=== PATIENT | female | born 1975 | race Caucasian/White ===

== ENCOUNTER 2017-11-02 09:16 | Day surgery (SDC) | payer SELFPAY ==
[2017-11-02] MEDS ORDERED: KETOROLAC 30 MG/ML INJ ONE (10:02)
[2017-11-02] MEDS ORDERED: NA CHLORIDE 0.9% 1,000 ML ONE ×3 (10:02→17:19)
[2017-11-02] MEDS ORDERED: ONDANSETRON 4 MG/2 ML VIAL ONE ×3 (10:02→17:11)
[2017-11-02 10:16] LABS: Absolute Lymphocytes (CBC) 1.5 K/uL (0.7-4.9); Absolute Monocytes 0.7 K/uL (0.1-1.3); Absolute Neutrophil 13.2 K/uL (1.8-8.0); Basophils % 0.7 % (0-1.3); Eosinophils % 0.6 % (0-4.4); Hematocrit 42.1 % (36.0-45.0); Lymphocytes % 9.5 % (15.3-44.8); MCH 29.7 pg (27.0-35.0); MCV 89.8 fL (80-100); MPV 8.4 fL (7.6-11.3); Monocytes % 4.5 % (3.3-12.3); RBC Red Blood Cell Count 4.69 M/uL (3.86-4.86)
[2017-11-02 10:39] LABS: Albumin 3.9 g/dL (3.2-5.5); Bilirubin Direct 0.1 mg/dL (0-0.2); Bilirubin Total 0.6 mg/dL (0.3-1.2); Protein, Total 6.8 g/dL (6.0-8.3)
[2017-11-02 10:50] LABS: Urine Blood NEGATIVE (NEG); Urine Glucose NEGATIVE (NEG); Urine Protein NEGATIVE (NEG)
--- NOTE | 2017-11-02 10:50 | RAD REPORT ---
EXAM DESCRIPTION: Denisse Single View11/02/2017 10:20 am CLINICAL HISTORY: cough COMPARISON: none FINDINGS: The lungs appear clear of acute infiltrate. The heart is normal size IMPRESSION: No acute abnormalities displayed
[2017-11-02 11:08] LABS: Urine Bacteria <20 /HPF (<20); Urine Culture Reflex Order NOT NEEDED; Urine Mucus 2+ /HPF (NONE SEEN); Urine RBC <5 /HPF (NONE SEEN)
[2017-11-02] MEDS ORDERED: LEVALBUTEROL 1.25 MG/3 ML NEB ONE (11:20)
--- NOTE | 2017-11-02 11:53 | RAD REPORT ---
EXAM DESCRIPTION: CT - Abdomen Pelvis W Contrast - 11/02/2017 11:00 am CLINICAL HISTORY: Abdominal pain, epigastric pain, diarrhea, pain and pressure with urination COMPARISON: CT study September 2015 TECHNIQUE: Biphasic, helical CT imaging of the abdomen and pelvis was performed following 100 ml non -ionic IV contrast. Oral contrast was given. All CT scans are performed using dose optimization technique as appropriate and may include automated exposure control or mA/KV adjustment according to patient size. FINDINGS: No suspicious findings in the lung bases. No pericardial thickening or effusion. The liver, spleen, and pancreas show no suspicious findings. Gallbladder and biliary tree are also wi thout suspicious finding. Gallstones can be occult on CT imaging. No CT findings for acute gallbladde r disease. Symmetric renal function is seen with no hydronephrosis or suspicious renal mass. No pyelonephritis o r acute renal parenchymal process. Urinary bladder is contracted limiting assessment. No bladder wall thickening or enhancement. Uterus and ovaries show no suspicious findings. The tip of the appendix is dilated to 12 mm. There is a trace amount of stranding in the adjacent fat along with a punctate 2 mm appendicolith. Near the base the appendix is normal in diameter. The tip of the appendix is positioned in the midline pelvis this appearance is a change from the 2016 study. Early appendicitis is suspected. No gastric dilatation or gastric wall thickening. Large and small bowel are otherwise unremarkable. N o free air, free fluid or pneumatosis. No other area of inflammatory stranding. No hernia, mass or b ulky lymphadenopathy. No adrenal abnormality. No suspicious bony findings. Findings discussed with the referring physician 11:48 a.m. IMPRESSION: Suspected early acute appendicitis at the tip of the appendix. The tip of the appendix is positioned in the midline of the pelvis 2 cm superior to the uterus. No ab scess, free air or complicating factor. No other acute finding. No acute process identified. Gallbladder is unremarkable.
[2017-11-02] MEDS ORDERED: METRONIDAZOLE 500mg IVPB 500 MG/100 ML BAG IV ONE (12:01)
[2017-11-02] MEDS ORDERED: PIPER/TAZO/NS 3.375gm 3.375 GM/100 ML BAG ONE (12:01)
[2017-11-02] MEDS ORDERED: MORPHINE 4 MG/ML SYR ONE (12:21)
--- NOTE | 2017-11-02 13:02 | ER ---
Nurse's Notes [facility] Name: Bette Rosas Age: 42 yrs Sex: Female : 1975 Arrival Date: 11/02/2017 Time: 09:18 Bed 5 Private MD: None, None Diagnosis: Acute appendicitis;Abdominal and pelvic pain Presentation: 11/02 09:29 Presenting complaint: Patient states: was being treated for possible pneumonia by [facility], has had cough, diarrhea, nausea. Was prescribed breathing tx, abx, nausea medicine, completed medications, last night started having epigastric pain radiating to lower abd, also is having left mid back pain and pressure when she urinates, also has been vomiting this morning. Transition of care: patient was not received from another setting of care. Onset of symptoms was November 01, 2017. Risk Assessment: Do you want to hurt yourself or someone else? Patient reports no desire to harm self or others. Initial Sepsis Screen: Does the patient meet any 2 criteria? No. Patient's initial sepsis screen is negative. Does the patient have a suspected source of infection? No. Patient's initial sepsis screen is negative. Care prior to arrival: None. 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 - Social history:: Smoking status: Patient uses tobacco products, smokes one pack cigarettes per day. - Ebola Screening: : Patient negative for fever greater than or equal to 101.5 degrees Fahrenheit, and additional compatible Ebola Virus Disease symptoms Patient denies exposure to infectious person Patient denies travel to an Ebola-affected area in the 21 days before illness onset No symptoms or risks identified at this time. Screenin:07 Abuse screen: Denies threats or abuse. Denies injuries from another. Nutritional iw screening: No deficits noted. Tuberculosis screening: No symptoms or risk factors identified. Fall Risk IV access (20 points). Assessment: 09:38 General: Appears uncomfortable, Behavior is calm, cooperative. Pain: Complains of pain iw in epigastric area Pain radiates to right lower quadrant and left lower quadrant Pain currently is 8 out of 10 on a pain scale. Neuro: Level of Consciousness is awake, alert, obeys commands, Oriented to person, place, time, situation, Moves all extremities. Full function. Cardiovascular: Patient's skin is warm and dry. Respiratory: Respiratory effort is even, unlabored, Respiratory pattern is regular, symmetrical. Respiratory: Reports cough that is productive. GI: Abdomen is non-distended, obese, Bowel sounds present X 4 quads. Parent/caregiver reports the patient having diarrhea, epigastric pain, vomiting. Derm: Skin is pink, warm \T\ dry. normal. Musculoskeletal: Range of motion: intact in all extremities. 11:04 Reassessment: Patient appears in no apparent distress at this time. Patient and/or iw family updated on plan of care and expected duration. Pain level reassessed. Patient is alert, oriented x 3, equal unlabored respirations, skin warm/dry/pink. pt transported back to bed [address], via wheelchair. 13:01 Reassessment: Patient appears in no apparent distress at this time. Patient and/or iw family updated on plan of care and expected duration. Pain level reassessed. Patient is alert, oriented x 3, equal unlabored respirations, skin warm/dry/pink. pt has been consented for surgery by Dr. Jennings, Zosyn infusion flowing freely yo LAC, family at bedside Patient states feeling better. Patient states symptoms have improved. 14:15 Reassessment: Patient appears in no apparent distress at this time. Patient and/or iw family updated on plan of care and expected duration. Pain level reassessed. Patient is alert, oriented x 3, equal unlabored respirations, skin warm/dry/pink. waiting for pt to be sent to OR Patient states feeling better. Patient states symptoms have improved. 14:46 Reassessment: Patient appears in no apparent distress at this time. Patient and/or iw family updated on plan of care and expected duration. Pain level reassessed. Patient is alert, oriented x 3, equal unlabored respirations, skin warm/dry/pink. pt c/o feeling of indigestion, ERP notified, verbal order given for Protonix 40 mg IVP, given now. 14:52 Reassessment: Patient appears in no apparent distress at this time. iw Vital Signs: 09:38 BP 133 / 84; Pulse 93; Resp 18 S; Temp 98.2; Pulse Ox 98% on R/A; Weight 99.79 kg; iw Height 5 ft. 5 in. (165.10 cm); Pain 8/10; 10:30 BP 123 / 89; Pulse 64; Resp 18; Pulse Ox 100% on R/A; ag 11:30 BP 104 / 75; Pulse 64; Resp 18; Pulse Ox 100% on R/A; ag 12:32 BP 109 / 80; Pulse 78; Resp 18; Pulse Ox 96% on R/A; ag 14:15 BP 107 / 60; Pulse 67; Resp 16 S; Pulse Ox 98% on R/A; iw 09:38 Body Mass Index 36.61 (99.79 kg, 165.10 cm) iw ED Course: 09:18 Patient arrived in ED. mr 09:19 None, None is Private Physician. mr 09:29 Valerie Anne, RN is Primary Nurse. iw 09:38 Triage completed. iw 09:38 Arm band placed on. iw 09:40 Patient has correct armband on for positive identification. iw 09:47 Charlie Quigley MD is Attending Physician. kdr 10:07 Initial lab(s) drawn, by me, sent to lab. Inserted saline lock: 20 gauge in left iw antecubital area, using aseptic technique. Blood collected. 10:17 X-ray completed. Portable x-ray completed in exam room. Patient tolerated procedure jb2 well. 10:18 CXR XRAY In Process Unspecified. EDMS 10:31 Radiology exam delayed due to lab results not completed at this time. (BUN/Creatinine). sj 10:[address] via wheelchair. vm2 10:59 CT completed. Patient tolerated procedure well. Patient moved back from CT. vm2 11:00 CT Abd/Pelvis - W/Contrast In Process Unspecified. EDMS 13:01 Gavin Jennings MD is Hospitalizing Provider. kdr 15:14 No provider procedures requiring assistance completed. Patient admitted, IV remains in iw place. Administered Medications: 10:21 Drug: NS 0.9% 1000 ml Route: IV; Rate: 1 bolus; Site: left antecubital; iw 10:21 Drug: TORadol 30 mg Route: IVP; Site: left antecubital; iw 11:00 Follow up: Response: No adverse reaction iw 10:21 Drug: Zofran 4 mg Route: IVP; Site: left antecubital; iw 11:00 Follow up: Response: No adverse reaction iw 11:23 Drug: Xopenex (3) 1.25 mg Route: Inhalation; iw 12:00 Drug: Flagyl 500 mg Volume: 100 ml; Route: IVPB; Rate: 200 ml/hr; Infused Over: 30 iw mins; Site: left antecubital; 12:23 Drug: morphine 4 mg Route: IVP; Site: left antecubital; iw 13:05 Follow up: Response: No adverse reaction; Pain is decreased iw 12:24 Drug: Zofran 4 mg Route: IVP; Site: left antecubital; iw 13:06 Follow up: Response: No adverse reaction iw 12:33 Drug: Zosyn 3.375 grams Route: IVPB; Infused Over: 60 mins; Site: left antecubital; iw 13:42 Follow up: IV Status: Completed infusion iw 14:46 Drug: ProTONIX 40 mg Route: IVP; Site: left forearm; iw 15:18 Follow up: Response: No adverse reaction iw 14:51 Drug: NS 0.9% 500 ml Route: IV; Rate: bolus; Site: left forearm; iw 15:08 Drug: NS 0.9% 1000 ml Route: IV; Rate: 125 ml/hr; Site: left forearm; iw 15:17 Follow up: IV Status: Infusion continued upon admission iw Outcome: 13:01 Decision to Hospitalize by Provider. kdr 15:14 Admitted to OR accompanied by tech, via wheelchair, Report called to Denisha Marcus RN iw 15:14 Condition: good 15:14 Discharge instructions given to patient, family, Instructed on the need for admit, Demonstrated understanding of instructions. 15:15 Patient left the ED. Signatures: Dispatcher [employer] EDCharlie Macias MD MD kdr Rivera, Maria mr Buechter, Vasu Ruiz, Valerie Damon RN RN iw Tarik, Salma Hennessy, Rere [facility]
--- NOTE | 2017-11-02 13:02 | EDPHYS ---
Physician Documentation [facility] Name: Bette Rosas Age: 42 yrs Sex: Female : 1975 Arrival Date: 11/02/2017 Time: 09:18 Bed 5 Private MD: None, None ED Physician Charlie Quigley HPI: 11/02 21:41 This 42 yrs old Female presents to ER via Wheelchair with complaints of kdr Vomiting, Abdominal Pain. 21:41 The patient presents to the emergency department with nausea, that is mild, vomiting, kdr that is intermittent, abdominal pain, of the abdomen diffusely. Onset: The symptoms/episode began/occurred last night. Possible causes: unknown. The symptoms are aggravated by movement, pressure, food , The symptoms are alleviated by nothing. remaining still. Associated signs and symptoms: Pertinent positives: abdominal pain, nausea, vomiting. Severity of symptoms: At their worst the symptoms were moderate in the emergency department the symptoms are unchanged. The patient has not experienced similar symptoms in the past. The patient has been recently seen by a physician: Sent from local clinic where she was thought to have penumonia. The pain begins in her epigastric region and radiates to there bilateral groins. 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 - Social history:: Smoking status: Patient uses tobacco products, smokes one pack cigarettes per day. - Ebola Screening: : Patient negative for fever greater than or equal to 101.5 degrees Fahrenheit, and additional compatible Ebola Virus Disease symptoms Patient denies exposure to infectious person Patient denies travel to an Ebola-affected area in the 21 days before illness onset No symptoms or risks identified at this time. ROS: 21:41 Constitutional: Negative for fever, chills, and weight loss, Eyes: Negative for injury, kdr pain, redness, and discharge, ENT: Negative for injury, pain, and discharge, Neck: Negative for injury, pain, and swelling, Cardiovascular: Negative for chest pain, palpitations, and edema, Respiratory: Negative for shortness of breath, cough, wheezing, and pleuritic chest pain, Back: Negative for injury and pain, : Negative for injury, bleeding, discharge, and swelling, MS/Extremity: Negative for injury and deformity, Skin: Negative for injury, rash, and discoloration, Neuro: Negative for headache, weakness, numbness, tingling, and seizure activity. Psych: Negative for depression, anxiety, suicide ideation, homicidal ideation, and hallucinations, Allergy/Immunology: Negative for hives, rash, and allergies, Endocrine: Negative for neck swelling, polydipsia, polyuria, polyphagia, and marked weight changes, Hematologic/Lymphatic: Negative for swollen nodes, abnormal bleeding, and unusual bruising. 21:41 Abdomen/GI: Positive for abdominal pain, nausea and vomiting, Negative for vomiting, diarrhea, constipation, abdominal cramps, abdominal distension, anorexia, dysphagia, hematemesis, black/tarry stool, rectal pain, rectal bleeding, bowel incontinence. Exam: 21:41 Constitutional: This is a well developed, well nourished patient who is awake, alert, kdr and in no acute distress. Head/Face: Normocephalic, atraumatic. Eyes: Pupils equal round and reactive to light, extra-ocular motions intact. Lids and lashes normal. Conjunctiva and sclera are non-icteric and not injected. Cornea within normal limits. Periorbital areas with no swelling, redness, or edema. Neck: Trachea midline, no thyromegaly or masses palpated, and no cervical lymphadenopathy. Supple, full range of motion without nuchal rigidity, or vertebral point tenderness. No Meningismus. Chest/axilla: Normal chest wall appearance and motion. Nontender with no deformity. No lesions are appreciated. Cardiovascular: Regular rate and rhythm with a normal S1 and S2. No gallops, murmurs, or rubs. Normal PMI, no JVD. No pulse deficits. Respiratory: Lungs have equal breath sounds bilaterally, clear to auscultation and percussion. No rales, rhonchi or wheezes noted. No increased work of breathing, no retractions or nasal flaring. Back: No spinal tenderness. No costovertebral tenderness. Full range of motion. Skin: Warm, dry with normal turgor. Normal color with no rashes, no lesions, and no evidence of cellulitis. MS/ Extremity: Pulses equal, no cyanosis. Neurovascular intact. Full, normal range of motion. Neuro: Awake and alert, GCS 15, oriented to person, place, time, and situation. Cranial nerves II-XII grossly intact. Motor strength 5/5 in all extremities. Sensory grossly intact. Cerebellar exam normal. Normal gait. Psych: Awake, alert, with orientation to person, place and time. Behavior, mood, and affect are within normal limits. 21:41 Abdomen/GI: Inspection: abdomen appears normal, Bowel sounds: active, all quadrants, diminished, Palpation: soft, mild abdominal tenderness, in the right lower quadrant, left lower quadrant and abdomen diffusely, mass, is not appreciated, rebound tenderness, is not appreciated. Vital Signs: 09:38 BP 133 / 84; Pulse 93; Resp 18 S; Temp 98.2; Pulse Ox 98% on R/A; Weight 99.79 kg; iw Height 5 ft. 5 in. (165.10 cm); Pain 8/10; 10:30 BP 123 / 89; Pulse 64; Resp 18; Pulse Ox 100% on R/A; ag 11:30 BP 104 / 75; Pulse 64; Resp 18; Pulse Ox 100% on R/A; ag 12:32 BP 109 / 80; Pulse 78; Resp 18; Pulse Ox 96% on R/A; ag 14:15 BP 107 / 60; Pulse 67; Resp 16 S; Pulse Ox 98% on R/A; iw 09:38 Body Mass Index 36.61 (99.79 kg, 165.10 cm) iw MDM: 13:01 Patient medically screened. kdr 21:41 Data reviewed: vital signs, nurses notes, lab test result(s), radiologic studies. kdr Counseling: I had a detailed discussion with the patient and/or guardian regarding: the historical points, exam findings, and any diagnostic results supporting the discharge/admit diagnosis, lab results, radiology results, the need for further work-up and treatment in the hospital. 11/02 09:56 Order name: Basic Metabolic Panel; Complete Time: 11:04 kdr 11/02 09:56 Order name: CBC with Diff; Complete Time: 11:04 kdr 11/02 09:56 Order name: Creatinine for Radiology; Complete Time: 11:04 kdr 11/02 09:56 Order name: Hepatic Function; Complete Time: 11:04 kdr 11/02 09:56 Order name: Lipase; Complete Time: 11:04 kdr 11/02 09:56 Order name: Urine Microscopic Only kdr 11/02 09:56 Order name: CXR XRAY; Complete Time: 11:04 [facility] 11/02 09:56 Order name: CT Abd/Pelvis - W/Contrast kdr 11/02 10:17 Order name: Urine Dipstick--Ancillary (enter results); Complete Time: 11:04 11/02 10:17 Order name: Urine --Ancillary (enter results); Complete Time: 11:04 11/02 09:56 Order name: Urine Test (obtain specimen); Complete Time: 10:22 kdr 11/02 09:56 Order name: IV Saline Lock; Complete Time: 10:03 [facility] 11/02 09:56 Order name: Labs collected and sent; Complete Time: 10:03 [facility] 11/02 09:56 Order name: Urine Dipstick-Ancillary (obtain specimen); Complete Time: 10: [facility] 11/02 13:05 Order name: NPO; Complete Time: 13:42 EDMS Administered Medications: 10:21 Drug: NS 0.9% 1000 ml Route: IV; Rate: 1 bolus; Site: left antecubital; iw 10:21 Drug: TORadol 30 mg Route: IVP; Site: left antecubital; iw 11:00 Follow up: Response: No adverse reaction iw 10:21 Drug: Zofran 4 mg Route: IVP; Site: left antecubital; iw 11:00 Follow up: Response: No adverse reaction iw 11:23 Drug: Xopenex (3) 1.25 mg Route: Inhalation; iw 12:00 Drug: Flagyl 500 mg Volume: 100 ml; Route: IVPB; Rate: 200 ml/hr; Infused Over: 30 iw mins; Site: left antecubital; 12:23 Drug: morphine 4 mg Route: IVP; Site: left antecubital; iw 13:05 Follow up: Response: No adverse reaction; Pain is decreased iw 12:24 Drug: Zofran 4 mg Route: IVP; Site: left antecubital; iw 13:06 Follow up: Response: No adverse reaction iw 12:33 Drug: Zosyn 3.375 grams Route: IVPB; Infused Over: 60 mins; Site: left antecubital; iw 13:42 Follow up: IV Status: Completed infusion iw 14:46 Drug: ProTONIX 40 mg Route: IVP; Site: left forearm; iw 15:18 Follow up: Response: No adverse reaction iw 14:51 Drug: NS 0.9% 500 ml Route: IV; Rate: bolus; Site: left forearm; iw 15:08 Drug: NS 0.9% 1000 ml Route: IV; Rate: 125 ml/hr; Site: left forearm; iw 15:17 Follow up: IV Status: Infusion continued upon admission iw Disposition: 11/02/17 13:01 Hospitalization ordered by Gavin Jennings for Observation. Preliminary diagnosis are Acute appendicitis, Abdominal and pelvic pain. - Bed requested for Telemetry/MedSurg (observation). - Status is Observation. iw - Condition is Fair. - Problem is new. - Symptoms have improved. UTI on Admission? No Signatures: Dispatcher [employer] EDMS Nesha Seals Kevin, MD MD kdr Valerie Anne RN RN iw Corrections: (The following items were deleted from the chart) 14:57 13:01 Hospitalization Ordered by Gavin Jennings MD for Observation. Preliminary diagnosis bd is Acute appendicitis; Abdominal and pelvic pain. Bed requested for Operating Room. Status is Observation. Condition is Fair. Problem is new. Symptoms have improved. UTI on Admission? No. kdr 15:15 14:57 11/02/2017 13:01 Hospitalization Ordered by Gavin Jennings MD for Observation. iw Preliminary diagnosis is Acute appendicitis; Abdominal and pelvic pain. Bed requested for Telemetry/MedSurg (observation). Status is Observation. Condition is Fair. Problem is new. Symptoms have improved. UTI on Admission? No. bd
[2017-11-02] MEDS ORDERED: ONDANSETRON 4 MG/2 ML VIAL IV PRN (13:04)
[2017-11-02] MEDS ORDERED: ACETAMINOPHEN 500 MG TAB PO PRN (13:04)
[2017-11-02] MEDS ORDERED: MORPHINE 4 MG/ML SYR IV PRN (13:04)
[2017-11-02] MEDS ORDERED: D5 0.45 NS 1,000 ML IV SCH (14:00)
[2017-11-02] MEDS ORDERED: PANTOPRAZOLE 40 MG INJ ONE (14:44)
[2017-11-02] MEDS ORDERED: BUPIVACA 0.25%/EPI 0.0005%/PF 30 ML VIAL ONE (15:43)
[2017-11-02] MEDS ORDERED: SUCCINYLCHOLINE 20 MG/ML (10 ML) IV ONE (15:45)
[2017-11-02] MEDS ORDERED: PROPOFOL 200 MG/20 ML VIAL IV ONE (15:48)
[2017-11-02] MEDS ORDERED: FENTANYL CITR 250 MCG/5 ML ONE (15:48)
[2017-11-02] MEDS ORDERED: MIDAZOLAM HCL 2 MG/2 ML INJ ONE (15:48)
[2017-11-02] MEDS ORDERED: ROCURONIUM 50 MG/5 ML VIAL IV ONE (16:04)
[2017-11-02] MEDS ORDERED: GLYCOPYRROLATE 0.2 MG/ML SYR ONE ×2 (16:10→16:54)
--- NOTE | 2017-11-02 16:53 | HP ---
Date of Admission: 11/02/2017 Brief History Of Present Illness: The patient is a 42-year-old female, who presents with approximate ly 1-day history of periumbilical now right lower quadrant abdominal pain associated with nausea, vom iting, fever, chills, and diarrhea. She has not had similar episodes before in the past, but has had chronic intermittent diarrhea by her description over the past several weeks. She had no other aggr avating or alleviating factors. No sick contacts. No recent travel. Past Medical History: Significant for asthma and a tubal . She has a history of epilepsy, but she does not take medication for this. Past Surgical History: She has had a tubal ligation. She is uncertain, but believes she may have benitez d a D and C for her tubal . Allergies: NO KNOWN DRUG ALLERGIES. Medications: None. Social History: Denies recreational drug use. She has a history of alcohol use on a daily basis, st reet drugs including marijuana, and smokes regularly about a pack per day of cigarettes. Review of Systems: Other than HPI, she has had some intermittent fever and chills. She has had some respiratory complai nts for which she was placed on antibiotics by her primary care doctor several weeks ago. She cannot recall the medications and she has had intermittent chronic alternating diarrhea with constipation, but her current symptoms are unlike. All these prior symptoms as described. Physical Examination: General: She is awake, alert, and oriented. Psychiatric: She is appropriate, conversive. HEENT: She is normocephalic. Her sclerae are anicteric. Her mucosa is moist. Her oropharynx is cl ear. Neck: Supple without JVD. Chest: Normal expansion and excursion. Cardiovascular: Regular rate and rhythm. Pulmonary: Clear to auscultation bilaterally. Abdomen: Soft with mild right lower quadrant focal peritonitis and tenderness to palpation. Her abd omen is obese generally. Extremities: No clubbing, cyanosis, or edema. Skin: Warm and dry. Laboratory Data: Reveals a white blood count 15.6, hemoglobin 13.9 over hematocrit of 42.1, platelet count is 288, neutrophils 84.7%. Sodium 136, potassium 4.0, chloride 107, carbon dioxide 24, BUN 13 , creatinine 0.8, glucose is 114. Total bilirubin 0.6, direct component is 0.1. AST 17, ALT 20, alk phos is 65. Lipase is 18. UA was essentially negative. Urine test negative. She had a CT scan performed of the abdomen and pelvis. The official read states that the patient has suspected early acute appendicitis at the tip of the appendix. The tip of the appendix is positioned in the m idline of the pelvis 2 cm superior to the uterus. No abscess, free air, or complicating factor. No other acute findings. No acute process identified. Gallbladder is unremarkable. Assessment And Plan: This is a 42-year-old female, who presents with signs and symptoms of an early acute appendicitis. 1.IV fluid hydration. 2.Antibiotic coverage. 3.I have explained risks, benefits, and alternatives of laparoscopic, possible open appendectomy inc luding, but not limited to bleeding, infection, damage to surrounding tissue, need for further operat ing procedures. She agrees to proceed as indicated. ZARA/LATONYA Voice ID: [id number]
[2017-11-02] MEDS ORDERED: NEOSTIGMINE 1 MG/ML -5 ML SYRINGE ONE (16:54)
--- NOTE | 2017-11-02 17:01 | P.OP ---
Preoperative diagnosis: Acute Appendicitis Postoperative diagnosis: Acute Non-Perforated Appendicitis Primary procedure: Laparoscopic Appendectomy Anesthesia: GETA + Local Estimated blood loss: 75cc Specimen: vermiform appendix Findings: acute tip appendicitis, bleeding from LLQ trocar site Complications: None Transferred to: Recovery Room Condition: Good
[2017-11-02] MEDS ORDERED: ALBUTEROL 2.5 MG/3 ML NEB SOL ONE (17:16)
[2017-11-02] MEDS ORDERED: MEPERIDINE HCL 25 MG/0.5 ML ONE (17:24)
[2017-11-02] MEDS ORDERED: PROMETHAZINE 25 MG/ML VIAL ONE (17:28)
[2017-11-02] MEDS ORDERED: ALBUTEROL 2.5 MG/3 ML NEB SOL NEB ONE (17:34)
[2017-11-02] MEDS ORDERED: HYDROCODONE/APAP 5/325 MG TAB ONE (18:34)
[2017-11-02] MEDS ORDERED: CODEINE 30MG/APAP 300MG TAB ONE (18:44)
--- NOTE | 2017-11-02 21:21 | OP ---
Date of Procedure: 11/02/2017 Surgeon: Gavin Jennings MD, Preoperative Diagnosis: Acute appendicitis. Postoperative Diagnosis: Acute nonperforated appendicitis. Primary Procedure: Laparoscopic appendectomy. Anesthesia: General endotracheal plus local. Estimated Blood Loss: 75 cc. Specimen: Vermiform appendix. Findings: 1.Acute tip appendicitis. 2.Acute arterial bleeding from trocar site noted on the end of the procedure. Complications: None. Disposition: Transferred to recovery room in good condition. Procedure In Detail: After informed consent was obtained, the patient was brought to the operating r oom, prepped and draped in the usual sterile fashion. After adequate anesthesia was achieved, an inf raumbilical area was anesthetized with 0.25% Marcaine, sharply incised. A 5-mm trocar was introduced in the abdomen without evidence of complication in the infraumbilical position after insufflation wa s obtained at 15 mmHg. The area was inspected. There was no injury to vital structures upon entry i n the abdomen at this time. Additional trocar site was chosen in the suprapubic region. This was si milarly anesthetized and sharply incised. A 5-mm trocar was introduced in the abdomen without eviden ce of complication. The umbilical trocar was then up-sized to 12 mm under direct visualization witho ut evidence of complication. Left lower quadrant site was noted at this time to be optimal for troca r placement. This was similarly anesthetized and sharply incised. A 5-mm trocar was introduced in t he abdomen without evidence of complication. The patient was then positioned in a head down, right s valarie up position. Ratcheted grasper was used to grasp the patient's cecum and elevate. The appendix was brought into view. The finding was consistent with acute appendicitis emanating from the tip. T here were some intraabdominal adhesions associated with this tip. Appendicitis noted to be near the uterus. The uterus did have fibroids and some cystic changes to the ovary as well bilaterally. The cysts were quite small and appeared benign, and there was no bleeding from the fibroids of the uterus at this time. After the appendix was grasped and elevated, a mesoappendiceal window was created wit h the [place] retractor. Endo MICHELLE 35 blue load was fired across the base of the appendix with good approximation of the tissues. The appendix was then elevated and the mesoappendix was taken down usi ng a LigaSure device with good hemostasis. The appendix was then placed in EndoCatch bag and removed through the umbilical trocar. Re-insufflation was obtained at this time. The area was inspected. Proper hemostasis was achieved after the additional hemostatic maneuvers. The staple line was found to be intact and without any leakage at the end of the procedure. The area was copiously irrigated m ultiple times and suctioned dry. The abdomen was then inspected 1 last time in neutral position and the remaining fluid was suctioned out. Additional irrigation was performed at this time and a small amount of irrigation was left in place at this time. The umbilical trocar was then removed and the u mbilical trocar site was closed using a Cayden-Garcia suture passer with an 0 Vicryl interrupted fa shion. The left lower quadrant trocar was then removed under direct visualization under desufflation and noted to have arterial bleeding with a spurting arterial vessel bleeding into the abdomen. Ther e was approximately 50, 60, or 70 cc of blood loss during the bleeding from this port site, and hemos tasis was achieved by placing the Cayden Santo suture passer through passing an 0 Vicryl in interr upted fashion with good approximation. Hemostasis was achieved at that time. The blood was then suc tioned out after replacing a 5 mm trocar through the previous umbilical trocar site and the area was copiously irrigated and suctioned dry and the clot was evacuated. The 5 mm trocar was then removed a nd the umbilical trocar site was once again closed using a Cayden-Garcia suture passer with 0 Vicry l in interrupted fashion with good approximation of tissues. The abdomen was then completely desuffl ated under direct visualization without evidence of complication. All trocars were then removed at t his time. All skin incisions were copiously irrigated and closed with a 4-0 Monocryl in a running fa shion. Dermabond was placed over top. The patient tolerated the procedure well without evidence of complication and transferred to PACU in good condition. All counts were correct at the end of the ca se. TK/MODL Voice ID: [id number] Report ID: [id number]
== END 2017-11-02 19:55 | disposition home or self-care (01) ==
LOC: ER 09:16 → ERHOLD 13:03 → UNDOADMOB 13:03 → EDSTATUS 13:08 → 4TH 15:02 → ERHOLD 15:02 → UNDODISOB 19:28 → ER 19:29
PROVIDERS: ATTEND Surgery
PROC: 0DTJ4ZZ Resection of Appendix, Percutaneous Endoscopic Approach (ICD-10-PCS; principal; 2017-11-02 15:30)
DX: K35.80 Unspecified acute appendicitis (principal); J45.909 Unspecified asthma, uncomplicated; G40.909 Epilepsy, unspecified, not intractable, without status epilepticus; E66.01 Morbid (severe) obesity due to excess calories; F17.210 Nicotine dependence, cigarettes, uncomplicated; F12.90 Cannabis use, unspecified, uncomplicated
CPT/HCPCS: 36415; 71045; 74177; 80048; 80076; 81003; 81015; 81025; 83690; 85025; 88304; 94640; 99285; C9113; J0330; J2175; J2250; J2405; J2543; J2550; J2710; J7030; Q9967

== ENCOUNTER 2017-11-03 07:12 | Emergency (ER) | payer SELFPAY ==
[2017-11-03 08:19] LABS: Urine Bacteria <20 /HPF (<20); Urine Culture Reflex Order NOT NEEDED; Urine RBC <5 /HPF (NONE SEEN)
[2017-11-03 08:20] LABS: Urine Blood NEGATIVE (NEG); Urine Glucose NEGATIVE (NEG); Urine Protein NEGATIVE (NEG)
[2017-11-03 08:26] LABS: Absolute Lymphocytes (CBC) 1.9 K/uL (0.7-4.9); Absolute Monocytes 0.6 K/uL (0.1-1.3); Absolute Neutrophil 7.5 K/uL (1.8-8.0); Basophils % 0.6 % (0-1.3); Eosinophils % 0.9 % (0-4.4); Hematocrit 33.4 % (36.0-45.0); Lymphocytes % 18.4 % (15.3-44.8); MCH 30.4 pg (27.0-35.0); MCV 91.4 fL (80-100); MPV 8.4 fL (7.6-11.3); Monocytes % 6.1 % (3.3-12.3); RBC Red Blood Cell Count 3.65 M/uL (3.86-4.86)
[2017-11-03 08:39] LABS: Potassium 3.2 mEq/L (3.6-5.0)
[2017-11-03] MEDS ORDERED: NA CHLORIDE 0.9% 1,000 ML ONE (09:01)
[2017-11-03] MEDS ORDERED: ACETAMINOPHEN 325 MG TABLET ONE (09:40)
--- NOTE | 2017-11-03 11:42 | EDPHYS ---
Physician Documentation [facility] Name: Bette Rosas Age: 42 yrs Sex: Female : 1975 Arrival Date: 11/03/2017 Time: 07:16 Bed 18 Private MD: None, None ED Physician Nato Cha HPI: 11/03 11:43 This 42 yrs old Female presents to ER via Ambulatory with complaints of gs SUTURE OPENED UP FROM APPENDIX SURGERY. 11:43 Patient presents to ED for recheck of: LAP SURGERY FOR APPY. The affected area is on gs the left lower quadrant. Progress: The patient reports decreased drainage, pain. The patient has not experienced similar symptoms in the past. The patient has been recently been admitted at [facility], was discharged yesterday. 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 - Social history:: Smoking status: Patient uses tobacco products, smokes one pack cigarettes per day. - Ebola Screening: : No symptoms or risks identified at this time. ROS: 11:43 All other systems are negative. gs Exam: 11:43 Head/Face: Normocephalic, atraumatic. Eyes: Pupils equal round and reactive to light, gs extra-ocular motions intact. Lids and lashes normal. Conjunctiva and sclera are non-icteric and not injected. Cornea within normal limits. Periorbital areas with no swelling, redness, or edema. ENT: Nares patent. No nasal discharge, no septal abnormalities noted. Tympanic membranes are normal and external auditory canals are clear. Oropharynx with no redness, swelling, or masses, exudates, or evidence of obstruction, uvula midline. Mucous membranes moist. Neck: Trachea midline, no thyromegaly or masses palpated, and no cervical lymphadenopathy. Supple, full range of motion without nuchal rigidity, or vertebral point tenderness. No Meningismus. Chest/axilla: Normal chest wall appearance and motion. Nontender with no deformity. No lesions are appreciated. Cardiovascular: Regular rate and rhythm with a normal S1 and S2. No gallops, murmurs, or rubs. Normal PMI, no JVD. No pulse deficits. Respiratory: Lungs have equal breath sounds bilaterally, clear to auscultation and percussion. No rales, rhonchi or wheezes noted. No increased work of breathing, no retractions or nasal flaring. Back: No spinal tenderness. No costovertebral tenderness. Full range of motion. 11:43 Constitutional: The patient appears alert, awake, uncomfortable. 11:43 Abdomen/GI: Palpation: mild abdominal tenderness. 11:43 Skin: Appearance: ecchymosis, that are moderate, swelling, that are mild, EPIDERMOLYSIS AROUND PORT SITES. Vital Signs: 07:52 BP 118 / 68; Pulse 82; Resp 16; Temp 98.5(O); Pulse Ox 96% on R/A; Pain 9/10; em 08:45 BP 123 / 71; Pulse 75; Resp 16; Pulse Ox 98% on R/A; em 09:48 BP 119 / 71; Pulse 78; Resp 18; Pulse Ox 98% on R/A; em MDM: 07:32 Patient medically screened. gs 11:43 Data reviewed: vital signs, nurses notes. Response to treatment: the patient's symptoms gs have mildly improved after treatment. ED course: SOME RESIDUAL GAVE CHOICE WILL WAIT ON [facility]. 06 07:47 Order name: CBC with Diff; Complete Time: 08:52 11/03 07:47 Order name: Basic Metabolic Panel; Complete Time: 08:52 11/03 07:47 Order name: Urine Microscopic Only; Complete Time: 08:52 gs 11/03 07:49 Order name: Urine Dipstick--Ancillary (enter results); Complete Time: 08:52 11/03 07:49 Order name: Urine --Ancillary (enter results); Complete Time: 08:52 bd 11/03 07:47 Order name: Urine Dipstick-Ancillary (obtain specimen); Complete Time: 08:35 11/03 07:47 Order name: Misc. Order: bladder scan; Complete Time: 08:26 gs Administered Medications: 09:10 Drug: NS 0.9% 1000 ml Route: IV; Rate: 1 bolus; Site: left antecubital; em 12:36 Follow up: IV Status: Completed infusion; IV Intake: 1000ml em 09:43 Not Given (Physician Discretion): Aspen 5 mg-325 mg 1 tabs PO once em 09:43 Drug: Tylenol 650 mg Route: PO; em 12:36 Follow up: Response: No adverse reaction em Disposition: 11/03/17 11:41 Discharged to Home. Impression: Retention of urine, Postprocedural hemorrhage and hematoma of skin and subcutaneous tissue following a procedure. - Condition is Stable. - Prescriptions for Clindamycin HCl 150 mg Oral Capsule - take 1 capsule by ORAL route every 8 hours for 10 days; 15 capsule. Colace 100 mg Oral Tablet - take 1 tablet by ORAL route every 12 hours; 14 tablet. - Medication Reconciliation Form, Thank You Letter, Antibiotic Education, Prescription Opioid Use form. - Follow up: Private Physician; When: 2 - 3 days; Reason: Re-evaluation by your physician. Signatures: Dispatcher [employer] Yobany Mcmullen, Shanda Pack LVN RN RN aa5 Nato Cha MD MD gs Corrections: (The following items were deleted from the chart) 12:48 11:41 11/03/2017 11:41 Discharged to Home. Impression: Retention of urine; em Postprocedural hemorrhage and hematoma of skin and subcutaneous tissue following a procedure. Condition is Stable. Forms are Medication Reconciliation Form, Thank You Letter, Antibiotic Education, Prescription Opioid Use. Follow up: Private Physician; When: 2 - 3 days; Reason: Re-evaluation by your physician. gs
--- NOTE | 2017-11-03 11:42 | ER ---
Nurse's Notes [facility] Name: Bette Rosas Age: 42 yrs Sex: Female : 1975 Arrival Date: 11/03/2017 Time: 07:16 Bed 18 Private MD: None, None Diagnosis: Retention of urine;Postprocedural hemorrhage and hematoma of skin and subcutaneous tissue following a procedure Presentation: 11/03 07:20 Presenting complaint: Patient states: "I had an appendectomy by Dr. Jennings yesterday aa5 and I noticed this morning that one of the sutures came out from one of the incisions and it started bleeding". Pt also reports urinary frequency and painful urination since last night. Large dark purple bruising noted to entire abdomen. No active bleeding noted. 07:20 Method Of Arrival: Ambulatory aa5 07:20 Transition of care: patient was not received from another setting of care. Onset of aa5 symptoms was November 03, 2017. Risk Assessment: Do you want to hurt yourself or someone else? Patient reports no desire to harm self or others. Initial Sepsis Screen: Does the patient meet any 2 criteria? No. Patient's initial sepsis screen is negative. Does the patient have a suspected source of infection? No. Patient's initial sepsis screen is negative. Care prior to arrival: None. 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 - Social history:: Smoking status: Patient uses tobacco products, smokes one pack cigarettes per day. - Ebola Screening: : No symptoms or risks identified at this time. Screenin:10 Abuse screen: Denies threats or abuse. Nutritional screening: No deficits noted. em Tuberculosis screening: No symptoms or risk factors identified. Fall Risk None identified. Assessment: 07:35 General: Appears in no apparent distress. uncomfortable, Behavior is calm, cooperative, em appropriate for age, Reports wound from surgical site opened, large purple bruising noted to abd Denies fever, chills. Pain: Complains of pain in abdomen Pain currently is 9 out of 10 on a pain scale. Pain began 1 day ago. Neuro: Level of Consciousness is awake, alert, obeys commands, Oriented to person, place, time, situation. Cardiovascular: Capillary refill < 3 seconds Patient's skin is warm and dry. Respiratory: Airway is patent Respiratory effort is even, unlabored, Respiratory pattern is regular, symmetrical. GI: Abdomen is round obese, Bowel sounds present X 4 quads. Abdomen is tender to palpation in right upper quadrant and right lower quadrant. : Urine is clear. Derm: Bruising that is dark purple, on abdomen. Musculoskeletal: Range of motion: intact in all extremities. 07:35 Reassessment: I agree with assessment completed by Yobany Salguero LVN. 3 small incisions aa5 noted, no drainage noted at this time, pt reports suture came out from incision adjacent to umbilical area, incisions with edges well-approximated at this time. . : Reports pain with urination, urinary frequency. 08:06 Reassessment: Dr. Jennings at bedside. em 08:35 Reassessment: Patient appears in no apparent distress at this time. Patient and/or em family updated on plan of care and expected duration. Pain level reassessed. Patient is alert, oriented x 3, equal unlabored respirations, skin warm/dry/pink. 09:20 Reassessment: Patient appears in no apparent distress at this time. Patient and/or em family updated on plan of care and expected duration. Pain level reassessed. Patient is alert, oriented x 3, equal unlabored respirations, skin warm/dry/pink. c/o pain, Dr. Cha notified. 10:25 Reassessment: Patient and/or family updated on plan of care and expected duration. Pain em level reassessed. Patient is alert, oriented x 3, equal unlabored respirations, skin warm/dry/pink. resting comfortably with eyes open, tv on, lights dimmed. 10:44 Reassessment: Patient appears in no apparent distress at this time. awaiting pt to void.em 11:38 Reassessment: Patient appears in no apparent distress at this time. Patient and/or em family updated on plan of care and expected duration. Pain level reassessed. Patient is alert, oriented x 3, equal unlabored respirations, skin warm/dry/pink. Dr. Cha at bedside discussing POC Patient states feeling better. 11:50 Reassessment: Patient appears in no apparent distress at this time. pt instructed to em return to the ER if unable to void by this evening per Dr. Cha orders. 12:10 Reassessment: pt reports feeling like needing to void but unable to void, request Rush em catheter, Dr. Cha notified. Vital Signs: 07:52 BP 118 / 68; Pulse 82; Resp 16; Temp 98.5(O); Pulse Ox 96% on R/A; Pain 9/10; em 08:45 BP 123 / 71; Pulse 75; Resp 16; Pulse Ox 98% on R/A; em 09:48 BP 119 / 71; Pulse 78; Resp 18; Pulse Ox 98% on R/A; em ED Course: 07:16 Patient arrived in ED. sb2 07:16 None, None is Private Physician. sb2 07:20 Arm band placed on Patient placed in an exam room, on a stretcher. aa5 07:28 Nato Cha MD is Attending Physician. gs 07:34 Triage completed. aa5 07:35 Yobany Salguero LVN is Primary Nurse. em 08:00 Initial lab(s) drawn, by me, sent to lab. Urine collected: clean catch specimen, clear. em Inserted saline lock: 20 gauge in left antecubital area, using aseptic technique. Blood collected. 08:00 No provider procedures requiring assistance completed. em 08:28 Patient has correct armband on for positive identification. Placed in gown. Bed in low em position. Call light in reach. 09:07 Straight cath inserted, using sterile technique, 16 Fr. Specimen obtained. 600cc mh5 drained from SC. 11:14 Bladder scan completed. pre void 181 mL. em 11:16 Bladder scan completed. post void 272 mL. em 12:12 IV discontinued, intact, bleeding controlled, No redness/swelling at site. Pressure em dressing applied. 12:36 Rush cath inserted, using sterile technique, 16 Fr., by me, balloon inflated, other mh5 tolerated well emptied 600cc in rush bag . Replaced with a leg bag . returned. Administered Medications: 09:10 Drug: NS 0.9% 1000 ml Route: IV; Rate: 1 bolus; Site: left antecubital; em 12:36 Follow up: IV Status: Completed infusion; IV Intake: 1000ml em 09:43 Not Given (Physician Discretion): [place] 5 mg-325 mg 1 tabs PO once em 09:43 Drug: Tylenol 650 mg Route: PO; em 12:36 Follow up: Response: No adverse reaction em Intake: 08:30 IV: 500ml; Total: 500ml. em 12:36 IV: 1000ml; Total: 1500ml. em Outcome: 11:41 Discharge ordered by . 12:48 Discharged to home ambulatory. em 12:48 Condition: good 12:48 Discharge instructions given to patient, Instructed on discharge instructions, follow up and referral plans. medication usage, Demonstrated understanding of instructions, follow-up care, medications, Prescriptions given X 2. 12:48 Patient left the ED. em Signatures: Yobany Salguero, VILLA RISK LEAD em Shanda Camilo RN RN cha5 Tyrel, Pilar 5 Nato Cha MD MD gs Billeau, Sheri sb2 Corrections: (The following items were deleted from the chart) 08:05 07:52 BP 118 / 68; Pulse 82bpm; Resp 16bpm; Pulse Ox 96% RA; Pain 9/10; em em 14:59 07:35 GI: Abdomen is round obese, Bowel sounds present X 4 quads. Abdomen is tender to aa5 palpation in right upper quadrant and right lower quadrant Abd is rigid X 4 quads. em
--- NOTE | 2017-11-03 11:50 | P.PN ---
Subjective Date of Service: 11/03/17 Chief Complaint: abdominal incision leakage, urinary retention patient complains of redness, swelling and leakage from her inferior incision s/ p laparoscopic appendectomy, additionally she has urinary retention Physical Examination - Physical Exam General: Alert, In no apparent distress, Cooperative HEENT: Mucous membr. moist/pink Respiratory: Normal air movement Cardiovascular: No edema Gastrointestinal: Other (there is some fluid which is present at the inferior incision, there is edema to the skin of the abdomen, otherwise normal post op exam) - Studies Laboratory Data (last 24 hrs) 11/03/17 08:00: Sodium 137, Potassium 3.2 L, BUN 10, Creatinine 0.87, Glucose 112 11/03/17 08:00: WBC 10.2 D, Hgb 11.1 L D, Hct 33.4 L D, Plt Count 249 Assessment And Plan - Current Problems (Diagnosis) (1) Urinary retention with incomplete bladder emptying Current Visit: Yes Status: Acute Plan: - Patient has urinary retention after surgery yesterday - will place rush and see if she is able to void after - with respect to the abdominal exam I believe that she simply has some fluid from the significant irrigation in the OR which has moved into the subcutaneous space and is causing the edema - hemodynamically stable - post op instructions reviewed Rx for clindamycin given
== END 2017-11-03 12:48 | disposition home or self-care (01) ==
LOC: ER 07:12
DX: L76.22 Postprocedural hemorrhage of skin and subcutaneous tissue following other procedure (principal); Z98.890 Other specified postprocedural states; F17.210 Nicotine dependence, cigarettes, uncomplicated
CPT/HCPCS: 36415; 51702; 80048; 81003; 81015; 81025; 85025; 96360; 96361; 99284; J7030

== ENCOUNTER 2018-01-26 06:53 | Observation (INO) | payer OTHER, SELFPAY ==
[2018-01-26 07:52] LABS: Absolute Lymphocytes (CBC) 2.2 K/uL (0.7-4.9); Absolute Monocytes 0.5 K/uL (0.1-1.3); Basophils % 0.7 % (0-1.3); Eosinophils % 5.8 % (0-4.4); Hematocrit 39.8 % (36.0-45.0); Lymphocytes % 30.9 % (15.3-44.8); MCH 30.6 pg (27.0-35.0); MCV 88.8 fL (80-100); MPV 7.9 fL (7.6-11.3); Monocytes % 6.5 % (3.3-12.3); RBC Red Blood Cell Count 4.48 M/uL (3.86-4.86)
[2018-01-26] MEDS ORDERED: NITROGLYCERIN 1 GM PKT TD ONE (07:53)
[2018-01-26] MEDS ORDERED: ASPIRIN 81 MG CHEWABLE TABLET ONE (07:53)
[2018-01-26] MEDS ORDERED: NITROGLYCERIN 0.4 MG/TAB SL ONE (07:54)
[2018-01-26] MEDS ORDERED: LEVALBUTEROL 1.25 MG/3 ML NEB ONE (07:54)
[2018-01-26 08:14] LABS: ALT/SGPT 20 U/L (12-78); AST/SGOT 11 U/L (15-37); Albumin 3.2 g/dL (3.4-5.0); Alkaline Phosphatase 74 U/L (45-117); BUN Blood Urea Nitrogen 13 mg/dL (7-18); Bicarbonate 26 mmol/L (21-32); Bilirubin Direct < 0.1 mg/dL (0-0.2); Bilirubin Total 0.1 mg/dL (0.2-1.0); Glucose Level 96 mg/dL (74-106); Lipase 93 U/L (73-393); NT PRO-BNP 119 pg/mL (<125); Potassium 4.2 mmol/L (3.5-5.1); Protein, Total 6.3 g/dL (6.4-8.2); Sodium Level 141 mmol/L (136-145)
[2018-01-26 08:18] LABS: Protime INR 0.86
[2018-01-26] MEDS ORDERED: FAMOTIDINE 20 MG/2 ML VIAL IV ONE (09:11)
--- NOTE | 2018-01-26 09:16 | ER ---
Nurse's Notes [facility] Name: Bette Bravo Age: 42 yrs Sex: Female : 1975 Arrival Date: 01/26/2018 Time: 06:54 Bed 14 Private MD: Diagnosis: Chest Pain;Shortness of breath Presentation: 01/26 07:02 Presenting complaint: Patient states: body aches and fatigue x 3 days, chest tightness ss and L arm tingling since last night. Transition of care: patient was not received from another setting of care. Onset of symptoms was January 23, 2018. Risk Assessment: Do you want to hurt yourself or someone else? Patient reports no desire to harm self or others. Initial Sepsis Screen: Does the patient meet any 2 criteria? No. Patient's initial sepsis screen is negative. Does the patient have a suspected source of infection? No. Patient's initial sepsis screen is negative. Care prior to arrival: None. 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 - Social history:: Smoking status: Patient uses tobacco products, smokes one pack cigarettes per day. - Ebola Screening: : Patient denies exposure to infectious person Patient denies travel to an Ebola-affected area in the 21 days before illness onset. Screenin:30 Abuse screen: Denies threats or abuse. Denies injuries from another. Nutritional jl7 screening: No deficits noted. Tuberculosis screening: No symptoms or risk factors identified. Fall Risk IV access (20 points). Total Sam Fall Scale indicates No Risk (0-24 pts). Assessment: 07:30 General: Appears in no apparent distress. uncomfortable, Behavior is cooperative, jl7 appropriate for age, anxious. Pain: Complains of pain in mid-sternal area Pain radiates to left arm Pain currently is 10 out of 10 on a pain scale. Quality of pain is described as burning, tingling, numb, Pain began 2-3 days ago. Is continuous. Neuro: Level of Consciousness is awake, alert, obeys commands, Oriented to person, place, time, situation. Cardiovascular: Heart tones present Patient's skin is warm and dry. Respiratory: Airway is patent Respiratory effort is even, unlabored, Respiratory pattern is symmetrical, tachypnea Breath sounds with wheezes. GI: Abdomen is round non-distended, Bowel sounds present X 4 quads. Reports nausea, Patient currently denies diarrhea, vomiting. : No signs and/or symptoms were reported regarding the genitourinary system. EENT: No signs and/or symptoms were reported regarding the EENT system. Derm: Skin is pink, warm \T\ dry. Musculoskeletal: No signs and/or symptoms reported regarding the musculoskeletal system. 08:30 Reassessment: Patient appears in no apparent distress at this time. Patient and/or jl7 family updated on plan of care and expected duration. Pain level reassessed. Patient is alert, oriented x 3, equal unlabored respirations, skin warm/dry/pink. 09:18 Reassessment: Dr. Euceda at bedside discussing plan of care. 7 Vital Signs: 07:05 BP 136 / 93; Pulse 80; Resp 17; Temp 98.2(TE); Pulse Ox 99% on R/A; Weight 108.86 kg; Height 5 ft. 5 in. (165.10 cm); Pain 10/10; 07:50 BP 124 / 99; Pulse 72; Resp 16 S; Pulse Ox 99% on Nebulizer Mask; Pain 10/10; jl7 08:30 BP 110 / 76; Pulse 70; Resp 16; Pulse Ox 100% on 2 lpm NC; jl7 09:00 BP 110 / 71; Pulse 70; Resp 16 S; Pulse Ox 97% on R/A; jl7 10:25 BP 111 / 74; Pulse 73; Resp 16 S; Pulse Ox 99% on R/A; jl7 07:05 Body Mass Index 39.94 (108.86 kg, 165.10 cm) ED Course: 06:54 Patient arrived in ED. am2 07:04 Triage completed. 07:05 Trent Reeves MD is Attending Physician. mi 07:05 Arm band placed on right wrist. 07:29 Basia Rae RN is Primary Nurse. jl7 07:30 Patient has correct armband on for positive identification. Placed in gown. Bed in low jl7 position. Call light in reach. Side rails up X 1. site monitor on. Pulse ox on. NIBP on. Warm blanket given. 07:45 Initial lab(s) drawn, by me, sent to lab. Urine collected: clean catch specimen, clear. jl7 Inserted saline lock: 20 gauge in left antecubital area, using aseptic technique. Blood collected. 07:45 Oxygen administration via nasal cannula \T\ 2L/min. jl 07:53 XRAY CXR (1 view) In Process Unspecified. EDMS 07:53 X-ray completed. Portable x-ray completed in exam room. Patient tolerated procedure jb2 well. 09:14 Kamaljit Euceda DO is Hospitalizing Provider. wa 10:35 No provider procedures requiring assistance completed. Patient admitted, IV remains in jl7 place. intact, No redness/swelling at site. Administered Medications: 07:50 Drug: Aspirin Chewable Tablet 324 mg Route: PO; jl7 09:13 Follow up: Response: No adverse reaction jl7 07:51 Drug: Xopenex (3) 1.25 mg Route: Inhalation; jl7 08:20 Follow up: Response: No adverse reaction jl7 07:55 Drug: Nitroglycerin 0.4 mg Route: Sublingual; jl7 08:25 Follow up: Response: No adverse reaction; Pain is unchanged, physician notified jl7 09:05 Drug: Pepcid 20 mg Route: IVP; Site: left antecubital; jl7 09:19 Follow up: Response: No adverse reaction [facility] Outcome: 09:15 Decision to Hospitalize by Provider. wa 10:34 Admitted to Tele accompanied by tech, family with patient, via wheelchair, room 427, jl7 with chart, Report called to Floor nurse 10:34 Condition: stable 10:34 Discharge instructions given to patient, family, Instructed on the need for admit, Demonstrated understanding of instructions. 10:38 Patient left the ED. jl Signatures: Dispatcher [employer] EDMS Vasu Ramos jb2 Susan Ruiz RN RN Basia Rae RN RN jl7 Lucy Soares am2 Trent Reeevs MD MD wa
--- NOTE | 2018-01-26 09:16 | EDPHYS ---
Physician Documentation [facility] Name: Bette Bravo Age: 42 yrs Sex: Female : 1975 Arrival Date: 01/26/2018 Time: 06:54 Bed 14 Private MD: ED Physician Trent Reeves HPI: 01/26 07:17 This 42 yrs old Female presents to ER via Ambulatory with complaints of Chest wa Pain > 30 y/o, Numbness Of Arm. 07:17 The patient or guardian reports chest pain that is located primarily in the substernal wa area. Onset: last night. 07:20 The pain radiates to the left arm. Associated signs and symptoms: Pertinent positives: wa cough, shortness of breath, Pertinent negatives: abdominal pain, diaphoresis, lightheadedness, palpitations, vomiting. The chest pain is described as a pressure. Duration: The patient or guardian reports a single episode, that is still ongoing, and worsening. Modifying factors: The symptoms are alleviated by nothing. the symptoms are aggravated by nothing. Severity of pain: At its worst the pain was moderate in the emergency department the pain is actually worse. The patient has not experienced similar symptoms in the past. The patient has not recently seen a physician. states chest pain began last night while smoking a cigarette. has been on-going since. now radiating down L arm. 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 - Social history:: Smoking status: Patient uses tobacco products, smokes one pack cigarettes per day. - Ebola Screening: : Patient denies exposure to infectious person Patient denies travel to an Ebola-affected area in the 21 days before illness onset. ROS: 07:22 Constitutional: Negative for fever, chills, and weight loss, Eyes: Negative for injury, wa pain, redness, and discharge, ENT: Negative for injury, pain, and discharge, Neck: Negative for injury, pain, and swelling, Back: Negative for injury and pain, : Negative for injury, bleeding, discharge, and swelling, MS/Extremity: Negative for injury and deformity, Skin: Negative for injury, rash, and discoloration, Neuro: Negative for headache, weakness, numbness, tingling, and seizure, Psych: Negative for depression, anxiety, suicide ideation, homicidal ideation, and hallucinations. 07:22 Cardiovascular: Positive for chest pain, Negative for edema, orthopnea, palpitations, paroxysmal nocturnal dyspnea. 07:22 Respiratory: Positive for cough, with no reported sputum, dyspnea on exertion, shortness of breath, on exertion. wheezing, Negative for hemoptysis, orthopnea, pleurisy. 07:22 Abdomen/GI: Positive for diarrhea, chronic, Negative for abdominal pain, nausea, vomiting. 07:22 All other systems are negative. Exam: 07:23 Head/Face: Normocephalic, atraumatic. Eyes: Pupils equal round and reactive to light, wa extra-ocular motions intact. Lids and lashes normal. Conjunctiva and sclera are non-icteric and not injected. Cornea within normal limits. Periorbital areas with no swelling, redness, or edema. ENT: Nares patent. No nasal discharge, no septal abnormalities noted. Tympanic membranes are normal and external auditory canals are clear. Oropharynx with no redness, swelling, or masses, exudates, or evidence of obstruction, uvula midline. Mucous membranes moist. Neck: Trachea midline, no thyromegaly or masses palpated, and no cervical lymphadenopathy. Supple, full range of motion without nuchal rigidity, or vertebral point tenderness. No Meningismus. Chest/axilla: Normal chest wall appearance and motion. Nontender with no deformity. No lesions are appreciated. Abdomen/GI: Soft, non-tender, with normal bowel sounds. No distension or tympany. No guarding or rebound. No evidence of tenderness throughout. Back: No spinal tenderness. No costovertebral tenderness. Full range of motion. Skin: Warm, dry with normal turgor. Normal color with no rashes, no lesions, and no evidence of cellulitis. MS/ Extremity: Pulses equal, no cyanosis. Neurovascular intact. Full, normal range of motion. Neuro: Awake and alert, GCS 15, oriented to person, place, time, and situation. Cranial nerves II-XII grossly intact. Motor strength 5/5 in all extremities. Sensory grossly intact. Cerebellar exam normal. Normal gait. Psych: Awake, alert, with orientation to person, place and time. Behavior, mood, and affect are within normal limits. 07:23 Constitutional: The patient appears alert, appears dyspneic 07:23 Cardiovascular: Rate: normal, Rhythm: regular, Pulses: no pulse deficits are appreciated, Heart sounds: normal, Edema: is not appreciated, JVD: is not appreciated. 07:23 Respiratory: the patient does not display signs of respiratory distress, Respirations: labored breathing, that is mild, Breath sounds: wheezing: expiratory is heard diffusely, Respiratory rate: mild tachypnea noted Vital Signs: 07:05 BP 136 / 93; Pulse 80; Resp 17; Temp 98.2(TE); Pulse Ox 99% on R/A; Weight 108.86 kg; ss Height 5 ft. 5 in. (165.10 cm); Pain 10/10; 07:50 BP 124 / 99; Pulse 72; Resp 16 S; Pulse Ox 99% on Nebulizer Mask; Pain 10/10; jl7 08:30 BP 110 / 76; Pulse 70; Resp 16; Pulse Ox 100% on 2 lpm NC; jl7 09:00 BP 110 / 71; Pulse 70; Resp 16 S; Pulse Ox 97% on R/A; jl7 10:25 BP 111 / 74; Pulse 73; Resp 16 S; Pulse Ox 99% on R/A; jl7 07:05 Body Mass Index 39.94 (108.86 kg, 165.10 cm) ss MDM: 07:15 Patient medically screened. az 07:25 Differential diagnosis: acute myocardial infarction, acute pericarditis, coronary wa artery disease congestive heart failure pleurisy, pneumonia, pulmonary embolus, unstable angina. 07:25 Test interpretation: by ED physician or midlevel provider: EKG: HR 76. nml sinus. nml wa axis. no obvious ischemic changes. Special discussion: stat EKG. r/o ACS. PNA? PE? COPD?. 09:04 HEART Score: History: ECG: Age: Risk Factors: Troponin:. The patient was given aspirin az in the Emergency Department. Data reviewed: vital signs, nurses notes, lab test result(s), EKG, radiologic studies. 09:07 Response to treatment: the patient's symptoms have markedly improved after treatment. az Physician consultation: Kamaljit Euceda DO was called at 09:07. Admission orders: after a detailed discussion of the patient's condition and case, the admit orders are written by me. ED course: improved with ED interventions. will admit for obs and further eval by cardiology. . 01/26 07:12 Order name: BMP; Complete Time: 08:15 az 01/26 07:12 Order name: CBC with Diff; Complete Time: 08:15 az 01/26 07:12 Order name: Hepatic Function; Complete Time: 08:15 az 01/26 07:12 Order name: Lipase; Complete Time: 08:16 az 01/26 07:12 Order name: Magnesium; Complete Time: 08:16 az 01/26 07:12 Order name: NT PRO-BNP; Complete Time: 08:16 az 01/26 07:12 Order name: XRAY CXR (1 view) az 01/26 07:12 Order name: PT-INR az 01/26 07:12 Order name: Troponin (emerg Dept Use Only); Complete Time: 09: az 01/26 07:16 Order name: D-Dimer; Complete Time: 08: az 01/26 08:43 Order name: Urine Dipstick--Ancillary (enter results) [facility] 01/26 08:43 Order name: Urine --Ancillary (enter results) [facility] 01/26 07:12 Order name: Urine Test (obtain specimen); Complete Time: 08: az 01/26 07:12 Order name: EKG; Complete Time: 07:13 az 01/26 07:12 Order name: Cardiac monitoring; Complete Time: 08: az 01/26 07:12 Order name: EKG - Nurse/Tech; Complete Time: 08: az 01/26 07:12 Order name: IV Saline Lock; Complete Time: 08: az 01/26 07:12 Order name: Labs collected and sent; Complete Time: 08: az 01/26 07:12 Order name: O2 Per Protocol; Complete Time: 08: az 01/26 07:12 Order name: O2 Sat Monitoring; Complete Time: 08:00 az 01/26 07:12 Order name: Urine Dipstick-Ancillary (obtain specimen); Complete Time: 08:00 az Administered Medications: 07:50 Drug: Aspirin Chewable Tablet 324 mg Route: PO; jl7 09:13 Follow up: Response: No adverse reaction jl7 07:51 Drug: Xopenex (3) 1.25 mg Route: Inhalation; 7 08:20 Follow up: Response: No adverse reaction jl7 07:55 Drug: Nitroglycerin 0.4 mg Route: Sublingual; jl7 08:25 Follow up: Response: No adverse reaction; Pain is unchanged, physician notified jl7 09:05 Drug: Pepcid 20 mg Route: IVP; Site: left antecubital; 7 09:19 Follow up: Response: No adverse reaction jl Disposition: 01/26/18 09:15 Hospitalization ordered by Kamaljit Euceda for Observation. Preliminary diagnosis are Chest Pain, Shortness of breath. - Bed requested for Telemetry/MedSurg (observation). - Status is Observation. jl7 - Condition is Stable. - Problem is new. - Symptoms have improved. UTI on Admission? No Signatures: Dispatcher [employer] EDMS Susan Ruiz RN RN Basia Rae RN RN jl7 Trent Reeves MD MD wa Baxter, Mackenzie mb4 Corrections: (The following items were deleted from the chart) 10:19 09:15 Hospitalization Ordered by Kamaljit Euceda DO for Observation. Preliminary mb4 diagnosis is Chest Pain; Shortness of breath. Bed requested for Telemetry/MedSurg (observation). Status is Observation. Condition is Stable. Problem is new. Symptoms have improved. UTI on Admission? No. jose a 10:38 10:19 01/26/2018 09:15 Hospitalization Ordered by Kamaljit Euceda DO for Observation. jl7 Preliminary diagnosis is Chest Pain; Shortness of breath. Bed requested for Telemetry/MedSurg (observation). Status is Observation. Condition is Stable. Problem is new. Symptoms have improved. UTI on Admission? No. mb4
[2018-01-26 09:19] LABS: Urine Blood NEGATIVE (NEG); Urine Glucose NEGATIVE (NEG); Urine Protein NEGATIVE (NEG)
--- NOTE | 2018-01-26 09:29 | RAD REPORT ---
EXAM DESCRIPTION: Denisse Single View01/26/2018 7:53 am CLINICAL HISTORY: Chest pain COMPARISON: October 2017 FINDINGS: The lungs appear clear of acute infiltrate. The heart is normal size IMPRESSION: No acute abnormalities displayed
[2018-01-26] MEDS ORDERED: IPRATROPIUM BROM 0.5MG/2.5ML NEB PRN (09:31)
[2018-01-26] MEDS ORDERED: ACETAMINOPHEN 500 MG TAB PO PRN (09:31)
[2018-01-26] MEDS ORDERED: TRAMADOL HCL 50 MG TAB PO PRN (09:31)
[2018-01-26] MEDS ORDERED: ONDANSETRON 4 MG/2 ML VIAL IV PRN (09:31)
[2018-01-26] MEDS ORDERED: ALBUTEROL 2.5 MG/3 ML NEB SOL NEB PRN (09:31)
--- NOTE | 2018-01-26 09:43 | P.HP ---
Certification for Inpatient Patient admitted to: Observation With expected LOS: <2 Midnights Patient will require the following post-hospital care: None Practitioner: I am a practitioner with admitting privileges, knowledge of patient current condition, hospital course, and medical plan of care. Services: Services provided to patient in accordance with Admission requirements found in Title 42 Section 412.3 of the Code of Federal Regulations Patient History Date of Service: 01/26/18 Primary Care Provider: Rosedale Suleiman Reason for admission: Chest pain, shortness of breath History of Present Illness: 42-year-old female presented emergency room with chest pain and shortness of breath. Patient reports that she has been having chest pain and shortness of breath over the last several days. Chest pain mainly to the substernal region. She rates the pain about a 10/10. Pain comes and goes. It is associated with some shortness of breath. She also reports some pain to the left arm. Patient reports that she went to a weight loss clinic recently. She was given medication-phentermine. She started phentermine last week. She has been taking it for 4 days. She reports some diarrhea which is chronic. She also reports heartburn which she takes Nexium. Patient reports no other medical problems except tobacco abuse. She drinks alcohol on occasion. She also uses albuterol inhaler for shortness of breath from time to time. There is a family history of heart disease. Patient came to the ER for further evaluation. In the ER patient was evaluated. Initial blood pressure stable. EKG showed no significant EKG changes. Cardiac enzymes unremarkable. CBC and BMP unremarkable. Chest x-ray showed no acute changes. Patient was admitted for further evaluation. When I saw the patient ER, she appeared stable. She did not appear in any respiratory distress. Patient admits tobacco use about 1 pack per day. She is to trying to quit. She drinks alcohol on occasion. Allergies No Known Drug Allergies Allergy (Unverified 06/04/14 06:27) Unknown NKA Allergy (Uncoded 11/02/17 15:20) Unknown No Known Allergies Allergy (Uncoded 09/04/15 21:09) Unknown - Past Medical/Surgical History Diabetic: No -: GERD -: Tobacco abuse -: Obesity -: COPD -: Appendectomy Psychosocial/ Personal History: Patient is . She has 3 children. She works as a [employer]. - Family History Father -: Heart disease, Hypertension Mother -: Heart disease, Hypertension - Social History Smoking Status: Heavy Tobacco smoker (>10 cigarettes/day) Counseled patient to stop smoking for: less than 10 minutes Smoking therapy provided: Yes Patient receptive to therapy: Yes Alcohol use: Yes CD- Drugs: No Caffeine use: Yes Place of Residence: Home Review of Systems General: Weakness, Malaise, As per HPI Eyes: Unremarkable ENT: Unremarkable Respiratory: Shortness of Breath, Wheezing, As per HPI Cardiovascular: Chest Pain, As per HPI Gastrointestinal: Diarrhea, As per HPI Genitourinary: Unremarkable Musculoskeletal: Pedal edema, As per HPI Integumentary: Unremarkable Neurological: As per HPI Lymphatics: Unremarkable Physical Examination - Physical Exam General: Alert, In no apparent distress, Oriented x3, Cooperative HEENT: Atraumatic, Normocephalic, PERRLA, Mucous membr. moist/pink Neck: Supple, No Thyromegaly Respiratory: Clear to auscultation bilaterally, Normal air movement Cardiovascular: Normal pulses, Regular rate/rhythm Gastrointestinal: Normal bowel sounds, Soft and benign, Non-distended, No tenderness, No masses, No rebound, No guarding Musculoskeletal: No contractures, No erythema, No tenderness, No warmth Integumentary: No tenderness/swelling, No erythema, No warmth, No cyanosis Neurological: Normal speech, Normal strength at 5/5 x4 extr, Normal tone, Normal affect Lymphatics: No axilla or inguinal lymphadenopathy - Studies Laboratory Data (last 24 hrs) 01/26/18 07:43: PT 10.1, INR 0.86 01/26/18 07:43: WBC 7.2, Hgb 13.7, Hct 39.8, Plt Count 244 01/26/18 07:43: Sodium 141, Potassium 4.2, BUN 13, Creatinine 0.90, Glucose 96, Magnesium 2.0, Total Bilirubin 0.1 L, AST 11 L, ALT 20, Alkaline Phosphatase 74 , Lipase 93 Assessment and Plan - Problems (Diagnosis) (1) Chest pain Current Visit: Yes Status: Acute Plan: Chest pain may be related to the phentermine use. Will discontinue phentermine. Will monitor cardiac enzymes. Will check echocardiogram. Will obtain cardiac evaluation. Will keep the patient NPO as the patient may require cardiac evaluation. Patient with family history of heart disease. Qualifiers: Chest pain type: unspecified Qualified Code(s): R07.9 - Chest pain, unspecified (2) Shortness of breath Current Visit: Yes Status: Acute Plan: Shortness of breath may be related to phentermine use. Will discontinue phentermine. Patient likely has underlying COPD as she uses albuterol. Patient may require maintenance therapy for COPD at discharge. (3) COPD (chronic obstructive pulmonary disease) Current Visit: Yes Status: Suspected Plan: Will continue with albuterol as needed. Patient will likely require maintenance medication at discharge. Will recommend pulmonary function tests as an outpatient. Qualifiers: COPD type: chronic bronchitis Chronic bronchitis type: unspecified Qualified Code(s): J42 - Unspecified chronic bronchitis (4) GERD (gastroesophageal reflux disease) Current Visit: Yes Status: Chronic Plan: Will provide PPI. Qualifiers: Esophagitis presence: esophagitis presence not specified Qualified Code(s) : K21.9 - Gastro-esophageal reflux disease without esophagitis (5) Tobacco abuse Current Visit: Yes Status: Chronic Plan: Tobacco cessation addressed in detail. Patient understands this. Patient is trying to quit. (6) Obstructive sleep apnea Current Visit: Yes Status: Suspected Plan: Will recommend sleep study as an outpatient. (7) Obesity Current Visit: Yes Status: Chronic Plan: Will check BMI. Lifestyle modification education addressed in detail. Will check tsh. (8) Exposure to phentermine Current Visit: Yes Status: Acute Plan: Symptoms of chest pain and shortness of breath likely related to phentermine use. Will discontinue phentermine. Educated on medication side affects Qualifiers: Encounter type: initial encounter Qualified Code(s): T50.5X5A - Adverse effect of appetite depressants, initial encounter Discharge Plan: Home Plan to discharge in: 24 Hours - Advance Directives Does patient have a Living Will: No Does patient have a Durable POA for Healthcare: No - Code Status/Comfort Care Code Status Assessed: Yes Time Spent Managing Pts Care (In Minutes): 55
[2018-01-26] MEDS ORDERED: NA CHLORIDE 0.9% 1,000 ML IV SCH (10:00)
[2018-01-26 10:58] LABS: Thyroid Stimulating Hormone 2.75 uIU/mL (0.36-3.74)
[2018-01-26 12:48] LABS: Urine Appearance CLEAR; Urine Bilirubin NEGATIVE (NEG); Urine Blood NEGATIVE (NEG); Urine Color YELLOW; Urine Glucose NEGATIVE (NEG); Urine Protein NEGATIVE (NEG); Urine Specific Gravity 1.015 (1.005-1.030); Urine Urobilinogen 0.2 mg/dL (0.2-1.0)
[2018-01-26 12:49] LABS: Urine Microscopic Reflex NO UMIC
[2018-01-26 12:58] LABS: Barbiturates NEGATIVE (NEGATIVE); Benzodiazepines NEGATIVE (NEGATIVE); Cocaine NEGATIVE (NEGATIVE); METHAMPHETAM NEGATIVE (NEGATIVE); Methadone NEGATIVE (NEGATIVE); Opiates NEGATIVE (NEGATIVE); Phencyclidine NEGATIVE (NEGATIVE); THC Cannibis POSITIVE (NEGATIVE)
--- NOTE | 2018-01-26 14:22 | P.DS ---
Admission Date: 01/26/18 Discharge Date: 01/26/18 Primary Care Provider: Conchita Bearden Disposition: ROUTINE DISCHARGE Discharge Condition: GOOD Reason for Admission: Chest pain, shortness of breath Consultations: Cardiology-Dr. Marcum Procedures: Cardiac stress test: No stress induced ischemia noted. - Problems (1) Chest pain Current Visit: Yes Status: Acute Qualifiers: Chest pain type: unspecified Qualified Code(s): R07.9 - Chest pain, unspecified (2) Shortness of breath Current Visit: Yes Status: Acute (3) COPD (chronic obstructive pulmonary disease) Current Visit: Yes Status: Suspected Qualifiers: COPD type: chronic bronchitis Chronic bronchitis type: unspecified Qualified Code(s): J42 - Unspecified chronic bronchitis (4) GERD (gastroesophageal reflux disease) Current Visit: Yes Status: Chronic Qualifiers: Esophagitis presence: esophagitis presence not specified Qualified Code(s) : K21.9 - Gastro-esophageal reflux disease without esophagitis (5) Tobacco abuse Current Visit: Yes Status: Chronic (6) Obstructive sleep apnea Current Visit: Yes Status: Suspected (7) Obesity Current Visit: Yes Status: Chronic Qualifiers: Obesity type: due to excess calories Obesity classification: adult class 3 (BMI >= 40) Serious obesity comorbidity presence: with serious comorbidity Body mass index: BMI 40.0-44.9 Qualified Code(s): E66.01 - Morbid (severe) obesity due to excess calories; Z68.41 - Body mass index (BMI) 40.0-44.9, adult (8) Exposure to phentermine Current Visit: Yes Status: Acute Qualifiers: Encounter type: initial encounter Qualified Code(s): T50.5X5A - Adverse effect of appetite depressants, initial encounter (9) Tetrahydrocannabinol (THC) use disorder, mild, abuse Current Visit: Yes Status: Chronic Brief History of Present Illness: 42-year-old female presented emergency room with chest pain and shortness of breath. Patient reports that she has been having chest pain and shortness of breath over the last several days. Chest pain mainly to the substernal region. She rates the pain about a 10/10. Pain comes and goes. It is associated with some shortness of breath. She also reports some pain to the left arm. Patient reports that she went to a weight loss clinic recently. She was given medication-phentermine. She started phentermine last week. She has been taking it for 4 days. She reports some diarrhea which is chronic. She also reports heartburn which she takes Nexium. Patient reports no other medical problems except tobacco abuse. She drinks alcohol on occasion. She also uses albuterol inhaler for shortness of breath from time to time. There is a family history of heart disease. Patient came to the ER for further evaluation. In the ER patient was evaluated. Initial blood pressure stable. EKG showed no significant EKG changes. Cardiac enzymes unremarkable. CBC and BMP unremarkable. Chest x-ray showed no acute changes. Patient was admitted for further evaluation. When I saw the patient ER, she appeared stable. She did not appear in any respiratory distress. Patient admits tobacco use about 1 pack per day. She is to trying to quit. She drinks alcohol on occasion. Hospital Course: Patient presented with chest pain. Initial cardiac enzymes unremarkable. Patient was evaluated by cardiology. Cardiac stress test unremarkable. No further intervention required. Chest pain likely related to recent use of phentermine. Recommendation is to discontinue phentermine. At discharge will continue with aspirin 81 mg daily. Patient reports tobacco abuse. THC was also identified. Tobacco and THC cessation education will be provided. Patient likely has underlying COPD. At discharge patient will start Airduo 1 puff twice daily and pro air HFA 2 puffs 3 times a day as needed for shortness of breath. Recommendations that the patient follow up with pulmonology as an outpatient to further address. Patient may require pulmonary function test to further assess. Patient may also have underlying obstructive sleep apnea. This can be further addressed by pulmonology with a sleep study. Patient has GERD. Patient continue with Nexium 40 mg daily. Recommendations for the patient to follow up with GI as an outpatient to further assess. Patient may require EGD as an outpatient.. Education and dietary lifestyle modification education will be provided. Vital Signs/Physical Exam: Temp Pulse Resp BP Pulse Ox 97.2 F 66 18 104/55 L 97 01/26/18 12:01/26/18 12:00 01/26/18 12:00 01/26/18 12:01/26/18 12:00 General: Alert, In no apparent distress, Oriented x3, Cooperative HEENT: Atraumatic Neck: Supple Respiratory: Clear to auscultation bilaterally, Normal air movement Cardiovascular: Normal pulses, Regular rate/rhythm Gastrointestinal: Normal bowel sounds, Soft and benign, Non-distended, No tenderness, No masses, No rebound, No guarding Musculoskeletal: No erythema, No tenderness, No warmth Integumentary: No tenderness/swelling, No erythema, No warmth, No cyanosis Neurological: Normal speech, Normal strength at 5/5 x4 extr, Normal tone, Normal affect Lymphatics: No axilla or inguinal lymphadenopathy Laboratory Data at Discharge: WBC 7.2 K/uL (4.3-10.9) 01/26/18 07:43 Hgb 13.7 g/dL (12.0-15.0) 01/26/18 07:43 Hct 39.8 % (36.0-45.0) 01/26/18 07:43 Plt Count 244 K/uL (152-406) 01/26/18 07:43 PT 10.1 SECONDS (9.5-12.5) 01/26/18 07:43 INR 0.86 01/26/18 07:43 Sodium 141 mmol/L (136-145) 01/26/18 07:43 Potassium 4.2 mmol/L (3.5-5.1) 01/26/18 07:43 BUN 13 mg/dL (7-18) 01/26/18 07:43 Creatinine 0.90 mg/dL (0.55-1.3) 01/26/18 07:43 Glucose 96 mg/dL (74-106) 01/26/18 07:43 Magnesium 2.0 mg/dL (1.8-2.4) 01/26/18 07:43 Total Bilirubin 0.1 mg/dL (0.2-1.0) L 01/26/18 07:43 AST 11 U/L (15-37) L 01/26/18 07:43 ALT 20 U/L (12-78) 01/26/18 07:43 Alkaline Phosphatase 74 U/L (45-117) 01/26/18 07:43 Triglycerides 173 mg/dL (<150) H 01/26/18 10:18 Cholesterol 189 mg/dL (<200) 01/26/18 10:18 HDL Cholesterol 45 mg/dL (40-60) 01/26/18 10:18 Cholesterol/HDL Ratio 4.20 01/26/18 10:18 Lipase 93 U/L (73-393) 01/26/18 07:43 Home Medications: Albuterol Sulfate [Proair Hfa] 8.5 gm IH TID PRN #1 hfa.aer.ad 01/26/18 Aspirin [Aspirin EC 81 MG] 81 mg PO DAILY #30 tablet. 01/26/18 Esomeprazole Mag Trihydrate [Nexium] 40 mg PO DAILY #30 capsule. 01/26/18 Fluticasone/Salmeterol [Airduo Respiclick 113-14 Mcg] 1 each IH BID #1 [email or web address] 01/26/18 New Medications: Albuterol Sulfate [Proair Hfa] 8.5 gm IH TID PRN #1 hfa.aer.ad PRN Reason: Shortness Of Breath Aspirin [Aspirin EC 81 MG] 81 mg PO DAILY #30 tablet. Esomeprazole Mag Trihydrate [Nexium] 40 mg PO DAILY #30 capsule. Fluticasone/Salmeterol [Airduo Respiclick 113-14 Mcg] 1 each IH BID #1 [email or web address] Patient Discharge Instructions: 1. Patient would need to follow up with the PCP to establish care and follow up this hospitalization. 2. Patient presented with chest pain. Initial cardiac enzymes unremarkable. Patient was evaluated by cardiology. Cardiac stress test unremarkable. No further intervention required. Chest pain likely related to recent use of phentermine. Recommendation is to discontinue phentermine. At discharge will continue with aspirin 81 mg daily. 3. Patient reports tobacco abuse. THC was also identified. Tobacco and THC cessation is recommended. Education will be provided. 4. Patient reported some shortness of breath. Patient likely has underlying COPD. At discharge patient will start Airduo 1 puff twice daily and pro air HFA 2 puffs 3 times a day as needed for shortness of breath. Recommendations that the patient follow up with pulmonology as an outpatient to further address. Patient may require pulmonary function test to further assess. Patient may also have underlying obstructive sleep apnea. This can be further addressed by pulmonology with a sleep study. 5. Patient has GERD. Patient continue with Nexium 40 mg daily. Recommendations for the patient to follow up with GI as an outpatient to further assess. Patient may require EGD as an outpatient. Education and dietary lifestyle modification education will be provided. Diet: AHA Activity: Ad aleah Time spent managing pt's care (in minutes): 55
[2018-01-26 14:37] LABS: CKMB Creatine Kinase MB < 1.0 ng/mL (0.3-3.6); Creatine Phosphokinase 54 U/L (26-192)
--- NOTE | 2018-01-26 15:57 | ECHO ---
HEIGHT: 5 ft 5 in WEIGHT: 241 lb 0 oz DATE OF STUDY: 01/26/[address]: Kamaljit Euceda DO 2-DIMENSIONAL: YES M.MODE: YES DOPPLER: YES COLOR FLOW: YES TDS: NO PORTABLE: NO DEFINITY: NO BUBBLE STUDY: NO DIAGNOSIS: CHEST PAIN/ SHORTNESS OF BREATH CARDIAC HISTORY: CATHERIZATION: NO SURGERY: NO PROSTHETIC VALVE: NO PACEMAKER: NO MEASUREMENTS (cm) DIASTOLIC (NORMALS) SYSTOLIC (NORMALS) IVSd 0.9 (0.6-1.2) LA Diam 3.8 (1.9-4.0) LVEF 65% LVIDd 4.2 (3.5-5.7) LVIDs 2.7 (2.0-3.5) %FS 35% LVPWd 1.0 (0.6-1.2) Ao Diam 2.7 (2.0-3.7) 2 DIMENSIONAL ASSESSMENT: RIGHT ATRIUM: NORMAL LEFT ATRIUM: NORMAL RIGHT VENTRICLE: NORMAL LEFT VENTRICLE: NORMAL TRICUSPID VALVE: NORMAL MITRAL VALVE: NORMAL PULMONIC VALVE: NORMAL AORTIC VALVE: NORMAL PERICARDIAL EFFUSION: NONE AORTIC ROOT: NORMAL LEFT VENTRICULAR WALL MOTION: NORMAL. DOPPLER/COLOR FLOW: NORMAL. COMMENTS: NORMAL 2D ECHO WITH DOPPLER. TECHNOLOGIST: FRIDA NOEL
--- NOTE | 2018-01-26 16:01 | TREADMILL ---
70% H.R.: 125 85% H.R.: 151 90% H.R.: 160 100% H.R.: 178 DX: CHEST PAIN Date of Study: 01/26/18 Ht: 5 5 Wt: 241 lb 0 oz Consulting Physician: JAMIE MEDICATIONS: HISTORY: 42 YEAR OLD FEMALE WITH COMPLAINTS OF CHEST PAIN. PHYSICIAL EXAMINATION: RESTING B.P.: 120/81 RESTING H.R.: 90 RESTING EKG: NORMAL PROTOCOL: ELIZABETH ROUTINE EXERCISE TIME: 7:24 MAXIMUM HEART RATE: 151 85 % OF PREDICTED B.P. AT PEAK STRESS: 148/74 H.R. AT 1 MINUTE POST EXERCISE: 118 IMPRESSION: STRESS STOPPED DUE TO FATIGUE AND TARGET HEART RATE REACHED PER PROTOCOL. NO SUPRA VENTRICULAR TACHYCARDIA, NO VENTRICULAR TACHYCARDIA, NO PREMATURE VENTRICULAR COMPLEXES. DENIED CHEST PAIN. NO ST DEPRESSION WITH STRESS. NORMAL STRESS TEST.
[2018-01-26] MEDS ORDERED: ENOXAPARIN 40 MG/0.4 ML SQ SCH (17:00)
--- NOTE | 2018-01-26 17:36 | CON ---
Identification: A 42-year-old woman. Chief Complaint: Chest pain. History Of Present Illness: Mrs. Bravo was sleeping on a couch, awakened. Her left arm was numb, f ingertips tingled. She felt pain in the chest and resolved after a few hours. Since she has been in the hospital, EKGs and enzymes are normal. The patient has never had diabetes, hypertension or dysl ipidemia. No history of stroke or myocardial infarction. She is a regular tobacco user, about 10 ci garettes per day and plans to quit. She asked her family members to throw away all of her cigarettes . She is 3, para 3. No history of vascular surgeries, myocardial infarction or stroke. She reports no drug allergies. Alcohol use minimal. No illegal drugs. Physical Examination: General: She is alert, oriented, pleasant, not in distress. Vital Signs: 5 feet 5 inches and 241 pounds. Blood pressure 104/55, pulse 66, temperature 97.2, O2 saturation 97% room air. Pain level 0. Lungs: Clear. Heart: Normal. Extremities: Normal. Impression: I would recommend we do a routine stress test and echocardiogram. If those are normal, we can let her go home. KYLEIGH Voice ID: [id number] Report ID: [id number]
[2018-01-26] MEDS ORDERED: ARFORMOTEROL TARTRATE 15 MCG/2 ML VIAL.NEB NEB SCH (20:00)
[2018-01-26] MEDS ORDERED: ATORVASTATIN 40 MG TAB PO SCH (21:00)
[2018-01-27] MEDS ORDERED: PANTOPRAZOLE 40MG TABLET PO SCH (06:30)
--- NOTE | 2018-01-27 08:36 | EKG ---
Test Date: 2018-01-26 Test Time: 07:10:28 Registrar Nurs[facility]' [facility]: JOSE MEASUREMENT RESULTS: Intervals: Rate: 76 VA: 136 QRSD: 86 QT: 394 QTc: 443 [place]: P: 58 VA: 136 QRS: 60 T: 50 INTERPRETIVE STATEMENTS: Normal sinus rhythm Low voltage QRS Borderline ECG No previous ECG available for comparison Electronically Signed On 01-27-18 08:35:22 CDT by Isra Marcum
[2018-01-27] MEDS ORDERED: ASPIRIN EC 81 MG TAB PO SCH (09:00)
== END 2018-01-26 17:45 | disposition home or self-care (01) ==
LOC: ER 06:53 → ERHOLD 09:22 → 4TH 10:33
PROVIDERS: ADMIT Family Medicine; ATTEND Family Medicine
DX: R07.9 Chest pain, unspecified (principal); R06.02 Shortness of breath; K21.9 Gastro-esophageal reflux disease without esophagitis; E66.9 Obesity, unspecified; Z68.41 Body mass index [BMI] 40.0-44.9, adult; F12.10 Cannabis abuse, uncomplicated; K52.1 Toxic gastroenteritis and colitis; T50.5X5A Adverse effect of appetite depressants, initial encounter; Y92.9 Unspecified place or not applicable; F17.210 Nicotine dependence, cigarettes, uncomplicated
CPT/HCPCS: 36415; 71045; 80048; 80061; 80076; 80307; 81003; 81025; 82550; 82553; 83690; 83735; 83880; 84439; 84443; 84484; 85025; 85379; 85610; 93005; 93017; 93306; 96374; 99285; G0378; J7030

== ENCOUNTER 2018-05-02 07:29 | Emergency (ER) | payer OTHER ==
[2018-05-02 09:25] LABS: Absolute Lymphocytes (CBC) 2.1 K/uL (0.7-4.9); Absolute Monocytes 0.5 K/uL (0.1-1.3); Absolute Neutrophil 4.6 K/uL (1.8-8.0); Eosinophils % 3.6 % (0-4.4); Hematocrit 38.2 % (36.0-45.0); MCH 30.6 pg (27.0-35.0); MCV 89.3 fL (80-100); MPV 7.3 fL (7.6-11.3); Monocytes % 6.3 % (3.3-12.3); RBC Red Blood Cell Count 4.28 M/uL (3.86-4.86)
[2018-05-02] MEDS ORDERED: IPRATROPIUM BROM 0.5MG/2.5ML ONE (09:37)
[2018-05-02] MEDS ORDERED: ALBUTEROL 2.5 MG/3 ML NEB SOL ONE (09:37)
[2018-05-02] MEDS ORDERED: KETOROLAC 30 MG/ML INJ ONE (09:38)
[2018-05-02] MEDS ORDERED: ONDANSETRON 4 MG/2 ML VIAL ONE (09:38)
[2018-05-02 09:42] LABS: ALT/SGPT 23 U/L (12-78); AST/SGOT 15 U/L (15-37); Albumin 3.4 g/dL (3.4-5.0); Alkaline Phosphatase 96 U/L (45-117); BUN Blood Urea Nitrogen 18 mg/dL (7-18); Bicarbonate 24 mmol/L (21-32); Bilirubin Direct < 0.1 mg/dL (0-0.2); Bilirubin Total 0.2 mg/dL (0.2-1.0); Glucose Level 100 mg/dL (74-106); Magnesium 2.2 mg/dL (1.8-2.4); NT PRO-BNP 6 pg/mL (<125); Potassium 4.1 mmol/L (3.5-5.1); Protein, Total 6.9 g/dL (6.4-8.2); Sodium Level 142 mmol/L (136-145); Troponin (Emerg Dept Use Only) < 0.02 ng/mL (0.0-0.045)
[2018-05-02 09:46] LABS: Urine Blood NEGATIVE (NEG); Urine Glucose NEGATIVE (NEG); Urine Protein NEGATIVE (NEG); Urine pH 5.5 (5.0-7.0)
[2018-05-02 09:47] LABS: Protime INR 0.89
[2018-05-02] MEDS ORDERED: METHYLPREDNISOLONE 125 MG INJ ONE (11:19)
--- NOTE | 2018-05-02 11:45 | EKG ---
Test Date: 2018-05-02 Test Time: 09:36:37 [employer] Consultant: AG/V MEASUREMENT RESULTS: Intervals: Rate: 78 IN: 130 QRSD: 82 QT: 394 QTc: 449 [place]: P: 65 IN: 130 QRS: 72 T: 63 INTERPRETIVE STATEMENTS: Normal sinus rhythm Normal ECG Compared to ECG 01/26/2018 07:10:28 No significant changes Electronically Signed On 05-02-18 11:44:17 FELT STRIP FINISHER by Isra Marcum
--- NOTE | 2018-05-02 12:43 | ER ---
Nurse's Notes [facility] Name: Bette Bravo Age: 42 yrs Sex: Female : 1975 Arrival Date: 05/02/2018 Time: 07:32 Bed 19 Private MD: Kali Moon T Diagnosis: Wheezing;Back Pain Presentation: 05/02 07:51 Presenting complaint: Patient states: hard time breathing , pain in right side of back iw when takes a deep breath and when she coughs, denies fever, pain started yesterday, diff breathing started one month ago. Transition of care: patient was not received from another setting of care. Onset of symptoms was May 01, 2018. Risk Assessment: Do you want to hurt yourself or someone else? Patient reports no desire to harm self or others. Initial Sepsis Screen: Does the patient meet any 2 criteria? No. Patient's initial sepsis screen is negative. Does the patient have a suspected source of infection? No. Patient's initial sepsis screen is negative. Care prior to arrival: None. 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 - Social history:: Smoking status: Patient uses tobacco products, smokes one pack cigarettes per day. - Ebola Screening: : Patient negative for fever greater than or equal to 101.5 degrees Fahrenheit, and additional compatible Ebola Virus Disease symptoms Patient denies exposure to infectious person Patient denies travel to an Ebola-affected area in the 21 days before illness onset No symptoms or risks identified at this time. Screenin:10 Abuse screen: Denies threats or abuse. Denies injuries from another. Nutritional hb screening: No deficits noted. Tuberculosis screening: No symptoms or risk factors identified. Fall Risk None identified. Assessment: 09:05 General: Appears in no apparent distress. uncomfortable, Behavior is calm, cooperative. hb Pain: Pain currently is 8 out of 10 on a pain scale. Neuro: Level of Consciousness is awake, alert, obeys commands, Oriented to person, place, time, situation. Cardiovascular: Heart tones S1 S2 present Capillary refill < 3 seconds Patient's skin is warm and dry. Rhythm is regular. Respiratory: Airway is patent Trachea midline Respiratory effort is even, unlabored, Respiratory pattern is regular, symmetrical, Breath sounds are clear bilaterally. GI: No signs and/or symptoms were reported involving the gastrointestinal system. : No signs and/or symptoms were reported regarding the genitourinary system. EENT: No signs and/or symptoms were reported regarding the EENT system. Derm: Skin is intact, is healthy with good turgor, Skin is pink, warm \T\ dry. Musculoskeletal: No signs and/or symptoms reported regarding the musculoskeletal system. 10:00 Reassessment: Patient appears in no apparent distress at this time. Patient and/or hb family updated on plan of care and expected duration. Pain level reassessed. Patient is alert, oriented x 3, equal unlabored respirations, skin warm/dry/pink. 11:00 Reassessment: Patient appears in no apparent distress at this time. Patient and/or hb family updated on plan of care and expected duration. Pain level reassessed. Patient is alert, oriented x 3, equal unlabored respirations, skin warm/dry/pink. 12:00 Reassessment: Patient appears in no apparent distress at this time. Patient and/or hb family updated on plan of care and expected duration. Pain level reassessed. Patient is alert, oriented x 3, equal unlabored respirations, skin warm/dry/pink. 12:48 Reassessment: Patient appears in no apparent distress at this time. No changes from previously documented assessment. Patient and/or family updated on plan of care and expected duration. Pain level reassessed. Patient is alert, oriented x 3, equal unlabored respirations, skin warm/dry/pink. Vital Signs: 07:54 BP 112 / 68; Pulse 89; Resp 20; Temp 98.0(TE); Pulse Ox 98% on R/A; Weight 99.79 kg; iw Height 5 ft. 5 in. (165.10 cm); Pain 3/10; 09:00 BP 116 / 68; Pulse 88; Resp 16; Pulse Ox 97% on R/A; Pain 8/10; hb 10:00 BP 102 / 78; Pulse 88; Resp 17; Pulse Ox 98% on R/A; hb 11:00 BP 93 / 68; Pulse 75; Resp 18; Pulse Ox 97% on R/A; hb 12:00 BP 108 / 68; Pulse 76; Resp 17; Pulse Ox 98% on R/A; hb 07:54 Body Mass Index 36.61 (99.79 kg, 165.10 cm) iw ED Course: 07:32 Patient arrived in ED. rg4 07:32 Kali Moon MD is Private Physician. rg4 07:53 Triage completed. iw 07:54 Arm band placed on. iw 08:47 Elkin Saldana MD is Attending Physician. luigi 08:47 Elkin Whalen PA is PHCP. cp 09:00 Patient has correct armband on for positive identification. Bed in low position. hb 09:02 Violeta Ruiz, RN is Primary Nurse. hb 09:02 X-ray completed. Portable x-ray completed in exam room. Patient tolerated procedure ag1 well. 09:21 CXR XRAY In Process Unspecified. EDMS 09:28 Inserted saline lock: 22 gauge in left antecubital area, using aseptic technique. jl7 09:49 EKG done, by cell technician. reviewed by Elkin Saldana MD. at1 10:16 Pulse ox on. NIBP on. Warm blanket given. Head of bed lowered. sg 12:40 Kali Moon MD is Referral Physician. cp 12:54 No provider procedures requiring assistance completed. IV discontinued, intact, hb bleeding controlled, No redness/swelling at site. Pressure dressing applied. Administered Medications: 09:35 Drug: Albuterol - atroVENT (3:1) (2.5 mg - 0.5 mg) 3 ml Route: Nebulizer; hb 10:22 Follow up: Response: No adverse reaction hb 09:36 Drug: TORadol 30 mg Route: IVP; Site: left antecubital; hb 10:11 Follow up: Response: No adverse reaction; Pain is decreased hb 09:36 Drug: Zofran 4 mg Route: IVP; Site: left antecubital; hb 10:00 Follow up: Response: No adverse reaction hb 11:18 Drug: SOLU-Medrol 125 mg Route: IVP; Site: left antecubital; hb 11:44 Follow up: Response: No adverse reaction hb Outcome: 12:42 Discharge ordered by . cp 12:54 Discharged to home ambulatory. hb 12:54 Condition: stable 12:54 Discharge instructions given to patient, Instructed on discharge instructions, follow up and referral plans. medication usage, Demonstrated understanding of instructions, follow-up care, medications, Prescriptions given X 3. 12:57 Patient left the ED. hb Signatures: Dispatcher [employer] EDMS Frankie Traore, RN Elkin Sepulveda MD MD cha Williams, Irene RN RN Lucy Frost, nurse discharge EKG Tat1 Yohana Chu ag1 Elkin Whalen, Violeta Pitts cp, RN RN Clarita Dominguez rg4 Basia Rae RN RN jl7
--- NOTE | 2018-05-02 12:43 | EDPHYS ---
Physician Documentation [facility] Name: Bette Bravo Age: 42 yrs Sex: Female : 1975 Arrival Date: 05/02/2018 Time: 07:32 Bed 19 Private MD: Kali Moon T ED Physician Elkin Saldana HPI: 05/02 08:50 This 42 yrs old Female presents to ER via Ambulatory with complaints of cp Breathing Difficulty, Back Pain. 08:50 The patient has shortness of breath with light activity. Onset: The symptoms/episode cp began/occurred 1 month(s) ago. Duration: The symptoms are continuous, and are steadily getting worse. Associated signs and symptoms: Pertinent positives: non-productive cough, pain right mid back area, Pertinent negatives: diaphoresis, fever, hemoptysis, vomiting. Severity of symptoms: in the emergency department the symptoms are unchanged despite home interventions. CLASSROOM MONITOR: 07:54 LMP 04/18/2018 iw Historical: - Allergies: 07:54 NKA; iw - Home Meds: 07:54 Spiriva with HandiHaler 18 mcg inhalation CpDv 1 cap once daily [Active]; Ritalin Oral iw [Active]; Seroquel Oral [Active]; montelukast 10 mg oral tab 1 tab once daily [Active]; - PSHx: 07:54 Appendectomy; Tubal ligation; iw - Immunization history:: Adult Immunizations not up to date. - Social history:: Smoking status: Patient uses tobacco products, smokes one pack cigarettes per day. - Ebola Screening: : Patient negative for fever greater than or equal to 101.5 degrees Fahrenheit, and additional compatible Ebola Virus Disease symptoms Patient denies exposure to infectious person Patient denies travel to an Ebola-affected area in the 21 days before illness onset No symptoms or risks identified at this time. ROS: 09:00 Constitutional: Negative for body aches, chills, fever, poor PO intake. cp 09:00 Eyes: Negative for injury, pain, redness, and discharge. cp 09:00 ENT: Negative for drainage from ear(s), ear pain, sore throat, difficulty swallowing, difficulty handling secretions. 09:00 Cardiovascular: Negative for chest pain, edema, palpitations. 09:00 Respiratory: Positive for cough, shortness of breath, Negative for hemoptysis, wheezing. 09:00 Abdomen/GI: Negative for abdominal pain, nausea, vomiting, and diarrhea. 09:00 Back: Positive for pain at rest, pain with movement, of the right subscapular area, pain with deep inspiration, Negative for injury or acute deformity. 09:00 : Negative for urinary symptoms. 09:00 Skin: Negative for cellulitis, rash. 09:00 Neuro: Negative for dizziness, headache, weakness. 09:00 All other systems are negative. Exam: 09:10 Constitutional: The patient appears in no acute distress, alert, awake, cp non-diaphoretic, non-toxic, well developed, well nourished, uncomfortable, overweight 09:10 Head/Face: Normocephalic, atraumatic. Eyes: Pupils equal round and reactive to light, cp extra-ocular motions intact. Lids and lashes normal. Conjunctiva and sclera are non-icteric and not injected. Cornea within normal limits. Periorbital areas with no swelling, redness, or edema. ENT: Nares patent. No nasal discharge, no septal abnormalities noted. Tympanic membranes are normal and external auditory canals are clear. Oropharynx with no redness, swelling, or masses, exudates, or evidence of obstruction, uvula midline. Mucous membranes moist. Neck: Trachea midline, no thyromegaly or masses palpated, and no cervical lymphadenopathy. Supple, full range of motion without nuchal rigidity, or vertebral point tenderness. No Meningismus. Chest/axilla: Normal chest wall appearance and motion. Nontender with no deformity. No lesions are appreciated. 09:10 Cardiovascular: Rate: normal, Rhythm: regular, Heart sounds: murmur, not appreciated, Edema: is not appreciated, JVD: is not appreciated. 09:10 Respiratory: the patient does not display signs of respiratory distress, Respirations: normal, no use of accessory muscles, no retractions, no splinting, no tachypnea, labored breathing, is not present, Breath sounds: bronchial sounds, that are mild, are heard diffusely, decreased breath sounds, are not appreciated, stridor, is not appreciated, wheezing: that is mild, is heard diffusely. 09:10 Abdomen/GI: Inspection: abdomen appears normal, Bowel sounds: active, all quadrants, Palpation: abdomen is soft and non-tender, in all quadrants. 09:10 Back: pain, that is moderate, of the right subscapular area, ROM is painful, with all movement, CVA tenderness, is absent, vertebral tenderness, is not appreciated. 09:10 Musculoskeletal/extremity: Exam is negative for calf tenderness, decreased range of motion, deformity, injury. 09:10 Skin: cellulitis, is not appreciated, no rash present. 09:10 Neuro: Orientation: to person, place \T\ time. Mentation: is normal, Cerebellar function: is grossly normal, Motor: moves all fours, strength is normal, Sensation: is normal. 09:45 ECG was reviewed by the Attending Physician. cp Vital Signs: 07:54 BP 112 / 68; Pulse 89; Resp 20; Temp 98.0(TE); Pulse Ox 98% on R/A; Weight 99.79 kg; iw Height 5 ft. 5 in. (165.10 cm); Pain 3/10; 09:00 BP 116 / 68; Pulse 88; Resp 16; Pulse Ox 97% on R/A; Pain 8/10; hb 10:00 BP 102 / 78; Pulse 88; Resp 17; Pulse Ox 98% on R/A; hb 11:00 BP 93 / 68; Pulse 75; Resp 18; Pulse Ox 97% on R/A; hb 12:00 BP 108 / 68; Pulse 76; Resp 17; Pulse Ox 98% on R/A; hb 07:54 Body Mass Index 36.61 (99.79 kg, 165.10 cm) iw MDM: 08:47 Patient medically screened. luigi 09:00 Differential diagnosis: Bronchitis Chronic Obstructive Pulmonary Disease Myocardial cp Infarction pneumonia, Pneumothorax pulmonary edema, Pulmonary Embolism reactive airway disease, Unstable Angina. 12:40 Data reviewed: vital signs, nurses notes, lab test result(s), EKG, radiologic studies, cp plain films, and as a result, I will discharge patient. 12:40 Test interpretation: by ED physician or midlevel provider: ECG, plain radiologic cp studies. Counseling: I had a detailed discussion with the patient and/or guardian regarding: the historical points, exam findings, and any diagnostic results supporting the discharge/admit diagnosis, lab results, radiology results, the need for outpatient follow up, a family practitioner, to return to the emergency department if symptoms worsen or persist or if there are any questions or concerns that arise at home. 05/02 08:55 Order name: Basic Metabolic Panel; Complete Time: 09:56 cp 05/02 10:55 Interpretation: Normal except: CL 111; GFR 69; CA 8.1. cp 05/02 08:55 Order name: CBC with Diff; Complete Time: 09:28 cp 05/02 09:28 Interpretation: Normal except: MPV 7.3. cp 05/02 08:55 Order name: LFT's; Complete Time: 09:56 cp 05/02 10:55 Interpretation: Normal except: A/G 1.0. cp 05/02 08:55 Order name: Magnesium; Complete Time: 09:56 cp 05/02 08:55 Order name: NT PRO-BNP; Complete Time: 09:56 cp 05/02 08:00 Order name: CXR XRAY iw 05/02 08:55 Order name: Troponin (emerg Dept Use Only); Complete Time: 09:56 cp 05/02 08:56 Order name: D-Dimer; Complete Time: 09:56 cp 05/02 09:57 Interpretation: D-DIMER 336; Reviewed. 05/02 09:23 Order name: Urine Dipstick--Ancillary (enter results); Complete Time: 09:56 eb 05/02 09:23 Order name: Urine --Ancillary (enter results); Complete Time: 09:56 eb 05/02 09:43 Order name: Protime (+INR); Complete Time: 09:56 EDMS 05/02 08:55 Order name: EKG; Complete Time: 08:56 cp 05/02 08:55 Order name: Cardiac monitoring; Complete Time: 09:15 cp 05/02 08:55 Order name: EKG - Nurse/Tech; Complete Time: 09:15 cp 05/02 08:55 Order name: IV Saline Lock; Complete Time: 09:15 cp 05/02 08:55 Order name: Labs collected and sent; Complete Time: 09:15 cp 05/02 08:55 Order name: O2 Per Protocol; Complete Time: 09:15 cp 05/02 08:55 Order name: O2 Sat Monitoring; Complete Time: 09:15 cp 05/02 08:55 Order name: Urine Dipstick-Ancillary (obtain specimen); Complete Time: 09:20 cp 05/02 08:55 Order name: Urine Test (obtain specimen); Complete Time: 09:20 cp EC:45 Rate is 78 beats/min. Rhythm is regular. [place] interval is normal. QRS interval is normal. cp QT interval is normal. Interpreted by me. Reviewed by me. Administered Medications: 09:35 Drug: Albuterol - atroVENT (3:1) (2.5 mg - 0.5 mg) 3 ml Route: Nebulizer; hb 10:22 Follow up: Response: No adverse reaction hb 09:36 Drug: TORadol 30 mg Route: IVP; Site: left antecubital; hb 10:11 Follow up: Response: No adverse reaction; Pain is decreased hb 09:36 Drug: Zofran 4 mg Route: IVP; Site: left antecubital; hb 10:00 Follow up: Response: No adverse reaction hb 11:18 Drug: SOLU-Medrol 125 mg Route: IVP; Site: left antecubital; hb 11:44 Follow up: Response: No adverse reaction hb Disposition: 16:59 Co-signature as Attending Physician, Elkin Saldana MD I agree with the assessment and luigi plan of care. Disposition: 05/02/18 12:42 Discharged to Home. Impression: Wheezing, Back Pain. - Condition is Stable. - Discharge Instructions: Back Pain, Adult, How to Use an Inhaler, Back Exercises. - Prescriptions for prednisone 50 mg Oral tablet - take 1 tablet by ORAL route once daily for 5 days; 5 tablet. Albuterol Sulfate 90 mcg/actuation - inhale 1-2 puff by INHALATION route every 4-6 hours; 1 Inhaler. Tramadol 50 mg Oral Tablet - take 1 tablet by ORAL route every 8 hours as needed; 12 tablet. - Medication Reconciliation Form, Thank You Letter, Antibiotic Education, Prescription Opioid Use form. - Follow up: Kali Moon MD; When: 1 - 2 days; Reason: Recheck today's complaints. - Problem is new. - Symptoms have improved. Signatures: Dispatcher [employer] Elkin Barroso MD MD cha Williams, Irene, ROSALBA RN Elkin Webb PA PA cp Baxter, Heather, RN RN Corrections: (The following items were deleted from the chart) 09:39 08:55 PROTIME (+INR)+[id number].BRZ ordered. EDNY EDMS 10:55 09:56 Normal except: CL 111; GFR 69. cp cp 12:57 12:42 05/02/2018 12:42 Discharged to Home. Impression: Wheezing; Back Pain. Condition hb is Stable. Forms are Medication Reconciliation Form, Thank You Letter, Antibiotic Education, Prescription Opioid Use. Follow up: Kali Moon; When: 1 - 2 days; Reason: Recheck today's complaints. Problem is new. Symptoms have improved. cp
--- NOTE | 2018-05-02 13:46 | RAD REPORT ---
EXAM DESCRIPTION: Denisse Single View05/02/2018 9:20 am CLINICAL HISTORY: Cough COMPARISON: January 2018 FINDINGS: The lungs appear clear of acute infiltrate. The heart is normal size IMPRESSION: No acute abnormalities displayed
== END 2018-05-02 12:57 | disposition home or self-care (01) ==
LOC: ER 07:29
DX: R06.2 Wheezing (principal); M54.89 Other dorsalgia; F17.210 Nicotine dependence, cigarettes, uncomplicated
CPT/HCPCS: 36415; 71045; 80048; 80076; 81003; 81025; 83735; 83880; 84484; 85025; 85379; 85610; 93005; 94640; 96374; 96375; 99284; J2405; J2930

== ENCOUNTER 2023-02-14 13:55 | Observation (INO) | payer OTHER ==
--- OUTSIDE RECORDS SUMMARY | 2023-02-14 14:10 | XMS REPORT | Continuity of Care Document ---
:1975 Author Organization [facility] t Address [address] [facility] [address] [place] [id number] Care Team Providers Name Role Phone Melchor Fairbanks MD Primary Care Physician Melinda Harris Attending Clinician Unavailable SENIA ALVES Attending Clinician Unavailable CHRISTIANO LOBO Attending Clinician Unavailable JAN SILVA Attending Clinician Unavailable SIMIN HELTON Attending Clinician Unavailable Norberto Peña NP Attending Clinician Senia Alves MD Attending Clinician [phone] Christiano Lobo MD Attending Clinician Doctor Unassigned, [place] Attending Clinician Unavailable 2, [facility] Attending Clinician Unavailable NORBERTO PEÑA Attending Clinician Unavailable Glo Porter LMSW Attending Clinician CHIOMA PATRICIO Attending Clinician Unavailable CHIOMA PATRICIO Attending Clinician Unavailable Chioma Patricio DO Attending Clinician [facility] Attending Clinician Unavailable KAMALJIT EUCEDA Attending Clinician Unavailable Tech, Jsh Eeg Attending Clinician Unavailable SIMIN BAIN Attending Clinician Unavailable Simin Mcbride Attending Clinician JACQUELINE VALENZUELA Attending Clinician Unavailable Clementine Nino MD Attending Clinician [phone] ADRY GALVIN Attending Clinician Unavailable EZE CARRION Attending Clinician Unavailable MELCHOR FAIRBANKS Attending Clinician Unavailable MD MYRON Attending Clinician Unavailable Kamaljit Euceda DO Attending Clinician SHYAM HELTON Attending Clinician Unavailable ADELAIDA LEWIS Attending Clinician Unavailable MÓNICA MILLIGAN Attending Clinician Unavailable MARGARITA SANDOVAL Attending Clinician Unavailable Shyam Helton MD Attending Clinician LAB15 Attending Clinician Unavailable ES, TECH [address] Un[address], TECH 1 Attending Clinician Unavailable Jagdeep NAVARRETE, Patricia Barber Attending Clinician Shonna Castillo MD Attending Clinician NARA YADAV Attending Clinician Unavailable Jayson Orellana Attending Clinician Unavailable KNOW, DOES_NOT Admitting Clinician Unavailable SIMIN HELTON Admitting Clinician [facility] Admitting Clinician Unavailable CHRISTIANO LOBO Admitting Clinician Unavailable Melinda Harris Admitting Clinician Unavailable Physician, No Primary or Family Admitting Clinician UnavailNARA López Admitting Clinician Unavailable Jayson Orellana Admitting Clinician Unavailable Payers Payer Name Policy Type Policy Number Effective Date Expiration Date [facility] [id number] 2022 CHOICE 00:00:00 ALLIED BENEFIT [id number] SYSTEMS ALLIED BENEFIT [id number] SYSTEMS - BLUE [place] BENEFITS - MULTIPLAN (PPO) PHCS-ALLIED 2 [id number] 2021 BENEFITS SYS/PPO 00:00:00 ALLIED BENEFIT [id number] 2017 2020 00:00:00 00:00:00 Problems Condition Condition Condition Status Onset Resolution Last Treating Co mments Source Name Details Category Date Date Treatment Clinician Date History of History of Disease Active U nivers claustroph claustroph 4-25 it y of obia obia 00:00: [place] [facility] Vapes Vapes Disease Active Univers non-nicoti non-nicoti 3-08 it y of ne ne 00:00: [place] containing containing 00 Me dical substance substance Bran ch Essential Essential Disease Active Uni vers hypertensi hypertensi 3-02 it y of on on 00:00: [place] [facility] Short-term Short-term Disease Active U nivers memory memory 3-02 ity of loss loss 00:00: [place] [facility] Branch Lung Lung Disease Active 2021-06 Univers nodules nodules 2-27 ity of 00:00: [place] [facility] Other Other Disease Active 2021-06 Univers emphysema emphysema 2-27 ity of 00:00: [place] [facility] Branch Bipolar 1 Bipolar 1 Disease Active 2021-06 Uni vers disorder, disorder, 2-27 ity of depressed[place] Medical Branch Other Other Disease Active 2021-06 Univers schizophre schizophre 2-27 it y of kaylin kaylin 00:00: [place] [facility] Anxiety, Anxiety, Disease Active 2021-06 Unive rs generalize generalize 2-27 it y of d d 00:00: [place] [facility] 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 2-27 ity of depression depression [place] [facility] [place] Nausea and Nausea and Disease Active 2021-06 U nivers vomiting vomiting 2-27 ity of in adult in adult 00:00: [place] [facility] GERD GERD Disease Active 2021-06 Univers without without 2-27 ity of esophagiti esophagiti [place] [facility] [place] 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 2-27 it y of emia emia 00:00: [place] [facility] Irritable Irritable Disease Active 2021-06 Uni vers bowel bowel 2-27 ity of syndrome syndrome 00:00: [place] with with 00 Medical diarrhea diarrhea Branch Urinary Urinary Disease Active 2021-06 Univers frequency frequency 2-27 ity of 00:00: [place] 00 Medical Branch Urge Urge Disease Active 2021-06 Univers incontinen incontinen 2-27 it y of ce of ce of 00:00: [place] urine urine 00 Medical Branch Nicotine Nicotine Disease Active 2021-06 Unive rs dependence dependence 2-27 it y of with with 00:00: [place] current current 00 Medical use use Branch Suicidal Suicidal Disease Active 2021-06 Unive rs ideation ideation 2-27 ity of 00:00: [place] 00 Medical Branch Nonintract Nonintract Disease Active 2021-06 U nivers able able 2-27 ity of chronic chronic 00:00: [place] migraine migraine 00 Medica l Branch Bipolar Bipolar Disease Active Joy disorder, disorder, 6-07 Seyb old current current 00:00: episode episode 00 mixed, mixed, mild mild Chronic Chronic Disease Active Joy obstructiv obstructiv 6-07 Se ybold e e 00:00: pulmonary pulmonary 00 disease disease with acute with acute exacerbati exacerbati on on PTSD PTSD Disease Active Joy (post-trau (post-trau 6-07 Se ybold matic matic 00:00: stress stress 00 disorder) disorder) Gastroesop Gastroesop Disease Active K elsey hageal hageal 6-07 [place] reflux reflux 00:00: disease disease 00 without without esophagiti esophagiti s s Mixed Mixed Disease Active Joy hyperlipid hyperlipid 8-31 Se ybold emia emia 00:00: 00 Moderate Moderate Disease Active Kelse y persistent persistent 5-20 Se ybold asthma asthma 00:00: with acute with acute 00 exacerbati exacerbati on on Anxiety Anxiety Disease Active Joy 5-20 Seybold 00:00: 00 Other Other Disease Active Joy insomnia insomnia 5-20 Seybol d 00:00: 00 Nausea Nausea Disease Active Joy 5-20 Seybold 00:00: 00 Migraine Migraine Disease Active Delmarse y with aura with aura 5-20 Seyb old and and 00:00: without without 00 status status migrainosu migrainosu s, not s, not intractabl intractabl e e History of History of Disease Active K elsey seizure seizure 5-20 Seybold 00:00: 00 Asthma Asthma Disease Active Univers exacerbati exacerbati 3-12 it y of on on 00:00: [place] 00 Medical Branch Obesity Obesity Disease Active Univers (BMI (BMI 3-12 ity of 30-39.9) 30-39.9) 00:00: [place] [address] Medical Branch Moderate Moderate Disease Active Unive rs persistent persistent 3-12 it y of asthma asthma 00:00: [place] with with 00 Medical exacerbati exacerbati Br anch on on Allergies, Adverse Reactions, Alerts Allergy Allergy Status Severity Reaction(s) Onset Inactive Treating Comm ents Source Name Type Date Date Clinician hydrocod DA Active SV 2020-06 [facility] one 0-21 [facility] [place] hydrocod DA Active SV NAUSEA,VOMIT 2020-06 [facility] one ING AND 0-21 Woman's ABDOMINAL 00:00: [facility] PAIN 00 l of [place] Hydrocod Propensi Active 2020-06 Joy one ty to 0-18 Seybold adverse 00:00: reaction 00 s hydrocod DA Active SV NAUSEA,VOMIT 2020-06 HC A one ING AND 0-18 Woman's ABDOMINAL 00:00: [facility] PAIN 00 l of [place] hydrocod DA Active SV 2020-06 [facility] one 0-18 [facility] 00:00: [facility] [place] Apap-Fd& Propensi Active Nausea Only K elsey C Yellow ty to 5-20 Seybold #10 Al adverse 00:00: [place]yd reaction 00 rocodone s No Known DA Active U [facility] Allergie 12-23 Woman[facility] s 00:00: [facility] [place] No Known DA Active U [facility] Allergie 12-23 Woman's s 00:00: [facility] 00 l [facility] [place] Hydrocod Propensi Active Nausea and Pt throws Joy one-Acet ty to Vomiting 12-08 up when Seybo ld aminophe adverse 00:00: taking n reaction 00 it. s HYDROCOD DRUG Active High N/V Univers ONE-ACET 12-08 ity of AMINOPHE 00:00: [place] N 00 Medical Branch Hydrocod Propensi Active Nausea 2018-0 Pt throws Uni vers one-Acet ty to and/or 706 up when ity of aminophe adverse Vomiting 00:00: taking [place] n reaction 00 it. Medical s to Branch drug Social History Social Habit Start Date Stop Date Quantity Comments Source History SDOH Joy chiu Alcohol Frequency History SDOH Joy chiu Alcohol Std Drinks History SDHI Joy chiu Alcohol Binge Gender identity [facility]it y of [facility] Sexual orientation Univer sity of [facility] History of tobacco Cigarette Smoker University of use [facility] Cigarette 2023-02-09 2023-02-09 University of pack-years 00:00:00 00:00:00 [facility] Tobacco use and 2023-02-09 2023-02-09 Smokeless Universit y of exposure 00:00:00 00:00:00 tobacco non-user [facility] Alcohol intake 2023-02-09 2023-02-09 Ex-drinker University 00:00:00 00:00:00 (finding) [facility] Cigarettes smoked 2023-02-09 2023-02-09 Univers ity of current (pack per 00:00:00 00:00:00 ) - Reported Branch Exposure to 2022-08-19 2022-08-[address] [facility] SARS-CoV-2 (event) 00:00:00 08:41:00 [facility] History of Social 2022-05-31 2022-05-31 Univers ity of function 00:00:00 00:00:00 [facility] Alcohol Comment 2021-11-09 2021-11-09 socially Joy Maguire ybdouglas 00:00:00 00:00:00 Education 2021-11-09 2021-11-09 15 Joy Cisneros 00:00:00 00:00:00 Tobacco Comment 2020-11-05 2020-11-05 quit cigs early Yvonne maza Seybdouglas 00:00:00 00:00:00 2020, vapes every day. Sex [birth year] Universit y of 00:00:00 00:00:00 [facility] Smoking Status Start Date Stop Date Source Smokes tobacco daily 2023-02-09 00:00:00 Univers ity of [place] [facility] Medications Ordered Filled Start Stop Current Ordering Indication Dosage Frequency Signature Comments Components Source Medication Medication Date Date Medication? Clinician (SIG) Name Name GABAPENTIN Yes [id number] TAKE ONE Univers 300 mg 9-11 (1) ity of capsule 00:00: [place] BY MOUTH Medical THREE Branch TIMES A DAY NEEDED FOR LEG PAIN AND TINGLING. budesonide- Yes [id number] 2{puff} Inhale 2 Univers formoteroL 9-08 Puffs in ity o f (SYMBICORT) 00:00: the [place] 80-4.5 00 morning Medical mcg/actuati and 2 Branch on inhaler Puffs in the evening. budesonide- Yes [id number] 2{puff} Inhale 2 Univers formoteroL 9-08 Puffs in ity o f (SYMBICORT) 00:00: the [place] 80-4.5 00 morning Medical mcg/actuati and 2 Branch on inhaler Puffs in the evening. Lactobacill Yes Probiotic U nivers us 02-09 50 billion ity of acidophilus 16:25: [place] (PROBIOTIC) 55 Medical 10 billion Branch cell capsule estradioL 2 Yes estradiol U nivers mg tablet 02-09 2 mg ity of 16:25: tablet 55 TAKE 1 Medical TABLET BY Branch MOUTH AT BEDTIME solifenacin Yes 10mg Take 10 mg Univers 10 mg 907 by mouth ity of tablet 16:25: in the [place] [address] morning. Medical Branch Lactobacill Yes Probiotic U nivers us 07 50 billion ity of acidophilus 16:25: [place] (PROBIOTIC) 55 Medical 10 billion Branch cell capsule estradioL 2 Yes estradiol U nivers mg tablet 07 2 mg ity of 16:25: tablet 55 TAKE 1 Medical TABLET BY Branch MOUTH AT BEDTIME solifenacin Yes 10mg Take 10 mg Univers 10 mg 9-07 by mouth ity of tablet 16:25: in the [place] [address] morning. Medical Branch Lactobacill Yes Probiotic U nivers us 07 50 billion ity of acidophilus 16:25: [place] (PROBIOTIC) 55 Medical 10 billion Branch cell capsule estradioL 2 Yes estradiol U nivers mg tablet 07 2 mg ity of 16:25: tablet TAKE 1 Medical TABLET BY Branch MOUTH AT BEDTIME solifenacin Yes 10mg Take 10 mg Univers 10 mg 9-07 by mouth ity of tablet 16:25: in the [place] [address] morning. Medical Branch Lactobacill Yes Probiotic U nivers us 02-09 50 billion ity of acidophilus 16:25: [place] (PROBIOTIC) 55 Medical 10 billion Branch cell capsule estradioL 2 Yes estradiol U nivers mg tablet 02-09 2 mg ity of 16:25: tablet TAKE 1 Medical TABLET BY Branch MOUTH AT BEDTIME solifenacin Yes 10mg Take 10 mg Univers 10 mg 9-07 by mouth ity of tablet 16:25: in the [place] [address] morning. Medical Branch albuterol Yes [id number] 2{puff} Inhale 2 Univers 90 9-07 Puffs ity of mcg/actuati 00:00: every 6 [place] as on inhaler 00 (six) Medical hours as Branch needed for Wheezing or Shortness of Breath. furosemide Yes [id number] 40mg Take 1 Univers 40 mg 9-07 tablet by ity of tablet 00:00: mouth in [place] 00 the Medical morning. Branch predniSONE Yes [id number] Take 30 mg Univers 10 mg 9-07 (3 tabs) Q ity of tablet 00:00: AM x 3 [place] 00 days, Medical followed Branch by 20 mg (2 tabs) Q AM x 3 days followed by 10 mg (1 tab) x 3 days then stop albuterol Yes [id number] 2{puff} Inhale 2 Univers 90 9-07 Puffs ity of mcg/actuati 00:00: every 6 [place] on inhaler 00 (six) Medical hours as Branch needed for Wheezing or Shortness of Breath. furosemide Yes [id number] 40mg Take 1 Univers 40 mg 9-07 tablet by ity of tablet 00:00: mouth in [place] 00 the Medical morning. Branch predniSONE Yes [id number] Take 30 mg Univers 10 mg 9-07 (3 tabs) Q ity of tablet 00:00: AM x 3 [place] 00 days, Medical followed Branch by 20 mg (2 tabs) Q AM x 3 days followed by 10 mg (1 tab) x 3 days then stop albuterol 2022-0 Yes [id number] 2{puff} Inhale 2 Univers 90 9-07 Puffs ity of mcg/actuati 00:00: every 6 [place] on inhaler 00 (six) Medical hours as Branch needed for Wheezing or Shortness of Breath. furosemide 2022-0 Yes [id number] 40mg Take 1 Univers 40 mg 9-07 tablet by ity of tablet 00:00: mouth in [place] 00 the Medical morning. Branch predniSONE 2022-0 Yes [id number] Take 30 mg Univers 10 mg 9-07 (3 tabs) Q ity of tablet 00:00: AM x 3 days, Medical followed Branch by 20 mg (2 tabs) Q AM x 3 days followed by 10 mg (1 tab) x 3 days then stop albuterol 2022-0 Yes [id number] 2{puff} Inhale 2 Univers 90 9-07 Puffs ity of mcg/actuati 00:00: every 6 [place] on inhaler 00 (six) Medical hours as Branch needed for Wheezing or Shortness of Breath. furosemide 2022-0 Yes [id number] 40mg Take 1 Univers 40 mg 9-07 tablet by ity of tablet 00:00: mouth in [place] the Medical morning. Branch predniSONE 2022-0 Yes [id number] Take 30 mg Univers 10 mg 9-07 (3 tabs) Q ity of tablet 00:00: AM x 3 [place] days, Medical followed Branch by 20 mg (2 tabs) Q AM x 3 days followed by 10 mg (1 tab) x 3 days then stop doxepin 75 2022-0 Yes [id number] 75mg Take 1 Univers mg capsule 8-20 capsule by ity of 00:00: mouth at [place] [address] bedtime. Medical Branch doxepin 75 2022-0 Yes [id number] 75mg Take 1 Univers mg capsule 8-20 capsule by ity of 00:00: mouth at [place] [address] bedtime. Medical Branch doxepin 75 2022-0 Yes [id number] 75mg Take 1 Univers mg capsule 8-20 capsule by ity of 00:00: mouth at [place] [address] bedtime. Medical Branch doxepin 75 2022-0 Yes [id number] 75mg Take 1 Univers mg capsule 8-20 capsule by ity of 00:00: mouth at [place] [address] bedtime. Medical Branch doxepin 75 2022-0 Yes [id number] 75mg Take 1 Univers mg capsule 8-20 capsule by ity of 00:00: mouth at [place] [address] bedtime. [facility] Branch doxepin 75 2022-0 Yes [id number] 75mg Take 1 Univers mg capsule 8-20 capsule by ity of 00:00: mouth at [place] [address] bedtime. [facility] Branch DOXEPIN 25 2022-0 Yes [id number] TAKE TWO Univers mg capsule 8-02 (2) TO ity of 00:00: THREE(3) [place] 00 CAPSULES Medical BY MOUTH Branch AT BEDTIME. DOXEPIN 25 2022-0 Yes [id number] TAKE TWO Univers mg capsule 8-02 (2) TO ity of 00:00: THREE(3) [place] 00 CAPSULES Medical BY MOUTH Branch AT BEDTIME. DOXEPIN 25 2022-0 Yes [id number] TAKE TWO Univers mg capsule 8-02 (2) TO ity of 00:00: THREE(3) [place] 00 CAPSULES Medical BY MOUTH Branch AT BEDTIME. DOXEPIN 25 2022- No [id number] TAKE TWO Univers mg capsule 8- 08-20 (2) TO ity of 00:00: 00:00 THREE(3) [place] 00 :00 CAPSULES Medical BY MOUTH Branch AT BEDTIME. cefTRIAXone 2022- No [id number] 1000mg Univers (ROCEPHIN) 12-20 ity of injection 14:45: 14:33 [place] 1,000 mg 00 :00 [facility] cefTRIAXone 2022- No [id number] 1000mg 1,000 mg, Univers (ROCEPHIN) 12-20 Intramuscu it y of injection 14:45: 14:33 [place], ONCE, [place] 1,000 mg 00 :00 1 dose, On Medic al [facility] Branch 12/20/22 at 0945, DANNI
Re ason for Anti-Infec tive: Documented Infection< br>Documen jonathan Infection Site: Skin / Soft Tissue
Duration of Therapy: Other (see Comments) cefTRIAXone 2022- No [id number] 1000mg Univers (ROCEPHIN) 12-20 ity of injection 14:45: 14:33 [place] 1,000 mg 00 :00 Medical Branch cefTRIAXone 2022-0 2023- No [id number] 1000mg 1,000 mg, Univers (ROCEPHIN) 12-20 Intramuscu it y of injection 14:45: 14:33 [place], ONCE, [place] 1,000 mg 00 :00 1 dose, On Medic al Tue Branch 12/20/22 at 0945, DANNI
Re ason for Anti-Infec tive: Documented Infection< br>Documen jonathan Infection Site: Skin / Soft Tissue
Duration of Therapy: Other (see Comments) furosemide 0 Yes [id number] 40mg Take 1 Univers 40 mg 7-18 tablet by ity of tablet 00:00: mouth in [place] 00 the Medical morning. Branch methylPREDN 2022-0 Yes [id number] Take by Univers ISolone 18 mouth ity of (MEDROL, 00:00: SEE-INSTRU [place] MARIELOS,) 4 mg 00 CTIONS. Medica l tablets follow Branch package directions furosemide 2022-0 Yes [id number] 40mg Take 1 Univers 40 mg 7-18 tablet by ity of tablet 00:00: mouth in [place] 00 the Medical morning. Branch methylPREDN 2022-0 Yes [id number] Take by Univers ISolone 18 mouth ity of (MEDROL, 00:00: SEE-INSTRU [place] MARIELOS,) 4 mg 00 CTIONS. Medica l tablets follow Branch package directions gabapentin 2022-0 Yes [id number] 300mg Take 1 Univers 300 mg 7-18 capsule by ity of capsule 00:00: mouth 3 [place] 00 (three) Medical times Branch daily as needed for Other (leg pain and tingling). furosemide 2022-0 Yes [id number] 40mg Take 1 Univers 40 mg 7-18 tablet by ity of tablet 00:00: mouth in [place] the Medical morning. Branch methylPREDN 2022-0 Yes [id number] Take by Univers ISolone 7-18 mouth ity of (MEDROL, 00:00: SEE-INSTRU [place] as MARIELOS,) 4 mg 00 CTIONS. Medica l tablets follow Branch package directions gabapentin 2022-0 Yes [id number] 300mg Take 1 Univers 300 mg 7-18 capsule by ity of capsule 00:00: mouth 3 [place] (three) Medical times Branch daily as needed for Other (leg pain and tingling). furosemide 2023-0 Yes [id number] 40mg Take 1 Univers 40 mg 7-18 tablet by ity of tablet 00:00: mouth in [place] 00 the Medical morning. Branch methylPREDN 2023-0 Yes [id number] Take by Univers ISolone 7-18 mouth ity of (MEDROL, 00:00: SEE-INSTRU [place] as MARIELOS,) 4 mg 00 CTIONS. Medica l tablets follow Branch package directions gabapentin 2023-0 Yes [id number] 300mg Take 1 Univers 300 mg 7-18 capsule by ity of capsule 00:00: mouth 3 [place] (three) Medical times Branch daily as needed for Other (leg pain and tingling). furosemide 2022-0 Yes [id number] 40mg Take 1 Univers 40 mg 7-18 tablet by ity of tablet 00:00: mouth in [place] the Medical morning. Branch methylPREDN 3-0 Yes [id number] Take by Univers ISolone 7-18 mouth ity of (MEDROL, 00:00: SEE-INSTRU [place] as MARIELOS,) 4 mg 00 CTIONS. Medica l tablets follow Branch package directions gabapentin 3-0 Yes [id number] 300mg Take 1 Univers 300 mg 7-18 capsule by ity of capsule 00:00: mouth 3 [place] (three) Medical times Branch daily as needed for Other (leg pain and tingling). furosemide 3-0 Yes [id number] 40mg Take 1 Univers 40 mg 7-18 tablet by ity of tablet 00:00: mouth in [place] 00 the Medical morning. Branch methylPREDN 2023-0 Yes [id number] Take by Univers ISolone 7-18 mouth ity of (MEDROL, 00:00: SEE-INSTRU [place] as MARIELOS,) 4 mg 00 CTIONS. Medica l tablets follow Branch package directions gabapentin 2023-0 Yes [id number] 300mg Take 1 Univers 300 mg 7-18 capsule by ity of capsule 00:00: mouth 3 [place] (three) Medical times Branch daily as needed for Other (leg pain and tingling). furosemide 2023-0 Yes [id number] 40mg Take 1 Univers 40 mg 7-18 tablet by ity of tablet 00:00: mouth in [place] 00 the Medical morning. Branch methylPREDN 2023-0 Yes [id number] Take by Univers ISolone 7-18 mouth ity of (MEDROL, 00:00: SEE-INSTRU [place] MARIELOS,) 4 mg 00 CTIONS. Medica l tablets follow Branch package directions gabapentin 2023-0 Yes [id number] 300mg Take 1 Univers 300 mg 7-18 capsule by ity of capsule 00:00: mouth 3 [place] (three) Medical times Branch daily as needed for Other (leg pain and tingling). furosemide 2023-0 Yes [id number] 40mg Take 1 Univers 40 mg 7-18 tablet by ity of tablet 00:00: mouth in [place] the Medical morning. Branch methylPREDN 2023-0 Yes [id number] Take by Univers ISolone 7-18 mouth ity of (MEDROL, 00:00: SEE-INSTRU [place] as MARIELOS,) 4 mg 00 CTIONS. Medica l tablets follow Branch package directions gabapentin 2023-0 Yes [id number] 300mg Take 1 Univers 300 mg 7-18 capsule by ity of capsule 00:00: mouth 3 [place] (three) Medical times Branch daily as needed for Other (leg pain and tingling). furosemide 2023-0 Yes [id number] 40mg Take 1 Univers 40 mg 7-18 tablet by ity of tablet 00:00: mouth in [place] the Medical morning. Branch methylPREDN 2023-0 Yes [id number] Take by Univers ISolone 7-18 mouth ity of (MEDROL, 00:00: SEE-INSTRU [place] as MARIELOS,) 4 mg 00 CTIONS. Medica l tablets follow Branch package directions gabapentin 2023-0 Yes [id number] 300mg Take 1 Univers 300 mg 7-18 capsule by ity of capsule 00:00: mouth 3 [place] [address] (three) Medical times Branch daily as needed for Other (leg pain and tingling). furosemide 2023-0 Yes [id number] 40mg Take 1 Univers 40 mg 7-18 tablet by ity of tablet 00:00: mouth in [place] 00 the Medical morning. Branch methylPREDN 2023-0 Yes [id number] Take by Univers ISolone 7-18 mouth ity of (MEDROL, 00:00: SEE-INSTRU [place] as MARIELOS,) 4 mg 00 CTIONS. Medica l tablets follow Branch package directions gabapentin 2023-0 Yes [id number] 300mg Take 1 Univers 300 mg 7-18 capsule by ity of capsule 00:00: mouth 3 (three) Medical times Branch daily as needed for Other (leg pain and tingling). furosemide 2023-0 Yes [id number] 40mg Take 1 Univers 40 mg 7-18 tablet by ity of tablet 00:00: mouth in [place] 00 the Medical morning. Branch methylPREDN 2023-0 Yes [id number] Take by Univers ISolone 7-18 mouth ity of (MEDROL, 00:00: SEE-INSTRU [place] as MARIELOS,) 4 mg 00 CTIONS. Medica l tablets follow Branch package directions gabapentin 3-0 Yes [id number] 300mg Take 1 Univers 300 mg 7-18 capsule by ity of capsule 00:00: mouth 3 [place] (three) Medical times Branch daily as needed for Other (leg pain and tingling). furosemide 2023-0 Yes [id number] 40mg Take 1 Univers 40 mg 7-18 tablet by ity of tablet 00:00: mouth in [place] the Medical morning. Branch methylPREDN 2023-0 Yes [id number] Take by Univers ISolone 7-18 mouth ity of (MEDROL, 00:00: SEE-INSTRU [place] as MARIELOS,) 4 mg 00 CTIONS. Medica l tablets follow Branch package directions gabapentin 2023-0 Yes [id number] 300mg Take 1 Univers 300 mg 7-18 capsule by ity of capsule 00:00: mouth 3 (three) Medical times Branch daily as needed for Other (leg pain and tingling). furosemide 2023-0 Yes [id number] 40mg Take 1 Univers 40 mg 7-18 tablet by ity of tablet 00:00: mouth in [place] 00 the Medical morning. Branch methylPREDN 2023-0 Yes [id number] Take by Univers ISolone 7-18 mouth ity of (MEDROL, 00:00: SEE-INSTRU [place] as MARIELOS,) 4 mg 00 CTIONS. Medica l tablets follow Branch package directions gabapentin 2023-0 Yes [id number] 300mg Take 1 [facility] 300 mg 7-18 capsule by [facility] of capsule 00:00: mouth 3 00 (three) Medical times Branch daily as needed for Other (leg pain and tingling). furosemide 2022-0 Yes [id number] 40mg Take 1 [facility] 40 mg 7-18 tablet by it[facility] of tablet 00:00: mouth in [place] 00 the Medical morning. Branch methylPREDN 2022-0 Yes [id number] Take by [facility] ISolone 7-18 mouth ity of (MEDROL, 00:00: SEE-INSTRU [place] MAR[place]ELOS,) 4 mg 00 CTIONS. Medica l tablets follow Branch package directions gabapentin 2022-0 Yes [id number] 300mg Take 1 [facility] 300 mg 7-18 capsule by ity of capsule 00:00: mouth 3 [place] (three) Medical times Branch daily as needed for Other (leg pain and tingling). gabapentin 2022-0 Yes [id number] 300mg Take 1 [facility] 300 mg 7-18 capsule by ity of capsule 00:00: mouth 3 [place] (three) Medical times Branch daily as needed for Other (leg pain and tingling). gabapentin 2022-0 Yes [id number] 300mg Take 1 [facility] 300 mg 7-18 capsule by ity of capsule 00:00: mouth 3 [place] (three) Medical times Branch daily as needed for Other (leg pain and tingling). gabapentin 2022-0 Yes [id number] 300mg Take 1 [facility] 300 mg 7-18 capsule by ity of capsule 00:00: mouth 3 [place] (three) Medical times Branch daily as needed for Other (leg pain and tingling). gabapentin 2022-0 2022- No [id number] 300mg Take 1 [facility] 300 mg 7-18 02-13 capsule by ity of capsule 00:00: 00:00 mouth 3 [place] 00 :00 (three) Medical times Branch daily as needed for Other (leg pain and tingling). furosemide 2022-0 2022- No [id number] 40mg Take 1 [facility] 40 mg 7-18 02-09 tablet by ity of tablet 00:00: 00:00 mouth in [place] 00 :00 the Medical morning. Branch methylPREDN 2022-0 2022- No [id number] Take by [facility] ISolone 7-18 02-09 mouth ity of (MEDROL, 00:00: 00:00 SEE-INSTRU [place] MAR[place]ELOS,) 4 mg 00 :00 CTIONS. Medica l tablets follow Branch package directions furosemide 2022- No [id number] 40mg Take 1 [facility] 40 mg 12-20 tablet by ity of tablet 00:00: 00:00 mouth in [place] 00 :00 the Medical morning. Branch methylPREDN 2022- No [id number] Take by [facility] ISolone 12-20 mouth ity of (MEDROL, 00:00: 00:00 [place] 4 mg 00 :00 CTIONS. Medica l tablets follow Branch package directions furosemide 2022- No [id number] 40mg Take 1 [facility] 40 mg 12-20 tablet by ity of tablet 00:00: 00:00 mouth in [place] 00 :00 the Medical morning. Branch methylPREDN 2022- No [id number] Take by [facility] ISolone 12-20 mouth ity of (MEDROL, 00:00: 00:00 [place] 4 mg 00 :00 CTIONS. Medica l tablets follow Branch package directions cephALEXin 2022- Yes [id number] 500mg Take 1 [facility] (KEFLEX) 12-20 capsule by ity of 500 mg 00:00: 04:59 mouth in [place] capsule 00 :00 the [facility] morning Branch and 1 capsule at noon and 1 capsule in the evening. Do all this for 10 days. cephALEXin 2022- Yes [id number] 500mg Take 1 [facility] (KEFLEX) 12-20 capsule by ity of 500 mg 00:00: 04:59 mouth in [place] capsule 00 :00 the Medical morning Branch and 1 capsule at noon and 1 capsule in the evening. Do all this for 10 days. cephALEXin 2022- Yes [id number] 500mg Take 1 [facility] (KEFLEX) 12-20 capsule by ity of 500 mg 00:00: 04:59 mouth in [place] capsule 00 :00 the Medical morning Branch and 1 capsule at noon and 1 capsule in the evening. Do all this for 10 days. cephALEXin 2022- Yes [id number] 500mg Take 1 [facility] (KEFLEX) 12-20 capsule by ity of 500 mg 00:00: 04:59 mouth in [place] capsule 00 :00 the Medical morning Branch and 1 capsule at noon and 1 capsule in the evening. Do all this for 10 days. cephALEXin 2022-0 2022- Yes [id number] 500mg Take 1 [facility] (KEFLEX) 12-20 capsule by ity of 500 mg 00:00: 04:59 mouth in [place] capsule 00 :00 the Medical morning Branch and 1 capsule at noon and 1 capsule in the evening. Do all this for 10 days. cephALEXin 2022-0 2022- Yes [id number] 500mg Take 1 [facility] (KEFLEX) 12-20 capsule by ity of 500 mg 00:00: 04:59 mouth in [place] capsule 00 :00 the Medical morning Branch and 1 capsule at noon and 1 capsule in the evening. Do all this for 10 days. cephALEXin 2022-0 2022- No [id number] 500mg Take 1 [facility] (KEFLEX) 12-20 capsule by ity of 500 mg 00:00: 04:59 mouth in [place] capsule 00 :00 the Medical morning Branch and 1 capsule at noon and 1 capsule in the evening. Do all this for 10 days. cephALEXin 2022-0 2022- No [id number] 500mg Take 1 [facility] (KEFLEX) 12-20 capsule by ity of 500 mg 00:00: 04:59 mouth in [place] capsule 00 :00 the Medical morning Branch and 1 capsule at noon and 1 capsule in the evening. Do all this for 10 days. furosemide 2022-0 Yes [id number] 20mg Take 1 [facility] 20 mg 7-11 tablet by ity of tablet 00:00: mouth [place] 00 every Medical other day. Branch furosemide 2022-0 2022- No [id number] 20mg Take 1 [facility] 20 mg 7-04 11-18 tablet by ity of tablet 00:00: 00:00 mouth [place] 00 :00 every Medical other day. Branch furosemide 2022-0 2022- No [id number] 20mg Take 1 [facility] 20 mg 7-04 11-18 tablet by ity of tablet 00:00: 00:00 mouth [place] 00 :00 every Medical other day. Branch SUMATRIPTAN 2022-0 Yes [id number] TAKE ONE [facility] 100 mg 7-03 (1) ity of tablet 00:00: TABLET(S) [place] 00 BY MOUTH Medical ONCE DAILY Branch NEEDED FOR MIGRAINE. SUMATRIPTAN 2023-0 Yes [id number] TAKE ONE [facility] 100 mg 7-03 (1) ity of tablet 00:00: TABLET(S) [place] 00 BY MOUTH Medical ONCE DAILY Branch NEEDED FOR MIGRAINE. SUMATRIPTAN 2023-0 Yes [id number] TAKE ONE [facility] 100 mg 7-03 (1) ity of tablet 00:00: TABLET(S) [place] 00 BY MOUTH Medical ONCE DAILY Branch NEEDED FOR MIGRAINE. SUMATRIPTAN 2023-0 Yes [id number] TAKE ONE [facility] 100 mg 7-03 (1) ity of tablet 00:00: TABLET(S) [place] 00 BY MOUTH Medical ONCE DAILY Branch NEEDED FOR MIGRAINE. SUMATRIPTAN 2023-0 Yes [id number] TAKE ONE [facility] 100 mg 7-03 (1) ity of tablet 00:00: TABLET(S) [place] 00 BY MOUTH Medical ONCE DAILY Branch NEEDED FOR MIGRAINE. SUMATRIPTAN 2023-0 Yes [id number] TAKE ONE [facility] 100 mg 7-03 (1) ity of tablet 00:00: TABLET(S) [place] 00 BY MOUTH Medical ONCE DAILY Branch NEEDED FOR MIGRAINE. SUMATRIPTAN 2023-0 Yes [id number] TAKE ONE [facility] 100 mg 7-03 (1) ity of tablet 00:00: TABLET(S) [place] 00 BY MOUTH Medical ONCE DAILY Branch NEEDED FOR MIGRAINE. SUMATRIPTAN 2023-0 Yes [id number] TAKE ONE [facility] 100 mg 7-03 (1) ity of tablet 00:00: TABLET(S) [place] 00 BY MOUTH Medical ONCE DAILY Branch NEEDED FOR MIGRAINE. SUMATRIPTAN 2023-0 Yes [id number] TAKE ONE [facility] 100 mg 7-03 (1) ity of tablet 00:00: TABLET(S) [place] 00 BY MOUTH Medical ONCE DAILY Branch NEEDED FOR MIGRAINE. SUMATRIPTAN 2023-0 Yes [id number] TAKE ONE [facility] 100 mg 7-03 (1) ity of tablet 00:00: TABLET(S) [place] 00 BY MOUTH Medical ONCE DAILY Branch NEEDED FOR MIGRAINE. SUMATRIPTAN 2023-0 Yes [id number] TAKE ONE [facility] 100 mg 7-03 (1) ity of tablet 00:00: TABLET(S) [place] 00 BY MOUTH Medical ONCE DAILY Branch NEEDED FOR MIGRAINE. SUMATRIPTAN 2023-0 Yes [id number] TAKE ONE [facility] 100 mg 7-03 (1) ity of tablet 00:00: TABLET(S) [place] 00 BY MOUTH Medical ONCE DAILY Branch NEEDED FOR MIGRAINE. SUMATRIPTAN 2023-0 Yes [id number] TAKE ONE [facility] 100 mg 7-03 (1) ity of tablet 00:00: TABLET(S) [place] 00 BY MOUTH Medical ONCE DAILY Branch NEEDED FOR MIGRAINE. SUMATRIPTAN 2023-0 Yes [id number] TAKE ONE [facility] 100 mg 7-03 (1) ity of tablet 00:00: TABLET(S) [place] 00 BY MOUTH Medical ONCE DAILY Branch NEEDED FOR MIGRAINE. SUMATRIPTAN 2023-0 Yes [id number] TAKE ONE [facility] 100 mg 7-03 (1) ity of tablet 00:00: TABLET(S) [place] 00 BY MOUTH Medical ONCE DAILY Branch NEEDED FOR MIGRAINE. SUMATRIPTAN 2023-0 Yes [id number] TAKE ONE [facility] 100 mg 7-03 (1) ity of tablet 00:00: TABLET(S) [place] 00 BY MOUTH Medical ONCE DAILY Branch NEEDED FOR MIGRAINE. SUMATRIPTAN 2023-0 Yes [id number] TAKE ONE [facility] 100 mg 7-03 (1) ity of tablet 00:00: TABLET(S) [place] 00 BY MOUTH Medical ONCE DAILY Branch NEEDED FOR MIGRAINE. SUMATRIPTAN 2023-0 Yes [id number] TAKE ONE [facility] 100 mg 7-03 (1) ity of tablet 00:00: TABLET(S) [place] 00 BY MOUTH Medical ONCE DAILY Branch NEEDED FOR MIGRAINE. SUMATRIPTAN 2023-0 Yes [id number] TAKE ONE [facility] 100 mg 7-03 (1) ity of tablet 00:00: TABLET(S) [place] 00 BY MOUTH Medical ONCE DAILY Branch NEEDED FOR MIGRAINE. SUMATRIPTAN 2023-0 Yes [id number] TAKE ONE [facility] 100 mg 7-03 (1) ity of tablet 00:00: TABLET(S) [place] 00 BY MOUTH Medical ONCE DAILY Branch NEEDED FOR MIGRAINE. SUMATRIPTAN 2023-0 Yes [id number] TAKE ONE [facility] 100 mg 7-03 (1) ity of tablet 00:00: TABLET(S) [place] 00 BY MOUTH Medical ONCE DAILY Branch NEEDED FOR MIGRAINE. SUMATRIPTAN Yes [id number] TAKE ONE [facility] 100 mg 7-03 (1) ity of tablet 00:00: TABLET(S) [place] 00 BY MOUTH Medical ONCE DAILY Branch NEEDED FOR MIGRAINE. SUMATRIPTAN Yes [id number] TAKE ONE [facility] 100 mg 7-03 (1) ity of tablet 00:00: TABLET(S) [place] 00 BY MOUTH Medical ONCE DAILY Branch NEEDED FOR MIGRAINE. diazePAM 2 2022- No diazepam 2 [facility] mg tablet 6-23 06-23 mg tablet ity of 14:37: 00:00 TAKE ONE [place] 14 :00 (1) Medical TABLET(S) Branch BY MOUTH NIGHTLY NEEDED FOR ANXIETY. diazePAM 2 2022- No diazepam 2 [facility] mg tablet 6-23 06-23 mg tablet ity of 14:37: 00:00 TAKE ONE [place] 14 :00 (1) Medical TABLET(S) Branch BY MOUTH NIGHTLY NEEDED FOR ANXIETY. diazePAM 2 2022- No diazepam 2 [facility] mg tablet 6-23 06-23 mg tablet ity of 14:37: 00:00 TAKE ONE [place] 14 :00 (1) Medical TABLET(S) Branch BY MOUTH NIGHTLY NEEDED FOR ANXIETY. diazePAM 2 2022- No diazepam 2 [facility] mg tablet 6-23 06-23 mg tablet ity of 14:37: 00:00 TAKE ONE [place] 14 :00 (1) Medical TABLET(S) Branch BY MOUTH NIGHTLY NEEDED FOR ANXIETY. ALPRAZolam 2022- No 1mg Take 2 Univ ers 0.5 mg 6-23 06-23 tablets by ity of tablet 14:37: 00:00 mouth 3 [place] 11 :00 (three) Medical times Branch daily as needed for Other (Anxiety). ALPRAZolam 2022- No 1mg Take 2 Univ ers 0.5 mg 6-23 06-23 tablets by ity of tablet 14:37: 00:00 mouth 3 [place] 11 :00 (three) Medical times Branch daily as needed for Other (Anxiety). ALPRAZolam 2022- No 1mg Take 2 Univ ers 0.5 mg 6-23 06-23 tablets by ity of tablet 14:37: 00:00 mouth 3 [place] 11 :00 (three) Medical times Branch daily as needed for Other (Anxiety). ALPRAZolam 2022-0 2022- No 1mg Take 2 Univ ers 0.5 mg 6-23 06-23 tablets by ity of tablet 14:37: 00:00 mouth 3 [place] 11 :00 (three) Medical times Branch daily as needed for Other (Anxiety). ubrogepant 2022-0 Yes [id number] 100mg Take 1 [facility] (UBRELVY) 6-23 tablet by ity o f 100 mg Tab 00:00: mouth as [place] 00 needed for Medical Pain Branch (scale 7-10). ubrogepant 2022-0 Yes [id number] 100mg Take 1 [facility] (UBRELVY) 6-23 tablet by ity o f 100 mg Tab 00:00: mouth as [place] 00 needed for Medical Pain Branch (scale 7-10). ubrogepant 2022-0 Yes [id number] 100mg Take 1 [facility] (UBRELVY) 6-23 tablet by ity o f 100 mg Tab 00:00: mouth as [place] 00 needed for Medical Pain Branch (scale 7-10). ubrogepant 2022-0 Yes [id number] 100mg Take 1 [facility] (UBRELVY) 6-23 tablet by ity o f 100 mg Tab 00:00: mouth as [place] 00 needed for Medical Pain Branch (scale 7-10). ubrogepant 2022-0 Yes [id number] 100mg Take 1 [facility] (UBRELVY) 6-23 tablet by ity o f 100 mg Tab 00:00: mouth as [place] 00 needed for Medical Pain Branch (scale 7-10). ubrogepant 2022-0 Yes [id number] 100mg Take 1 [facility] (UBRELVY) 6-23 tablet by ity o f 100 mg Tab 00:00: mouth as [place] 00 needed for Medical Pain Branch (scale 7-10). ubrogepant 2022-0 Yes [id number] 100mg Take 1 [facility] (UBRELVY) 6-23 tablet by ity o f 100 mg Tab 00:00: mouth as [place] 00 needed for Medical Pain Branch (scale 7-10). ubrogepant 2022-0 Yes [id number] 100mg Take 1 [facility] (UBRELVY) 6-23 tablet by ity o f 100 mg Tab 00:00: mouth as [place] 00 needed for Medical Pain Branch (scale 7-10). ubrogepant 2023-0 Yes [id number] 100mg Take 1 [facility] (UBRELVY) 6-23 tablet by ity o f 100 mg Tab 00:00: mouth as [place] 00 needed for Medical Pain Branch (scale 7-10). ubrogepant 2023-0 Yes [id number] 100mg Take 1 [facility] (UBRELVY) 6-23 tablet by ity o f 100 mg Tab 00:00: mouth as [place] 00 needed for Medical Pain Branch (scale 7-10). ubrogepant 2023-0 Yes [id number] 100mg Take 1 [facility] (UBRELVY) 6-23 tablet by ity o f 100 mg Tab 00:00: mouth as [place] 00 needed for Medical Pain Branch (scale 7-10). ubrogepant 2023-0 Yes [id number] 100mg Take 1 [facility] (UBRELVY) 6-23 tablet by ity o f 100 mg Tab 00:00: mouth as [place] 00 needed for Medical Pain Branch (scale 7-10). ubrogepant 2023-0 Yes [id number] 100mg Take 1 [facility] (UBRELVY) 6-23 tablet by ity o f 100 mg Tab 00:00: mouth as [place] 00 needed for Medical Pain Branch (scale 7-10). ubrogepant 2023-0 Yes [id number] 100mg Take 1 [facility] (UBRELVY) 6-23 tablet by ity o f 100 mg Tab 00:00: mouth as [place] 00 needed for Medical Pain Branch (scale 7-10). ubrogepant 2023-0 Yes [id number] 100mg Take 1 [facility] (UBRELVY) 6-23 tablet by ity o f 100 mg Tab 00:00: mouth as [place] 00 needed for Medical Pain Branch (scale 7-10). ubrogepant 2023-0 Yes [id number] 100mg Take 1 [facility] (UBRELVY) 6-23 tablet by ity o f 100 mg Tab 00:00: mouth as [place] 00 needed for Medical Pain Branch (scale 7-10). ubrogepant 2023-0 Yes [id number] 100mg Take 1 [facility] (UBRELVY) 6-23 tablet by ity o f 100 mg Tab 00:00: mouth as [place] 00 needed for Medical Pain Branch (scale 7-10). ubrogepant 2023-0 Yes [id number] 100mg Take 1 [facility] (UBRELVY) 6-23 tablet by ity o f 100 mg Tab 00:00: mouth as [place] 00 needed for Medical Pain Branch (scale 7-10). ubrogepant 2023-0 Yes [id number] 100mg Take 1 [facility] (UBRELVY) 6-23 tablet by ity o f 100 mg Tab 00:00: mouth as [place] 00 needed for Medical Pain Branch (scale 7-10). ubrogepant 2023-0 Yes [id number] 100mg Take 1 [facility] (UBRELVY) 6-23 tablet by ity o f 100 mg Tab 00:00: mouth as [place] 00 needed for Medical Pain Branch (scale 7-10). ubrogepant 2023-0 Yes [id number] 100mg Take 1 [facility] (UBRELVY) 6-23 tablet by ity o f 100 mg Tab 00:00: mouth as [place] 00 needed for Medical Pain Branch (scale 7-10). ubrogepant 2023-0 Yes [id number] 100mg Take 1 [facility] (UBRELVY) 6-23 tablet by ity o f 100 mg Tab 00:00: mouth as [place] 00 needed for Medical Pain Branch (scale 7-10). ubrogepant 2023-0 Yes [id number] 100mg Take 1 [facility] (UBRELVY) 6-23 tablet by ity o f 100 mg Tab 00:00: mouth as [place] 00 needed for Medical Pain Branch (scale 7-10). ubrogepant 2023-0 Yes [id number] 100mg Take 1 [facility] (UBRELVY) 6-23 tablet by ity o f 100 mg Tab 00:00: mouth as [place] 00 needed for Medical Pain Branch (scale 7-10). ubrogepant 2023-0 Yes [id number] 100mg Take 1 [facility] (UBRELVY) 6-23 tablet by ity o f 100 mg Tab 00:00: mouth as [place] 00 needed for Medical Pain Branch (scale 7-10). ubrogepant 2023-0 Yes [id number] 100mg Take 1 [facility] (UBRELVY) 6-23 tablet by ity o f 100 mg Tab 00:00: mouth as [place] 00 needed for Medical Pain Branch (scale 7-10). buPROPion 2023-0 Yes [id number] 75mg Take 1 [facility] nivers 75 mg 6-22 tablet by ity of tablet 00:00: mouth in [place] 00 the Medical morning Branch and 1 tablet in the evening. QUEtiapine 2023-0 Yes [id number] 200mg Take 1 [facility] 200 mg 6-22 7 tablet by ity of tablet 00:00: mouth at [place] [address] bedtime. Medical Branch propranoloL 2023-0 Yes [id number] 20mg Take 1 [facility] 20 mg 6-22 tablet by ity of tablet 00:00: mouth in [place] 00 the Medical morning Branch and 1 tablet in the evening. SERTraline 3-0 Yes [id number] 200mg Take 2 [facility] 100 mg 6-22 7 tablets by ity of tablet 00:00: mouth in [place] 00 the Medical morning. Branch atorvastati 3-0 Yes [id number] 20mg Take 1 [facility] n 20 mg 6-22 tablet by ity of tablet 00:00: mouth at [place] [address] bedtime. Medical Branch buPROPion 2023-0 Yes [id number] 75mg Take 1 U nivers 75 mg 6-22 tablet by ity of tablet 00:00: mouth in [place] [address] the Medical morning Branch and 1 tablet in the evening. QUEtiapine 2023-0 Yes [id number] 200mg Take 1 [facility] 200 mg 6-22 7 tablet by ity of tablet 00:00: mouth at [place] [address] bedtime. Medical Branch propranoloL 2023-0 Yes [id number] 20mg Take 1 [facility] 20 mg 6-22 tablet by ity of tablet 00:00: mouth in [place] [address] the Medical morning Branch and 1 tablet in the evening. SERTraline 2023-0 Yes [id number] 200mg Take 2 [facility] 100 mg 6-22 7 tablets by ity of tablet 00:00: mouth in [place] [address] the Medical morning. Branch atorvastati 3-0 Yes [id number] 20mg Take 1 [facility] n 20 mg 6-22 tablet by ity of tablet 00:00: mouth at [place] [address] bedtime. Medical Branch buPROPion 3-0 Yes [id number] 75mg Take 1 U nivers 75 mg 6-22 tablet by ity of tablet 00:00: mouth in [place] 00 the Medical morning Branch and 1 tablet in the evening. QUEtiapine 3-0 Yes [id number] 200mg Take 1 [facility] 200 mg 6-22 7 tablet by ity of tablet 00:00: mouth at [place] [address] bedtime. Medical Branch propranoloL 3-0 Yes [id number] 20mg Take 1 [facility] 20 mg 6-22 tablet by ity of tablet 00:00: mouth in [place] 00 the Medical morning Branch and 1 tablet in the evening. SERTraline 2023-0 Yes [id number] 200mg Take 2 [facility] 100 mg 6-22 7 tablets by ity of tablet 00:00: mouth in [place] 00 the Medical morning. Branch atorvastati 3-0 Yes [id number] 20mg Take 1 [facility] n 20 mg 6-22 tablet by ity of tablet 00:00: mouth at [place] [address] bedtime. Medical Branch buPROPion 3-0 Yes [id number] 75mg Take 1 U nivers 75 mg 6-22 tablet by ity of tablet 00:00: mouth in [place] 00 the Medical morning Branch and 1 tablet in the evening. QUEtiapine 3-0 Yes [id number] 200mg Take 1 [facility] 200 mg 6-22 7 tablet by ity of tablet 00:00: mouth at [place] [address] bedtime. Medical Branch propranoloL 3-0 Yes [id number] 20mg Take 1 [facility] 20 mg 6-22 tablet by ity of tablet 00:00: mouth in [place] 00 the Medical morning Branch and 1 tablet in the evening. SERTraline 3-0 Yes [id number] 200mg Take 2 [facility] 100 mg 6-22 7 tablets by ity of tablet 00:00: mouth in [place] 00 the Medical morning. Branch atorvastati 3-0 Yes [id number] 20mg Take 1 [facility] n 20 mg 6-22 tablet by ity of tablet 00:00: mouth at [place] [address] bedtime. Medical Branch buPROPion 3-0 Yes [id number] 75mg Take 1 U nivers 75 mg 6-22 tablet by ity of tablet 00:00: mouth in [place] 00 the Medical morning Branch and 1 tablet in the evening. QUEtiapine 3-0 Yes [id number] 200mg Take 1 [facility] 200 mg 6-22 7 tablet by ity of tablet 00:00: mouth at [place] [address] bedtime. Medical Branch propranoloL 3-0 Yes [id number] 20mg Take 1 [facility] 20 mg 6-22 tablet by ity of tablet 00:00: mouth in [place] 00 the Medical morning Branch and 1 tablet in the evening. SERTraline 2023-0 Yes [id number] 200mg Take 2 [facility] 100 mg 6-22 7 tablets by ity of tablet 00:00: mouth in [place] 00 the Medical morning. Branch atorvastati 2022-0 Yes [id number] 20mg Take 1 [facility] n 20 mg 6-22 tablet by ity of tablet 00:00: mouth at [place] [address] bedtime. Medical Branch buPROPion 3-0 Yes [id number] 75mg Take 1 U nivers 75 mg 6-22 tablet by ity of tablet 00:00: mouth in [place] 00 the Medical morning Branch and 1 tablet in the evening. QUEtiapine 3-0 Yes [id number] 200mg Take 1 [facility] 200 mg 6-22 7 tablet by ity of tablet 00:00: mouth at [place] [address] bedtime. Medical Branch propranoloL 3-0 Yes [id number] 20mg Take 1 [facility] 20 mg 6-22 tablet by ity of tablet 00:00: mouth in [place] 00 the Medical morning Branch and 1 tablet in the evening. SERTraline 3-0 Yes [id number] 200mg Take 2 [facility] 100 mg 6-22 7 tablets by ity of tablet 00:00: mouth in [place] 00 the Medical morning. Branch atorvastati 3-0 Yes [id number] 20mg Take 1 [facility] n 20 mg 6-22 tablet by ity of tablet 00:00: mouth at [place] [address] bedtime. Medical Branch buPROPion 3-0 Yes [id number] 75mg Take 1 U nivers 75 mg 6-22 tablet by ity of tablet 00:00: mouth in [place] [address] the Medical morning Branch and 1 tablet in the evening. QUEtiapine 3-0 Yes [id number] 200mg Take 1 [facility] 200 mg 6-22 7 tablet by ity of tablet 00:00: mouth at [place] [address] bedtime. Medical Branch propranoloL 3-0 Yes [id number] 20mg Take 1 [facility] 20 mg 6-22 tablet by ity of tablet 00:00: mouth in [place] 00 the Medical morning Branch and 1 tablet in the evening. SERTraline 3-0 Yes [id number] 200mg Take 2 [facility] 100 mg 6-22 7 tablets by ity of tablet 00:00: mouth in [place] 00 the Medical morning. Branch atorvastati 2022-0 Yes [id number] 20mg Take 1 [facility] n 20 mg 6-22 tablet by ity of tablet 00:00: mouth at [place] [address] bedtime. Medical Branch buPROPion 2022-0 Yes [id number] 75mg Take 1 [facility] nivers 75 mg 6-22 tablet by ity of tablet 00:00: mouth in [place] 00 the Medical morning Branch and 1 tablet in the evening. QUEtiapine 2022-0 Yes [id number] 200mg Take 1 [facility] 200 mg 6-22 7 tablet by ity of tablet 00:00: mouth at [place] [address] bedtime. Medical Branch propranoloL 3-0 Yes [id number] 20mg Take 1 [facility] 20 mg 6-22 tablet by ity of tablet 00:00: mouth in [place] 00 the Medical morning Branch and 1 tablet in the evening. SERTraline 2022-0 Yes [id number] 200mg Take 2 [facility] 100 mg 6-22 7 tablets by ity of tablet 00:00: mouth in [place] 00 the Medical morning. Branch atorvastati 2022-0 Yes [id number] 20mg Take 1 [facility] n 20 mg 6-22 tablet by ity of tablet 00:00: mouth at [place] [address] bedtime. Medical Branch buPROPion 3-0 Yes [id number] 75mg Take 1 [facility] nivers 75 mg 6-22 tablet by ity of tablet 00:00: mouth in [place] 00 the Medical morning Branch and 1 tablet in the evening. QUEtiapine 3-0 Yes [id number] 200mg Take 1 [facility] 200 mg 6-22 7 tablet by ity of tablet 00:00: mouth at [place] [address] bedtime. Medical Branch propranoloL 3-0 Yes [id number] 20mg Take 1 [facility] 20 mg 6-22 tablet by ity of tablet 00:00: mouth in [place] [address] the Medical morning Branch and 1 tablet in the evening. SERTraline 3-0 Yes [id number] 200mg Take 2 [facility] 100 mg 6-22 7 tablets by ity of tablet 00:00: mouth in [place] 00 the Medical morning. Branch atorvastati 3-0 Yes [id number] 20mg Take 1 [facility] n 20 mg 6-22 tablet by ity of tablet 00:00: mouth at [place] [address] bedtime. Medical Branch buPROPion 3-0 Yes [id number] 75mg Take 1 [facility] nivers 75 mg 6-22 tablet by ity of tablet 00:00: mouth in [place] 00 the Medical morning Branch and 1 tablet in the evening. QUEtiapine 3-0 Yes [id number] 200mg Take 1 [facility] 200 mg 6-22 7 tablet by ity of tablet 00:00: mouth at [place] [address] bedtime. Medical Branch propranoloL 3-0 Yes [id number] 20mg Take 1 [facility] 20 mg 6-22 tablet by ity of tablet 00:00: mouth in [place] 00 the Medical morning Branch and 1 tablet in the evening. SERTraline 3-0 Yes [id number] 200mg Take 2 [facility] 100 mg 6-22 7 tablets by ity of tablet 00:00: mouth in [place] 00 the Medical morning. Branch atorvastati 3-0 Yes [id number] 20mg Take 1 [facility] n 20 mg 6-22 tablet by ity of tablet 00:00: mouth at [place] [address] bedtime. Medical Branch buPROPion 3-0 Yes [id number] 75mg Take 1 [facility] nivers 75 mg 6-22 tablet by ity of tablet 00:00: mouth in [place] 00 the Medical morning Branch and 1 tablet in the evening. QUEtiapine 3-0 Yes [id number] 200mg Take 1 [facility] 200 mg 6-22 7 tablet by ity of tablet 00:00: mouth at [place] [address] bedtime. Medical Branch propranoloL 3-0 Yes [id number] 20mg Take 1 [facility] 20 mg 6-22 tablet by ity of tablet 00:00: mouth in [place] 00 the Medical morning Branch and 1 tablet in the evening. SERTraline 2023-0 Yes [id number] 200mg Take 2 [facility] 100 mg 6-22 7 tablets by ity of tablet 00:00: mouth in [place] 00 the Medical morning. Branch atorvastati 3-0 Yes [id number] 20mg Take 1 [facility] n 20 mg 6-22 tablet by ity of tablet 00:00: mouth at [place] [address] bedtime. Medical Branch buPROPion 3-0 Yes [id number] 75mg Take 1 [facility] nivers 75 mg 6-22 tablet by ity of tablet 00:00: mouth in [place] 00 the Medical morning Branch and 1 tablet in the evening. QUEtiapine 3-0 Yes [id number] 200mg Take 1 [facility] 200 mg 6-22 7 tablet by ity of tablet 00:00: mouth at [place] [address] bedtime. Medical Branch propranoloL 3-0 Yes [id number] 20mg Take 1 [facility] 20 mg 6-22 tablet by ity of tablet 00:00: mouth in [place] 00 the Medical morning Branch and 1 tablet in the evening. SERTraline 3-0 Yes [id number] 200mg Take 2 [facility] 100 mg 6-22 7 tablets by ity of tablet 00:00: mouth in [place] 00 the Medical morning. Branch atorvastati 2022-0 Yes [id number] 20mg Take 1 [facility] n 20 mg 6-22 tablet by ity of tablet 00:00: mouth at [place] [address] bedtime. Medical Branch buPROPion 3-0 Yes [id number] 75mg Take 1 [facility] 75 mg 6-22 tablet by ity of tablet 00:00: mouth in [place] 00 the Medical morning Branch and 1 tablet in the evening. QUEtiapine 3-0 Yes [id number] 200mg Take 1 [facility] 200 mg 6-22 7 tablet by ity of tablet 00:00: mouth at [place] [address] bedtime. Medical Branch propranoloL 3-0 Yes [id number] 20mg Take 1 [facility] 20 mg 6-22 tablet by ity of tablet 00:00: mouth in [place] 00 the Medical morning Branch and 1 tablet in the evening. SERTraline 2023-0 Yes [id number] 200mg Take 2 [facility] 100 mg 6-22 7 tablets by ity of tablet 00:00: mouth in [place] 00 the Medical morning. Branch atorvastati 3-0 Yes [id number] 20mg Take 1 [facility] n 20 mg 6-22 tablet by ity of tablet 00:00: mouth at [place] [address] bedtime. Medical Branch buPROPion 3-0 Yes [id number] 75mg Take 1 [facility] 75 mg 6-22 tablet by ity of tablet 00:00: mouth in [place] 00 the Medical morning Branch and 1 tablet in the evening. QUEtiapine 2023-0 Yes [id number] 200mg Take 1 [facility] 200 mg 6-22 7 tablet by ity of tablet 00:00: mouth at [place] [address] bedtime. Medical Branch propranoloL 3-0 Yes [id number] 20mg Take 1 [facility] 20 mg 6-22 tablet by ity of tablet 00:00: mouth in [place] 00 the Medical morning Branch and 1 tablet in the evening. SERTraline 3-0 Yes [id number] 200mg Take 2 [facility] 100 mg 6-22 7 tablets by ity of tablet 00:00: mouth in [place] 00 the Medical morning. Branch atorvastati 3-0 Yes [id number] 20mg Take 1 [facility] n 20 mg 6-22 tablet by ity of tablet 00:00: mouth at [place] [address] bedtime. Medical Branch buPROPion 3-0 Yes [id number] 75mg Take 1 [facility] 75 mg 6-22 tablet by ity of tablet 00:00: mouth in [place] 00 the Medical morning Branch and 1 tablet in the evening. QUEtiapine 3-0 Yes [id number] 200mg Take 1 [facility] 200 mg 6-22 7 tablet by ity of tablet 00:00: mouth at [place] [address] bedtime. Medical Branch propranoloL 3-0 Yes [id number] 20mg Take 1 [facility] 20 mg 6-22 tablet by ity of tablet 00:00: mouth in [place] 00 the Medical morning Branch and 1 tablet in the evening. SERTraline 3-0 Yes [id number] 200mg Take 2 [facility] 100 mg 6-22 7 tablets by ity of tablet 00:00: mouth in [place] 00 the Medical morning. Branch atorvastati 3-0 Yes [id number] 20mg Take 1 [facility] n 20 mg 6-22 tablet by ity of tablet 00:00: mouth at [place] [address] bedtime. Medical Branch buPROPion 3-0 Yes [id number] 75mg Take 1 [facility] 75 mg 6-22 tablet by ity of tablet 00:00: mouth in [place] 00 the Medical morning Branch and 1 tablet in the evening. QUEtiapine 2023-0 Yes [id number] 200mg Take 1 [facility] 200 mg 6-22 7 tablet by ity of tablet 00:00: mouth at [place] [address] bedtime. Medical Branch propranoloL 3-0 Yes [id number] 20mg Take 1 [facility] 20 mg 6-22 tablet by ity of tablet 00:00: mouth in [place] 00 the Medical morning Branch and 1 tablet in the evening. SERTraline 2023-0 Yes [id number] 200mg Take 2 [facility] 100 mg 6-22 7 tablets by ity of tablet 00:00: mouth in [place] 00 the Medical morning. Branch atorvastati 3-0 Yes [id number] 20mg Take 1 [facility] n 20 mg 6-22 tablet by ity of tablet 00:00: mouth at [place] [address] bedtime. Medical Branch buPROPion 3-0 Yes [id number] 75mg Take 1 [facility] 75 mg 6-22 tablet by ity of tablet 00:00: mouth in [place] 00 the Medical morning Branch and 1 tablet in the evening. QUEtiapine 3-0 Yes [id number] 200mg Take 1 [facility] 200 mg 6-22 7 tablet by ity of tablet 00:00: mouth at [place] [address] bedtime. Medical Branch propranoloL 3-0 Yes [id number] 20mg Take 1 [facility] 20 mg 6-22 tablet by ity of tablet 00:00: mouth in [place] 00 the Medical morning Branch and 1 tablet in the evening. SERTraline 3-0 Yes [id number] 200mg Take 2 [facility] 100 mg 6-22 7 tablets by ity of tablet 00:00: mouth in [place] 00 the Medical morning. Branch atorvastati 3-0 Yes [id number] 20mg Take 1 [facility] n 20 mg 6-22 tablet by ity of tablet 00:00: mouth at [place] [address] bedtime. Medical Branch buPROPion 3-0 Yes [id number] 75mg Take 1 [facility] 75 mg 6-22 tablet by ity of tablet 00:00: mouth in [place] 00 the Medical morning Branch and 1 tablet in the evening. QUEtiapine 3-0 Yes [id number] 200mg Take 1 [facility] 200 mg 6-22 7 tablet by ity of tablet 00:00: mouth at [place] [address] bedtime. Medical Branch propranoloL 3-0 Yes [id number] 20mg Take 1 [facility] 20 mg 6-22 tablet by ity of tablet 00:00: mouth in [place] 00 the Medical morning Branch and 1 tablet in the evening. SERTraline 2023-0 Yes [id number] 200mg Take 2 [facility] 100 mg 6-22 7 tablets by ity of tablet 00:00: mouth in [place] 00 the Medical morning. Branch atorvastati 2022-0 Yes [id number] 20mg Take 1 [facility] n 20 mg 6-22 tablet by ity of tablet 00:00: mouth at [place] [address] bedtime. Medical Branch buPROPion 3-0 Yes [id number] 75mg Take 1 [facility] 75 mg 6-22 tablet by ity of tablet 00:00: mouth in [place] 00 the Medical morning Branch and 1 tablet in the evening. QUEtiapine 3-0 Yes [id number] 200mg Take 1 [facility] 200 mg 6-22 7 tablet by ity of tablet 00:00: mouth at [place] [address] bedtime. Medical Branch propranoloL 3-0 Yes [id number] 20mg Take 1 [facility] 20 mg 6-22 tablet by ity of tablet 00:00: mouth in [place] 00 the Medical morning Branch and 1 tablet in the evening. SERTraline 3-0 Yes [id number] 200mg Take 2 [facility] 100 mg 6-22 7 tablets by ity of tablet 00:00: mouth in [place] 00 the Medical morning. Branch atorvastati 2022-0 Yes [id number] 20mg Take 1 [facility] n 20 mg 6-22 tablet by ity of tablet 00:00: mouth at [place] [address] bedtime. Medical Branch buPROPion 2022-0 Yes [id number] 75mg Take 1 [facility] 75 mg 6-22 tablet by [facility]y of tablet 00:00: mouth in [place] 00 the Medical morning Branch and 1 tablet in the evening. QUEtiapine 3-0 Yes [id number] 200mg Take 1 [facility] 200 mg 6-22 7 tablet by ity of tablet 00:00: mouth at [place] [address] bedtime. Medical Branch propranoloL 3-0 Yes [id number] 20mg Take 1 [facility] 20 mg 6-22 tablet by ity of tablet 00:00: mouth in [place] 00 the Medical morning Branch and 1 tablet in the evening. SERTraline 3-0 Yes [id number] 200mg Take 2 [facility] 100 mg 6-22 7 tablets by ity of tablet 00:00: mouth in [place] 00 the Medical morning. Branch atorvastati 3-0 Yes [id number] 20mg Take 1 [facility] n 20 mg 6-22 tablet by ity of tablet 00:00: mouth at [place] [address] bedtime. Medical Branch buPROPion 3-0 Yes [id number] 75mg Take 1 [facility] 75 mg 6-22 tablet by ity of tablet 00:00: mouth in [place] 00 the Medical morning Branch and 1 tablet in the evening. QUEtiapine 3-0 Yes [id number] 200mg Take 1 [facility] 200 mg 6-22 7 tablet by ity of tablet 00:00: mouth at [place] [address] bedtime. Medical Branch propranoloL 3-0 Yes [id number] 20mg Take 1 [facility] 20 mg 6-22 tablet by ity of tablet 00:00: mouth in [place] 00 the Medical morning Branch and 1 tablet in the evening. SERTraline 3-0 Yes [id number] 200mg Take 2 [facility] 100 mg 6-22 7 tablets by ity of tablet 00:00: mouth in [place] 00 the Medical morning. Branch atorvastati 3-0 Yes [id number] 20mg Take 1 [facility] n 20 mg 6-22 tablet by ity of tablet 00:00: mouth at [place] [address] bedtime. Medical Branch buPROPion 3-0 Yes [id number] 75mg Take 1 [facility] 75 mg 6-22 tablet by ity of tablet 00:00: mouth in [place] 00 the Medical morning Branch and 1 tablet in the evening. QUEtiapine 3-0 Yes [id number] 200mg Take 1 [facility] 200 mg 6-22 7 tablet by ity of tablet 00:00: mouth at [place] [address] bedtime. Medical Branch propranoloL 3-0 Yes [id number] 20mg Take 1 [facility] 20 mg 6-22 tablet by [facility]y of tablet 00:00: mouth in [place] 00 the Medical morning Branch and 1 tablet in the evening. SERTraline 3-0 Yes [id number] 200mg Take 2 [facility] 100 mg 6-22 7 tablets by ity of tablet 00:00: mouth in [place] 00 the Medical morning. Branch atorvastati 3-0 Yes [id number] 20mg Take 1 [facility] n 20 mg 6-22 tablet by ity of tablet 00:00: mouth at [place] [address] bedtime. Medical Branch buPROPion 3-0 Yes [id number] 75mg Take 1 [facility] 75 mg 6-22 tablet by ity of tablet 00:00: mouth in [place] 00 the Medical morning Branch and 1 tablet in the evening. QUEtiapine 3-0 Yes [id number] 200mg Take 1 [facility] 200 mg 6-22 7 tablet by ity of tablet 00:00: mouth at [place] [address] bedtime. Medical Branch propranoloL 3-0 Yes [id number] 20mg Take 1 [facility] 20 mg 6-22 tablet by ity of tablet 00:00: mouth in [place] 00 the Medical morning Branch and 1 tablet in the evening. SERTraline 3-0 Yes [id number] 200mg Take 2 [facility] 100 mg 6-22 7 tablets by ity of tablet 00:00: mouth in [place] 00 the Medical morning. Branch atorvastati 2022-0 Yes [id number] 20mg Take 1 [facility] n 20 mg 6-22 tablet by ity of tablet 00:00: mouth at [place] [address] bedtime. Medical Branch buPROPion 3-0 Yes [id number] 75mg Take 1 [facility] 75 mg 6-22 tablet by ity of tablet 00:00: mouth in [place] 00 the Medical morning Branch and 1 tablet in the evening. QUEtiapine 3-0 Yes [id number] 200mg Take 1 [facility] 200 mg 6-22 7 tablet by ity of tablet 00:00: mouth at [place] [address] bedtime. Medical Branch propranoloL 3-0 Yes [id number] 20mg Take 1 [facility] 20 mg 6-22 tablet by ity of tablet 00:00: mouth in [place] 00 the Medical morning Branch and 1 tablet in the evening. SERTraline 3-0 Yes [id number] 200mg Take 2 [facility] 100 mg 6-22 7 tablets by ity of tablet 00:00: mouth in [place] 00 the Medical morning. Branch atorvastati 3-0 Yes [id number] 20mg Take 1 [facility] n 20 mg 6-22 tablet by ity of tablet 00:00: mouth at [place] [address] bedtime. Medical Branch buPROPion 3-0 Yes [id number] 75mg Take 1 [facility] 75 mg 6-22 tablet by ity of tablet 00:00: mouth in [place] 00 the Medical morning Branch and 1 tablet in the evening. QUEtiapine 2023-0 Yes [id number] 200mg Take 1 [facility] 200 mg 6-22 7 tablet by ity of tablet 00:00: mouth at [place] [address] bedtime. Medical Branch propranoloL 3-0 Yes [id number] 20mg Take 1 [facility] 20 mg 6-22 tablet by ity of tablet 00:00: mouth in [place] 00 the Medical morning Branch and 1 tablet in the evening. SERTraline 3-0 Yes [id number] 200mg Take 2 [facility] 100 mg 6-22 7 tablets by ity of tablet 00:00: mouth in [place] 00 the Medical morning. Branch atorvastati 3-0 Yes [id number] 20mg Take 1 [facility] n 20 mg 6-22 tablet by ity of tablet 00:00: mouth at [place] [address] bedtime. Medical Branch buPROPion 3-0 Yes [id number] 75mg Take 1 [facility] 75 mg 6-22 tablet by ity of tablet 00:00: mouth in [place] 00 the Medical morning Branch and 1 tablet in the evening. QUEtiapine 3-0 Yes [id number] 200mg Take 1 [facility] 200 mg 6-22 7 tablet by ity of tablet 00:00: mouth at [place] [address] bedtime. Medical Branch propranoloL 3-0 Yes [id number] 20mg Take 1 [facility] 20 mg 6-22 tablet by ity of tablet 00:00: mouth in [place] the Medical morning Branch and 1 tablet in the evening. SERTraline 3-0 Yes [id number] 200mg Take 2 [facility] 100 mg 6-22 7 tablets by ity of tablet 00:00: mouth in [place] 00 the Medical morning. Branch atorvastati 2022-0 Yes [id number] 20mg Take 1 [facility] n 20 mg 6-22 tablet by ity of tablet 00:00: mouth at [place] [address] bedtime. Medical Branch buPROPion 3-0 Yes [id number] 75mg Take 1 [facility] 75 mg 6-22 tablet by ity of tablet 00:00: mouth in [place] the Medical morning Branch and 1 tablet in the evening. QUEtiapine 3-0 Yes [id number] 200mg Take 1 [facility] 200 mg 6-22 7 tablet by ity of tablet 00:00: mouth at [place] [address] bedtime. Medical Branch propranoloL 3-0 Yes [id number] 20mg Take 1 [facility] 20 mg 6-22 tablet by ity of tablet 00:00: mouth in [place] [address] the Medical morning Branch and 1 tablet in the evening. SERTraline 3-0 Yes [id number] 200mg Take 2 [facility] 100 mg 6-22 7 tablets by ity of tablet 00:00: mouth in [place] 00 the Medical morning. Branch atorvastati 2023-0 Yes [id number] 20mg Take 1 [facility] n 20 mg 6-22 tablet by ity of tablet 00:00: mouth at [place] [address] bedtime. Medical Branch buPROPion 2022-0 Yes [id number] 75mg Take 1 [facility] 75 mg 6-22 tablet by ity of tablet 00:00: mouth in [place] 00 the Medical morning Branch and 1 tablet in the evening. QUEtiapine 2022-0 Yes [id number] 200mg Take 1 [facility] 200 mg 6-22 7 tablet by ity of tablet 00:00: mouth at [place] 00 bedtime. Medical Branch propranoloL 2022-0 Yes [id number] 20mg Take 1 [facility] 20 mg 6-22 tablet by ity of tablet 00:00: mouth in [place] 00 the Medical morning Branch and 1 tablet in the evening. SERTraline Yes [id number] 200mg Take 2 [facility] 100 mg 6-22 7 tablets by ity of tablet 00:00: mouth in [place] 00 the Medical morning. Branch atorvastati Yes [id number] 20mg Take 1 [facility] n 20 mg 6-22 tablet by ity of tablet 00:00: mouth at [place] 00 bedtime. Medical Branch butalbital- 2022- No [id number] 1{capsu Take 1 [facility] aspirin-caf 6-22 06-23 le} capsule by i ty of feine 00:00: 00:00 mouth [place] 50-325-40 00 :00 every 6 Medical mg per (six) Branch capsule hours as needed for Pain. butalbital- 2022- No [id number] 1{capsu Take 1 [facility] aspirin-caf 6-22 06-23 le} capsule by i ty of feine 00:00: 00:00 mouth [place] 50-325-40 00 :00 every 6 Medical mg per (six) Branch capsule hours as needed for Pain. butalbital- 2022- No [id number] 1{capsu Take 1 [facility] aspirin-caf 6-22 06-23 le} capsule by i ty of feine 00:00: 00:00 mouth [place] 50-325-40 00 :00 every 6 Medical mg per (six) Branch capsule hours as needed for Pain. butalbital- 2022- No [id number] 1{capsu Take 1 [facility] aspirin-caf 11-24 le} capsule by i ty of feine 00:00: 00:00 mouth [place] 50-325-40 00 :00 every 6 Medical mg per (six) Branch capsule hours as needed for Pain. ESOMEPRAZOL 2022-0 Yes TAKE ONE [facility] E 40 mg 5-31 (1) ity of capsule 00:00: [place] 00 BY MOUTH Medical ONCE A DAY Branch WITH BREAKFAST. ESOMEPRAZOL 2022-0 Yes TAKE ONE [facility] E 40 mg 5-31 (1) ity of capsule 00:00: CAPSULE(S) [place] 00 BY MOUTH Medical ONCE A DAY Branch WITH BREAKFAST. ESOMEPRAZOL 2022-0 Yes TAKE ONE [facility] E 40 mg 5-31 (1) ity of capsule 00:00: CAPSULE(S) [place] 00 BY MOUTH Medical ONCE A DAY Branch WITH BREAKFAST. ESOMEPRAZOL 2022-0 Yes TAKE ONE [facility] E 40 mg 5-31 (1) ity of capsule 00:00: CAPSULE(S) [place] 00 BY MOUTH Medical ONCE A DAY Branch WITH BREAKFAST. ESOMEPRAZOL 2022-0 Yes TAKE ONE [facility] E 40 mg 5-31 (1) ity of capsule 00:00: CAPSULE(S) [place] 00 BY MOUTH Medical ONCE A DAY Branch WITH BREAKFAST. ESOMEPRAZOL 2022-0 Yes TAKE ONE [facility] E 40 mg 5-31 (1) ity of capsule 00:00: CAPSULE(S) [place] 00 BY MOUTH Medical ONCE A DAY Branch WITH BREAKFAST. ESOMEPRAZOL 2022-0 Yes TAKE ONE [facility] E 40 mg 5-31 (1) ity of capsule 00:00: CAPSULE(S) [place] 00 BY MOUTH Medical ONCE A DAY Branch WITH BREAKFAST. ESOMEPRAZOL 2022-0 Yes TAKE ONE [facility] E 40 mg 5-31 (1) ity of capsule 00:00: CAPSULE(S) [place] 00 BY MOUTH Medical ONCE A DAY Branch WITH BREAKFAST. ESOMEPRAZOL 2022-0 Yes TAKE ONE [facility] E 40 mg 5-31 (1) ity of capsule 00:00: CAPSULE(S) [place] 00 BY MOUTH Medical ONCE A DAY Branch WITH BREAKFAST. ESOMEPRAZOL 2022-0 Yes TAKE ONE [facility] E 40 mg 5-31 (1) ity of capsule 00:00: CAPSULE(S) [place] 00 BY MOUTH Medical ONCE A DAY Branch WITH BREAKFAST. ESOMEPRAZOL 2022-0 Yes TAKE ONE [facility] E 40 mg 5-31 (1) ity of capsule 00:00: CAPSULE(S) [place] 00 BY MOUTH Medical ONCE A DAY Branch WITH BREAKFAST. ESOMEPRAZOL 2022-0 Yes TAKE ONE [facility] E 40 mg 5-31 (1) ity of capsule 00:00: CAPSULE(S) [place] 00 BY MOUTH Medical ONCE A DAY Branch WITH BREAKFAST. ESOMEPRAZOL 2022-0 Yes TAKE ONE [facility] E 40 mg 5-31 (1) ity of capsule 00:00: CAPSULE(S) [place] 00 BY MOUTH Medical ONCE A DAY Branch WITH BREAKFAST. ESOMEPRAZOL 2022-0 Yes TAKE ONE [facility] E 40 mg 5-31 (1) ity of capsule 00:00: CAPSULE(S) [place] 00 BY MOUTH Medical ONCE A DAY Branch WITH BREAKFAST. ESOMEPRAZOL 2022-0 Yes TAKE ONE [facility] E 40 mg 5-31 (1) ity of capsule 00:00: CAPSULE(S) [place] 00 BY MOUTH Medical ONCE A DAY Branch WITH BREAKFAST. ESOMEPRAZOL 2022-0 Yes TAKE ONE [facility] E 40 mg 5-31 (1) ity of capsule 00:00: CAPSULE(S) [place] 00 BY MOUTH Medical ONCE A DAY Branch WITH BREAKFAST. ESOMEPRAZOL 2022-0 Yes TAKE ONE [facility] E 40 mg 5-31 (1) ity of capsule 00:00: CAPSULE(S) [place] 00 BY MOUTH Medical ONCE A DAY Branch WITH BREAKFAST. ESOMEPRAZOL 2022-0 Yes TAKE ONE [facility] E 40 mg 5-31 (1) ity of capsule 00:00: CAPSULE(S) [place] 00 BY MOUTH Medical ONCE A DAY Branch WITH BREAKFAST. ESOMEPRAZOL 2022-0 Yes TAKE ONE [facility] E 40 mg 5-31 (1) ity of capsule 00:00: CAPSULE(S) [place] 00 BY MOUTH Medical ONCE A DAY Branch WITH BREAKFAST. ESOMEPRAZOL 2022-0 Yes TAKE ONE [facility] E 40 mg 5-31 (1) ity of capsule 00:00: CAPSULE(S) [place] 00 BY MOUTH Medical ONCE A DAY Branch WITH BREAKFAST. ESOMEPRAZOL 2022-0 Yes TAKE ONE [facility] E 40 mg 5-31 (1) ity of capsule 00:00: CAPSULE(S) [place] 00 BY MOUTH Medical ONCE A DAY Branch WITH BREAKFAST. ESOMEPRAZOL 2022-0 Yes TAKE ONE [facility] E 40 mg 5-31 (1) ity of capsule 00:00: CAPSULE(S) [place] 00 BY MOUTH Medical ONCE A DAY Branch WITH BREAKFAST. ESOMEPRAZOL 2022-0 Yes TAKE ONE [facility] E 40 mg 5-31 (1) ity of capsule 00:00: CAPSULE(S) [place] 00 BY MOUTH Medical ONCE A DAY Branch WITH BREAKFAST. ESOMEPRAZOL 2022-0 Yes TAKE ONE [facility] E 40 mg 5-31 (1) ity of capsule 00:00: CAPSULE(S) [place] 00 BY MOUTH Medical ONCE A DAY Branch WITH BREAKFAST. ESOMEPRAZOL 2022-0 Yes TAKE ONE [facility] E 40 mg 5-31 (1) ity of capsule 00:00: CAPSULE(S) [place] 00 BY MOUTH Medical ONCE A DAY Branch WITH BREAKFAST. ESOMEPRAZOL 2022-0 Yes TAKE ONE [facility] E 40 mg 5-31 (1) ity of capsule 00:00: CAPSULE(S) [place] 00 BY MOUTH Medical ONCE A DAY Branch WITH BREAKFAST. ESOMEPRAZOL 2022-0 Yes TAKE ONE [facility] E 40 mg 5-31 (1) ity of capsule 00:00: CAPSULE(S) [place] 00 BY MOUTH Medical ONCE A DAY Branch WITH BREAKFAST. ESOMEPRAZOL 2022-0 Yes TAKE ONE [facility] E 40 mg 5-31 (1) ity of capsule 00:00: CAPSULE(S) [place] 00 BY MOUTH Medical ONCE A DAY Branch WITH BREAKFAST. ESOMEPRAZOL 2022-0 Yes [id number] TAKE ONE [facility] E 40 mg 5-31 (1) ity of capsule 00:00: CAPSULE(S) [place] 00 BY MOUTH Medical ONCE A DAY Branch WITH BREAKFAST. LORazepam 2022- No [id number] 2mg 2 mg, [facility] n[facility] (ATIVAN) 4-25 04-25 Oral, ity of tablet 2 mg 16:45: 16:49 ONCE, 1 [place] 00 :00 dose, On Medical Tue Branch 09/27/22 at 1145, Routine ALPRAZolam Yes 1mg Take 2 [facility] rs 0.5 mg 4-25 tablets by ity of tablet 11:40: mouth 3 [place] 47 (three) Medical times Branch daily as needed for Other (Anxiety). diazePAM 2 Yes diazepam 2 U nivers mg tablet 4-25 mg tablet ity o f 11:40: TAKE ONE [place] 47 (1) Medical TABLET(S) Branch BY MOUTH NIGHTLY NEEDED FOR ANXIETY. ALPRAZolam Yes 1mg Take 2 [facility] rs 0.5 mg 4-25 tablets by ity of tablet 11:40: mouth 3 [place] 47 (three) Medical times Branch daily as needed for Other (Anxiety). diazePAM 2 Yes diazepam 2 [facility] nivers mg tablet 4-25 mg tablet ity o f 11:40: TAKE ONE [place] 47 (1) Medical TABLET(S) Branch BY MOUTH NIGHTLY NEEDED FOR ANXIETY. fluticasone Yes [id number] 1{puff} Inhale 1 [facility] propion-sara 3-27 Puff every it y of meteroL 00:00: 12 [place] (ADVAIR 00 (twelve) Medical DISKUS) hours. Branch 250-50 mcg/dose inhalation disk albuterol Yes [id number] 2{puff} Inhale 2 [facility] 90 3-27 Puffs ity of mcg/actuati 00:00: every 6 [place] on inhaler 00 (six) Medical hours as Branch needed for Wheezing or Shortness of Breath. ipratropium Yes [id number] 3mL Inhale 3 [facility] -albuteroL 3-27 mL every 6 ity of 0.5 mg-3 00:00: (six) [place] mg(2.5 mg 00 hours as Medica l base)/3 mL needed for [facility] nebulizer Wheezing. solution fluticasone 2023-0 Yes [id number] 1{puff} Inhale 1 [facility] propion-sara 3-27 Puff every it y of meteroL 00:00: 12 [place] (ADVAIR (twelve) Medical DISKUS) hours. Branch 250-50 mcg/dose inhalation disk albuterol 2023-0 Yes [id number] 2{puff} Inhale 2 [facility] 90 3-27 Puffs ity of mcg/actuati 00:00: every 6 [place] inhaler 00 (six) Medical hours as Branch needed for Wheezing or Shortness of Breath. ipratropium 2023-0 Yes [id number] 3mL Inhale 3 [facility] -albuteroL 3-27 mL every 6 ity of 0.5 mg-3 00:00: (six) [place] mg(2.5 mg 00 hours as Medica l base)/3 mL needed for Bra n[facility] nebulizer Wheezing. solution fluticasone 2023-0 Yes [id number] 1{puff} Inhale 1 [facility] propion-sara 3-27 Puff every it y of meteroL 00:00: 12 [place] (ADVAIR (twelve) Medical DISKUS) hours. Branch 250-50 mcg/dose inhalation disk albuterol 3-0 Yes [id number] 2{puff} Inhale 2 [facility] 90 3-27 Puffs ity of mcg/actuati 00:00: every 6 [place] inhaler 00 (six) Medical hours as Branch needed for Wheezing or Shortness of Breath. ipratropium 2023-0 Yes [id number] 3mL Inhale 3 [facility] -albuteroL 3-27 mL every 6 ity of 0.5 mg-3 00:00: (six) [place] mg(2.5 mg 00 hours as Medica l base)/3 mL needed for Bra nch nebulizer Wheezing. solution fluticasone 2023-0 Yes [id number] 1{puff} Inhale 1 [facility] propion-sara 3-27 Puff every it y of meteroL 00:00: 12 [place] (ADVAIR 00 (twelve) Medical DISKUS) hours. Branch 250-50 mcg/dose inhalation disk albuterol 2023-0 Yes [id number] 2{puff} Inhale 2 [facility] 90 3-27 Puffs ity of mcg/actuati 00:00: every 6 [place] on inhaler 00 (six) Medical hours as Branch needed for Wheezing or Shortness of Breath. ipratropium 2023-0 Yes [id number] 3mL Inhale 3 [facility] -albuteroL 3-27 mL every 6 ity of 0.5 mg-3 00:00: (six) [place] mg(2.5 mg 00 hours as Medica l base)/3 mL needed for Bra nch nebulizer Wheezing. solution fluticasone 2023-0 Yes [id number] 1{puff} Inhale 1 [facility] propion-sara 3-27 Puff every it y of meteroL 00:00: 12 [place] (ADVAIR 00 (twelve) Medical DISKUS) hours. Branch 250-50 mcg/dose inhalation disk albuterol 2023-0 Yes [id number] 2{puff} Inhale 2 [facility] 90 3-27 Puffs ity of mcg/actuati 00:00: every 6 [place] on inhaler 00 (six) Medical hours as Branch needed for Wheezing or Shortness of Breath. ipratropium 2023-0 Yes [id number] 3mL Inhale 3 [facility] -albuteroL 3-27 mL every 6 ity of 0.5 mg-3 00:00: (six) [place] mg(2.5 mg 00 hours as Medica l base)/3 mL needed for Bra nch nebulizer Wheezing. solution fluticasone 2023-0 Yes [id number] 1{puff} Inhale 1 [facility] propion-sara 3-27 Puff every it y of meteroL 00:00: 12 [place] (ADVAIR 00 (twelve) Medical DISKUS) hours. Branch 250-50 mcg/dose inhalation disk albuterol 2023-0 Yes [id number] 2{puff} Inhale 2 [facility] 90 3-27 Puffs ity of mcg/actuati 00:00: every 6 [place] on inhaler 00 (six) Medical hours as Branch needed for Wheezing or Shortness of Breath. ipratropium 2023-0 Yes [id number] 3mL Inhale 3 [facility] -albuteroL 3-27 mL every 6 ity of 0.5 mg-3 00:00: (six) [place] mg(2.5 mg 00 hours as Medica l base)/3 mL needed for Bra nch nebulizer Wheezing. solution fluticasone 2023-0 Yes [id number] 1{puff} Inhale 1 [facility] propion-sara 3-27 Puff every it y of meteroL 00:00: 12 [place] (ADVAIR () Medical DISKUS) hours. Branch 250-50 mcg/dose inhalation disk albuterol 2022-0 Yes [id number] 2{puff} Inhale 2 [facility] 90 3-27 Puffs ity of mcg/actuati 00:00: every 6 [place] on inhaler 00 (six) Medical hours as Branch needed for Wheezing or Shortness of Breath. ipratropium 2022-0 Yes [id number] 3mL Inhale 3 Univers -albuteroL 3-27 mL every 6 ity of 0.5 mg-3 00:00: (six) [place] mg(2.5 mg 00 hours as Medica l base)/3 mL needed for Bra nch nebulizer Wheezing. solution fluticasone 2022-0 Yes [id number] 1{puff} Inhale 1 [facility] propion-sara 3-27 Puff every it y of meteroL 00:00: 12 [place] (ADVAIR () Medical DISKUS) hours. Branch 250-50 mcg/dose inhalation disk albuterol 2022-0 Yes [id number] 2{puff} Inhale 2 [facility] 90 3-27 Puffs ity of mcg/actuati 00:00: every 6 [place] on inhaler 00 (six) Medical hours as Branch needed for Wheezing or Shortness of Breath. ipratropium 2022-0 Yes [id number] 3mL Inhale 3 [facility] -albuteroL 3-27 mL every 6 ity of 0.5 mg-3 00:00: (six) [place] mg(2.5 mg 00 hours as Medica l base)/3 mL needed for Bra nch nebulizer Wheezing. solution fluticasone 2022-0 Yes [id number] 1{puff} Inhale 1 [facility] propion-sara 3-27 Puff every it y of meteroL 00:00: 12 [place] (ADVAIR (twelve) Medical DISKUS) hours. Branch 250-50 mcg/dose inhalation disk albuterol 2022-0 Yes [id number] 2{puff} Inhale 2 [facility] 90 3-27 Puffs ity of mcg/actuati 00:00: every 6 [place] on inhaler 00 (six) Medical hours as Branch needed for Wheezing or Shortness of Breath. ipratropium 2023-0 Yes [id number] 3mL Inhale 3 [facility] -albuteroL 3-27 mL every 6 ity of 0.5 mg-3 00:00: (six) [place] mg(2.5 mg 00 hours as Medica l base)/3 mL needed for Bra nch nebulizer Wheezing. solution fluticasone 2023-0 Yes [id number] 1{puff} Inhale 1 [facility] propion-sara 3-27 Puff every it y of meteroL 00:00: 12 [place] (ADVAIR 00 (twelve) Medical DISKUS) hours. Branch 250-50 mcg/dose inhalation disk albuterol 2023-0 Yes [id number] 2{puff} Inhale 2 [facility] 90 3-27 Puffs ity of mcg/actuati 00:00: every 6 [place] on inhaler 00 (six) Medical hours as Branch needed for Wheezing or Shortness of Breath. ipratropium 2023-0 Yes [id number] 3mL Inhale 3 [facility] -albuteroL 3-27 mL every 6 ity of 0.5 mg-3 00:00: (six) [place] mg(2.5 mg 00 hours as Medica l base)/3 mL needed for Bra nch nebulizer Wheezing. solution fluticasone 2023-0 Yes [id number] 1{puff} Inhale 1 [facility] propion-sara 3-27 Puff every it y of meteroL 00:00: 12 [place] (ADVAIR 00 (twelve) Medical DISKUS) hours. Branch 250-50 mcg/dose inhalation disk albuterol 2023-0 Yes [id number] 2{puff} Inhale 2 [facility] 90 3-27 Puffs ity of mcg/actuati 00:00: every 6 [place] on inhaler 00 (six) Medical hours as Branch needed for Wheezing or Shortness of Breath. ipratropium 2023-0 Yes [id number] 3mL Inhale 3 [facility] -albuteroL 3-27 mL every 6 ity of 0.5 mg-3 00:00: (six) [place] mg(2.5 mg 00 hours as Medica l base)/3 mL needed for Bra nch nebulizer Wheezing. solution fluticasone 2023-0 Yes [id number] 1{puff} Inhale 1 [facility] propion-sara 3-27 Puff every it y of meteroL 00:00: 12 [place] (ADVAIR 00 (twelve) Medical DISKUS) hours. Branch 250-50 mcg/dose inhalation disk albuterol 2023-0 Yes [id number] 2{puff} Inhale 2 [facility] 90 3-27 Puffs ity of mcg/actuati 00:00: every 6 [place] on inhaler 00 (six) Medical hours as Branch needed for Wheezing or Shortness of Breath. ipratropium 2023-0 Yes [id number] 3mL Inhale 3 [facility] -albuteroL 3-27 mL every 6 ity of 0.5 mg-3 00:00: (six) [place] mg(2.5 mg 00 hours as Medica l base)/3 mL needed for Bra nch nebulizer Wheezing. solution fluticasone 2023-0 Yes [id number] 1{puff} Inhale 1 [facility] propion-sara 3-27 Puff every it y of meteroL 00:00: 12 [place] (ADVAIR 00 (twelve) Medical DISKUS) hours. Branch 250-50 mcg/dose inhalation disk albuterol 3-0 Yes [id number] 2{puff} Inhale 2 [facility] 90 3-27 Puffs ity of mcg/actuati 00:00: every 6 [place] on inhaler 00 (six) Medical hours as Branch needed for Wheezing or Shortness of Breath. ipratropium 3-0 Yes [id number] 3mL Inhale 3 [facility] -albuteroL 3-27 mL every 6 ity of 0.5 mg-3 00:00: (six) [place] mg(2.5 mg 00 hours as Medica l base)/3 mL needed for Bra nch nebulizer Wheezing. solution fluticasone 2023-0 Yes [id number] 1{puff} Inhale 1 [facility] propion-sara 3-27 Puff every it y of meteroL 00:00: 12 [place] (ADVAIR 00 (twelve) Medical DISKUS) hours. Branch 250-50 mcg/dose inhalation disk albuterol 2023-0 Yes [id number] 2{puff} Inhale 2 [facility] 90 3-27 Puffs ity of mcg/actuati 00:00: every 6 [place] on inhaler 00 (six) Medical hours as Branch needed for Wheezing or Shortness of Breath. ipratropium 2023-0 Yes [id number] 3mL Inhale 3 [facility] -albuteroL 3-27 mL every 6 ity of 0.5 mg-3 00:00: (six) [place] mg(2.5 mg 00 hours as Medica l base)/3 mL needed for Bra nch nebulizer Wheezing. solution fluticasone 2023-0 Yes [id number] 1{puff} Inhale 1 [facility] propion-sara 3-27 Puff every it y of meteroL 00:00: 12 [place] (ADVAIR 00 (twelve) Medical DISKUS) hours. Branch 250-50 mcg/dose inhalation disk albuterol 2023-0 Yes [id number] 2{puff} Inhale 2 [facility] 90 3-27 Puffs ity of mcg/actuati 00:00: every 6 [place] on inhaler 00 (six) Medical hours as Branch needed for Wheezing or Shortness of Breath. ipratropium 3-0 Yes [id number] 3mL Inhale 3 [facility] -albuteroL 3-27 mL every 6 ity of 0.5 mg-3 00:00: (six) [place] mg(2.5 mg 00 hours as Medica l base)/3 mL needed for Bra nch nebulizer Wheezing. solution fluticasone 2023-0 Yes [id number] 1{puff} Inhale 1 [facility] propion-sara 3-27 Puff every it y of meteroL 00:00: 12 [place] (ADVAIR 00 (twelve) Medical DISKUS) hours. Branch 250-50 mcg/dose inhalation disk albuterol 2023-0 Yes [id number] 2{puff} Inhale 2 [facility] 90 3-27 Puffs ity of mcg/actuati 00:00: every 6 [place] on inhaler 00 (six) Medical hours as Branch needed for Wheezing or Shortness of Breath. ipratropium 2023-0 Yes [id number] 3mL Inhale 3 [facility] -albuteroL 3-27 mL every 6 ity of 0.5 mg-3 00:00: (six) [place] mg(2.5 mg 00 hours as Medica l base)/3 mL needed for Bra nch nebulizer Wheezing. solution fluticasone 2023-0 Yes [id number] 1{puff} Inhale 1 [facility] propion-sara 3-27 Puff every it y of meteroL 00:00: 12 [place] (ADVAIR 00 (twelve) Medical DISKUS) hours. Branch 250-50 mcg/dose inhalation disk albuterol 2023-0 Yes [id number] 2{puff} Inhale 2 [facility] 90 3-27 Puffs ity of mcg/actuati 00:00: every 6 [place] on inhaler 00 (six) Medical hours as Branch needed for Wheezing or Shortness of Breath. ipratropium 2023-0 Yes [id number] 3mL Inhale 3 [facility] -albuteroL 3-27 mL every 6 ity of 0.5 mg-3 00:00: (six) [place] mg(2.5 mg 00 hours as Medica l base)/3 mL needed for Bra nch nebulizer Wheezing. solution fluticasone 2023-0 Yes [id number] 1{puff} Inhale 1 [facility] propion-sara 3-27 Puff every it y of meteroL 00:00: 12 [place] (ADVAIR 00 (twelve) Medical DISKUS) hours. Branch 250-50 mcg/dose inhalation disk albuterol 2023-0 Yes [id number] 2{puff} Inhale 2 [facility] 90 3-27 Puffs ity of mcg/actuati 00:00: every 6 [place] on inhaler 00 (six) Medical hours as Branch needed for Wheezing or Shortness of Breath. ipratropium 2023-0 Yes [id number] 3mL Inhale 3 [facility] -albuteroL 3-27 mL every 6 ity of 0.5 mg-3 00:00: (six) [place] mg(2.5 mg 00 hours as Medica l base)/3 mL needed for Bra nch nebulizer Wheezing. solution fluticasone 2023-0 Yes [id number] 1{puff} Inhale 1 [facility] propion-sara 3-27 Puff every it y of meteroL 00:00: 12 [place] (ADVAIR 00 (twelve) Medical DISKUS) hours. Branch 250-50 mcg/dose inhalation disk albuterol 2023-0 Yes [id number] 2{puff} Inhale 2 [facility] 90 3-27 Puffs ity of mcg/actuati 00:00: every 6 [place] on inhaler 00 (six) Medical hours as Branch needed for Wheezing or Shortness of Breath. ipratropium 2023-0 Yes [id number] 3mL Inhale 3 [facility] -albuteroL 3-27 mL every 6 ity of 0.5 mg-3 00:00: (six) [place] mg(2.5 mg 00 hours as Medica l base)/3 mL needed for Bra nch nebulizer Wheezing. solution fluticasone 2023-0 Yes [id number] 1{puff} Inhale 1 [facility] propion-sara 3-27 Puff every it y of meteroL 00:00: 12 [place] (ADVAIR (twelve) Medical DISKUS) hours. Branch 250-50 mcg/dose inhalation disk albuterol 2023-0 Yes [id number] 2{puff} Inhale 2 [facility] 90 3-27 Puffs ity of mcg/actuati 00:00: every 6 [place] on inhaler 00 (six) Medical hours as Branch needed for Wheezing or Shortness of Breath. ipratropium 2023-0 Yes [id number] 3mL Inhale 3 [facility] -albuteroL 3-27 mL every 6 ity of 0.5 mg-3 00:00: (six) [place] mg(2.5 mg 00 hours as Medica l base)/3 mL needed for Bra nch nebulizer Wheezing. solution fluticasone 2023-0 Yes [id number] 1{puff} Inhale 1 [facility] propion-sara 3-27 Puff every it y of meteroL 00:00: 12 [place] (ADVAIR () Medical DISKUS) hours. Branch 250-50 mcg/dose inhalation disk albuterol 2023-0 Yes [id number] 2{puff} Inhale 2 [facility] 90 3-27 Puffs ity of mcg/actuati 00:00: every 6 [place] on inhaler 00 (six) Medical hours as Branch needed for Wheezing or Shortness of Breath. ipratropium 2023-0 Yes [id number] 3mL Inhale 3 [facility] -albuteroL 3-27 mL every 6 ity of 0.5 mg-3 00:00: (six) [place] mg(2.5 mg 00 hours as Medica l base)/3 mL needed for Bra nch nebulizer Wheezing. solution fluticasone 2023-0 Yes [id number] 1{puff} Inhale 1 [facility] propion-sara 3-27 Puff every it y of meteroL 00:00: 12 [place] (ADVAIR (twelve) Medical DISKUS) hours. Branch 250-50 mcg/dose inhalation disk albuterol 2023-0 Yes [id number] 2{puff} Inhale 2 [facility] 90 3-27 Puffs ity of mcg/actuati 00:00: every 6 [place] on inhaler 00 (six) Medical hours as Branch needed for Wheezing or Shortness of Breath. ipratropium 2023-0 Yes [id number] 3mL Inhale 3 [facility] -albuteroL 3-27 mL every 6 ity of 0.5 mg-3 00:00: (six) [place] mg(2.5 mg 00 hours as Medica l base)/3 mL needed for Bra nch nebulizer Wheezing. solution fluticasone 2023-0 Yes [id number] 1{puff} Inhale 1 [facility] propion-sara 3-27 Puff every it y of meteroL 00:00: 12 [place] (ADVAIR 00 (twelve) Medical DISKUS) hours. Branch 250-50 mcg/dose inhalation disk albuterol 2023-0 Yes [id number] 2{puff} Inhale 2 [facility] 90 3-27 Puffs ity of mcg/actuati 00:00: every 6 [place] on inhaler 00 (six) Medical hours as Branch needed for Wheezing or Shortness of Breath. ipratropium 2023-0 Yes [id number] 3mL Inhale 3 [facility] -albuteroL 3-27 mL every 6 ity of 0.5 mg-3 00:00: (six) [place] mg(2.5 mg 00 hours as Medica l base)/3 mL needed for Bra nch nebulizer Wheezing. solution fluticasone 2023-0 Yes [id number] 1{puff} Inhale 1 [facility] propion-sara 3-27 Puff every it y of meteroL 00:00: 12 [place] (ADVAIR 00 (twelve) Medical DISKUS) hours. Branch 250-50 mcg/dose inhalation disk albuterol 2023-0 Yes [id number] 2{puff} Inhale 2 [facility] 90 3-27 Puffs ity of mcg/actuati 00:00: every 6 [place] on inhaler 00 (six) Medical hours as Branch needed for Wheezing or Shortness of Breath. ipratropium 2023-0 Yes [id number] 3mL Inhale 3 [facility] -albuteroL 3-27 mL every 6 ity of 0.5 mg-3 00:00: (six) [place] mg(2.5 mg 00 hours as Medica l base)/3 mL needed for Bra nch nebulizer Wheezing. solution fluticasone 2023-0 Yes [id number] 1{puff} Inhale 1 [facility] propion-sara 3-27 Puff every it y of meteroL 00:00: 12 [place] (ADVAIR 00 (twelve) Medical DISKUS) hours. Branch 250-50 mcg/dose inhalation disk albuterol 2023-0 Yes [id number] 2{puff} Inhale 2 [facility] 90 3-27 Puffs ity of mcg/actuati 00:00: every 6 [place] on inhaler 00 (six) Medical hours as Branch needed for Wheezing or Shortness of Breath. ipratropium 2023-0 Yes [id number] 3mL Inhale 3 [facility] -albuteroL 3-27 mL every 6 ity of 0.5 mg-3 00:00: (six) [place] mg(2.5 mg 00 hours as Medica l base)/3 mL needed for Bra nch nebulizer Wheezing. solution fluticasone 2023-0 Yes [id number] 1{puff} Inhale 1 [facility] propion-sara 3-27 Puff every it y of meteroL 00:00: 12 [place] (ADVAIR 00 (twelve) Medical DISKUS) hours. Branch 250-50 mcg/dose inhalation disk albuterol 2023-0 Yes [id number] 2{puff} Inhale 2 [facility] 90 3-27 Puffs ity of mcg/actuati 00:00: every 6 [place] on inhaler 00 (six) Medical hours as Branch needed for Wheezing or Shortness of Breath. ipratropium 2023-0 Yes [id number] 3mL Inhale 3 [facility] -albuteroL 3-27 mL every 6 ity of 0.5 mg-3 00:00: (six) [place] mg(2.5 mg 00 hours as Medica l base)/3 mL needed for Bra nch nebulizer Wheezing. solution fluticasone 2023-0 Yes [id number] 1{puff} Inhale 1 [facility] propion-sara 3-27 Puff every it y of meteroL 00:00: 12 [place] (ADVAIR 00 (twelve) Medical DISKUS) hours. Branch 250-50 mcg/dose inhalation disk albuterol 2023-0 Yes [id number] 2{puff} Inhale 2 [facility] 90 3-27 Puffs ity of mcg/actuati 00:00: every 6 [place] on inhaler 00 (six) Medical hours as Branch needed for Wheezing or Shortness of Breath. ipratropium 3-0 Yes [id number] 3mL Inhale 3 [facility] -albuteroL 3-27 mL every 6 ity of 0.5 mg-3 00:00: (six) [place] mg(2.5 mg 00 hours as Medica l base)/3 mL needed for Bra nch nebulizer Wheezing. solution fluticasone 3-0 Yes [id number] 1{puff} Inhale 1 [facility] propion-sara 3-27 Puff every it y of meteroL 00:00: 12 [place] (ADVAIR 00 (twelve) Medical DISKUS) hours. Branch 250-50 mcg/dose inhalation disk albuterol 3-0 Yes [id number] 2{puff} Inhale 2 [facility] 90 3-27 Puffs ity of mcg/actuati 00:00: every 6 [place] on inhaler 00 (six) Medical hours as Branch needed for Wheezing or Shortness of Breath. ipratropium 3-0 Yes [id number] 3mL Inhale 3 [facility] -albuteroL 3-27 mL every 6 ity of 0.5 mg-3 00:00: (six) [place] mg(2.5 mg 00 hours as Medica l base)/3 mL needed for Bra nch nebulizer Wheezing. solution fluticasone 3-0 Yes [id number] 1{puff} Inhale 1 [facility] propion-sara 3-27 Puff every it y of meteroL 00:00: 12 [place] (ADVAIR 00 (twelve) Medical DISKUS) hours. Branch 250-50 mcg/dose inhalation disk albuterol 3-0 Yes [id number] 2{puff} Inhale 2 [facility] 90 3-27 Puffs ity of mcg/actuati 00:00: every 6 [place] on inhaler 00 (six) Medical hours as Branch needed for Wheezing or Shortness of Breath. ipratropium 2023-0 Yes [id number] 3mL Inhale 3 [facility] -albuteroL 3-27 mL every 6 ity of 0.5 mg-3 00:00: (six) [place] mg(2.5 mg 00 hours as Medica l base)/3 mL needed for Bra nch nebulizer Wheezing. solution fluticasone 2023-0 Yes [id number] 1{puff} Inhale 1 [facility] propion-sara 3-27 Puff every it y of meteroL 00:00: 12 [place] (ADVAIR 00 (twelve) Medical DISKUS) hours. Branch 250-50 mcg/dose inhalation disk albuterol 2023-0 Yes [id number] 2{puff} Inhale 2 [facility] 90 3-27 Puffs ity of mcg/actuati 00:00: every 6 [place] on inhaler 00 (six) Medical hours as Branch needed for Wheezing or Shortness of Breath. ipratropium 2023-0 Yes [id number] 3mL Inhale 3 [facility] -albuteroL 3-27 mL every 6 ity of 0.5 mg-3 00:00: (six) [place] mg(2.5 mg 00 hours as Medica l base)/3 mL needed for Bra nch nebulizer Wheezing. solution ipratropium 2023-0 Yes [id number] 3mL Inhale 3 [facility] -albuteroL 3-27 mL every 6 ity of 0.5 mg-3 00:00: (six) [place] mg(2.5 mg 00 hours as Medica l base)/3 mL needed for Bra nch nebulizer Wheezing. solution ipratropium 2023-0 Yes [id number] 3mL Inhale 3 [facility] -albuteroL 3-27 mL every 6 ity of 0.5 mg-3 00:00: (six) [place] mg(2.5 mg 00 hours as Medica l base)/3 mL needed for Bra nch nebulizer Wheezing. solution ipratropium 2023-0 Yes [id number] 3mL Inhale 3 [facility] -albuteroL 3-27 mL every 6 ity of 0.5 mg-3 00:00: (six) [place] mg(2.5 mg 00 hours as Medica l base)/3 mL needed for Bra nch nebulizer Wheezing. solution ipratropium 2023-0 Yes [id number] 3mL Inhale 3 [facility] -albuteroL 3-27 mL every 6 ity of 0.5 mg-3 00:00: (six) [place] mg(2.5 mg 00 hours as Medica l base)/3 mL needed for Bra nch nebulizer Wheezing. solution fluticasone 3-0 2023- No [id number] 1{puff} Inhale 1 [facility] propion-sara 3-27 09-07 Puff every i ty of meteroL 00:00: 00:00 12 [place] (ADVAIR 00 :00 (twelve) Medical DISKUS) hours. Branch 250-50 mcg/dose inhalation disk albuterol 202-0 2023- No [id number] 2{puff} Inhale 2 [facility] 90 3-27 09-07 Puffs ity of mcg/actuati 00:00: 00:00 every 6 [place] on inhaler 00 :00 (six) Medical hours as Branch needed for Wheezing or Shortness of Breath. fluticasone 2023-0 3- No [id number] 1{puff} Inhale 1 [facility] propion-sara 3-27 09-07 Puff every i ty of meteroL 00:00: 00:00 12 [place] (ADVAIR 00 :00 (twelve) Medical DISKUS) hours. Branch 250-50 mcg/dose inhalation disk albuterol 2022-0 3- No [id number] 2{puff} Inhale 2 [facility] 90 3-27 09-07 Puffs ity of mcg/actuati 00:00: 00:00 every 6 [place] on inhaler 00 :00 (six) Medical hours as Branch needed for Wheezing or Shortness of Breath. fluticasone 3-0 3- No [id number] 1{puff} Inhale 1 [facility] propion-sara 3-27 09-07 Puff every i ty of meteroL 00:00: 00:00 12 [place] (ADVAIR 00 :00 (twelve) Medical DISKUS) hours. Branch 250-50 mcg/dose inhalation disk albuterol 2023-0 2023- No [id number] 2{puff} Inhale 2 [facility] 90 3-27 09-07 Puffs ity of mcg/actuati 00:00: 00:00 every 6 [place] on inhaler 00 :00 (six) Medical hours as Branch needed for Wheezing or Shortness of Breath. propranoloL 2022-0 Yes [id number] 20mg Take 1 [facility] 20 mg 3-13 tablet by ity of tablet 00:00: mouth in [place] 00 the Medical morning Branch and 1 tablet in the evening. propranoloL 2023-0 Yes [id number] 20mg Take 1 [facility] 20 mg 3-13 tablet by ity of tablet 00:00: mouth in [place] 00 the Medical morning Branch and 1 tablet in the evening. propranoloL 2023-0 Yes [id number] 20mg Take 1 [facility] 20 mg 3-13 tablet by ity of tablet 00:00: mouth in [place] 00 the Medical morning Branch and 1 tablet in the evening. propranoloL 2023-0 Yes [id number] 20mg Take 1 [facility] 20 mg 3-13 tablet by ity of tablet 00:00: mouth in [place] 00 the Medical morning Branch and 1 tablet in the evening. propranoloL 2023-0 Yes [id number] 20mg Take 1 [facility] 20 mg 3-13 tablet by ity of tablet 00:00: mouth in [place] [address] the Medical morning Branch and 1 tablet in the evening. propranoloL 2023-0 Yes [id number] 20mg Take 1 [facility] 20 mg 3-13 tablet by ity of tablet 00:00: mouth in [place] [address] the Medical morning Branch and 1 tablet in the evening. propranoloL 2023-0 Yes [id number] 20mg Take 1 [facility] 20 mg 3-13 tablet by ity of tablet 00:00: mouth in [place] [address] the Medical morning Branch and 1 tablet in the evening. propranoloL 2023-0 Yes [id number] 20mg Take 1 [facility] 20 mg 3-13 tablet by ity of tablet 00:00: mouth in [place] [address] the Medical morning Branch and 1 tablet in the evening. propranoloL 2023-0 Yes [id number] 20mg Take 1 [facility] 20 mg 3-13 tablet by ity of tablet 00:00: mouth in [place] [address] the Medical morning Branch and 1 tablet in the evening. propranoloL 2023-0 2023- No [id number] 20mg Take 1 [facility] 20 mg 3-13 06-22 tablet by ity of tablet 00:00: 00:00 mouth in [place] 00 :00 the Medical morning Branch and 1 tablet in the evening. propranoloL 2023-0 2023- No [id number] 20mg Take 1 [facility] 20 mg 3-13 06-22 tablet by ity of tablet 00:00: 00:00 mouth in [place] 00 :00 the Medical morning Branch and 1 tablet in the evening. doxycycline 2023-0 Yes [id number] 100mg Take 1 [facility] hyclate 100 3-08 tablet by ity of mg tablet 00:00: mouth [place] 00 the Medical morning Branch and 1 tablet in the evening. methylPREDN 2023-0 Yes [id number] Take by [facility] ISolone 3-08 mouth ity of (MEDROL, 00:00: SEE-INSTRU [place],) 4 mg 00 CTIONS. Medica l tablets follow Branch package directions doxycycline 2023-0 Yes [id number] 100mg Take 1 [facility] hyclate 100 3-08 tablet by ity of mg tablet 00:00: [place] 00 the Medical morning Branch and 1 tablet in the evening. methylPREDN 2023-0 Yes [id number] Take by [facility] ISolone 3-08 mouth ity of (MEDROL, 00:00: SEE-INSTRU [place],) 4 mg 00 CTIONS. Medica l tablets follow Branch package directions doxycycline 2023-0 Yes [id number] 100mg Take 1 [facility] hyclate 100 3-08 tablet by ity of mg tablet 00:00: [place] 00 the Medical morning Branch and 1 tablet in the evening. methylPREDN 2023-0 Yes [id number] Take by [facility] ISolone 3-08 mouth ity of (MEDROL, 00:00: SEE-INSTRU [place],) 4 mg 00 CTIONS. Medica l tablets follow Branch package directions doxycycline 2023-0 Yes [id number] 100mg Take 1 [facility] hyclate 100 3-08 tablet by ity of mg tablet 00:00: [place] 00 the Medical morning Branch and 1 tablet in the evening. methylPREDN 2023-0 Yes [id number] Take by [facility] ISolone 3-08 mouth ity of (MEDROL, 00:00: SEE-INSTRU [place],) 4 mg 00 CTIONS. Medica l tablets follow Branch package directions doxycycline 2023-0 Yes [id number] 100mg Take 1 [facility] hyclate 100 3-08 tablet by ity of mg tablet 00:00: [place] 00 the Medical morning Branch and 1 tablet in the evening. methylPREDN 2023-0 Yes [id number] Take by [facility] ISolone 3-08 mouth ity of (MEDROL, 00:00: SEE-INSTRU [place],) 4 mg 00 CTIONS. Medica l tablets follow Branch package directions doxycycline 2023-0 Yes [id number] 100mg Take 1 [facility] hyclate 100 3-08 tablet by ity of mg tablet 00:00: mouth [place] 00 the Medical morning Branch and 1 tablet in the evening. methylPREDN 2023-0 Yes [id number] Take by [facility] ISolone 3-08 mouth ity of (MEDROL, 00:00: SEE-INSTRU [place],) 4 mg 00 CTIONS. Medica l tablets follow Branch package directions doxycycline 2023-0 Yes [id number] 100mg Take 1 [facility] hyclate 100 3-08 tablet by ity of mg tablet 00:00: [place] 00 the Medical morning Branch and 1 tablet in the evening. methylPREDN 2023-0 Yes [id number] Take by [facility] ISolone 3-08 mouth ity of (MEDROL, 00:00: SEE-INSTRU [place],) 4 mg 00 CTIONS. Medica l tablets follow Branch package directions doxycycline 2023-0 Yes [id number] 100mg Take 1 [facility] hyclate 100 3-08 tablet by ity of mg tablet 00:00: [place] 00 the Medical morning Branch and 1 tablet in the evening. methylPREDN 2023-0 Yes [id number] Take by [facility] ISolone 3-08 mouth ity of (MEDROL, 00:00: SEE-INSTRU [place],) 4 mg 00 CTIONS. Medica l tablets follow Branch package directions doxycycline 2023-0 Yes [id number] 100mg Take 1 [facility] hyclate 100 3-08 tablet by ity of mg tablet 00:00: [place] 00 the Medical morning Branch and 1 tablet in the evening. methylPREDN 2023-0 Yes [id number] Take by [facility] ISolone 3-08 mouth ity of (MEDROL, 00:00: SEE-INSTRU [place],) 4 mg 00 CTIONS. Medica l tablets follow Branch package directions doxycycline 2023-0 Yes [id number] 100mg Take 1 [facility] hyclate 100 3-08 tablet by ity of mg tablet 00:00: [place] 00 the Medical morning Branch and 1 tablet in the evening. methylPREDN 2023-0 Yes [id number] Take by [facility] ISolone 3-08 mouth ity of (MEDROL, 00:00: SEE-INSTRU [place],) 4 mg 00 CTIONS. Medica l tablets follow Branch package directions doxycycline 3-0 Yes [id number] 100mg Take 1 [facility] hyclate 100 3-08 tablet by ity of mg tablet 00:00: [place] 00 the Medical morning Branch and 1 tablet in the evening. methylPREDN 2023-0 Yes [id number] Take by [facility] ISolone 3-08 mouth ity of (MEDROL, 00:00: SEE-INSTRU [place],) 4 mg 00 CTIONS. Medica l tablets follow Branch package directions doxycycline 3-0 Yes [id number] 100mg Take 1 [facility] hyclate 100 3-08 tablet by ity of mg tablet 00:00: [place] 00 the Medical morning Branch and 1 tablet in the evening. methylPREDN 2023-0 Yes [id number] Take by [facility] ISolone 3-08 mouth ity of (MEDROL, 00:00: SEE-INSTRU [place],) 4 mg 00 CTIONS. Medica l tablets follow Branch package directions doxycycline 2022-0 2022- No [id number] 100mg Take 1 [facility] hyclate 100 -01 08- tablet by it y of mg tablet 00:00: 00:00 mouth in [place] 00 :00 the Medical morning Branch and 1 tablet in the evening. methylPREDN 2022-0 2022- No [id number] Take by [facility] ISolone 08-10 mouth ity of (MEDROL, 00:00: 00:00 SEE-INSTRU [place]EL[place],) 4 mg 00 :00 CTIONS. Medica l tablets follow Branch package directions doxycycline 2022-0 2022- No [id number] 100mg Take 1 [facility] hyclate 100 -01 08-22 tablet by it y of mg tablet 00:00: 00:00 mouth in [place] 00 :00 the Medical morning Branch and 1 tablet in the evening. methylPREDN 2022-0 2022- No [id number] Take by [facility] ISolone 08-10-22 mouth ity of (MEDROL, 00:00: 00:00 SEE-INSTRU [place]ELOS,) 4 mg 00 :00 CTIONS. Medica l tablets follow Branch package directions albuterol 2022-0 Yes [id number] 2{puff} Inhale 2 [facility] 90 3-02 Puffs ity of mcg/actuati 00:00: every 6 [place] on inhaler 00 (six) Medical hours as Branch needed for Wheezing or Shortness of Breath. traZODone 0 Yes [id number] 50mg Take 1-2 [facility] 50 mg 3-02 tablets by ity of tablet 00:00: mouth at [place] 00 bedtime. Medical Branch doxepin 25 0 Yes [id number] 50mg Take 2-3 [facility] mg capsule 3-02 capsules ity o f 00:00: by mouth 00 at Medical bedtime. Branch albuterol 0 Yes [id number] 2{puff} Inhale 2 [facility] 90 3-02 Puffs ity of mcg/actuati 00:00: every 6 [place] on inhaler 00 (six) Medical hours as Branch needed for Wheezing or Shortness of Breath. traZODone 0 Yes [id number] 50mg Take 1-2 [facility] 50 mg 3-02 tablets by ity of tablet 00:00: mouth at [place] 00 bedtime. Medical Branch doxepin Yes [id number] 50mg Take 2-3 [facility] mg capsule 3-02 capsules ity o f 00:00: by mouth [place] at Medical bedtime. Branch albuterol 0 Yes [id number] 2{puff} Inhale 2 [facility] 90 3-02 Puffs ity of mcg/actuati 00:00: every 6 [place] on inhaler 00 (six) Medical hours as Branch needed for Wheezing or Shortness of Breath. traZODone 0 Yes [id number] 50mg Take 1-2 [facility] 50 mg 3-02 tablets by ity of tablet 00:00: mouth at [place] 00 bedtime. Medical Branch doxepin 25 0 Yes [id number] 50mg Take 2-3 [facility] mg capsule 3-02 capsules ity o f 00:00: by mouth [place] at Medical bedtime. Branch albuterol 0 Yes [id number] 2{puff} Inhale 2 [facility] 90 3-02 Puffs ity of mcg/actuati 00:00: every 6 [place] on inhaler 00 (six) Medical hours as Branch needed for Wheezing or Shortness of Breath. traZODone 2023-0 Yes [id number] 50mg Take 1-2 [facility] 50 mg 3-02 tablets by ity of tablet 00:00: mouth at [place] bedtime. Medical Branch doxepin 25 Yes [id number] 50mg Take 2-3 [facility] mg capsule 3-02 capsules ity o f 00:00: by mouth at Medical bedtime. Branch albuterol Yes [id number] 2{puff} Inhale 2 [facility] 90 3-02 Puffs ity of mcg/actuati 00:00: every 6 [place] on inhaler 00 (six) Medical hours as Branch needed for Wheezing or Shortness of Breath. traZODone Yes [id number] 50mg Take 1-2 [facility] 50 mg 3-02 tablets by ity of tablet 00:00: mouth at [place] bedtime. Medical Branch doxepin 25 Yes [id number] 50mg Take 2-3 [facility] mg capsule 3-02 capsules ity o f 00:00: by mouth [place] at Medical bedtime. Branch albuterol Yes [id number] 2{puff} Inhale 2 [facility] 90 3-02 Puffs ity of mcg/actuati 00:00: every 6 [place] on inhaler 00 (six) Medical hours as Branch needed for Wheezing or Shortness of Breath. traZODone Yes [id number] 50mg Take 1-2 [facility] 50 mg 3-02 tablets by ity of tablet 00:00: mouth at [place] bedtime. Medical Branch doxepin Yes [id number] 50mg Take 2-3 [facility] mg capsule 3-02 capsules ity o f 00:00: by mouth [place] at Medical bedtime. Branch albuterol Yes [id number] 2{puff} Inhale 2 [facility] 90 3-02 Puffs ity of mcg/actuati 00:00: every 6 [place] on inhaler 00 (six) Medical hours as Branch needed for Wheezing or Shortness of Breath. traZODone 0 Yes [id number] 50mg Take 1-2 [facility] 50 mg 3-02 tablets by ity of tablet 00:00: mouth at [place] [address] bedtime. Medical Branch doxepin 25 2023-0 Yes [id number] 50mg Take 2-3 [facility] mg capsule 3-02 capsules ity o f 00:00: by mouth at Medical bedtime. Branch albuterol Yes [id number] 2{puff} Inhale 2 [facility] 90 3-02 Puffs ity of mcg/actuati 00:00: every 6 [place] on inhaler 00 (six) Medical hours as Branch needed for Wheezing or Shortness of Breath. traZODone 0 Yes [id number] 50mg Take 1-2 [facility] 50 mg 3-02 tablets by ity of tablet 00:00: mouth at [place] bedtime. Medical Branch doxepin 25 0 Yes [id number] 50mg Take 2-3 [facility] mg capsule 3-02 capsules ity o f 00:00: by mouth at Medical bedtime. Branch albuterol 0 Yes [id number] 2{puff} Inhale 2 [facility] 90 3-02 Puffs ity of mcg/actuati 00:00: every 6 [place] on inhaler 00 (six) Medical hours as Branch needed for Wheezing or Shortness of Breath. traZODone 0 Yes [id number] 50mg Take 1-2 [facility] 50 mg 3-02 tablets by ity of tablet 00:00: mouth at [place] bedtime. Medical Branch doxepin 25 0 Yes [id number] 50mg Take 2-3 [facility] mg capsule 3-02 capsules ity o f 00:00: by mouth [place] at Medical bedtime. Branch albuterol 0 Yes [id number] 2{puff} Inhale 2 [facility] 90 3-02 Puffs ity of mcg/actuati 00:00: every 6 [place] on inhaler 00 (six) Medical hours as Branch needed for Wheezing or Shortness of Breath. traZODone 2022-0 Yes [id number] 50mg Take 1-2 [facility] 50 mg 3-02 tablets by ity of tablet 00:00: mouth at [place] bedtime. Medical Branch doxepin 25 0 Yes [id number] 50mg Take 2-3 [facility] mg capsule 3-02 capsules ity o f 00:00: by mouth [place] at Medical bedtime. Branch albuterol 0 Yes [id number] 2{puff} Inhale 2 [facility] 90 3-02 Puffs ity of mcg/actuati 00:00: every 6 [place] on inhaler 00 (six) Medical hours as Branch needed for Wheezing or Shortness of Breath. traZODone 0 Yes [id number] 50mg Take 1-2 [facility] 50 mg 3-02 tablets by ity of tablet 00:00: mouth at [place] bedtime. Medical Branch doxepin 25 0 Yes [id number] 50mg Take 2-3 [facility] mg capsule 3-02 capsules ity o f 00:00: by mouth [place] at Medical bedtime. Branch albuterol 0 Yes [id number] 2{puff} Inhale 2 [facility] 90 3-02 Puffs ity of mcg/actuati 00:00: every 6 [place] on inhaler 00 (six) Medical hours as Branch needed for Wheezing or Shortness of Breath. traZODone 0 Yes [id number] 50mg Take 1-2 [facility] 50 mg 3-02 tablets by ity of tablet 00:00: mouth at [place] [address] bedtime. Medical Branch doxepin Yes [id number] 50mg Take 2-3 [facility] mg capsule 3-02 capsules ity o f 00:00: by mouth [place] at Medical bedtime. Branch traZODone 0 Yes [id number] 50mg Take 1-2 [facility] 50 mg 3-02 tablets by ity of tablet 00:00: mouth at [place] [address] bedtime. Medical Branch doxepin 25 0 Yes [id number] 50mg Take 2-3 [facility] mg capsule 3-02 capsules ity o f 00:00: by mouth [place] at Medical bedtime. Branch traZODone 0 Yes [id number] 50mg Take 1-2 [facility] 50 mg 3-02 tablets by ity of tablet 00:00: mouth at [place] [address] bedtime. Medical Branch doxepin 25 0 Yes [id number] 50mg Take 2-3 [facility] mg capsule 3-02 capsules ity o f 00:00: by mouth [place] at Medical bedtime. Branch traZODone 2022-0 Yes [id number] 50mg Take 1-2 [facility] 50 mg 3-02 tablets by ity of tablet 00:00: mouth at [place] [address] bedtime. Medical Branch doxepin 25 0 Yes [id number] 50mg Take 2-3 [facility] mg capsule 3-02 capsules ity o f 00:00: by mouth [place] at Medical bedtime. Branch traZODone 2022-0 Yes [id number] 50mg Take 1-2 [facility] 50 mg 3-02 tablets by ity of tablet 00:00: mouth at [place] bedtime. Medical Branch doxepin 25 0 Yes [id number] 50mg Take 2-3 [facility] mg capsule 3-02 capsules ity o f 00:00: by mouth [place] at Medical bedtime. Branch traZODone 2022-0 Yes [id number] 50mg Take 1-2 [facility] 50 mg 3-02 tablets by ity of tablet 00:00: mouth at [place] bedtime. Medical Branch doxepin 25 0 Yes [id number] 50mg Take 2-3 [facility] mg capsule 3-02 capsules ity o f 00:00: by mouth [place] at Medical bedtime. Branch traZODone 0 Yes [id number] 50mg Take 1-2 [facility] 50 mg 3-02 tablets by ity of tablet 00:00: mouth at [place] bedtime. Medical Branch doxepin 25 0 Yes [id number] 50mg Take 2-3 [facility] mg capsule 3-02 capsules ity o f 00:00: by mouth [place] at Medical bedtime. Branch traZODone 2022-0 Yes [id number] 50mg Take 1-2 [facility] 50 mg 3-02 tablets by ity of tablet 00:00: mouth at [place] [address] bedtime. Medical Branch doxepin 25 0 Yes [id number] 50mg Take 2-3 [facility] mg capsule 3-02 capsules ity o f 00:00: by mouth [place] at Medical bedtime. Branch traZODone 2022-0 Yes [id number] 50mg Take 1-2 [facility] 50 mg 3-02 tablets by ity of tablet 00:00: mouth at [place] [address] bedtime. Medical Branch doxepin 25 0 Yes [id number] 50mg Take 2-3 [facility] mg capsule 3-02 capsules ity o f 00:00: by mouth [place] at Medical bedtime. Branch traZODone 2022-0 Yes [id number] 50mg Take 1-2 [facility] 50 mg 3-02 tablets by ity of tablet 00:00: mouth at [place] [address] bedtime. Medical Branch doxepin 25 2022-0 Yes [id number] 50mg Take 2-3 [facility] mg capsule 3-02 capsules ity o f 00:00: by mouth [place] at Medical bedtime. Branch traZODone 2022-0 Yes [id number] 50mg Take 1-2 [facility] 50 mg 3-02 tablets by ity of tablet 00:00: mouth at [place] [address] bedtime. Medical Branch doxepin 25 2022-0 Yes [id number] 50mg Take 2-3 [facility] mg capsule 3-02 capsules ity o f 00:00: by mouth [place] at Medical bedtime. Branch traZODone 2022-0 Yes [id number] 50mg Take 1-2 [facility] 50 mg 3-02 tablets by ity of tablet 00:00: mouth at [place] [address] bedtime. Medical Branch doxepin 25 2022-0 Yes [id number] 50mg Take 2-3 [facility] mg capsule 3-02 capsules ity o f 00:00: by mouth [place] at Medical bedtime. Branch traZODone 2022-0 Yes [id number] 50mg Take 1-2 [facility] 50 mg 3-02 tablets by ity of tablet 00:00: mouth at [place] [address] bedtime. Medical Branch doxepin 25 2022-0 Yes [id number] 50mg Take 2-3 [facility] mg capsule 3-02 capsules ity o f 00:00: by mouth [place] at Medical bedtime. Branch traZODone 2022-0 Yes [id number] 50mg Take 1-2 [facility] 50 mg 3-02 tablets by ity of tablet 00:00: mouth at [place] [address] bedtime. Medical Branch doxepin 25 2022-0 Yes [id number] 50mg Take 2-3 [facility] mg capsule 3-02 capsules ity o f 00:00: by mouth [place] at Medical bedtime. Branch traZODone 2022-0 Yes [id number] 50mg Take 1-2 [facility] 50 mg 3-02 tablets by ity of tablet 00:00: mouth at [place] [address] bedtime. Medical Branch doxepin 25 2022-0 Yes [id number] 50mg Take 2-3 [facility] mg capsule 3-02 capsules ity o f 00:00: by mouth at Medical bedtime. Branch traZODone 2022-0 Yes [id number] 50mg Take 1-2 [facility] 50 mg 3-02 tablets by ity of tablet 00:00: mouth at [place] [address] bedtime. Medical Branch doxepin 25 2022-0 Yes [id number] 50mg Take 2-3 [facility] mg capsule 3-02 capsules ity o f 00:00: by mouth [place] at Medical bedtime. Branch traZODone 2022-0 Yes [id number] 50mg Take 1-2 [facility] 50 mg 3-02 tablets by ity of tablet 00:00: mouth at [place] [address] bedtime. Medical Branch doxepin 25 2022-0 Yes [id number] 50mg Take 2-3 [facility] mg capsule 3-02 capsules ity o f 00:00: by mouth [place] at [facility] bedtime. Branch traZODone 2022-0 Yes [id number] 50mg Take 1-2 [facility] 50 mg 3-02 tablets by ity of tablet 00:00: mouth at [place] [address] bedtime. Medical Branch traZODone 2022-0 Yes [id number] 50mg Take 1-2 [facility] 50 mg 3-02 tablets by ity of tablet 00:00: mouth at [place] [address] bedtime. Medical Branch traZODone 2022-0 Yes [id number] 50mg Take 1-2 [facility] 50 mg 3-02 tablets by ity of tablet 00:00: mouth at [place] [address] bedtime. Medical Branch traZODone 2022-0 Yes [id number] 50mg Take 1-2 [facility] 50 mg 3-02 tablets by ity of tablet 00:00: mouth at [place] [address] bedtime. Medical Branch traZODone 2022-0 Yes [id number] 50mg Take 1-2 [facility] 50 mg 3-02 tablets by ity of tablet 00:00: mouth at [place] [address] bedtime. Medical Branch traZODone 2022-0 Yes [id number] 50mg Take 1-2 [facility] 50 mg 3-02 tablets by ity of tablet 00:00: mouth at [place] [address] bedtime. Medical Branch traZODone 2022-0 Yes [id number] 50mg Take 1-2 [facility] 50 mg 3-02 tablets by ity of tablet 00:00: mouth at [place] [address] bedtime. Medical Branch traZODone 2022-0 Yes [id number] 50mg Take 1-2 [facility] 50 mg 3-02 tablets by ity of tablet 00:00: mouth at [place] [address] bedtime. Medical Branch traZODone 2022-0 Yes [id number] 50mg Take 1-2 [facility] 50 mg 3-02 tablets by ity of tablet 00:00: mouth at [place] [address] bedtime. Medical Branch traZODone 2022-0 Yes [id number] 50mg Take 1-2 [facility] 50 mg 3-02 tablets by ity of tablet 00:00: mouth at [place] [address] bedtime. Medical Branch traZODone 2022-0 Yes [id number] 50mg Take 1-2 [facility] 50 mg 3-02 tablets by ity of tablet 00:00: mouth at [place] [address] bedtime. Medical Branch traZODone 0 Yes [id number] 50mg Take 1-2 [facility] 50 mg 3-02 tablets by ity of tablet 00:00: mouth at [place] [address] bedtime. Medical Branch traZODone 0 Yes [id number] 50mg Take 1-2 [facility] 50 mg 3-02 tablets by ity of tablet 00:00: mouth at [place] [address] bedtime. Medical Branch albuterol Yes [id number] 2{puff} Inhale 2 [facility] 90 3-02 Puffs ity of mcg/actuati 00:00: every 6 [place] on inhaler 00 (six) Medical hours as Branch needed for Wheezing or Shortness of Breath. traZODone 0 Yes [id number] 50mg Take 1-2 [facility] 50 mg 3-02 tablets by ity of tablet 00:00: mouth at [place] [address] bedtime. Medical Branch doxepin 25 0 Yes [id number] 50mg Take 2-3 [facility] mg capsule 3-02 capsules ity o f 00:00: by mouth [place] at Medical bedtime. Branch albuterol 0 Yes [id number] 2{puff} Inhale 2 [facility] 90 3-02 Puffs ity of mcg/actuati 00:00: every 6 [place] on inhaler 00 (six) Medical hours as Branch needed for Wheezing or Shortness of Breath. traZODone 2022-0 Yes [id number] 50mg Take 1-2 [facility] 50 mg 3-02 tablets by ity of tablet 00:00: mouth at [place] bedtime. Medical Branch doxepin 25 0 Yes [id number] 50mg Take 2-3 [facility] mg capsule 3-02 capsules ity o f 00:00: by mouth [place] at Medical bedtime. Branch albuterol 0 Yes [id number] 2{puff} Inhale 2 [facility] 90 3-02 Puffs ity of mcg/actuati 00:00: every 6 [place] on inhaler 00 (six) Medical hours as Branch needed for Wheezing or Shortness of Breath. traZODone 0 Yes [id number] 50mg Take 1-2 [facility] 50 mg 3-02 tablets by ity of tablet 00:00: mouth at [place] [address] bedtime. Medical Branch doxepin 25 0 Yes [id number] 50mg Take 2-3 [facility] mg capsule 3-02 capsules ity o f 00:00: by mouth [place] at Medical bedtime. Branch albuterol Yes [id number] 2{puff} Inhale 2 [facility] 90 3-02 Puffs ity of mcg/actuati 00:00: every 6 [place] on inhaler 00 (six) Medical hours as Branch needed for Wheezing or Shortness of Breath. traZODone 0 Yes [id number] 50mg Take 1-2 [facility] 50 mg 3-02 tablets by ity of tablet 00:00: mouth at [place] [address] bedtime. Medical Branch doxepin 25 0 Yes [id number] 50mg Take 2-3 [facility] mg capsule 3-02 capsules ity o f 00:00: by mouth [place] at Medical bedtime. Branch albuterol 0 Yes [id number] 2{puff} Inhale 2 [facility] 90 3-02 Puffs ity of mcg/actuati 00:00: every 6 [place] on inhaler 00 (six) Medical hours as Branch needed for Wheezing or Shortness of Breath. traZODone 0 Yes [id number] 50mg Take 1-2 [facility] 50 mg 3-02 tablets by ity of tablet 00:00: mouth at [place] [address] bedtime. Medical Branch doxepin 25 0 Yes [id number] 50mg Take 2-3 [facility] mg capsule 3-02 capsules ity o f 00:00: by mouth [place] 00 at Medical bedtime. Branch albuterol Yes [id number] 2{puff} Inhale 2 [facility] 90 3-02 Puffs ity of mcg/actuati 00:00: every 6 [place] on inhaler 00 (six) Medical hours as Branch needed for Wheezing or Shortness of Breath. traZODone Yes [id number] 50mg Take 1-2 [facility] 50 mg 3-02 tablets by ity of tablet 00:00: mouth at [place] 00 bedtime. Medical Branch doxepin 25 Yes [id number] 50mg Take 2-3 [facility] mg capsule 3-02 capsules ity o f 00:00: by mouth [place] 00 at Medical bedtime. Branch doxepin 25 2022- No [id number] 50mg Take 2-3 [facility] mg capsule 3-02 08-02 capsules ity of 00:00: 00:00 by mouth [place] 00 :00 at Medical bedtime. Branch doxepin 25 2022- No [id number] 50mg Take 2-3 [facility] mg capsule 3- 08-02 capsules ity of 00:00: 00:00 by mouth [place] 00 :00 at Medical bedtime. Branch doxepin 25 2022-2022- No [id number] 50mg Take 2-3 [facility] mg capsule 3-02 08-02 capsules ity of 00:00: 00:00 by mouth [place] 00 :00 at Medical bedtime. Branch doxepin 25 2022- No [id number] 50mg Take 2-3 [facility] mg capsule 3-02 08-02 capsules ity of 00:00: 00:00 by mouth [place] 00 :00 at Medical bedtime. Branch albuterol 2022-2022- No [id number] 2{puff} Inhale 2 [facility] 90 3-02 06-22 Puffs ity of mcg/actuati 00:00: 00:00 every 6 [place] on inhaler 00 :00 (six) Medical hours as Branch needed for Wheezing or Shortness of Breath. albuterol 2022- No [id number] 2{puff} Inhale 2 [facility] 90 3-02 06-22 Puffs ity of mcg/actuati 00:00: 00:00 every 6 [place] on inhaler 00 :00 (six) Medical hours as Branch needed for Wheezing or Shortness of Breath. triamcinolo 2023-0 Yes [id number] Apply to [facility] ne 2-06 area(s) 2 ity of acetonide 00:00: (two) [place] 0.1 % cream 00 times Medical daily. Branch triamcinolo 2023-0 Yes [id number] Apply to [facility] ne 2-06 area(s) 2 ity of acetonide 00:00: (two) [place] 0.1 % cream 00 times Medical daily. Branch triamcinolo 2023-0 Yes [id number] Apply to [facility] ne 2-06 area(s) 2 ity of acetonide 00:00: (two) [place] 0.1 % cream 00 times Medical daily. Branch triamcinolo 2023-0 Yes [id number] Apply to [facility] ne 2-06 area(s) 2 ity of acetonide 00:00: (two) [place] 0.1 % cream 00 times Medical daily. Branch triamcinolo 2023-0 Yes [id number] Apply to [facility] ne 2-06 area(s) 2 ity of acetonide 00:00: (two) [place] 0.1 % cream 00 times Medical daily. Branch triamcinolo 2023-0 Yes [id number] Apply to [facility] ne 2-06 area(s) 2 ity of acetonide 00:00: (two) [place] 0.1 % cream 00 times Medical daily. Branch triamcinolo 2023-0 Yes [id number] Apply to [facility] ne 2-06 area(s) 2 ity of acetonide 00:00: (two) [place] 0.1 % cream 00 times Medical daily. Branch triamcinolo 2023-0 Yes [id number] Apply to [facility] ne 2-06 area(s) 2 ity of acetonide 00:00: (two) [place] 0.1 % cream 00 times Medical daily. Branch triamcinolo 2023-0 Yes [id number] Apply to [facility] ne 2-06 area(s) 2 ity of acetonide 00:00: (two) [place] 0.1 % cream 00 times Medical daily. Branch triamcinolo 2023-0 Yes [id number] Apply to [facility] ne 2-06 area(s) 2 ity of acetonide 00:00: (two) [place] 0.1 % cream 00 times Medical daily. Branch triamcinolo 2023-0 Yes [id number] Apply to [facility] ne 2-06 area(s) 2 ity of acetonide 00:00: (two) [place] 0.1 % cream 00 times Medical daily. Branch triamcinolo 2023-0 Yes [id number] Apply to [facility] ne 2-06 area(s) 2 ity of acetonide 00:00: (two) [place] 0.1 % cream 00 times Medical daily. Branch triamcinolo 2023-0 Yes [id number] Apply to [facility] ne 2-06 area(s) 2 ity of acetonide 00:00: (two) [place] 0.1 % cream 00 times Medical daily. Branch triamcinolo 2023-0 Yes [id number] Apply to [facility] ne 2-06 area(s) 2 ity of acetonide 00:00: (two) [place] 0.1 % cream 00 times Medical daily. Branch triamcinolo 2023-0 Yes [id number] Apply to [facility] ne 2-06 area(s) 2 ity of acetonide 00:00: (two) [place] 0.1 % cream 00 times Medical daily. Branch triamcinolo 2023-0 Yes [id number] Apply to [facility] ne 2-06 area(s) 2 ity of acetonide 00:00: (two) [place] 0.1 % cream 00 times Medical daily. Branch triamcinolo 2023-0 Yes [id number] Apply to [facility] ne 2-06 area(s) 2 ity of acetonide 00:00: (two) [place] 0.1 % cream 00 times Medical daily. Branch triamcinolo 2023-0 Yes [id number] Apply to [facility] ne 2-06 area(s) 2 ity of acetonide 00:00: (two) [place] 0.1 % cream 00 times Medical daily. Branch triamcinolo 2023-0 Yes [id number] Apply to [facility] ne 2-06 area(s) 2 ity of acetonide 00:00: (two) [place] 0.1 % cream 00 times Medical daily. Branch triamcinolo 2023-0 Yes [id number] Apply to [facility] ne 2-06 area(s) 2 ity of acetonide 00:00: (two) [place] 0.1 % cream 00 times Medical daily. Branch triamcinolo 2023-0 Yes [id number] Apply to [facility] ne 2-06 area(s) 2 ity of acetonide 00:00: (two) [place] 0.1 % cream 00 times Medical daily. Branch triamcinolo 2023-0 Yes [id number] Apply to [facility] ne 2-06 area(s) 2 ity of acetonide 00:00: (two) [place] 0.1 % cream 00 times Medical daily. Branch triamcinolo 2023-0 Yes [id number] Apply to [facility] ne 2-06 area(s) 2 ity of acetonide 00:00: (two) [place] 0.1 % cream 00 times Medical daily. Branch triamcinolo 2023-0 Yes [id number] Apply to [facility] ne 2-06 area(s) 2 ity of acetonide 00:00: (two) [place] 0.1 % cream 00 times Medical daily. Branch triamcinolo 2023-0 Yes [id number] Apply to [facility] ne 2-06 area(s) 2 ity of acetonide 00:00: (two) [place] 0.1 % cream 00 times Medical daily. Branch triamcinolo 2023-0 Yes [id number] Apply to [facility] ne 2-06 area(s) 2 ity of acetonide 00:00: (two) [place] 0.1 % cream 00 times Medical daily. Branch triamcinolo 2023-0 Yes [id number] Apply to [facility] ne 2-06 area(s) 2 ity of acetonide 00:00: (two) [place] 0.1 % cream 00 times Medical daily. Branch triamcinolo 2023-0 Yes [id number] Apply to [facility] ne 2-06 area(s) 2 ity of acetonide 00:00: (two) [place] 0.1 % cream 00 times Medical daily. Branch triamcinolo 2023-0 Yes [id number] Apply to [facility] ne 2-06 area(s) 2 ity of acetonide 00:00: (two) [place] 0.1 % cream 00 times Medical daily. Branch triamcinolo 2023-0 Yes [id number] Apply to [facility] ne 2-06 area(s) 2 ity of acetonide 00:00: (two) [place] 0.1 % cream 00 times Medical daily. Branch triamcinolo 2023-0 Yes [id number] Apply to [facility] ne 2-06 area(s) 2 ity of acetonide 00:00: (two) [place] 0.1 % cream 00 times Medical daily. Branch triamcinolo 2023-0 Yes [id number] Apply to [facility] ne 2-06 area(s) 2 ity of acetonide 00:00: (two) [place] 0.1 % cream 00 times Medical daily. Branch triamcinolo 2023-0 Yes [id number] Apply to [facility] ne 2-06 area(s) 2 ity of acetonide 00:00: (two) [place] 0.1 % cream 00 times Medical daily. Branch triamcinolo 2023-0 Yes [id number] Apply to [facility] ne 2-06 area(s) 2 ity of acetonide 00:00: (two) [place] 0.1 % cream 00 times Medical daily. Branch triamcinolo 2023-0 Yes [id number] Apply to [facility] ne 2-06 area(s) 2 ity of acetonide 00:00: (two) [place] 0.1 % cream 00 times Medical daily. Branch triamcinolo 2023-0 Yes [id number] Apply to [facility] ne 2-06 area(s) 2 ity of acetonide 00:00: (two) [place] 0.1 % cream 00 times Medical daily. Branch triamcinolo 2023-0 Yes [id number] Apply to [facility] ne 2-06 area(s) 2 ity of acetonide 00:00: (two) [place] 0.1 % cream 00 times Medical daily. Branch triamcinolo 2023-0 Yes [id number] Apply to [facility] ne 2-06 area(s) 2 ity of acetonide 00:00: (two) [place] 0.1 % cream 00 times Medical daily. Branch triamcinolo 2023-0 Yes [id number] Apply to [facility] ne 2-06 area(s) 2 ity of acetonide 00:00: (two) [place] 0.1 % cream 00 times Medical daily. Branch triamcinolo 2023-0 Yes [id number] Apply to [facility] ne 2-06 area(s) 2 ity of acetonide 00:00: (two) [place] 0.1 % cream 00 times Medical daily. Branch triamcinolo 2023-0 Yes [id number] Apply to [facility] ne 2- area(s) 2 ity of acetonide 00:00: (two) [place] 0.1 % cream 00 times Medical daily. Branch triamcinolo 2023-0 Yes [id number] Apply to [facility] area(s) 2 ity of acetonide 00:00: (two) [place] 0.1 % cream 00 times Medical daily. Branch methylPREDN 2023-0 Yes [id number] Take by [facility] of (MEDROL, 00:00: SEE-INSTRU [place],) 4 mg 00 CTIONS. Medica l tablets follow Branch package directions triamcinolo 3-0 Yes [id number] Apply to [facility] area(s) 2 ity of acetonide 00:00: (two) [place] 0.1 % cream 00 times Medical daily. Branch methylPREDN 2023-0 Yes [id number] Take by [facility] 2 mouth ity of (MEDROL, 00:00: SEE-INSTRU [place],) 4 mg 00 CTIONS. Medica l tablets follow Branch package directions triamcinolo 3-0 Yes [id number] Apply to [facility] area(s) 2 ity of acetonide 00:00: (two) [place] 0.1 % cream 00 times Medical daily. Branch methylPREDN 3-0 Yes [id number] Take by [facility] 2 mouth ity of (MEDROL, 00:00: SEE-INSTRU [place],) 4 mg 00 CTIONS. Medica l tablets follow Branch package directions triamcinolo 3-0 Yes [id number] Apply to [facility] area(s) 2 ity of acetonide 00:00: (two) [place] 0.1 % cream 00 times Medical daily. Branch methylPREDN 2023-0 Yes [id number] Take by [facility] ISolone 2-06 mouth ity of (MEDROL, 00:00: SEE-INSTRU [place],) 4 mg 00 CTIONS. Medica l tablets follow Branch package directions triamcinolo 2023-0 Yes [id number] Apply to [facility] area(s) 2 ity of acetonide 00:00: (two) [place] 0.1 % cream 00 times Medical daily. Branch methylPREDN 2023-0 Yes [id number] Take by [facility] 2 mouth ity of (MEDROL, 00:00: SEE-INSTRU [place],) 4 mg 00 CTIONS. Medica l tablets follow Branch package directions triamcinolo 2023-0 Yes [id number] Apply to [facility] area(s) 2 ity of acetonide 00:00: (two) [place] 0.1 % cream 00 times Medical daily. Branch methylPREDN 2023-0 Yes [id number] Take by [facility] 2 mouth ity of (MEDROL, 00:00: SEE-INSTRU [place],) 4 mg 00 CTIONS. Medica l tablets follow Branch package directions triamcinolo 2023-0 Yes [id number] Apply to [facility] area(s) 2 ity of acetonide 00:00: (two) [place] 0.1 % cream 00 times Medical daily. Branch methylPREDN 2023-0 Yes [id number] Take by [facility] 2 mouth ity of (MEDROL, 00:00: SEE-INSTRU [place],) 4 mg 00 CTIONS. Medica l tablets follow Branch package directions triamcinolo 3-0 Yes [id number] Apply to [facility] area(s) 2 ity of acetonide 00:00: (two) [place] 0.1 % cream 00 times Medical daily. Branch methylPREDN 2023-0 Yes [id number] Take by [facility] 2 mouth ity of (MEDROL, 00:00: SEE-INSTRU [place],) 4 mg 00 CTIONS. Medica l tablets follow Branch package directions triamcinolo 2023-0 Yes [id number] Apply to [facility] area(s) 2 ity of acetonide 00:00: (two) [place] 0.1 % cream 00 times Medical daily. Branch methylPREDN 2023-0 Yes [id number] Take by [facility] 2 mouth ity of (MEDROL, 00:00: SEE-INSTRU [place],) 4 mg 00 CTIONS. Medica l tablets follow Branch package directions triamcinolo 2023-0 Yes [id number] Apply to [facility] area(s) 2 ity of acetonide 00:00: (two) [place] 0.1 % cream 00 times Medical daily. Branch methylPREDN 2023-0 Yes [id number] Take by [facility] ity of (MEDROL, 00:00: SEE-INSTRU [place] MAR[place]ELOS,) 4 mg 00 CTIONS. Medica l tablets follow Branch package directions triamcinolo 2023-0 Yes [id number] Apply to [facility] area(s) 2 ity of acetonide 00:00: (two) [place] 0.1 % cream 00 times Medical daily. Branch methylPREDN 2023-0 Yes [id number] Take by [facility] 2- mouth ity of (MEDROL, 00:00: SEE-INSTRU [place]ELOS,) 4 mg 00 CTIONS. Medica l tablets follow Branch package directions triamcinolo 3-0 Yes [id number] Apply to [place] [address] area(s) 2 ity of acetonide 00:00: (two) [place] 0.1 % cream 00 times Medical daily. Branch methylPREDN 2023-0 Yes [id number] Take by [facility] 2- mouth ity of (MEDROL, 00:00: SEE-INSTRU [place]OS,) 4 mg 00 CTIONS. Medica l tablets follow Branch package directions triamcinolo 3-0 Yes [id number] Apply to [place] [address] area(s) 2 ity of acetonide 00:00: (two) [place] 0.1 % cream 00 times Medical daily. Branch methylPREDN 2023-0 Yes [id number] Take by [facility] 2- mouth ity of (MEDROL, 00:00: SEE-INSTRU [place]ELOS,) 4 mg 00 CTIONS. Medica l tablets follow Branch package directions triamcinolo 2023-0 Yes [id number] Apply to [place] [address] area(s) 2 ity of acetonide 00:00: (two) [place] 0.1 % cream 00 times Medical daily. Branch methylPREDN 2023-0 Yes [id number] Take by [facility] mouth ity of (MEDROL, 00:00: SEE-INSTRU [place]ELOS,) 4 mg 00 CTIONS. Medica l tablets follow Branch package directions triamcinolo 2023-0 Yes [id number] Apply to [facility] 07-11 area(s) 2 ity of acetonide 00:00: (two) [place] 0.1 % cream 00 times Medical daily. Branch methylPREDN 2022- No [id number] Take by [facility] 07-11 mouth ity of (MEDROL, 00:00: 00[place]ELOS[place] 4 mg 00 :00 CTIONS. Medica l tablets follow Branch package directions methylPREDN 2022- No [id number] Take by [facility] 07-11 mouth ity of (MEDROL, 00:00: 00[place] MAR[place]ELOS[place] 4 mg 00 :00 CTIONS. Medica l tablets follow Branch package directions valACYclovi 2022- No [id number] 1g Take [address] [facility] r ([facility]) 07-11 tablet by it y of 1 gram 00:00: 05:59 mouth in [place] tablet 00 :00 the [facility] and 1 tablet at noon and 1 tablet in the evening. Do all this for 7 days. valACYclovi 2022- No [id number] 1g Take 1 [facility] ([facility]) 07-11 tablet by it y of 1 gram 00:00: 05:59 mouth in [place] tablet 00 :00 the [facility] and 1 tablet at noon and 1 tablet in the evening. Do all this for 7 days. valACYclovi 2022- No [id number] 1g Take [address] [facility] r ([facility]) 07-11 tablet by it y of 1 gram 00:00: 05:59 mouth in [place] tablet 00 :00 the [facility] and 1 tablet at noon and 1 tablet in the evening. Do all this for 7 days. semaglutide Yes [id number] Start: [facility] , weight 2- 0.25mg SC ity of loss, 00:00: qWeek x 4 [place] (WEG[place]) 00 Weeks; Medical 0.25 mg/0.5 then 0.5mg Br anch mL PnIj SC SC qWeek x injection 4 Weeks; then 1mg SC qWeek x 4 Weeks; then 1.7mg SC qWeek x 4 Weeks; then 2.4mg qWeek. semaglutide 2023-0 Yes [id number] Start: [facility] , weight 2-01 0.25mg [place] ity of loss, 00:00: qWeek x 4 (WEVY) 1 00 Weeks; Medical mg/0.5 mL then 0.5mg Bran ch PnIj SC SC qWeek x injection 4 Weeks; then 1mg SC qWeek x 4 Weeks; then 1.7mg SC qWeek x 4 Weeks; then 2.4mg qWeek. semaglutide 2023-0 Yes [id number] Start: [facility] , weight 2-01 0.25mg SC ity of loss, 00:00: qWeek x 4 () 00 Weeks; Medical 0.25 mg/0.5 then 0.5mg Br anch mL PnIj SC SC qWeek x injection 4 Weeks; then 1mg SC qWeek x 4 Weeks; then 1.7mg SC qWeek x 4 Weeks; then 2.4mg qWeek. semaglutide 3-0 Yes [id number] Start: [facility] , weight 2-01 0.25mg SC ity of loss, 00:00: qWeek x 4 () 1 00 Weeks; Medical mg/0.5 mL then 0.5mg Bran ch PnIj SC SC qWeek x injection 4 Weeks; then 1mg SC qWeek x 4 Weeks; then 1.7mg SC qWeek x 4 Weeks; then 2.4mg qWeek. semaglutide 3-0 Yes [id number] Start: [facility] , weight 2-01 0.25mg SC ity of loss, 00:00: qWeek x 4 ([place]) 00 Weeks; Medical 0.25 mg/0.5 then 0.5mg Br anch mL PnIj SC SC qWeek x injection 4 Weeks; then 1mg SC qWeek x 4 Weeks; then 1.7mg SC qWeek x 4 Weeks; then 2.4mg qWeek. semaglutide 2023-0 Yes [id number] Start: [facility] , weight 2-01 0.25mg SC ity of loss, 00:00: qWeek x 4 [place] (WEGOV[place]) 1 00 Weeks; Medical mg/0.5 mL then 0.5mg Bran ch PnIj SC SC qWeek x injection 4 Weeks; then 1mg SC qWeek x 4 Weeks; then 1.7mg SC qWeek x 4 Weeks; then 2.4mg qWeek. semaglutide 2022-0 Yes [id number] Start: Univers , weight 2-01 0.25mg SC ity of loss, 00:00: qWeek x 4 [place] ([facility]) 00 Weeks; Medical 0.25 mg/0.5 then 0.5mg Br anch mL PnIj SC SC qWeek x injection 4 Weeks; then 1mg SC qWeek x 4 Weeks; then 1.7mg SC qWeek x 4 Weeks; then 2.4mg qWeek. semaglutide 2022-0 Yes [id number] Start: Univers , weight 2-01 0.25mg SC ity of loss, 00:00: qWeek x 4 [place] ([facility]) Weeks; Medical mg/0.5 mL then 0.5mg Bran ch PnIj SC SC qWeek x injection 4 Weeks; then 1mg SC qWeek x 4 Weeks; then 1.7mg SC qWeek x 4 Weeks; then 2.4mg qWeek. semaglutide 2022-0 Yes [id number] Start: Univers , weight 2-01 0.25mg SC ity of loss, 00:00: qWeek x 4 [place] () 00 Weeks; Medical 0.25 mg/0.5 then 0.5mg Br anch mL PnIj SC SC qWeek x injection 4 Weeks; then 1mg SC qWeek x 4 Weeks; then 1.7mg SC qWeek x 4 Weeks; then 2.4mg qWeek. semaglutide 2022-0 Yes [id number] Start: Univers , weight 2-01 0.25mg SC ity of loss, 00:00: qWeek x 4 [place] ([facility]) 00 Weeks; Medical mg/0.5 mL then 0.5mg Bran ch PnIj SC SC qWeek x injection 4 Weeks; then 1mg SC qWeek x 4 Weeks; then 1.7mg SC qWeek x 4 Weeks; then 2.4mg qWeek. semaglutide 2023-0 Yes [id number] Start: Univers , weight 2-01 0.25mg SC ity of loss, 00:00: qWeek x 4 [place] () 00 Weeks; Medical 0.25 mg/0.5 then 0.5mg Br anch mL PnIj SC SC qWeek x injection 4 Weeks; then 1mg SC qWeek x 4 Weeks; then 1.7mg SC qWeek x 4 Weeks; then 2.4mg qWeek. semaglutide 3-0 Yes [id number] Start: Univers , weight 2-01 0.25mg SC ity of loss, 00:00: qWeek x 4 () 00 Weeks; Medical mg/0.5 mL then 0.5mg Bran ch PnIj SC SC qWeek x injection 4 Weeks; then 1mg SC qWeek x 4 Weeks; then 1.7mg SC qWeek x 4 Weeks; then 2.4mg qWeek. semaglutide 2022-0 Yes [id number] Start: Univers , weight 2-01 0.25mg SC ity of loss, 00:00: qWeek x 4 () 00 Weeks; Medical 0.25 mg/0.5 then 0.5mg Br anch mL PnIj SC SC qWeek x injection 4 Weeks; then 1mg SC qWeek x 4 Weeks; then 1.7mg SC qWeek x 4 Weeks; then 2.4mg qWeek. semaglutide 3-0 Yes [id number] Start: Univers , weight 2-01 0.25mg SC ity of loss, 00:00: qWeek x 4 [place] () 00 Weeks; Medical mg/0.5 mL then 0.5mg Bran ch PnIj SC SC qWeek x injection 4 Weeks; then 1mg SC qWeek x 4 Weeks; then 1.7mg SC qWeek x 4 Weeks; then 2.4mg qWeek. semaglutide 3-0 Yes [id number] Start: Univers , weight 2-01 0.25mg SC ity of loss, 00:00: qWeek x 4 [place] () 00 Weeks; Medical 0.25 mg/0.5 then 0.5mg Br anch mL PnIj SC SC qWeek x injection 4 Weeks; then 1mg SC qWeek x 4 Weeks; then 1.7mg SC qWeek x 4 Weeks; then 2.4mg qWeek. semaglutide 3-0 Yes [id number] Start: [facility] , weight 2-01 0.25mg SC ity of loss, 00:00: qWeek x 4 [place] ([facility]) 00 Weeks; Medical mg/0.5 mL then 0.5mg Bran ch PnIj SC SC qWeek x injection 4 Weeks; then 1mg SC qWeek x 4 Weeks; then 1.7mg SC qWeek x 4 Weeks; then 2.4mg qWeek. semaglutide 2022-0 Yes [id number] Start: [facility] , weight 2-01 0.25mg SC ity of loss, 00:00: qWeek x 4 [place] ([facility]) 00 Weeks; Medical 0.25 mg/0.5 then 0.5mg Br anch mL PnIj SC SC qWeek x injection 4 Weeks; then 1mg SC qWeek x 4 Weeks; then 1.7mg SC qWeek x 4 Weeks; then 2.4mg qWeek. semaglutide 2022-0 Yes [id number] Start: [facility] , weight 2-01 0.25mg SC ity of loss, 00:00: qWeek x 4 [place] ([facility]) 00 Weeks; Medical mg/0.5 mL then 0.5mg Bran ch PnIj SC SC qWeek x injection 4 Weeks; then 1mg SC qWeek x 4 Weeks; then 1.7mg SC qWeek x 4 Weeks; then 2.4mg qWeek. semaglutide 2022-0 Yes [id number] Start: [facility] , weight 2-01 0.25mg SC ity of loss, 00:00: qWeek x 4 [place] ([facility]) 00 Weeks; Medical 0.25 mg/0.5 then 0.5mg Br anch mL PnIj SC SC qWeek x injection 4 Weeks; then 1mg SC qWeek x 4 Weeks; then 1.7mg SC qWeek x 4 Weeks; then 2.4mg qWeek. semaglutide 3-0 Yes [id number] Start: Univers , weight 2-01 0.25mg SC ity of loss, 00:00: qWeek x 4 () 00 Weeks; Medical mg/0.5 mL then 0.5mg Bran ch PnIj SC SC qWeek x injection 4 Weeks; then 1mg SC qWeek x 4 Weeks; then 1.7mg SC qWeek x 4 Weeks; then 2.4mg qWeek. semaglutide 2023-0 Yes [id number] Start: Univers , weight 2-01 0.25mg SC ity of loss, 00:00: qWeek x 4 [place] () 00 Weeks; Medical 0.25 mg/0.5 then 0.5mg Br anch mL PnIj SC SC qWeek x injection 4 Weeks; then 1mg SC qWeek x 4 Weeks; then 1.7mg SC qWeek x 4 Weeks; then 2.4mg qWeek. semaglutide 3-0 Yes [id number] Start: [facility] , weight 2-01 0.25mg SC ity of loss, 00:00: qWeek x 4 () 00 Weeks; Medical mg/0.5 mL then 0.5mg Bran ch PnIj SC SC qWeek x injection 4 Weeks; then 1mg SC qWeek x 4 Weeks; then 1.7mg SC qWeek x 4 Weeks; then 2.4mg qWeek. semaglutide 2023-0 Yes [id number] Start: [facility] , weight 2-01 0.25mg SC ity of loss, 00:00: qWeek x 4 [place] (Y) 00 Weeks; Medical 0.25 mg/0.5 then 0.5mg Br anch mL PnIj SC SC qWeek x injection 4 Weeks; then 1mg SC qWeek x 4 Weeks; then 1.7mg SC qWeek x 4 Weeks; then 2.4mg qWeek. semaglutide 2023-0 Yes [id number] Start: Univers , weight 2-01 0.25mg SC ity of loss, 00:00: qWeek x 4 [place] (VY) 00 Weeks; Medical mg/0.5 mL then 0.5mg Bran ch PnIj SC SC qWeek x injection 4 Weeks; then 1mg SC qWeek x 4 Weeks; then 1.7mg SC qWeek x 4 Weeks; then 2.4mg qWeek. semaglutide 3-0 Yes [id number] Start: Univers , weight 2-01 0.25mg SC ity of loss, 00:00: qWeek x 4 [place] (WEV[facility]) 00 Weeks; Medical 0.25 mg/0.5 then 0.5mg Br anch mL PnIj SC SC qWeek x injection 4 Weeks; then 1mg SC qWeek x 4 Weeks; then 1.7mg SC qWeek x 4 Weeks; then 2.4mg qWeek. semaglutide 2022-0 Yes [id number] Start: Univers , weight 2-01 0.25mg SC ity of loss, 00:00: qWeek x 4 [place] [facility] We[facility]; Medical mg/0.5 mL then 0.5mg Bran ch PnIj SC SC qWeek x injection 4 Weeks; then 1mg SC qWeek x 4 Weeks; then 1.7mg SC qWeek x 4 Weeks; then 2.4mg qWeek. doxepin 25 2022-0 Yes [id number] 25mg Take 1 [facility] mg capsule 2- capsule by ity of 00:00: mouth at [place] 00 bedtime. Medical Branch traZODone 2022-0 Yes [id number] 50mg Take 1 U nivers 50 mg 2-01 tablet by ity of tablet 00:00: mouth at [place] 00 bedtime. Medical Branch semaglutide 2022-0 Yes [id number] Start: Univers , weight 2-01 0.25mg SC ity of loss, 00:00: qWeek x 4 [place] ([facility]) 00 Weeks; Medical 0.25 mg/0.5 then 0.5mg Br anch mL PnIj SC SC qWeek x injection 4 Weeks; then 1mg SC qWeek x 4 Weeks; then 1.7mg SC qWeek x 4 Weeks; then 2.4mg qWeek. semaglutide 2022-0 Yes [id number] Start: Univers , weight 2-01 0.25mg SC ity of loss, 00:00: qWeek x 4 [place] ([facility]) 1 00 Weeks; Medical mg/0.5 mL then 0.5mg Bran ch PnIj SC SC qWeek x injection 4 Weeks; then 1mg SC qWeek x 4 Weeks; then 1.7mg SC qWeek x 4 Weeks; then 2.4mg qWeek. doxepin 25 2022-0 Yes [id number] 25mg Take 1 [facility] mg capsule 2-01 capsule by ity of 00:00: mouth at [place] 00 bedtime. Medical Branch traZODone 2022-0 Yes [id number] 50mg Take 1 U nivers 50 mg 2-01 tablet by ity of tablet 00:00: mouth at [place] 00 bedtime. Medical Branch semaglutide Yes [id number] Start: Univers , weight 2-01 0.25mg SC ity of loss, 00:00: qWeek x 4 [place] (V) 00 Weeks; Medical 0.25 mg/0.5 then 0.5mg Br anch mL PnIj SC SC qWeek x injection 4 Weeks; then 1mg SC qWeek x 4 Weeks; then 1.7mg SC qWeek x 4 Weeks; then 2.4mg qWeek. semaglutide Yes [id number] Start: Univers , weight 2-01 0.25mg SC ity of loss, 00:00: qWeek x 4 [place] (GOV) 00 Weeks; Medical mg/0.5 mL then 0.5mg Bran ch PnIj SC SC qWeek x injection 4 Weeks; then 1mg SC qWeek x 4 Weeks; then 1.7mg SC qWeek x 4 Weeks; then 2.4mg qWeek. doxepin 25 2022-0 Yes [id number] 25mg Take 1 [facility] mg capsule 2-01 capsule by ity of 00:00: mouth at [place] 00 bedtime. Medical Branch traZODone 2022-0 Yes [id number] 50mg Take 1 U nivers 50 mg 2-01 tablet by ity of tablet 00:00: mouth at [place] 00 bedtime. Medical Branch semaglutide 2022-0 Yes [id number] Start: Univers , weight 2-01 0.25mg SC ity of loss, 00:00: qWeek x 4 [place] ([facility]) 00 Weeks; Medical 0.25 mg/0.5 then 0.5mg Br anch mL PnIj SC SC qWeek x injection 4 Weeks; then 1mg SC qWeek x 4 Weeks; then 1.7mg SC qWeek x 4 Weeks; then 2.4mg qWeek. semaglutide 3-0 Yes [id number] Start: Univers , weight 2-01 0.25mg SC ity of loss, 00:00: qWeek x 4 [place] [facility]) Weeks; Medical mg/0.5 mL then 0.5mg Bran ch PnIj SC SC qWeek x injection 4 Weeks; then 1mg SC qWeek x 4 Weeks; then 1.7mg SC qWeek x 4 Weeks; then 2.4mg qWeek. doxepin 25 2022-0 Yes [id number] 25mg Take 1 [facility] mg capsule 2-01 capsule by ity of 00:00: mouth at [place] [address] bedtime. Medical Branch traZODone 2022-0 Yes [id number] 50mg Take 1 U nivers 50 mg 2-01 tablet by ity of tablet 00:00: mouth at [place] bedtime. Medical Branch semaglutide 2022-0 Yes [id number] Start: Univers , weight 2-01 0.25mg SC ity of loss, 00:00: qWeek x 4 [place] ( 00 Weeks; Medical 0.25 mg/0.5 then 0.5mg Br anch mL PnIj SC SC qWeek x injection 4 Weeks; then 1mg SC qWeek x 4 Weeks; then 1.7mg SC qWeek x 4 Weeks; then 2.4mg qWeek. semaglutide 2022-0 Yes [id number] Start: Univers , weight 2-01 0.25mg SC ity of loss, 00:00: qWeek x 4 () 00 Weeks; Medical mg/0.5 mL then 0.5mg Bran ch PnIj SC SC qWeek x injection 4 Weeks; then 1mg SC qWeek x 4 Weeks; then 1.7mg SC qWeek x 4 Weeks; then 2.4mg qWeek. doxepin 25 2022-0 Yes [id number] 25mg Take 1 [facility] mg capsule 2-01 capsule by ity of 00:00: mouth at [place] 00 bedtime. Medical Branch traZODone 2022-0 Yes [id number] 50mg Take 1 U nivers 50 mg 2-01 tablet by ity of tablet 00:00: mouth at [place] 00 bedtime. Medical Branch semaglutide 2022- Yes [id number] Start: Univers , weight 2-01 0.25mg SC ity of loss, 00:00: qWeek x 4 [place] () 00 Weeks; Medical 0.25 mg/0.5 then 0.5mg Br anch mL PnIj SC SC qWeek x injection 4 Weeks; then 1mg SC qWeek x 4 Weeks; then 1.7mg SC qWeek x 4 Weeks; then 2.4mg qWeek. semaglutide 2022- Yes [id number] Start: Univers , weight 2-01 0.25mg SC ity of loss, 00:00: qWeek x 4 () 00 Weeks; Medical mg/0.5 mL then 0.5mg Bran ch PnIj SC SC qWeek x injection 4 Weeks; then 1mg SC qWeek x 4 Weeks; then 1.7mg SC qWeek x 4 Weeks; then 2.4mg qWeek. doxepin 25 Yes [id number] 25mg Take 1 [facility] mg capsule 2-01 capsule by ity of 00:00: mouth at [place] bedtime. Medical Branch traZODone 0 Yes [id number] 50mg Take 1 U nivers 50 mg 2-01 tablet by ity of tablet 00:00: mouth at [place] bedtime. Medical Branch semaglutide 2022-0 Yes [id number] Start: [facility] , weight 2-01 0.25mg [place] ity of loss, 00:00: qWeek x 4 () 00 Weeks; Medical 0.25 mg/0.5 then 0.5mg Br anch mL PnIj SC SC qWeek x injection 4 Weeks; then 1mg SC qWeek x 4 Weeks; then 1.7mg SC qWeek x 4 Weeks; then 2.4mg qWeek. semaglutide 2022-0 Yes [id number] Start: Univers , weight 2-01 0.25mg SC ity of loss, 00:00: qWeek x 4 [place] ([facility]) 00 Weeks; Medical mg/0.5 mL then 0.5mg Bran ch PnIj SC SC qWeek x injection 4 Weeks; then 1mg SC qWeek x 4 Weeks; then 1.7mg SC qWeek x 4 Weeks; then 2.4mg qWeek. doxepin 25 2022-0 Yes [id number] 25mg Take 1 [facility] mg capsule 2-01 capsule by ity of 00:00: mouth at [place] 00 bedtime. Medical Branch traZODone 2022-0 Yes [id number] 50mg Take 1 U nivers 50 mg 2-01 tablet by ity of tablet 00:00: mouth at [place] 00 bedtime. Medical Branch semaglutide 2022- Yes [id number] Start: [facility] , weight 2- 0.25mg SC ity of loss, 00:00: qWeek x 4 [place] [facility] 00 Weeks; Medical 0.25 mg/0.5 then 0.5mg Br anch mL PnIj SC SC qWeek x injection 4 Weeks; then 1mg SC qWeek x 4 Weeks; then 1.7mg SC qWeek x 4 Weeks; then 2.4mg qWeek. semaglutide 2022- Yes [id number] Start: Univers , weight 2- 0.25mg SC ity of loss, 00:00: qWeek x 4 [place] ([facility]) 00 Weeks; Medical mg/0.5 mL then 0.5mg Bran ch PnIj SC SC qWeek x injection 4 Weeks; then 1mg SC qWeek x 4 Weeks; then 1.7mg SC qWeek x 4 Weeks; then 2.4mg qWeek. doxepin 25 2022-0 Yes [id number] 25mg Take 1 [facility] mg capsule 2-01 capsule by ity of 00:00: mouth at [place] 00 bedtime. Medical Branch traZODone 2022-0 Yes [id number] 50mg Take 1 U nivers 50 mg 2-01 tablet by ity of tablet 00:00: mouth at [place] 00 bedtime. Medical Branch semaglutide 2022-0 Yes [id number] Start: [facility] , weight 2-01 0.25mg SC ity of loss, 00:00: qWeek x 4 [place] () 00 Weeks; Medical 0.25 mg/0.5 then 0.5mg Br anch mL PnIj SC SC qWeek x injection 4 Weeks; then 1mg SC qWeek x 4 Weeks; then 1.7mg SC qWeek x 4 Weeks; then 2.4mg qWeek. semaglutide 3-0 Yes [id number] Start: [facility] , weight 2-01 0.25mg SC ity of loss, 00:00: qWeek x 4 () 00 Weeks; Medical mg/0.5 mL then 0.5mg Bran ch PnIj SC SC qWeek x injection 4 Weeks; then 1mg SC qWeek x 4 Weeks; then 1.7mg SC qWeek x 4 Weeks; then 2.4mg qWeek. doxepin 25 2022-0 Yes [id number] 25mg Take 1 [facility] mg capsule 07-06 capsule by ity of 00:00: mouth at [place] bedtime. Medical Branch traZODone 2022-0 Yes [id number] 50mg Take 1 U nivers 50 mg 07-06 tablet by ity of tablet 00:00: mouth at [place] bedtime. Medical Branch semaglutide 2022-0 Yes [id number] Start: [facility] , weight 2-01 0.25mg SC ity of loss, 00:00: qWeek x 4 [place] () 00 Weeks; Medical 0.25 mg/0.5 then 0.5mg Br anch mL PnIj SC SC qWeek x injection 4 Weeks; then 1mg SC qWeek x 4 Weeks; then 1.7mg SC qWeek x 4 Weeks; then 2.4mg qWeek. semaglutide 2022-0 Yes [id number] Start: Univers , weight 2-01 0.25mg SC ity of loss, 00:00: qWeek x 4 [place] ([facility]) 00 Weeks; Medical mg/0.5 mL then 0.5mg Bran ch PnIj SC SC qWeek x injection 4 Weeks; then 1mg SC qWeek x 4 Weeks; then 1.7mg SC qWeek x 4 Weeks; then 2.4mg qWeek. doxepin 25 2022-0 Yes [id number] 25mg Take 1 [facility] mg capsule 2-01 capsule by ity of 00:00: mouth at [place] bedtime. Medical Branch traZODone 2022-0 Yes [id number] 50mg Take 1 U nivers 50 mg 2-01 tablet by ity of tablet 00:00: mouth at [place] 00 bedtime. Medical Branch semaglutide 2022-0 Yes [id number] Start: [facility] , weight 2-01 0.25mg [place] ity of loss, 00:00: qWeek x 4 () 00 Weeks; Medical 0.25 mg/0.5 then 0.5mg Br anch mL PnIj SC SC qWeek x injection 4 Weeks; then 1mg SC qWeek x 4 Weeks; then 1.7mg SC qWeek x 4 Weeks; then 2.4mg qWeek. semaglutide Yes [id number] Start: [facility] , weight 2-01 0.25mg [place] ity of loss, 00:00: qWeek x 4 () Weeks; Medical mg/0.5 mL then 0.5mg Bran ch PnIj SC SC qWeek x injection 4 Weeks; then 1mg SC qWeek x 4 Weeks; then 1.7mg SC qWeek x 4 Weeks; then 2.4mg qWeek. doxepin 25 Yes [id number] 25mg Take 1 [facility] mg capsule 2-01 capsule by ity of 00:00: mouth at [place] bedtime. Medical Branch traZODone 2022-0 Yes [id number] 50mg Take 1 U nivers 50 mg 2-01 tablet by ity of tablet 00:00: mouth at [place] bedtime. Medical Branch semaglutide 0 Yes [id number] Start: [facility] , weight 2-01 0.25mg [place] ity of loss, 00:00: qWeek x 4 () 00 Weeks; Medical 0.25 mg/0.5 then 0.5mg Br anch mL PnIj SC SC qWeek x injection 4 Weeks; then 1mg SC qWeek x 4 Weeks; then 1.7mg SC qWeek x 4 Weeks; then 2.4mg qWeek. semaglutide 2022-0 Yes [id number] Start: [facility] , weight 2-01 0.25mg SC ity of loss, 00:00: qWeek x 4 () Weeks; Medical mg/0.5 mL then 0.5mg Bran ch PnIj SC SC qWeek x injection 4 Weeks; then 1mg SC qWeek x 4 Weeks; then 1.7mg SC qWeek x 4 Weeks; then 2.4mg qWeek. doxepin 25 Yes [id number] 25mg Take 1 [facility] mg capsule 07-06 capsule by ity of 00:00: mouth at [place] bedtime. Medical Branch traZODone 2022- Yes [id number] 50mg Take 1 U nivers 50 mg 07-06 tablet by ity of tablet 00:00: mouth at [place] bedtime. Medical Branch semaglutide 2022-0 Yes [id number] Start: [facility] , weight 2-01 0.25mg SC ity of loss, 00:00: qWeek x 4 [place] () Weeks; Medical 0.25 mg/0.5 then 0.5mg Br anch mL PnIj SC SC qWeek x injection 4 Weeks; then 1mg SC qWeek x 4 Weeks; then 1.7mg SC qWeek x 4 Weeks; then 2.4mg qWeek. semaglutide 2022-0 Yes [id number] Start: [facility] , weight 2-01 0.25mg SC ity of loss, 00:00: qWeek x 4 () Weeks; Medical mg/0.5 mL then 0.5mg Bran ch PnIj SC SC qWeek x injection 4 Weeks; then 1mg SC qWeek x 4 Weeks; then 1.7mg SC qWeek x 4 Weeks; then 2.4mg qWeek. semaglutide 2022-0 Yes [id number] Start: [facility] , weight 2-01 0.25mg SC ity of loss, 00:00: qWeek x 4 [place] () 00 Weeks; Medical 0.25 mg/0.5 then 0.5mg Br anch mL PnIj SC SC qWeek x injection 4 Weeks; then 1mg SC qWeek x 4 Weeks; then 1.7mg SC qWeek x 4 Weeks; then 2.4mg qWeek. semaglutide 2023-0 Yes [id number] Start: [facility] , weight 2-01 0.25mg SC ity of loss, 00:00: qWeek x 4 [place] ([facility]) 00 Weeks; Medical mg/0.5 mL then 0.5mg Bran ch PnIj SC SC qWeek x injection 4 Weeks; then 1mg SC qWeek x 4 Weeks; then 1.7mg SC qWeek x 4 Weeks; then 2.4mg qWeek. semaglutide 2023-0 Yes [id number] Start: [facility] , weight 2-01 0.25mg SC ity of loss, 00:00: qWeek x 4 [place] () 00 Weeks; Medical 0.25 mg/0.5 then 0.5mg Br anch mL PnIj SC SC qWeek x injection 4 Weeks; then 1mg SC qWeek x 4 Weeks; then 1.7mg SC qWeek x 4 Weeks; then 2.4mg qWeek. semaglutide 3-0 Yes [id number] Start: [facility] , weight 2-01 0.25mg SC ity of loss, 00:00: qWeek x 4 [place] ([facility]) 00 Weeks; Medical mg/0.5 mL then 0.5mg Bran ch PnIj SC SC qWeek x injection 4 Weeks; then 1mg SC qWeek x 4 Weeks; then 1.7mg SC qWeek x 4 Weeks; then 2.4mg qWeek. semaglutide 3-0 Yes [id number] Start: [facility] , weight 2-01 0.25mg SC ity of loss, 00:00: qWeek x 4 [place] () 00 Weeks; Medical 0.25 mg/0.5 then 0.5mg Br anch mL PnIj SC SC qWeek x injection 4 Weeks; then 1mg SC qWeek x 4 Weeks; then 1.7mg SC qWeek x 4 Weeks; then 2.4mg qWeek. semaglutide 2023-0 Yes [id number] Start: [facility] , weight 2-01 0.25mg SC ity of loss, 00:00: qWeek x 4 () 00 Weeks; Medical mg/0.5 mL then 0.5mg Bran ch PnIj SC SC qWeek x injection 4 Weeks; then 1mg SC qWeek x 4 Weeks; then 1.7mg SC qWeek x 4 Weeks; then 2.4mg qWeek. semaglutide 3-0 Yes [id number] Start: [facility] , weight 2-01 0.25mg SC ity of loss, 00:00: qWeek x 4 [place] () 00 Weeks; Medical 0.25 mg/0.5 then 0.5mg Br anch mL PnIj SC SC qWeek x injection 4 Weeks; then 1mg SC qWeek x 4 Weeks; then 1.7mg SC qWeek x 4 Weeks; then 2.4mg qWeek. semaglutide 3-0 Yes [id number] Start: [facility] , weight 2-01 0.25mg SC ity of loss, 00:00: qWeek x 4 [place] () 00 Weeks; Medical mg/0.5 mL then 0.5mg Bran ch PnIj SC SC qWeek x injection 4 Weeks; then 1mg SC qWeek x 4 Weeks; then 1.7mg SC qWeek x 4 Weeks; then 2.4mg qWeek. semaglutide 2022-0 Yes [id number] Start: [facility] , weight 2-01 0.25mg SC ity of loss, 00:00: qWeek x 4 [place] () 00 Weeks; Medical 0.25 mg/0.5 then 0.5mg Br anch mL PnIj SC SC qWeek x injection 4 Weeks; then 1mg SC qWeek x 4 Weeks; then 1.7mg SC qWeek x 4 Weeks; then 2.4mg qWeek. semaglutide 3-0 Yes [id number] Start: [facility] , weight 2-01 0.25mg SC ity of loss, 00:00: qWeek x 4 [place] () 00 Weeks; Medical mg/0.5 mL then 0.5mg Bran ch PnIj SC SC qWeek x injection 4 Weeks; then 1mg SC qWeek x 4 Weeks; then 1.7mg SC qWeek x 4 Weeks; then 2.4mg qWeek. semaglutide 2022-0 Yes [id number] Start: Univers , weight 2- 0.25mg SC ity of loss, 00:00: qWeek x 4 [facility]) 00 Weeks; Medical 0.25 mg/0.5 then 0.5mg Br anch mL PnIj SC SC qWeek x injection 4 Weeks; then 1mg SC qWeek x 4 Weeks; then 1.7mg SC qWeek x 4 Weeks; then 2.4mg qWeek. semaglutide 2022-0 Yes [id number] Start: Univers , weight 2 0.25mg SC ity of loss, 00:00: qWeek x 4 [facility] 00 Weeks; Medical mg/0.5 mL then 0.5mg Bran ch PnIj SC SC qWeek x injection 4 Weeks; then 1mg SC qWeek x 4 Weeks; then 1.7mg SC qWeek x 4 Weeks; then 2.4mg qWeek. semaglutide 0 2022- No [id number] Start: Univers , weight 211-24 0.25mg SC ity o f loss, 00:00: 00:00 qWeek x 4 [place] [facility]) 00 :00 Weeks; Medical 0.25 mg/0.5 then 0.5mg Br anch mL PnIj SC SC qWeek x injection 4 Weeks; then 1mg SC qWeek x 4 Weeks; then 1.7mg SC qWeek x 4 Weeks; then 2.4mg qWeek. semaglutide 0 2022- No [id number] Start: Univers , weight 211-24 0.25mg SC ity o f loss, 00:00: 00:00 qWeek x 4 [facility] 00 :00 Weeks; Medical mg/0.5 mL then 0.5mg Bran ch PnIj SC SC qWeek x injection 4 Weeks; then 1mg SC qWeek x 4 Weeks; then 1.7mg SC qWeek x 4 Weeks; then 2.4mg qWeek. semaglutide 2022-0 2022- No [id number] Start: Univers , weight 2-01 06-22 0.25mg SC ity o f loss, 00:00: 00:00 qWeek x 4 [place] ([facility]) 00 :00 Weeks; Medical 0.25 mg/0.5 then 0.5mg Br anch mL PnIj SC SC qWeek x injection 4 Weeks; then 1mg SC qWeek x 4 Weeks; then 1.7mg SC qWeek x 4 Weeks; then 2.4mg qWeek. semaglutide 2022- No [id number] Start: Univers , weight 07-06 0.25mg SC ity o f loss, 00:00: 00:00 qWeek x 4 [place] ([facility]) 1 00 :00 Weeks; Medical mg/0.5 mL then 0.5mg Bran ch PnIj SC SC qWeek x injection 4 Weeks; then 1mg SC qWeek x 4 Weeks; then 1.7mg SC qWeek x 4 Weeks; then 2.4mg qWeek. doxepin 25 2022- No [id number] 25mg Take 1 [facility] mg capsule 07-06 capsule by it y of 00:00: 00:00 mouth at [place] 00 :00 bedtime. Medical Branch traZODone 2022- No [id number] 50mg Take 1 [facility] 50 mg 07-06 tablet by ity of tablet 00:00: 00:00 mouth at [place] 00 :00 bedtime. Medical Branch doxepin 25 2022- No [id number] 25mg Take 1 [facility] mg capsule 07-06 capsule by it y of 00:00: 00:00 mouth at [place] 00 :00 bedtime. Medical Branch traZODone 2022- No [id number] 50mg Take 1 [facility] 50 mg 07-06 tablet by ity of tablet 00:00: 00:00 mouth at [place] 00 :00 bedtime. Medical Branch beclomethas 2022-0 Yes [id number] 2{puff} Inhale 2 Univers one 1-11 Puffs in ity of dipropionat 00:00: the [place] e (QVAR 00 morning Medical REDIHALER) and 2 Branch 80 Puffs in mcg/actuati the on inhaler evening. beclomethas Yes [id number] 2{puff} Inhale 2 Univers one 1-11 Puffs in ity of dipropionat 00:00: the [place] e (QVAR 00 morning Medical REDIHALER) and 2 Branch 80 Puffs in mcg/actuati the on inhaler evening. beclomethas 0 Yes [id number] 2{puff} Inhale 2 Univers one 1-11 Puffs in ity of dipropionat 00:00: the [place] e (QVAR 00 morning Medical REDIHALER) and 2 Branch 80 Puffs in mcg/actuati the on inhaler evening. beclomethas 0 Yes [id number] 2{puff} Inhale 2 Univers one 1-11 Puffs in ity of dipropionat 00:00: the [place] e (QVAR 00 morning Medical REDIHALER) and 2 Branch 80 Puffs in mcg/actuati the on inhaler evening. beclomethas Yes [id number] 2{puff} Inhale 2 Univers one 1-11 Puffs in ity of dipropionat 00:00: the [place] e (QVAR 00 morning Medical REDIHALER) and 2 Branch 80 Puffs in mcg/actuati the on inhaler evening. beclomethas 0 Yes [id number] 2{puff} Inhale 2 Univers one 1-11 Puffs in ity of dipropionat 00:00: the [place] e (QVAR 00 morning Medical REDIHALER) and 2 Branch 80 Puffs in mcg/actuati the on inhaler evening. beclomethas 0 Yes [id number] 2{puff} Inhale 2 Univers one 1-11 Puffs in ity of dipropionat 00:00: the [place] e (QVAR 00 morning Medical REDIHALER) and 2 Branch 80 Puffs in mcg/actuati the on inhaler evening. beclomethas 0 Yes [id number] 2{puff} Inhale 2 Univers one 1-11 Puffs in ity of dipropionat 00:00: the [place] e (QVAR 00 morning Medical REDIHALER) and 2 Branch 80 Puffs in mcg/actuati the on inhaler evening. beclomethas Yes [id number] 2{puff} Inhale 2 Univers one 1-11 Puffs in ity of dipropionat 00:00: the [place] e (QVAR 00 morning Medical REDIHALER) and 2 Branch 80 Puffs in mcg/actuati the on inhaler evening. beclomethas 0 Yes [id number] 2{puff} Inhale 2 Univers one 1-11 Puffs in ity of dipropionat 00:00: the [place] e (QVAR 00 morning Medical REDIHALER) and 2 Branch 80 Puffs in mcg/actuati the on inhaler evening. beclomethas 0 Yes [id number] 2{puff} Inhale 2 Univers one 1-11 Puffs in ity of dipropionat 00:00: the [place] e (QVAR 00 morning Medical REDIHALER) and 2 Branch 80 Puffs in mcg/actuati the on inhaler evening. beclomethas Yes [id number] 2{puff} Inhale 2 Univers one 1-11 Puffs in ity of dipropionat 00:00: the [place] e (QVAR 00 morning Medical REDIHALER) and 2 Branch 80 Puffs in mcg/actuati the on inhaler evening. beclomethas Yes [id number] 2{puff} Inhale 2 Univers one 1-11 Puffs in ity of dipropionat 00:00: the [place] e (QVAR 00 morning Medical REDIHALER) and 2 Branch 80 Puffs in mcg/actuati the on inhaler evening. beclomethas 0 Yes [id number] 2{puff} Inhale 2 Univers one 1-11 Puffs in ity of dipropionat 00:00: the [place] e (QVAR 00 morning Medical REDIHALER) and 2 Branch 80 Puffs in mcg/actuati the on inhaler evening. beclomethas 0 Yes [id number] 2{puff} Inhale 2 Univers one 1-11 Puffs in ity of dipropionat 00:00: the [place] e (QVAR 00 morning Medical REDIHALER) and 2 Branch 80 Puffs in mcg/actuati the on inhaler evening. beclomethas Yes [id number] 2{puff} Inhale 2 Univers one 1-11 Puffs in ity of dipropionat 00:00: the [place] e (QVAR 00 morning Medical REDIHALER) and 2 Branch 80 Puffs in mcg/actuati the on inhaler evening. beclomethas Yes [id number] 2{puff} Inhale 2 Univers one 1-11 Puffs in ity of dipropionat 00:00: the [place] e (QVAR 00 morning Medical REDIHALER) and 2 Branch 80 Puffs in mcg/actuati the on inhaler evening. beclomethas 0 Yes [id number] 2{puff} Inhale 2 Univers one 1-11 Puffs in ity of dipropionat 00:00: the [place] e (QVAR 00 morning Medical REDIHALER) and 2 Branch 80 Puffs in mcg/actuati the on inhaler evening. beclomethas Yes [id number] 2{puff} Inhale 2 Univers one 1-11 Puffs in ity of dipropionat 00:00: the [place] e (QVAR 00 morning Medical REDIHALER) and 2 Branch 80 Puffs in mcg/actuati the on inhaler evening. beclomethas 0 Yes [id number] 2{puff} Inhale 2 Univers one 1-11 Puffs in ity of dipropionat 00:00: the [place] e (QVAR 00 morning Medical REDIHALER) and 2 Branch 80 Puffs in mcg/actuati the on inhaler evening. beclomethas 0 Yes [id number] 2{puff} Inhale 2 Univers one 1-11 Puffs in ity of dipropionat 00:00: the [place] e (QVAR 00 morning Medical REDIHALER) and 2 Branch 80 Puffs in mcg/actuati the on inhaler evening. beclomethas 0 Yes [id number] 2{puff} Inhale 2 Univers one 1-11 Puffs in ity of dipropionat 00:00: the [place] e (QVAR 00 morning Medical REDIHALER) and 2 Branch 80 Puffs in mcg/actuati the on inhaler evening. beclomethas 0 Yes [id number] 2{puff} Inhale 2 Univers one 1-11 Puffs in ity of dipropionat 00:00: the [place] e (QVAR 00 morning Medical REDIHALER) and 2 Branch 80 Puffs in mcg/actuati the on inhaler evening. beclomethas 0 Yes [id number] 2{puff} Inhale 2 Univers one 1-11 Puffs in ity of dipropionat 00:00: the [place] e (QVAR 00 morning Medical REDIHALER) and 2 Branch 80 Puffs in mcg/actuati the on inhaler evening. beclomethas 0 Yes [id number] 2{puff} Inhale 2 Univers one 1-11 Puffs in ity of dipropionat 00:00: the [place] e (QVAR 00 morning Medical REDIHALER) and 2 Branch 80 Puffs in mcg/actuati the on inhaler evening. beclomethas 0 Yes [id number] 2{puff} Inhale 2 Univers one 1-11 Puffs in ity of dipropionat 00:00: the [place] e (QVAR 00 morning Medical REDIHALER) and 2 Branch 80 Puffs in mcg/actuati the on inhaler evening. beclomethas 0 Yes [id number] 2{puff} Inhale 2 Univers one 1-11 Puffs in ity of dipropionat 00:00: the [place] e (QVAR 00 morning Medical REDIHALER) and 2 Branch 80 Puffs in mcg/actuati the on inhaler evening. beclomethas 0 Yes [id number] 2{puff} Inhale 2 Univers one 1-11 Puffs in ity of dipropionat 00:00: the [place] e (QVAR 00 morning Medical REDIHALER) and 2 Branch 80 Puffs in mcg/actuati the on inhaler evening. beclomethas 0 Yes [id number] 2{puff} Inhale 2 Univers one 1-11 Puffs in ity of dipropionat 00:00: the [place] e (QVAR 00 morning Medical REDIHALER) and 2 Branch 80 Puffs in mcg/actuati the on inhaler evening. beclomethas Yes [id number] 2{puff} Inhale 2 Univers one 1-11 Puffs in ity of dipropionat 00:00: the [place] e (QVAR 00 morning Medical REDIHALER) and 2 Branch 80 Puffs in mcg/actuati the on inhaler evening. beclomethas Yes [id number] 2{puff} Inhale 2 Univers one 1-11 Puffs in ity of dipropionat 00:00: the [place] e (QVAR 00 morning Medical REDIHALER) and 2 Branch 80 Puffs in mcg/actuati the on inhaler evening. beclomethas 0 Yes [id number] 2{puff} Inhale 2 Univers one 1-11 Puffs in ity of dipropionat 00:00: the [place] e (QVAR 00 morning Medical REDIHALER) and 2 Branch 80 Puffs in mcg/actuati the on inhaler evening. beclomethas 0 Yes [id number] 2{puff} Inhale 2 Univers one 1-11 Puffs in ity of dipropionat 00:00: the [place] e (QVAR 00 morning Medical REDIHALER) and 2 Branch 80 Puffs in mcg/actuati the on inhaler evening. beclomethas Yes [id number] 2{puff} Inhale 2 Univers one 1-11 Puffs in ity of dipropionat 00:00: the [place] e (QVAR 00 morning Medical REDIHALER) and 2 Branch 80 Puffs in mcg/actuati the on inhaler evening. beclomethas 0 Yes [id number] 2{puff} Inhale 2 Univers one 1-11 Puffs in ity of dipropionat 00:00: the [place] e (QVAR 00 morning Medical REDIHALER) and 2 Branch 80 Puffs in mcg/actuati the on inhaler evening. beclomethas 2022- No [id number] 2{puff} Inhale 2 Univers one 1-11 06-22 Puffs in ity of dipropionat 00:00: 00:00 the [place] e (QVAR 00 :00 morning Medical REDIHALER) and 2 Branch 80 Puffs in mcg/actuati the on inhaler evening. beclomethas 2022- No [id number] 2{puff} Inhale 2 Univers one 06-15 06-22 Puffs in ity of dipropionat 00:00: 00:00 the [place] e (QVAR 00 :00 morning Medical REDIHALER) and 2 Branch 80 Puffs in mcg/actuati the on inhaler evening. diazePAM Yes diazepam 2 U nivers mg tablet 1-10 mg tablet ity o f 13:06: TAKE ONE [place] 25 (1) Medical TABLET(S) Branch BY MOUTH NIGHTLY NEEDED FOR ANXIETY. diazePAM Yes diazepam 2 U nivers mg tablet 1-10 mg tablet ity o f 13:06: TAKE ONE [place] 25 (1) Medical TABLET(S) Branch BY MOUTH NIGHTLY NEEDED FOR ANXIETY. diazePAM Yes diazepam 2 U nivers mg tablet 1-10 mg tablet ity o f 13:06: TAKE ONE [place] 25 (1) Medical TABLET(S) Branch BY MOUTH NIGHTLY NEEDED FOR ANXIETY. diazePAM Yes diazepam 2 U nivers mg tablet 1-10 mg tablet ity o f 13:06: TAKE ONE [place] 25 (1) Medical TABLET(S) Branch BY MOUTH NIGHTLY NEEDED FOR ANXIETY. diazePAM Yes diazepam 2 U nivers mg tablet 1-10 mg tablet ity o f 13:06: TAKE ONE [place] 25 (1) Medical TABLET(S) Branch BY MOUTH NIGHTLY NEEDED FOR ANXIETY. diazePAM Yes diazepam 2 U nivers mg tablet 1-10 mg tablet ity o f 13:06: TAKE ONE [place] 25 (1) Medical TABLET(S) Branch BY MOUTH NIGHTLY NEEDED FOR ANXIETY. diazePAM 2 Yes diazepam 2 U nivers mg tablet 1-10 mg tablet ity o f 13:06: TAKE ONE [place] 25 (1) Medical TABLET(S) Branch BY MOUTH NIGHTLY NEEDED FOR ANXIETY. diazePAM Yes diazepam 2 U nivers mg tablet 1-10 mg tablet ity o f 13:06: TAKE ONE [place] 25 (1) Medical TABLET(S) Branch BY MOUTH NIGHTLY NEEDED FOR ANXIETY. diazePAM Yes diazepam 2 U nivers mg tablet 1-10 mg tablet ity o f 13:06: TAKE ONE [place] 25 (1) Medical TABLET(S) Branch BY MOUTH NIGHTLY NEEDED FOR ANXIETY. diazePAM Yes diazepam 2 U nivers mg tablet 1-10 mg tablet ity o f 13:06: TAKE ONE [place] 25 (1) Medical TABLET(S) Branch BY MOUTH NIGHTLY NEEDED FOR ANXIETY. diazePAM Yes diazepam 2 U nivers mg tablet 1-10 mg tablet ity o f 13:06: TAKE ONE [place] 25 (1) Medical TABLET(S) Branch BY MOUTH NIGHTLY NEEDED FOR ANXIETY. diazePAM Yes diazepam 2 U nivers mg tablet 1-10 mg tablet ity o f 13:06: TAKE ONE [place] 25 (1) Medical TABLET(S) Branch BY MOUTH NIGHTLY NEEDED FOR ANXIETY. diazePAM Yes diazepam 2 U nivers mg tablet 1-10 mg tablet ity o f 13:06: TAKE ONE [place] 25 (1) Medical TABLET(S) Branch BY MOUTH NIGHTLY NEEDED FOR ANXIETY. diazePAM Yes diazepam 2 U nivers mg tablet 1-10 mg tablet ity o f 13:06: TAKE ONE [place] 25 (1) Medical TABLET(S) Branch BY MOUTH NIGHTLY NEEDED FOR ANXIETY. diazePAM Yes diazepam 2 U nivers mg tablet 1-10 mg tablet ity o f 13:06: TAKE ONE [place] 25 (1) Medical TABLET(S) Branch BY MOUTH NIGHTLY NEEDED FOR ANXIETY. diazePAM Yes diazepam 2 U nivers mg tablet 1-10 mg tablet ity o f 13:06: TAKE ONE [place] 25 (1) Medical TABLET(S) Branch BY MOUTH NIGHTLY NEEDED FOR ANXIETY. diazePAM Yes diazepam 2 U nivers mg tablet 1-10 mg tablet ity o f 13:06: TAKE ONE [place] 25 (1) Medical TABLET(S) Branch BY MOUTH NIGHTLY NEEDED FOR ANXIETY. diazePAM Yes diazepam 2 U nivers mg tablet 1-10 mg tablet ity o f 13:06: TAKE ONE [place] 25 (1) Medical TABLET(S) Branch BY MOUTH NIGHTLY NEEDED FOR ANXIETY. diazePAM Yes diazepam 2 U nivers mg tablet 1-10 mg tablet ity o f 13:06: TAKE ONE [place] 25 (1) Medical TABLET(S) Branch BY MOUTH NIGHTLY NEEDED FOR ANXIETY. diazePAM Yes diazepam 2 U nivers mg tablet 1-10 mg tablet ity o f 13:06: TAKE ONE [place] 25 (1) Medical TABLET(S) Branch BY MOUTH NIGHTLY NEEDED FOR ANXIETY. diazePAM Yes diazepam 2 U nivers mg tablet 1-10 mg tablet ity o f 13:06: TAKE ONE [place] 25 (1) Medical TABLET(S) Branch BY MOUTH NIGHTLY NEEDED FOR ANXIETY. diazePAM Yes diazepam 2 U nivers mg tablet 1-10 mg tablet ity o f 13:06: TAKE ONE [place] 25 (1) Medical TABLET(S) Branch BY MOUTH NIGHTLY NEEDED FOR ANXIETY. diazePAM Yes diazepam 2 U nivers mg tablet 1-10 mg tablet ity o f 13:06: TAKE ONE [place] 25 (1) Medical TABLET(S) Branch BY MOUTH NIGHTLY NEEDED FOR ANXIETY. diazePAM Yes diazepam 2 U nivers mg tablet 1-10 mg tablet ity o f 13:06: TAKE ONE [place] 25 (1) Medical TABLET(S) Branch BY MOUTH NIGHTLY NEEDED FOR ANXIETY. diazePAM Yes diazepam 2 U nivers mg tablet 1-10 mg tablet ity o f 13:06: TAKE ONE [place] 25 (1) Medical TABLET(S) Branch BY MOUTH NIGHTLY NEEDED FOR ANXIETY. diazePAM Yes diazepam 2 U nivers mg tablet 1-10 mg tablet ity o f 13:06: TAKE ONE [place] 25 (1) Medical TABLET(S) Branch BY MOUTH NIGHTLY NEEDED FOR ANXIETY. diazePAM Yes diazepam 2 U nivers mg tablet 1-10 mg tablet ity o f 13:06: TAKE ONE [place] 25 (1) Medical TABLET(S) Branch BY MOUTH NIGHTLY NEEDED FOR ANXIETY. diazePAM Yes diazepam 2 U nivers mg tablet 1-10 mg tablet ity o f 13:06: TAKE ONE [place] 25 (1) Medical TABLET(S) Branch BY MOUTH NIGHTLY NEEDED FOR ANXIETY. diazePAM Yes diazepam 2 U nivers mg tablet 1-10 mg tablet ity o f 13:06: TAKE ONE [place] 25 (1) Medical TABLET(S) Branch BY MOUTH NIGHTLY NEEDED FOR ANXIETY. diazePAM 2 2022-0 Yes diazepam 2 U nivers mg tablet 1-10 mg tablet ity o f 13:06: TAKE ONE [place] 25 (1) Medical TABLET(S) Branch BY MOUTH NIGHTLY NEEDED FOR ANXIETY. diazePAM 2 2022-0 Yes diazepam 2 U nivers mg tablet 1-10 mg tablet ity o f 13:06: TAKE ONE [place] 25 (1) Medical TABLET(S) Branch BY MOUTH NIGHTLY NEEDED FOR ANXIETY. diazePAM 2 2022-0 Yes diazepam 2 U nivers mg tablet 1-10 mg tablet ity o f 13:06: TAKE ONE [place] 25 (1) Medical TABLET(S) Branch BY MOUTH NIGHTLY NEEDED FOR ANXIETY. diazePAM 2 2022-0 Yes diazepam 2 U nivers mg tablet 1-10 mg tablet ity o f 13:06: TAKE ONE [place] 25 (1) Medical TABLET(S) Branch BY MOUTH NIGHTLY NEEDED FOR ANXIETY. diazePAM 2 2022-0 Yes diazepam 2 U nivers mg tablet 1-10 mg tablet ity o f 13:06: TAKE ONE [place] 25 (1) Medical TABLET(S) Branch BY MOUTH NIGHTLY NEEDED FOR ANXIETY. propranoloL 3-0 Yes [id number] 10mg Take 0.5 Univers 20 mg 1-10 tablets by ity of tablet 00:00: mouth in [place] [address] the Medical morning Branch and 0.5 tablets in the evening. ubrogepant 2023-0 Yes [id number] 100mg Take 1 Univers (UBRELVY) 1-10 tablet by ity o f 100 mg Tab 00:00: mouth as [place] 00 needed for Medical Pain Branch (scale 7-10). propranoloL 2023-0 Yes [id number] 10mg Take 0.5 [facility] 20 mg 1-10 tablets by ity of tablet 00:00: mouth in [place] 00 the Medical morning Branch and 0.5 tablets in the evening. ubrogepant 2023-0 Yes [id number] 100mg Take 1 [facility] (UBRELVY) 1-10 tablet by ity o f 100 mg Tab 00:00: mouth as [place] 00 needed for Medical Pain Branch (scale 7-10). propranoloL 2023-0 Yes [id number] 10mg Take 0.5 [facility] 20 mg 1-10 tablets by ity of tablet 00:00: mouth in [place] 00 the Medical morning Branch and 0.5 tablets in the evening. ubrogepant 3-0 Yes [id number] 100mg Take 1 [facility] (UBRELVY) 1-10 tablet by ity o f 100 mg Tab 00:00: mouth as [place] 00 needed for Medical Pain Branch (scale 7-10). propranoloL 2022-0 Yes [id number] 10mg Take 0.5 [facility] 20 mg 1-10 tablets by ity of tablet 00:00: mouth in [place] 00 the Medical morning Branch and 0.5 tablets in the evening. ubrogepant 2022-0 Yes [id number] 100mg Take 1 [facility] (UBRELVY) 1-10 tablet by ity o f 100 mg Tab 00:00: mouth as [place] 00 needed for Medical Pain Branch (scale 7-10). ubrogepant 2022-0 Yes [id number] 100mg Take 1 [facility] (UBRELVY) 1-10 tablet by ity o f 100 mg Tab 00:00: mouth as [place] 00 needed for Medical Pain Branch (scale 7-10). ubrogepant 2022-0 Yes [id number] 100mg Take 1 [facility] (UBRELVY) 1-10 tablet by ity o f 100 mg Tab 00:00: mouth as [place] 00 needed for Medical Pain Branch (scale 7-10). ubrogepant 2022-0 Yes [id number] 100mg Take 1 [facility] (UBRELVY) 1-10 tablet by ity o f 100 mg Tab 00:00: mouth as [place] 00 needed for Medical Pain Branch (scale 7-10). ubrogepant 3-0 Yes [id number] 100mg Take 1 [facility] (UBRELVY) 1-10 tablet by ity o f 100 mg Tab 00:00: mouth as [place] 00 needed for Medical Pain Branch (scale 7-10). ubrogepant 3-0 Yes [id number] 100mg Take 1 [facility] (UBRELVY) 1-10 tablet by ity o f 100 mg Tab 00:00: mouth as [place] 00 needed for Medical Pain Branch (scale 7-10). ubrogepant 2023-0 Yes [id number] 100mg Take 1 [facility] (UBRELVY) 1-10 tablet by ity o f 100 mg Tab 00:00: mouth as [place] 00 needed for Medical Pain Branch (scale 7-10). ubrogepant 2023-0 Yes [id number] 100mg Take 1 [facility] (UBRELVY) 1-10 tablet by ity o f 100 mg Tab 00:00: mouth as [place] 00 needed for Medical Pain Branch (scale 7-10). ubrogepant 2023-0 Yes [id number] 100mg Take 1 [facility] (UBRELVY) 1-10 tablet by ity o f 100 mg Tab 00:00: mouth as [place] 00 needed for Medical Pain Branch (scale 7-10). ubrogepant 2023-0 Yes [id number] 100mg Take 1 [facility] (UBRELVY) 1-10 tablet by ity o f 100 mg Tab 00:00: mouth as [place] 00 needed for Medical Pain Branch (scale 7-10). propranoloL 2023-0 Yes [id number] 10mg Take 0.5 [facility] 20 mg 1-10 tablets by ity of tablet 00:00: mouth in [place] 00 the Medical morning Branch and 0.5 tablets in the evening. ubrogepant 2023-0 Yes [id number] 100mg Take 1 [facility] (UBRELVY) 1-10 tablet by ity o f 100 mg Tab 00:00: mouth as [place] 00 needed for Medical Pain Branch (scale 7-10). propranoloL 2023-0 Yes [id number] 10mg Take 0.5 [facility] 20 mg 1-10 tablets by ity of tablet 00:00: mouth in [place] 00 the Medical morning Branch and 0.5 tablets in the evening. ubrogepant 2023-0 Yes [id number] 100mg Take 1 [facility] (UBRELVY) 1-10 tablet by ity o f 100 mg Tab 00:00: mouth as [place] 00 needed for Medical Pain Branch (scale 7-10). propranoloL 2023-0 Yes [id number] 10mg Take 0.5 [facility] 20 mg 1-10 tablets by ity of tablet 00:00: mouth in [place] 00 the Medical morning Branch and 0.5 tablets in the evening. ubrogepant 2023-0 Yes [id number] 100mg Take 1 [facility] (UBRELVY) 1-10 tablet by ity o f 100 mg Tab 00:00: mouth as [place] 00 needed for Medical Pain Branch (scale 7-10). propranoloL 2023-0 Yes [id number] 10mg Take 0.5 [facility] 20 mg 1-10 tablets by ity of tablet 00:00: mouth in [place] 00 the Medical morning Branch and 0.5 tablets in the evening. ubrogepant 2023-0 Yes [id number] 100mg Take 1 [facility] (UBRELVY) 1-10 tablet by ity o f 100 mg Tab 00:00: mouth as [place] 00 needed for Medical Pain Branch (scale 7-10). propranoloL 2023-0 Yes [id number] 10mg Take 0.5 [facility] 20 mg 1-10 tablets by ity of tablet 00:00: mouth in [place] 00 the Medical morning Branch and 0.5 tablets in the evening. ubrogepant 2023-0 Yes [id number] 100mg Take 1 [facility] (UBRELVY) 1-10 tablet by ity o f 100 mg Tab 00:00: mouth as [place] 00 needed for Medical Pain Branch (scale 7-10). propranoloL 2023-0 Yes [id number] 10mg Take 0.5 [facility] 20 mg 1-10 tablets by ity of tablet 00:00: mouth in [place] [address] the Medical morning Branch and 0.5 tablets in the evening. ubrogepant 2023-0 Yes [id number] 100mg Take 1 [facility] (UBRELVY) 1-10 tablet by ity o f 100 mg Tab 00:00: mouth as [place] 00 needed for Medical Pain Branch (scale 7-10). propranoloL 2023-0 Yes [id number] 10mg Take 0.5 [facility] 20 mg 1-10 tablets by ity of tablet 00:00: mouth in [place] [address] the Medical morning Branch and 0.5 tablets in the evening. ubrogepant 2023-0 Yes [id number] 100mg Take 1 [facility] (UBRELVY) 1-10 tablet by ity o f 100 mg Tab 00:00: mouth as [place] 00 needed for Medical Pain Branch (scale 7-10). propranoloL 2023-0 Yes [id number] 10mg Take 0.5 [facility] 20 mg 1-10 tablets by ity of tablet 00:00: mouth in [place] 00 the Medical morning Branch and 0.5 tablets in the evening. ubrogepant 2023-0 Yes [id number] 100mg Take 1 [facility] (UBRELVY) 1-10 tablet by ity o f 100 mg Tab 00:00: mouth as [place] 00 needed for Medical Pain Branch (scale 7-10). propranoloL 2023-0 Yes [id number] 10mg Take 0.5 [facility] 20 mg 1-10 tablets by ity of tablet 00:00: mouth in [place] 00 the Medical morning Branch and 0.5 tablets in the evening. ubrogepant 2023-0 Yes [id number] 100mg Take 1 [facility] (UBRELVY) 1-10 tablet by ity o f 100 mg Tab 00:00: mouth as [place] 00 needed for Medical Pain Branch (scale 7-10). propranoloL 2023-0 Yes [id number] 10mg Take 0.5 [facility] 20 mg 1-10 tablets by ity of tablet 00:00: mouth in [place] 00 the Medical morning Branch and 0.5 tablets in the evening. ubrogepant 2023-0 Yes [id number] 100mg Take 1 [facility] (UBRELVY) 1-10 tablet by ity o f 100 mg Tab 00:00: mouth as [place] 00 needed for Medical Pain Branch (scale 7-10). propranoloL 2023-0 Yes [id number] 10mg Take 0.5 [facility] 20 mg 1-10 tablets by ity of tablet 00:00: mouth in [place] 00 the Medical morning Branch and 0.5 tablets in the evening. ubrogepant 2023-0 Yes [id number] 100mg Take 1 [facility] (UBRELVY) 1-10 tablet by ity o f 100 mg Tab 00:00: mouth as [place] 00 needed for Medical Pain Branch (scale 7-10). propranoloL 2023-0 Yes [id number] 10mg Take 0.5 [facility] 20 mg 1-10 tablets by ity of tablet 00:00: mouth in [place] 00 the Medical morning Branch and 0.5 tablets in the evening. ubrogepant 2023-0 Yes [id number] 100mg Take 1 [facility] (UBRELVY) 1-10 tablet by ity o f 100 mg Tab 00:00: mouth as [place] 00 needed for Medical Pain Branch (scale 7-10). propranoloL 2023-0 Yes [id number] 10mg Take 0.5 [facility] 20 mg 1-10 tablets by ity of tablet 00:00: mouth in [place] 00 the Medical morning Branch and 0.5 tablets in the evening. ubrogepant 2023-0 Yes [id number] 100mg Take 1 [facility] (UBRELVY) 1-10 tablet by ity o f 100 mg Tab 00:00: mouth as [place] 00 needed for Medical Pain Branch (scale 7-10). propranoloL 2023-0 Yes [id number] 10mg Take 0.5 [facility] 20 mg 1-10 tablets by ity of tablet 00:00: mouth in [place] 00 the Medical morning Branch and 0.5 tablets in the evening. ubrogepant 2023-0 Yes [id number] 100mg Take 1 [facility] (UBRELVY) 1-10 tablet by ity o f 100 mg Tab 00:00: mouth as [place] 00 needed for Medical Pain Branch (scale 7-10). propranoloL 2023-0 Yes [id number] 10mg Take 0.5 [facility] 20 mg 1-10 tablets by ity of tablet 00:00: mouth in [place] 00 the Medical morning Branch and 0.5 tablets in the evening. ubrogepant 2023-0 Yes [id number] 100mg Take 1 [facility] (UBRELVY) 1-10 tablet by ity o f 100 mg Tab 00:00: mouth as [place] as 00 needed for Medical Pain Branch (scale 7-10). propranoloL 2023-0 Yes [id number] 10mg Take 0.5 [facility] 20 mg 1-10 tablets by ity of tablet 00:00: mouth in [place] 00 the Medical morning Branch and 0.5 tablets in the evening. ubrogepant 2023-0 Yes [id number] 100mg Take 1 [facility] (UBRELVY) 1-10 tablet by ity o f 100 mg Tab 00:00: mouth as [place] 00 needed for Medical Pain Branch (scale 7-10). propranoloL 2023-0 Yes [id number] 10mg Take 0.5 [facility] 20 mg 1-10 tablets by it[facility] of tablet 00:00: mouth in [place] 00 the Medical morning Branch and 0.5 tablets in the evening. ubrogepant 2023-0 Yes [id number] 100mg Take 1 [facility] (UBRELVY) 1-10 tablet by ity o f 100 mg Tab 00:00: mouth as [place] 00 needed for Medical Pain Branch (scale 7-10). propranoloL 2023-0 Yes [id number] 10mg Take 0.5 [facility] 20 mg 1-10 tablets by ity of tablet 00:00: mouth in [place] 00 the Medical morning Branch and 0.5 tablets in the evening. ubrogepant 2023-0 Yes [id number] 100mg Take 1 [facility] (UBRELVY) 1-10 tablet by ity o f 100 mg Tab 00:00: mouth as [place] 00 needed for Medical Pain Branch (scale 7-10). propranoloL 2023-0 Yes [id number] 10mg Take 0.5 [facility] 20 mg 1-10 tablets by ity of tablet 00:00: mouth in [place] [address] the Medical morning Branch and 0.5 tablets in the evening. ubrogepant 2023-0 Yes [id number] 100mg Take 1 [facility] (UBRELVY) 1-10 tablet by ity o f 100 mg Tab 00:00: mouth [place] 00 needed for Medical Pain Branch (scale 7-10). propranoloL 2023-0 Yes [id number] 10mg Take 0.5 [facility] 20 mg 1-10 tablets by ity of tablet 00:00: mouth in [place] [address] the Medical morning Branch and 0.5 tablets in the evening. ubrogepant 2023-0 Yes [id number] 100mg Take 1 [facility] (UBRELVY) 1-10 tablet by ity o f 100 mg Tab 00:00: mouth as [place] 00 needed for Medical Pain Branch (scale 7-10). propranoloL 2023-0 Yes [id number] 10mg Take 0.5 [facility] 20 mg 1-10 tablets by ity of tablet 00:00: mouth in [place] [address] the Medical morning Branch and 0.5 tablets in the evening. ubrogepant 2023-0 Yes [id number] 100mg Take 1 [facility] (UBRELVY) 1-10 tablet by ity o f 100 mg Tab 00:00: mouth as [place] 00 needed for Medical Pain Branch (scale 7-10). propranoloL 2023-0 Yes [id number] 10mg Take 0.5 [facility] 20 mg 1-10 tablets by ity of tablet 00:00: mouth in [place] [address] the Medical morning Branch and 0.5 tablets in the evening. ubrogepant 2023-0 Yes [id number] 100mg Take 1 [facility] (UBRELVY) 1-10 tablet by ity o f 100 mg Tab 00:00: mouth as [place] 00 needed for Medical Pain Branch (scale 7-10). propranoloL 2022-0 Yes [id number] 10mg Take 0.5 [facility] 20 mg 1-10 tablets by ity of tablet 00:00: mouth in [place] 00 the Medical morning Branch and 0.5 tablets in the evening. ubrogepant 2022-0 Yes [id number] 100mg Take 1 [facility] (UBRELVY) 1-10 tablet by ity o f 100 mg Tab 00:00: mouth as [place] 00 needed for Medical Pain Branch (scale 7-10). ubrogepant 2022-0 2022- No [id number] 100mg Take 1 [facility] (UBRELVY) 1-03 10- tablet by ity of 100 mg Tab 00:00: 00:00 mouth as [place] 00 :00 needed for Medical Pain Branch (scale 7-10). ubrogepant 2022-0 2022- No [id number] 100mg Take 1 [facility] (UBRELVY) 1-11-25 tablet by ity of 100 mg Tab 00:00: 00:00 mouth as [place] 00 :00 needed for Medical Pain Branch (scale 7-10). ubrogepant 2022-0 2022- No [id number] 100mg Take 1 [facility] (UBRELVY) 1-11-25 tablet by ity of 100 mg Tab 00:00: 00:00 mouth as [place] 00 :00 needed for Medical Pain Branch (scale 7-10). ubrogepant 2022-0 2022- No [id number] 100mg Take 1 [facility] (UBRELVY) -11-25 tablet by ity of 100 mg Tab 00:00: 00:00 mouth as [place] 00 :00 needed for Medical Pain Branch (scale 7-10). propranoloL 2022-0 2022- No [id number] 10mg Take 0.5 [facility] 20 mg 1-10 -13 tablets by ity of tablet 00:00: 00:00 mouth in [place] 00 :00 the Medical morning Branch and 0.5 tablets in the evening. propranoloL 2022-0 3- No [id number] 10mg Take 0.5 [facility] 20 mg 1-10 -13 tablets by ity of tablet 00:00: 00:00 mouth in [place] 00 :00 the Medical morning Branch and 0.5 tablets in the evening. propranoloL 2022- No [id number] 10mg Take 0.5 [facility] 20 mg 1-10 03-13 tablets by ity of tablet 00:00: 00:00 mouth in [place] 00 :00 the Medical morning Branch and 0.5 tablets in the evening. QUEtiapine 2021-06- No 100mg Take 100 [facility] 100 mg 2-27 12-27 mg by ity of tablet 15:01: 00:00 mouth at [place] 22 :00 bedtime. Medical Branch SERTraline 2021-06- No 100mg Take 100 [facility] nivers 100 mg 2-27 12-27 mg by ity of tablet 15:01: 00:00 mouth [place] 22 :00 daily. Medical Branch proMETHazin 2021-06- No 25mg Take 25 mg [facility] e 25 mg 2-27 12-27 by mouth ity of tablet 15:01: 00:00 every 4 [place] 22 :00 (four) Medical hours as Branch needed. ondansetron 2021-06- No 8mg Take 8 mg [facility] 8 mg 2-27 12-27 by mouth ity of disintegrat 15:: 00:00 every 8 [place] ing tablet 22 :00 (eight) Medica l hours as Branch needed for Nausea and Vomiting (N/V). QUEtiapine 2021-06- No 100mg Take 100 U nivers 100 mg 2-27 12-27 mg by ity of tablet 15:01: 00:00 mouth at [place] 22 :00 bedtime. Medical Branch SERTraline 2021-06- No 100mg Take 100 U nivers 100 mg 2-27 12-27 mg by ity of tablet 15:01: 00:00 mouth [place] 22 :00 daily. Medical Branch proMETHazin 2021-06- No 25mg Take 25 mg [facility] e 25 mg 2-27 12-27 by mouth ity of tablet 15:01: 00:00 every 4 [place] 22 :00 (four) Medical hours as Branch needed. ondansetron 2021-06- No 8mg Take 8 mg [facility] 8 mg 2-27 12-27 by mouth ity of disintegrat 15:01: 00:00 every 8 [place] ing tablet 22 :00 (eight) Medica l hours as Branch needed for Nausea and Vomiting (N/V). esomeprazol 2021-06- No Nexium [facility] vers e 20 mg 2-27 12-27 ity of capsule 15:01: 00:00 [place] 16 :00 Medical Branch esomeprazol 2021-06- No Nexium [facility] vers e 20 mg 2-27 12-27 ity of capsule 15:01: 00:00 [place] 16 :00 Medical Branch solifenacin 2021-06 Yes 10mg Take 10 mg [facility] 10 mg 2-27 by mouth ity of tablet 13:53: in the [place] 06 morning. Medical Branch solifenacin 2021- Yes 10mg Take 10 mg [facility] 10 mg 2-27 by mouth ity of tablet 13:53: in the [place] 06 morning. Medical Branch solifenacin 2021- Yes 10mg Take 10 mg [facility] 10 mg 2-27 by mouth ity of tablet 13:53: in the [place] 06 morning. Medical Branch solifenacin 2021- Yes 10mg Take 10 mg [facility] 10 mg 2-27 by mouth ity of tablet 13:53: in the [place] 06 morning. Medical Branch solifenacin 2021- Yes 10mg Take 10 mg [facility] 10 mg 2-27 by mouth ity of tablet 13:53: in the [place] [address] morning. Medical Branch solifenacin 2021- Yes 10mg Take 10 mg [facility] 10 mg 2-27 by mouth ity of tablet 13:53: in the [place] 06 morning. Medical Branch solifenacin 2021- Yes 10mg Take 10 mg [facility] 10 mg 2-27 by mouth ity of tablet 13:53: in the [place] 06 morning. Medical Branch solifenacin 2021- Yes 10mg Take 10 mg [facility] 10 mg 2-27 by mouth ity of tablet 13:53: in the [place] 06 morning. Medical Branch solifenacin 2021- Yes 10mg Take 10 mg [facility] 10 mg 2-27 by mouth ity of tablet 13:53: in the [place] [address] morning. Medical Branch solifenacin 2021-1 Yes 10mg Take 10 mg [facility] 10 mg 2-27 by mouth ity of tablet 13:53: in the [place] 06 morning. Medical Branch solifenacin 2021-1 Yes 10mg Take 10 mg [facility] 10 mg 2-27 by mouth ity of tablet 13:53: in the [place] 06 morning. Medical Branch solifenacin 2-1 Yes 10mg Take 10 mg [facility] 10 mg 2-27 by mouth ity of tablet 13:53: in the [place] 06 morning. Medical Branch solifenacin 2022-1 Yes 10mg Take 10 mg [facility] 10 mg 2-27 by mouth ity of tablet 13:53: in the [place] 06 morning. Medical Branch solifenacin 2-1 Yes 10mg Take 10 mg [facility] 10 mg 2-27 by mouth ity of tablet 13:53: in the [place] 06 morning. Medical Branch solifenacin 2-1 Yes 10mg Take 10 mg [facility] 10 mg 2-27 by mouth ity of tablet 13:53: in the [place] 06 morning. Medical Branch solifenacin 2-1 Yes 10mg Take 10 mg [facility] 10 mg 2-27 by mouth ity of tablet 13:53: in the [place] 06 morning. Medical Branch solifenacin 2-1 Yes 10mg Take 10 mg [facility] 10 mg 2-27 by mouth ity of tablet 13:53: in the [place] 06 morning. Medical Branch solifenacin 2-1 Yes 10mg Take 10 mg [facility] 10 mg 2-27 by mouth ity of tablet 13:53: in the [place] 06 morning. Medical Branch solifenacin 2-1 Yes 10mg Take 10 mg [facility] 10 mg 2-27 by mouth ity of tablet 13:53: in the [place] 06 morning. Medical Branch solifenacin 2-1 Yes 10mg Take 10 mg [facility] 10 mg 2-27 by mouth ity of tablet 13:53: in the [place] 06 morning. Medical Branch solifenacin 2022-1 Yes 10mg Take 10 mg [facility] 10 mg 2-27 by mouth ity of tablet 13:53: in the [place] 06 morning. Medical Branch solifenacin 2022-1 Yes 10mg Take 10 mg [facility] 10 mg 2-27 by mouth ity of tablet 13:53: in the [place] 06 morning. Medical Branch solifenacin 2022-1 Yes 10mg Take 10 mg [facility] 10 mg 2-27 by mouth ity of tablet 13:53: in the [place] 06 morning. Medical Branch solifenacin 2022-1 Yes 10mg Take 10 mg [facility] 10 mg 2-27 by mouth ity of tablet 13:53: in the [place] 06 morning. Medical Branch solifenacin 2022-1 Yes 10mg Take 10 mg [facility] 10 mg 2-27 by mouth ity of tablet 13:53: in the [place] 06 morning. Medical Branch solifenacin 2022-1 Yes 10mg Take 10 mg [facility] 10 mg 2-27 by mouth ity of tablet 13:53: in the [place] 06 morning. Medical Branch solifenacin 2022-1 Yes 10mg Take 10 mg [facility] 10 mg 2-27 by mouth ity of tablet 13:53: in the [place] 06 morning. Medical Branch solifenacin 2022-1 Yes 10mg Take 10 mg [facility] 10 mg 2-27 by mouth ity of tablet 13:53: in the [place] 06 morning. Medical Branch solifenacin 2022-1 Yes 10mg Take 10 mg [facility] 10 mg 2-27 by mouth ity of tablet 13:53: in the [place] 06 morning. Medical Branch solifenacin 2022-1 Yes 10mg Take 10 mg [facility] 10 mg 2-27 by mouth ity of tablet 13:53: in the [place] 06 morning. Medical Branch solifenacin 2022-1 Yes 10mg Take 10 mg [facility] 10 mg 2-27 by mouth ity of tablet 13:53: in the [place] 06 morning. Medical Branch solifenacin 2022-1 Yes 10mg Take 10 mg [facility] 10 mg 2-27 by mouth ity of tablet 13:53: in the [place] 06 morning. Medical Branch solifenacin 2022-1 Yes 10mg Take 10 mg [facility] 10 mg 2-27 by mouth ity of tablet 13:53: in the [place] 06 morning. Medical Branch solifenacin 2022-1 Yes 10mg Take 10 mg [facility] 10 mg 2-27 by mouth ity of tablet 13:53: in the [place] 06 morning. Medical Branch solifenacin 2022-1 Yes 10mg Take 10 mg [facility] 10 mg 2-27 by mouth ity of tablet 13:53: in the [place] 06 morning. Medical Branch solifenacin 2022-1 Yes 10mg Take 10 mg [facility] 10 mg 2-27 by mouth ity of tablet 13:53: in the [place] 06 morning. Medical Branch solifenacin 2022-1 Yes 10mg Take 10 mg [facility] 10 mg 2-27 by mouth ity of tablet 13:53: in the [place] 06 morning. Medical Branch solifenacin 2022-1 Yes 10mg Take 10 mg [facility] 10 mg 2-27 by mouth ity of tablet 13:53: in the [place] 06 morning. Medical Branch solifenacin 2022-1 Yes 10mg Take 10 mg [facility] 10 mg 2-27 by mouth ity of tablet 13:53: in the [place] 06 morning. Medical Branch solifenacin 2022-1 Yes 10mg Take 10 mg [facility] 10 mg 2-27 by mouth ity of tablet 13:53: in the [place] 06 morning. Medical Branch solifenacin 2022-1 Yes 10mg Take 10 mg [facility] 10 mg 2-27 by mouth ity of tablet 13:53: in the [place] 06 morning. Medical Branch solifenacin 2022-1 Yes 10mg Take 10 mg [facility] 10 mg 2-27 by mouth ity of tablet 13:53: in the [place] 06 morning. Medical Branch solifenacin 2022-1 Yes 10mg Take 10 mg [facility] 10 mg 2-27 by mouth ity of tablet 13:53: in the [place] 06 morning. Medical Branch solifenacin 2022-1 Yes 10mg Take 10 mg [facility] 10 mg 2-27 by mouth ity of tablet 13:53: in the [place] 06 morning. Medical Branch solifenacin 2022-1 Yes 10mg Take 10 mg [facility] 10 mg 2-27 by mouth ity of tablet 13:53: in the [place] 06 morning. Medical Branch solifenacin 2022-1 Yes 10mg Take 10 mg [facility] 10 mg 2-27 by mouth ity of tablet 13:53: in the [place] 06 morning. Medical Branch solifenacin 2022-1 Yes 10mg Take 10 mg [facility] 10 mg 2-27 by mouth ity of tablet 13:53: in the [place] 06 morning. Medical Branch solifenacin 2022-1 Yes 10mg Take 10 mg [facility] 10 mg 2-27 by mouth ity of tablet 13:53: in the [place] 06 morning. Medical Branch solifenacin 2022-1 Yes 10mg Take 10 mg [facility] 10 mg 2-27 by mouth ity of tablet 13:53: in the [place] 06 morning. Medical Branch solifenacin 2022-1 Yes 10mg Take 10 mg [facility] 10 mg 2-27 by mouth ity of tablet 13:53: in the [place] 06 morning. Medical Branch solifenacin 2022-1 Yes 10mg Take 10 mg [facility] 10 mg 2-27 by mouth ity of tablet 13:53: in the [place] 06 morning. Medical Branch solifenacin 2022-1 Yes 10mg Take 10 mg [facility] 10 mg 2-27 by mouth ity of tablet 13:53: in the [place] 06 morning. Medical Branch solifenacin 2022-1 Yes 10mg Take 10 mg [facility] 10 mg 2-27 by mouth ity of tablet 13:53: in the [place] 06 morning. Medical Branch solifenacin 2022-1 Yes 10mg Take 10 mg [facility] 10 mg 2-27 by mouth ity of tablet 13:53: in the [place] 06 morning. Medical Branch solifenacin 2022-1 Yes 10mg Take 10 mg [facility] 10 mg 2-27 by mouth ity of tablet 13:53: in the [place] 06 morning. Medical Branch solifenacin 2022-1 Yes 10mg Take 10 mg [facility] 10 mg 2-27 by mouth ity of tablet 13:53: in the [place] 06 morning. Medical Branch solifenacin 2022-1 Yes 10mg Take 10 mg [facility] 10 mg 2-27 by mouth ity of tablet 13:53: in the [place] 06 morning. Medical Branch solifenacin 2022-1 Yes 10mg Take 10 mg [facility] 10 mg 2-27 by mouth ity of tablet 13:53: in the [place] 06 morning. Medical Branch solifenacin 2022-1 Yes 10mg Take 10 mg [facility] 10 mg 2-27 by mouth ity of tablet 13:53: in the [place] 06 morning. Medical Branch solifenacin 2022-1 Yes 10mg Take 10 mg [facility] 10 mg 2-27 by mouth ity of tablet 13:53: in the [place] 06 morning. Medical Branch solifenacin 2022-1 Yes 10mg Take 10 mg [facility] 10 mg 2-27 by mouth ity of tablet 13:53: in the [place] 06 morning. Medical Branch solifenacin 2022-1 Yes 10mg Take 10 mg [facility] 10 mg 2-27 by mouth ity of tablet 13:53: in the [place] 06 morning. Medical Branch solifenacin 2022-1 Yes 10mg Take 10 mg [facility] 10 mg 2-27 by mouth ity of tablet 13:53: in the [place] 06 morning. Medical Branch solifenacin 2021-06 Yes 10mg Take 10 mg [facility] 10 mg 2-27 by mouth ity of tablet 13:53: in the [place] morning. [facility] solifenacin 2021-06 Yes 10mg Take 10 mg [facility] 10 mg 2-27 by mouth ity of tablet 13:53: in the [place] morning. [facility] solifenacin 2021-06 Yes 10mg Take 10 mg [facility] 10 mg 2-27 by mouth ity of tablet 13:53: in the [place] morning. [facility] solifenacin 2021-06 Yes 10mg Take 10 mg [facility] 10 mg 2-27 by mouth ity of tablet 13:53: in the [place] morning. [facility] solifenacin 2021-06 Yes 10mg Take 10 mg [facility] 10 mg 2-27 by mouth ity of tablet 13:53: in the [place] morning. [facility] Lactobacill 2021-06 Yes Probiotic U nivers us 2-27 50 billion ity of acidophilus 13:49: [place] (PROBIOTIC) 10 Medical 10 billion Branch cell capsule estradioL 2 2021-06 Yes estradiol U nivers mg tablet 2-27 2 mg ity of 13:49: tablet 10 TAKE 1 Medical TABLET BY Branch MOUTH AT BEDTIME Lactobacill 2021-06 Yes Probiotic U nivers us 2-27 50 billion ity of acidophilus 13:49: [place] (PROBIOTIC) 10 Medical 10 billion Branch cell capsule estradioL 2 2021-06 Yes estradiol U nivers mg tablet 2-27 2 mg ity of 13:49: tablet [place] 10 TAKE 1 Medical TABLET BY Branch MOUTH AT BEDTIME Lactobacill 2021-06 Yes Probiotic U nivers us 2-27 50 billion ity of acidophilus 13:49: [place] (PROBIOTIC) 10 Medical 10 billion Branch cell capsule estradioL 2 2021-06 Yes estradiol U nivers mg tablet 2-27 2 mg ity of 13:49: tablet [place] 10 TAKE 1 Medical TABLET BY Branch MOUTH AT BEDTIME Lactobacill 2021-06 Yes Probiotic U nivers us 2-27 50 billion ity of acidophilus 13:49: [place] (PROBIOTIC) 10 Medical 10 billion Branch cell capsule estradioL 2 2021-06 Yes estradiol U nivers mg tablet 2-27 2 mg ity of 13:49: tablet [place] 10 TAKE 1 Medical TABLET BY Branch MOUTH AT BEDTIME Lactobacill 2021-06 Yes Probiotic U nivers us 2-27 50 billion ity of acidophilus 13:49: [place] (PROBIOTIC) 10 Medical 10 billion Branch cell capsule estradioL 2 2021-06 Yes estradiol U nivers mg tablet 2-27 2 mg ity of 13:49: tablet [place] 10 TAKE 1 Medical TABLET BY Branch MOUTH AT BEDTIME Lactobacill 2021-06 Yes Probiotic U nivers us 2-27 50 billion ity of acidophilus 13:49: [place] (PROBIOTIC) 10 Medical 10 billion Branch cell capsule Lactobacill 2021-06 Yes Probiotic U nivers us 2-27 50 billion ity of acidophilus 13:49: [place] (PROBIOTIC) 10 Medical 10 billion Branch cell capsule estradioL 2 2021-06 Yes estradiol U nivers mg tablet 2-27 2 mg ity of 13:49: tablet [place] 10 TAKE 1 Medical TABLET BY Branch MOUTH AT BEDTIME estradioL 2 2021-06 Yes estradiol U nivers mg tablet 2-27 2 mg ity of 13:49: tablet [place] 10 TAKE 1 Medical TABLET BY Branch MOUTH AT BEDTIME Lactobacill 2021-06 Yes Probiotic U nivers us 2-27 50 billion ity of acidophilus 13:49: [place] (PROBIOTIC) 10 Medical 10 billion Branch cell capsule estradioL 2 2021-06 Yes estradiol U nivers mg tablet 2-27 2 mg ity of 13:49: tablet [place] 10 TAKE 1 Medical TABLET BY Branch MOUTH AT BEDTIME Lactobacill 2021-06 Yes Probiotic U nivers us 2-27 50 billion ity of acidophilus 13:49: [place] (PROBIOTIC) 10 Medical 10 billion Branch cell capsule estradioL 2 2021-06 Yes estradiol U nivers mg tablet 2-27 2 mg ity of 13:49: tablet [place] 10 TAKE 1 Medical TABLET BY Branch MOUTH AT BEDTIME Lactobacill 2021-06 Yes Probiotic U nivers us 2-27 50 billion ity of acidophilus 13:49: [place] (PROBIOTIC) 10 Medical 10 billion Branch cell capsule estradioL 2 2021-06 Yes estradiol U nivers mg tablet 2-27 2 mg ity of 13:49: tablet [place] 10 TAKE 1 Medical TABLET BY Branch MOUTH AT BEDTIME Lactobacill 2021-06 Yes Probiotic U nivers us 2-27 50 billion ity of acidophilus 13:49: [place] (PROBIOTIC) 10 Medical 10 billion Branch cell capsule estradioL 2 2021-06 Yes estradiol U nivers mg tablet 2-27 2 mg ity of 13:49: tablet [place] 10 TAKE 1 Medical TABLET BY Branch MOUTH AT BEDTIME Lactobacill 2021-06 Yes Probiotic U nivers us 2-27 50 billion ity of acidophilus 13:49: [place] (PROBIOTIC) 10 Medical 10 billion Branch cell capsule estradioL 2 2021-06 Yes estradiol U nivers mg tablet 2-27 2 mg ity of 13:49: tablet [place] 10 TAKE 1 Medical TABLET BY Branch MOUTH AT BEDTIME Lactobacill 2021-06 Yes Probiotic U nivers us 2-27 50 billion ity of acidophilus 13:49: [place] (PROBIOTIC) 10 Medical 10 billion Branch cell capsule estradioL 2 2021-06 Yes estradiol U nivers mg tablet 2-27 2 mg ity of 13:49: tablet [place] 10 TAKE 1 Medical TABLET BY Branch MOUTH AT BEDTIME Lactobacill 2021-06 Yes Probiotic U nivers us 2-27 50 billion ity of acidophilus 13:49: [place] (PROBIOTIC) 10 Medical 10 billion Branch cell capsule estradioL 2 2021-06 Yes estradiol U nivers mg tablet 2-27 2 mg ity of 13:49: tablet [place] 10 TAKE 1 Medical TABLET BY Branch MOUTH AT BEDTIME Lactobacill 2021-06 Yes Probiotic U nivers us 2-27 50 billion ity of acidophilus 13:49: [place] (PROBIOTIC) 10 Medical 10 billion Branch cell capsule estradioL 2 2021-06 Yes estradiol U nivers mg tablet 2-27 2 mg ity of 13:49: tablet [place] 10 TAKE 1 Medical TABLET BY Branch MOUTH AT BEDTIME Lactobacill 2021-06 Yes Probiotic U nivers us 2-27 50 billion ity of acidophilus 13:49: [place] (PROBIOTIC) 10 Medical 10 billion Branch cell capsule Lactobacill 2021-06 Yes Probiotic U nivers us 2-27 50 billion ity of acidophilus 13:49: [place] (PROBIOTIC) 10 Medical 10 billion Branch cell capsule estradioL 2 2021-06 Yes estradiol U nivers mg tablet 2-27 2 mg ity of 13:49: tablet [place] 10 TAKE 1 Medical TABLET BY Branch MOUTH AT BEDTIME estradioL 2 2021-06 Yes estradiol U nivers mg tablet 2-27 2 mg ity of 13:49: tablet [place] 10 TAKE 1 Medical TABLET BY Branch MOUTH AT BEDTIME Lactobacill 2021-06 Yes Probiotic U nivers us 2-27 50 billion ity of acidophilus 13:49: [place] (PROBIOTIC) 10 Medical 10 billion Branch cell capsule estradioL 2 2021-06 Yes estradiol U nivers mg tablet 2-27 2 mg ity of 13:49: tablet [place] 10 TAKE 1 Medical TABLET BY Branch MOUTH AT BEDTIME Lactobacill 2021-06 Yes Probiotic U nivers us 2-27 50 billion ity of acidophilus 13:49: [place] (PROBIOTIC) 10 Medical 10 billion Branch cell capsule estradioL 2 2021-06 Yes estradiol U nivers mg tablet 2-27 2 mg ity of 13:49: tablet [place] 10 TAKE 1 Medical TABLET BY Branch MOUTH AT BEDTIME Lactobacill 2021-06 Yes Probiotic U nivers us 2-27 50 billion ity of acidophilus 13:49: [place] (PROBIOTIC) 10 Medical 10 billion Branch cell capsule estradioL 2 2021-06 Yes estradiol U nivers mg tablet 2-27 2 mg ity of 13:49: tablet [place] 10 TAKE 1 Medical TABLET BY Branch MOUTH AT BEDTIME Lactobacill 2021-06 Yes Probiotic U nivers us 2-27 50 billion ity of acidophilus 13:49: [place] (PROBIOTIC) 10 Medical 10 billion Branch cell capsule estradioL 2 2021-06 Yes estradiol U nivers mg tablet 2-27 2 mg ity of 13:49: tablet [place] 10 TAKE 1 Medical TABLET BY Branch MOUTH AT BEDTIME Lactobacill 2021-06 Yes Probiotic U nivers us 2-27 50 billion ity of acidophilus 13:49: [place] (PROBIOTIC) 10 Medical 10 billion Branch cell capsule estradioL 2 2021-06 Yes estradiol U nivers mg tablet 2-27 2 mg ity of 13:49: tablet [place] 10 TAKE 1 Medical TABLET BY Branch MOUTH AT BEDTIME Lactobacill 2021-06 Yes Probiotic U nivers us 2-27 50 billion ity of acidophilus 13:49: [place] (PROBIOTIC) 10 Medical 10 billion Branch cell capsule estradioL 2 2021-06 Yes estradiol U nivers mg tablet 2-27 2 mg ity of 13:49: tablet [place] 10 TAKE 1 Medical TABLET BY Branch MOUTH AT BEDTIME Lactobacill 2021-06 Yes Probiotic U nivers us 2-27 50 billion ity of acidophilus 13:49: [place] (PROBIOTIC) 10 Medical 10 billion Branch cell capsule estradioL 2 2021-06 Yes estradiol U nivers mg tablet 2-27 2 mg ity of 13:49: tablet [place] 10 TAKE 1 Medical TABLET BY Branch MOUTH AT BEDTIME Lactobacill 2021-06 Yes Probiotic U nivers us 2-27 50 billion ity of acidophilus 13:49: [place] (PROBIOTIC) 10 Medical 10 billion Branch cell capsule estradioL 2 2021-06 Yes estradiol U nivers mg tablet 2-27 2 mg ity of 13:49: tablet [place] 10 TAKE 1 Medical TABLET BY Branch MOUTH AT BEDTIME Lactobacill 2021-06 Yes Probiotic U nivers us 2-27 50 billion ity of acidophilus 13:49: [place] (PROBIOTIC) 10 Medical 10 billion Branch cell capsule estradioL 2 2021-06 Yes estradiol U nivers mg tablet 2-27 2 mg ity of 13:49: tablet [place] 10 TAKE 1 Medical TABLET BY Branch MOUTH AT BEDTIME Lactobacill 2021-06 Yes Probiotic U nivers us 2-27 50 billion ity of acidophilus 13:49: [place] (PROBIOTIC) 10 Medical 10 billion Branch cell capsule estradioL 2 2021-06 Yes estradiol U nivers mg tablet 2-27 2 mg ity of 13:49: tablet [place] 10 TAKE 1 Medical TABLET BY Branch MOUTH AT BEDTIME Lactobacill 2021-06 Yes Probiotic U nivers us 2-27 50 billion ity of acidophilus 13:49: [place] (PROBIOTIC) 10 Medical 10 billion Branch cell capsule estradioL 2 2021-06 Yes estradiol U nivers mg tablet 2-27 2 mg ity of 13:49: tablet [place] 10 TAKE 1 Medical TABLET BY Branch MOUTH AT BEDTIME Lactobacill 2021-06 Yes Probiotic U nivers us 2-27 50 billion ity of acidophilus 13:49: [place] (PROBIOTIC) 10 Medical 10 billion Branch cell capsule estradioL 2 2021-06 Yes estradiol U nivers mg tablet 2-27 2 mg ity of 13:49: tablet [place] 10 TAKE 1 Medical TABLET BY Branch MOUTH AT BEDTIME Lactobacill 2021-06 Yes Probiotic U nivers us 2-27 50 billion ity of acidophilus 13:49: [place] (PROBIOTIC) 10 Medical 10 billion Branch cell capsule estradioL 2 2021-06 Yes estradiol U nivers mg tablet 2-27 2 mg ity of 13:49: tablet [place] 10 TAKE 1 Medical TABLET BY Branch MOUTH AT BEDTIME Lactobacill 2021-06 Yes Probiotic U nivers us 2-27 50 billion ity of acidophilus 13:49: [place] (PROBIOTIC) 10 Medical 10 billion Branch cell capsule estradioL 2 2021-06 Yes estradiol U nivers mg tablet 2-27 2 mg ity of 13:49: tablet [place] 10 TAKE 1 Medical TABLET BY Branch MOUTH AT BEDTIME Lactobacill 2021-06 Yes Probiotic U nivers us 2-27 50 billion ity of acidophilus 13:49: [place] (PROBIOTIC) 10 Medical 10 billion Branch cell capsule estradioL 2 2021-06 Yes estradiol U nivers mg tablet 2-27 2 mg ity of 13:49: tablet [place] 10 TAKE 1 Medical TABLET BY Branch MOUTH AT BEDTIME Lactobacill 2021-06 Yes Probiotic U nivers us 2-27 50 billion ity of acidophilus 13:49: [place] (PROBIOTIC) 10 Medical 10 billion Branch cell capsule estradioL 2 2021-06 Yes estradiol U nivers mg tablet 2-27 2 mg ity of 13:49: tablet [place] 10 TAKE 1 Medical TABLET BY Branch MOUTH AT BEDTIME [place] 2021-06 Yes Probiotic U nivers us 2-27 50 billion ity of acidophilus 13:49: [place] (PROBIOTIC) 10 Medical 10 billion Branch cell capsule estradioL 2 2021-06 Yes estradiol U nivers mg tablet 2-27 2 mg ity of 13:49: tablet [place] 10 TAKE 1 Medical TABLET BY Branch MOUTH AT BEDTIME [place] 2021-06 Yes Probiotic U nivers us 2-27 50 billion ity of acidophilus 13:49: [place] (PROBIOTIC) 10 Medical 10 billion Branch cell capsule estradioL 2 2021-06 Yes estradiol U nivers mg tablet 2-27 2 mg ity of 13:49: tablet [place] 10 TAKE 1 Medical TABLET BY Branch MOUTH AT BEDTIME [place] 2021-06 Yes Probiotic U nivers us 2-27 50 billion ity of acidophilus 13:49: [place] (PROBIOTIC) 10 Medical 10 billion Branch cell capsule estradioL 2 2021-06 Yes estradiol U nivers mg tablet 2-27 2 mg ity of 13:49: tablet [place] 10 TAKE 1 Medical TABLET BY Branch MOUTH AT BEDTIME [place] 2021-06 Yes Probiotic U nivers us 2-27 50 billion ity of acidophilus 13:49: [place] (PROBIOTIC) 10 Medical 10 billion Branch cell capsule estradioL 2 2021-06 Yes estradiol U nivers mg tablet 2-27 2 mg ity of 13:49: tablet [place] 10 TAKE 1 Medical TABLET BY Branch MOUTH AT BEDTIME [place] 2021-06 Yes Probiotic U nivers us 2-27 50 billion ity of acidophilus 13:49: [place] (PROBIOTIC) 10 Medical 10 billion Branch cell capsule estradioL 2 2021-06 Yes estradiol U nivers mg tablet 2-27 2 mg ity of 13:49: tablet [place] 10 TAKE 1 Medical TABLET BY Branch MOUTH AT BEDTIME [place] 2021-06 Yes Probiotic U nivers us 2-27 50 billion ity of acidophilus 13:49: [place] (PROBIOTIC) 10 Medical 10 billion Branch cell capsule estradioL 2 2021-06 Yes estradiol U nivers mg tablet 2-27 2 mg ity of 13:49: tablet [place] 10 TAKE 1 Medical TABLET BY Branch MOUTH AT BEDTIME [place] 2021-06 Yes Probiotic U nivers us 2-27 50 billion ity of acidophilus 13:49: [place] (PROBIOTIC) 10 Medical 10 billion Branch cell capsule estradioL 2 2021-06 Yes estradiol U nivers mg tablet 2-27 2 mg ity of 13:49: tablet [place] 10 TAKE 1 Medical TABLET BY Branch MOUTH AT BEDTIME [place] 2021-06 Yes Probiotic U nivers us 2-27 50 billion ity of acidophilus 13:49: [place] (PROBIOTIC) 10 Medical 10 billion Branch cell capsule estradioL 2 2021-06 Yes estradiol U nivers mg tablet 2-27 2 mg ity of 13:49: tablet [place] 10 TAKE 1 Medical TABLET BY Branch MOUTH AT BEDTIME [place] 2021-06 Yes Probiotic U nivers us 2-27 50 billion ity of acidophilus 13:49: [place] (PROBIOTIC) 10 Medical 10 billion Branch cell capsule estradioL 2 2021-06 Yes estradiol U nivers mg tablet 2-27 2 mg ity of 13:49: tablet [place] 10 TAKE 1 Medical TABLET BY Branch MOUTH AT BEDTIME [place] 2021-06 Yes Probiotic U nivers us 2-27 50 billion ity of acidophilus 13:49: [place] (PROBIOTIC) 10 Medical 10 billion Branch cell capsule estradioL 2 2021-06 Yes estradiol U nivers mg tablet 2-27 2 mg ity of 13:49: tablet [place] 10 TAKE 1 Medical TABLET BY Branch MOUTH AT BEDTIME [place] 2021-06 Yes Probiotic U nivers us 2-27 50 billion ity of acidophilus 13:49: [place] (PROBIOTIC) 10 Medical 10 billion Branch cell capsule estradioL 2 2021-06 Yes estradiol U nivers mg tablet 2-27 2 mg ity of 13:49: tablet [place] 10 TAKE 1 Medical TABLET BY Branch MOUTH AT BEDTIME [place] 2021-06 Yes Probiotic U nivers us 2-27 50 billion ity of acidophilus 13:49: [place] (PROBIOTIC) 10 Medical 10 billion Branch cell capsule estradioL 2 2021-06 Yes estradiol U nivers mg tablet 2-27 2 mg ity of 13:49: tablet [place] 10 TAKE 1 Medical TABLET BY Branch MOUTH AT BEDTIME [place] 2021-06 Yes Probiotic U nivers us 2-27 50 billion ity of acidophilus 13:49: [place] (PROBIOTIC) 10 Medical 10 billion Branch cell capsule estradioL 2 2021-06 Yes estradiol U nivers mg tablet 2-27 2 mg ity of 13:49: tablet [place] 10 TAKE 1 Medical TABLET BY Branch MOUTH AT BEDTIME [place] 2021-06 Yes Probiotic U nivers us 2-27 50 billion ity of acidophilus 13:49: [place] (PROBIOTIC) 10 Medical 10 billion Branch cell capsule estradioL 2 2021-06 Yes estradiol U nivers mg tablet 2-27 2 mg ity of 13:49: tablet [place] 10 TAKE 1 Medical TABLET BY Branch MOUTH AT BEDTIME [place] 2021-06 Yes Probiotic U nivers us 2-27 50 billion ity of acidophilus 13:49: [place] (PROBIOTIC) 10 Medical 10 billion Branch cell capsule estradioL 2 2021-06 Yes estradiol U nivers mg tablet 2-27 2 mg ity of 13:49: tablet [place] 10 TAKE 1 Medical TABLET BY Branch MOUTH AT BEDTIME [place] 2021-06 Yes Probiotic U nivers us 2-27 50 billion ity of acidophilus 13:49: [place] (PROBIOTIC) 10 Medical 10 billion Branch cell capsule estradioL 2 2021-06 Yes estradiol U nivers mg tablet 2-27 2 mg ity of 13:49: tablet [place] 10 TAKE 1 Medical TABLET BY Branch MOUTH AT BEDTIME [place] 2021-06 Yes Probiotic U nivers us 2-27 50 billion ity of acidophilus 13:49: [place] (PROBIOTIC) 10 Medical 10 billion Branch cell capsule estradioL 2 2021-06 Yes estradiol U nivers mg tablet 2-27 2 mg ity of 13:49: tablet [place] 10 TAKE 1 Medical TABLET BY Branch MOUTH AT BEDTIME [place] 2021-06 Yes Probiotic U nivers us 2-27 50 billion ity of acidophilus 13:49: [place] (PROBIOTIC) 10 Medical 10 billion Branch cell capsule estradioL 2 2021-06 Yes estradiol U nivers mg tablet 2-27 2 mg ity of 13:49: tablet [place] 10 TAKE 1 Medical TABLET BY Branch MOUTH AT BEDTIME [place] 2021-06 Yes Probiotic U nivers us 2-27 50 billion ity of acidophilus 13:49: [place] (PROBIOTIC) 10 Medical 10 billion Branch cell capsule estradioL 2 2021-06 Yes estradiol U nivers mg tablet 2-27 2 mg ity of 13:49: tablet [place] 10 TAKE 1 Medical TABLET BY Branch MOUTH AT BEDTIME [place] 2021-06 Yes Probiotic U nivers us 2-27 50 billion ity of acidophilus 13:49: [place] (PROBIOTIC) 10 Medical 10 billion Branch cell capsule estradioL 2 2021-06 Yes estradiol U nivers mg tablet 2-27 2 mg ity of 13:49: tablet [place] 10 TAKE 1 Medical TABLET BY Branch MOUTH AT BEDTIME [place] 2021-06 Yes Probiotic U nivers us 2-27 50 billion ity of acidophilus 13:49: [place] (PROBIOTIC) 10 Medical 10 billion Branch cell capsule estradioL 2 2021-06 Yes estradiol U nivers mg tablet 2-27 2 mg ity of 13:49: tablet [place] 10 TAKE 1 Medical TABLET BY Branch MOUTH AT BEDTIME [place] 2021-06 Yes Probiotic U nivers us 2-27 50 billion ity of acidophilus 13:49: [place] (PROBIOTIC) 10 Medical 10 billion Branch cell capsule estradioL 2 2021-06 Yes estradiol U nivers mg tablet 2-27 2 mg ity of 13:49: tablet [place] 10 TAKE 1 Medical TABLET BY Branch MOUTH AT BEDTIME [place] 2021-06 Yes Probiotic U nivers us 2-27 50 billion ity of acidophilus 13:49: [place] (PROBIOTIC) 10 Medical 10 billion Branch cell capsule estradioL 2 2021-06 Yes estradiol U nivers mg tablet 2-27 2 mg ity of 13:49: tablet [place] 10 TAKE 1 Medical TABLET BY Branch MOUTH AT BEDTIME [place] 2021-06 Yes Probiotic U nivers us 2-27 50 billion ity of acidophilus 13:49: [place] (PROBIOTIC) 10 Medical 10 billion Branch cell capsule estradioL 2 2021-06 Yes estradiol U nivers mg tablet 2-27 2 mg ity of 13:49: tablet [place] 10 TAKE 1 Medical TABLET BY Branch MOUTH AT BEDTIME [place] 2021-06 Yes Probiotic U nivers us 2-27 50 billion ity of acidophilus 13:49: [place] (PROBIOTIC) 10 Medical 10 billion Branch cell capsule estradioL 2 2021-06 Yes estradiol U nivers mg tablet 2-27 2 mg ity of 13:49: tablet [place] 10 TAKE 1 Medical TABLET BY Branch MOUTH AT BEDTIME [place] 2021-06 Yes Probiotic U nivers us 2-27 50 billion ity of acidophilus 13:49: [place] (PROBIOTIC) 10 Medical 10 billion Branch cell capsule estradioL 2 2021-06 Yes estradiol U nivers mg tablet 2-27 2 mg ity of 13:49: tablet [place] 10 TAKE 1 Medical TABLET BY Branch MOUTH AT BEDTIME [place] 2021-06 Yes Probiotic U nivers us 2-27 50 billion ity of acidophilus 13:49: [place] (PROBIOTIC) 10 Medical 10 billion Branch cell capsule estradioL 2 2021-06 Yes estradiol U nivers mg tablet 2-27 2 mg ity of 13:49: tablet [place] 10 TAKE 1 Medical TABLET BY Branch MOUTH AT BEDTIME [place] 2021-06 Yes Probiotic U nivers us 2-27 50 billion ity of acidophilus 13:49: [place] (PROBIOTIC) 10 Medical 10 billion Branch cell capsule estradioL 2 2021-06 Yes estradiol U nivers mg tablet 2-27 2 mg ity of 13:49: tablet [place] 10 TAKE 1 Medical TABLET BY Branch MOUTH AT BEDTIME [place] 2021-06 Yes Probiotic U nivers us 2-27 50 billion ity of acidophilus 13:49: [place] (PROBIOTIC) 10 Medical 10 billion Branch cell capsule estradioL 2 2021-06 Yes estradiol U nivers mg tablet 2-27 2 mg ity of 13:49: tablet [place] 10 TAKE 1 Medical TABLET BY Branch MOUTH AT BEDTIME [place] 2021-06 Yes Probiotic U nivers us 2-27 50 billion ity of acidophilus 13:49: [place] (PROBIOTIC) 10 Medical 10 billion Branch cell capsule estradioL 2 2021-06 Yes estradiol U nivers mg tablet 2-27 2 mg ity of 13:49: tablet [place] 10 TAKE 1 Medical TABLET BY Branch MOUTH AT BEDTIME [place] 2021-06 Yes Probiotic U nivers us 2-27 50 billion ity of acidophilus 13:49: [place] (PROBIOTIC) 10 Medical 10 billion Branch cell capsule estradioL 2 2021-06 Yes estradiol U nivers mg tablet 2-27 2 mg ity of 13:49: tablet [place] 10 TAKE 1 Medical TABLET BY Branch MOUTH AT BEDTIME [place] 2021-06 Yes Probiotic U nivers us 2-27 50 billion ity of acidophilus 13:49: [place] (PROBIOTIC) 10 Medical 10 billion Branch cell capsule estradioL 2 2021-06 Yes estradiol U nivers mg tablet 2-27 2 mg ity of 13:49: tablet [place] 10 TAKE 1 Medical TABLET BY Branch MOUTH AT BEDTIME [place] 2021-06 Yes Probiotic U nivers us 2-27 50 billion ity of acidophilus 13:49: [place] (PROBIOTIC) 10 Medical 10 billion Branch cell capsule estradioL 2 2021-06 Yes estradiol U nivers mg tablet 2-27 2 mg ity of 13:49: tablet [place] 10 TAKE 1 Medical TABLET BY Branch MOUTH AT BEDTIME [place] 2021-06 Yes Probiotic U nivers us 2-27 50 billion ity of acidophilus 13:49: [place] (PROBIOTIC) 10 Medical 10 billion Branch cell capsule estradioL 2 2021-06 Yes estradiol U nivers mg tablet 2-27 2 mg ity of 13:49: tablet [place] 10 TAKE 1 Medical TABLET BY Branch MOUTH AT BEDTIME [place] 2021-06 Yes Probiotic U nivers us 2-27 50 billion ity of acidophilus 13:49: [place] (PROBIOTIC) 10 Medical 10 billion Branch cell capsule estradioL 2 2021-06 Yes estradiol U nivers mg tablet 2-27 2 mg ity of 13:49: tablet [place] 10 TAKE 1 Medical TABLET BY Branch MOUTH AT BEDTIME esomeprazol 2021-06- No 40mg Take 40 mg [facility] 40 mg 2-27 12-27 by mouth ity of capsule 13:48: 00:00 daily with [place] 41 :00 breakfast. Medical Branch esomeprazol 2021-06- No 40mg Take 40 mg [facility] 40 mg 2-27 12-27 by mouth ity of capsule 13:48: 00:00 daily with [place] 41 :00 breakfast. Medical Branch ALPRAZolam 2021-06 Yes 1mg Take 1 mg [facility] ar[facility] 0.5 mg 2-27 by mouth 3 ity of tablet 13:44: (three) [place] 06 times Medical daily as Branch needed for Other (Anxiety). ALPRAZolam 2021-06 Yes 1mg Take 1 mg [facility] 0.5 mg 2-27 by mouth 3 ity of tablet 13:44: (three) [place] 06 times Medical daily as Branch needed for Other (Anxiety). ALPRAZolam 2021- Yes 1mg Take 1 mg [facility] ar[facility] 0.5 mg 2-27 by mouth 3 ity of tablet 13:44: (three) [place] 06 times Medical daily as Branch needed for Other (Anxiety). ALPRAZolam 2021-1 Yes 1mg Take 1 mg [facility] ar[facility] 0.5 mg 2-27 by mouth 3 ity of tablet 13:44: (three) [place] 06 times Medical daily as Branch needed for Other (Anxiety). ALPRAZolam 2021-1 Yes 1mg Take 1 mg [facility] ar[facility] 0.5 mg 2-27 by mouth 3 ity of tablet 13:44: (three) [place] 06 times Medical daily as Branch needed for Other (Anxiety). ALPRAZolam 2021-1 Yes 1mg Take 1 mg [facility] ar[facility] 0.5 mg 2-27 by mouth 3 ity of tablet 13:44: (three) [place] 06 times Medical daily as Branch needed for Other (Anxiety). ALPRAZolam 2021- Yes 1mg Take 1 mg [facility] ar[facility] 0.5 mg 2-27 by mouth 3 ity of tablet 13:44: (three) [place] 06 times Medical daily as Branch needed for Other (Anxiety). ALPRAZolam 2021- Yes 1mg Take 1 mg [facility] ar[facility] 0.5 mg 2-27 by mouth 3 ity of tablet 13:44: (three) [place] 06 times Medical daily as Branch needed for Other (Anxiety). ALPRAZolam 2021- Yes 1mg Take 1 mg [facility] ar[facility] 0.5 mg 2-27 by mouth 3 ity of tablet 13:44: (three) [place] 06 times Medical daily as Branch needed for Other (Anxiety). ALPRAZolam 2021-1 Yes 1mg Take 1 mg [facility] 0.5 mg 2-27 by mouth 3 ity of tablet 13:44: (three) [place] 06 times Medical daily as Branch needed for Other (Anxiety). ALPRAZolam 2021-1 Yes 1mg Take 1 mg [facility] ar[facility] 0.5 mg 2-27 by mouth 3 ity of tablet 13:44: (three) [place] 06 times Medical daily as Branch needed for Other (Anxiety). ALPRAZolam 2021-1 Yes 1mg Take 1 mg [facility] ar[facility] 0.5 mg 2-27 by mouth 3 ity of tablet 13:44: (three) [place] 06 times Medical daily as Branch needed for Other (Anxiety). ALPRAZolam 2021- Yes 1mg Take 1 mg [facility] ar[facility] 0.5 mg 2-27 by mouth 3 ity of tablet 13:44: (three) [place] 06 times Medical daily as Branch needed for Other (Anxiety). ALPRAZolam 2021-1 Yes 1mg Take 1 mg [facility] 0.5 mg 2-27 by mouth 3 ity of tablet 13:44: (three) [place] 06 times Medical daily as Branch needed for Other (Anxiety). ALPRAZolam 2021-1 Yes 1mg Take 1 mg [facility] 0.5 mg 2-27 by mouth 3 ity of tablet 13:44: (three) [place] 06 times Medical daily as Branch needed for Other (Anxiety). ALPRAZolam 2021-1 Yes 1mg Take 1 mg [facility] 0.5 mg 2-27 by mouth 3 ity of tablet 13:44: (three) [place] 06 times Medical daily as Branch needed for Other (Anxiety). ALPRAZolam 2021- Yes 1mg Take 1 mg [facility] 0.5 mg 2-27 by mouth 3 ity of tablet 13:44: (three) [place] 06 times Medical daily as Branch needed for Other (Anxiety). ALPRAZolam 2021- Yes 1mg Take 1 mg [facility] 0.5 mg 2-27 by mouth 3 ity of tablet 13:44: (three) [place] 06 times Medical daily as Branch needed for Other (Anxiety). ALPRAZolam 2021-1 Yes 1mg Take 1 mg [facility] ar[facility] 0.5 mg 2-27 by mouth 3 ity of tablet 13:44: (three) [place] 06 times Medical daily as Branch needed for Other (Anxiety). ALPRAZolam 2021-1 Yes 1mg Take 1 mg [facility] 0.5 mg 2-27 by mouth 3 ity of tablet 13:44: (three) [place] 06 times Medical daily as Branch needed for Other (Anxiety). ALPRAZolam 2021-1 Yes 1mg Take 1 mg [facility] 0.5 mg 2-27 by mouth 3 ity of tablet 13:44: (three) [place] 06 times Medical daily as Branch needed for Other (Anxiety). ALPRAZolam 2-1 Yes 1mg Take 1 mg [facility] 0.5 mg 2-27 by mouth 3 ity of tablet 13:44: (three) [place] 06 times Medical daily as Branch needed for Other (Anxiety). ALPRAZolam 2021- Yes 1mg Take 1 mg [facility] ar[facility] 0.5 mg 2-27 by mouth 3 ity of tablet 13:44: (three) [place] 06 times Medical daily as Branch needed for Other (Anxiety). ALPRAZolam 2021- Yes 1mg Take 1 mg [facility] ar[facility] 0.5 mg 2-27 by mouth 3 ity of tablet 13:44: (three) [place] 06 times Medical daily as Branch needed for Other (Anxiety). ALPRAZolam 2021- Yes 1mg Take 1 mg [facility] ar[facility] 0.5 mg 2-27 by mouth 3 ity of tablet 13:44: (three) [place] 06 times Medical daily as Branch needed for Other (Anxiety). ALPRAZolam 2021- Yes 1mg Take 1 mg [facility] ar[facility] 0.5 mg 2-27 by mouth 3 ity of tablet 13:44: (three) [place] 06 times Medical daily as Branch needed for Other (Anxiety). ALPRAZolam 2021- Yes 1mg Take 1 mg [facility] ar[facility] 0.5 mg 2-27 by mouth 3 ity of tablet 13:44: (three) [place] 06 times Medical daily as Branch needed for Other (Anxiety). ALPRAZolam 2021- Yes 1mg Take 1 mg Un ar[facility] 0.5 mg 2-27 by mouth 3 ity of tablet 13:44: (three) [place] 06 times Medical daily as Branch needed for Other (Anxiety). ALPRAZolam 2021- Yes 1mg Take 1 mg [facility] ar[facility] 0.5 mg 2-27 by mouth 3 ity of tablet 13:44: (three) [place] 06 times Medical daily as Branch needed for Other (Anxiety). ALPRAZolam 2021- Yes 1mg Take 1 mg [facility] 0.5 mg 2-27 by mouth 3 ity of tablet 13:44: (three) [place] 06 times Medical daily as Branch needed for Other (Anxiety). ALPRAZolam 2021- Yes 1mg Take 1 mg [facility] 0.5 mg 2-27 by mouth 3 ity of tablet 13:44: (three) [place] 06 times Medical daily as Branch needed for Other (Anxiety). ALPRAZolam 2021- Yes 1mg Take 1 mg [facility] 0.5 mg 2-27 by mouth 3 ity of tablet 13:44: (three) [place] 06 times Medical daily as Branch needed for Other (Anxiety). ALPRAZolam 2021-1 Yes 1mg Take 1 mg [facility] 0.5 mg 2-27 by mouth 3 ity of tablet 13:44: (three) [place] 06 times Medical daily as Branch needed for Other (Anxiety). ALPRAZolam 2021-1 Yes 1mg Take 1 mg [facility] 0.5 mg 2-27 by mouth 3 ity of tablet 13:44: (three) [place] 06 times Medical daily as Branch needed for Other (Anxiety). ALPRAZolam 2021-1 Yes 1mg Take 1 mg [facility] 0.5 mg 2-27 by mouth 3 ity of tablet 13:44: (three) [place] 06 times Medical daily as Branch needed for Other (Anxiety). ALPRAZolam 2021-1 Yes 1mg Take 1 mg [facility] 0.5 mg 2-27 by mouth 3 ity of tablet 13:44: (three) [place] 06 times Medical daily as Branch needed for Other (Anxiety). ALPRAZolam 2021- Yes 1mg Take 1 mg [facility] 0.5 mg 2-27 by mouth 3 ity of tablet 13:44: (three) [place] 06 times Medical daily as Branch needed for Other (Anxiety). ALPRAZolam 2021- Yes 1mg Take 1 mg [facility] 0.5 mg 2-27 by mouth 3 ity of tablet 13:44: (three) [place] 06 times Medical daily as Branch needed for Other (Anxiety). ALPRAZolam 2021-1 Yes 1mg Take 1 mg [facility] 0.5 mg 2-27 by mouth 3 ity of tablet 13:44: (three) [place] 06 times Medical daily as Branch needed for Other (Anxiety). ALPRAZolam 2021-1 Yes 1mg Take 1 mg [facility] 0.5 mg 2-27 by mouth 3 ity of tablet 13:44: (three) [place] 06 times Medical daily as Branch needed for Other (Anxiety). ALPRAZolam 2-1 Yes 1mg Take 1 mg [facility] 0.5 mg 2-27 by mouth 3 ity of tablet 13:44: (three) [place] 06 times Medical daily as Branch needed for Other (Anxiety). ipratropium 2021-06 Yes [id number] 3mL Inhale 3 [facility] -albuteroL 2-27 mL every 4 ity of 0.5 mg-3 00:00: (four) [place] mg(2.5 mg 00 hours as Medica l base)/3 mL needed for [facility] nebulizer Wheezing. solution SERTraline 2021-06 Yes [id number] 200mg Take 2 [facility] 100 mg 2-27 7 tablets by ity of tablet 00:00: mouth in [place] 00 the Medical morning. Branch QUEtiapine 2021-06 Yes [id number] 200mg Take 1 [facility] 200 mg 2-27 7 tablet by ity of tablet 00:00: mouth at [place] 00 bedtime. Medical Branch proMETHazin 2021-06 Yes [id number] 25mg Take 1 [facility] e 25 mg 2-27 tablet by ity of tablet 00:00: mouth [place] 00 every 4 Medical (four) Branch hours as needed for N/V alternatin g with Ondansetro n. ondansetron 2021-06 Yes [id number] 8mg Take 1 [facility] 8 mg 2-27 tablet by ity of disintegrat 00:00: mouth [place] ing tablet 00 every 12 Medic al (twelve) Branch hours as needed for Nausea and Vomiting (N/V). esomeprazol 2021-06 Yes [id number] 40mg Take 1 [facility] e 40 mg 2-27 capsule by ity of capsule 00:00: mouth [place] 00 daily with Medical breakfast. Branch atorvastati 2021-06 Yes [id number] 20mg Take 1 [facility] n 20 mg 2-27 tablet by ity of tablet 00:00: mouth at [place] 00 bedtime. Medical Branch sumatriptan 2021-06 Yes [id number] 100mg Take 1 [facility] 100 mg 2-27 tablet by ity of tablet 00:00: mouth as [place] 00 needed for Medical Migraine. Branch loperamide 2021-06 Yes [id number] 2mg Take 1 [facility] (IMODIUM 2-27 capsule by ity o f A-D) 2 mg 00:00: mouth 3 [place] capsule 00 (three) Medical times Branch daily as needed for Diarrhea. ipratropium 2021-06 Yes [id number] 3mL Inhale 3 [facility] -albuteroL 2-27 mL every 4 ity of 0.5 mg-3 00:00: (four) [place] mg(2.5 mg 00 hours as Medica l base)/3 mL needed for [facility] nebulizer Wheezing. solution SERTraline 2021-06 Yes [id number] 200mg Take 2 [facility] 100 mg 2-27 7 tablets by ity of tablet 00:00: mouth in [place] 00 the Medical morning. Branch QUEtiapine 2021-06 Yes [id number] 200mg Take 1 [facility] 200 mg 2-27 7 tablet by ity of tablet 00:00: mouth at [place] 00 bedtime. Medical Branch proMETHazin 2021-06 Yes [id number] 25mg Take 1 [facility] e 25 mg 2-27 tablet by ity of tablet 00:00: mouth [place] 00 every 4 Medical (four) Branch hours as needed for N/V alternatin g with Ondansetro n. ondansetron 2021-06 Yes [id number] 8mg Take 1 [facility] 8 mg 2-27 tablet by ity of disintegrat 00:00: mouth [place] ing tablet 00 every 12 Medic al (twelve) Branch hours as needed for Nausea and Vomiting (N/V). esomeprazol 2021-06 Yes [id number] 40mg Take 1 [facility] e 40 mg 2-27 capsule by ity of capsule 00:00: mouth [place] 00 daily with Medical breakfast. Branch atorvastati 2021-06 Yes [id number] 20mg Take 1 [facility] n 20 mg 2-27 tablet by ity of tablet 00:00: mouth at [place] 00 bedtime. Medical Branch sumatriptan 2021-06 Yes [id number] 100mg Take 1 [facility] 100 mg 2-27 tablet by ity of tablet 00:00: mouth as [place] 00 needed for Medical Migraine. Branch loperamide 2021-06 Yes [id number] 2mg Take 1 [facility] (IMODIUM 2-27 capsule by ity o f A-D) 2 mg 00:00: mouth 3 [place] capsule 00 (three) Medical times Branch daily as needed for Diarrhea. ipratropium 2021-06 Yes [id number] 3mL Inhale 3 [facility] -albuteroL 2-27 mL every 4 ity of 0.5 mg-3 00:00: (four) [place] mg(2.5 mg 00 hours as Medica l base)/3 mL needed for [facility] nebulizer Wheezing. solution SERTraline 2021-06 Yes [id number] 200mg Take 2 [facility] 100 mg 2-27 7 tablets by ity of tablet 00:00: mouth in [place] 00 the Medical morning. Branch QUEtiapine 2021-06 Yes [id number] 200mg Take 1 [facility] 200 mg 2-27 7 tablet by ity of tablet 00:00: mouth at [place] 00 bedtime. Medical Branch proMETHazin 2021-06 Yes [id number] 25mg Take 1 [facility] e 25 mg 2-27 tablet by ity of tablet 00:00: mouth [place] 00 every 4 Medical (four) Branch hours as needed for N/V alternatin g with Ondansetro n. ondansetron 2021-06 Yes [id number] 8mg Take 1 [facility] 8 mg 2-27 tablet by ity of disintegrat 00:00: mouth [place] ing tablet 00 every 12 Medic al (twelve) Branch hours as needed for Nausea and Vomiting (N/V). esomeprazol 2021-06 Yes [id number] 40mg Take 1 [facility] e 40 mg 2-27 capsule by ity of capsule 00:00: mouth [place] 00 daily with Medical breakfast. Branch atorvastati 2021-06 Yes [id number] 20mg Take 1 [facility] n 20 mg 2-27 tablet by ity of tablet 00:00: mouth at [place] 00 bedtime. Medical Branch sumatriptan 2021-06 Yes [id number] 100mg Take 1 [facility] 100 mg 2-27 tablet by ity of tablet 00:00: mouth as [place] 00 needed for Medical Migraine. Branch loperamide 2021-06 Yes [id number] 2mg Take 1 [facility] (IMODIUM 2-27 capsule by ity o f A-D) 2 mg 00:00: mouth 3 [place] capsule 00 (three) Medical times Branch daily as needed for Diarrhea. ipratropium 2021-06 Yes [id number] 3mL Inhale 3 [facility] -albuteroL 2-27 mL every 4 ity of 0.5 mg-3 00:00: (four) [place] mg(2.5 mg 00 hours as Medica l base)/3 mL needed for [facility] nebulizer Wheezing. solution SERTraline 2021-06 Yes [id number] 200mg Take 2 [facility] 100 mg 2-27 7 tablets by ity of tablet 00:00: mouth in [place] 00 the Medical morning. Branch QUEtiapine 2021-06 Yes [id number] 200mg Take 1 [facility] 200 mg 2-27 7 tablet by ity of tablet 00:00: mouth at [place] 00 bedtime. Medical Branch proMETHazin 2021-06 Yes [id number] 25mg Take 1 [facility] e 25 mg 2-27 tablet by ity of tablet 00:00: mouth [place] 00 every 4 Medical (four) Branch hours as needed for N/V alternatin g with Ondansetro n. ondansetron 2021-06 Yes [id number] 8mg Take 1 [facility] 8 mg 2-27 tablet by ity of disintegrat 00:00: mouth [place] ing tablet 00 every 12 Medic al (twelve) Branch hours as needed for Nausea and Vomiting (N/V). esomeprazol 2021-06 Yes [id number] 40mg Take 1 [facility] e 40 mg 2-27 capsule by ity of capsule 00:00: mouth [place] 00 daily with Medical breakfast. Branch atorvastati 2021-06 Yes [id number] 20mg Take 1 [facility] n 20 mg 2-27 tablet by ity of tablet 00:00: mouth at [place] 00 bedtime. Medical Branch sumatriptan 2021-06 Yes [id number] 100mg Take 1 [facility] 100 mg 2-27 tablet by ity of tablet 00:00: mouth as [place] 00 needed for Medical Migraine. Branch loperamide 2021-06 Yes [id number] 2mg Take 1 [facility] (IMODIUM 2-27 capsule by ity o f A-D) 2 mg 00:00: mouth 3 [place] capsule 00 (three) Medical times Branch daily as needed for Diarrhea. ipratropium 2021-06 Yes [id number] 3mL Inhale 3 [facility] -albuteroL 2-27 mL every 4 ity of 0.5 mg-3 00:00: (four) [place] mg(2.5 mg 00 hours as Medica l base)/3 mL needed for [facility] nebulizer Wheezing. solution SERTraline 2021-06 Yes [id number] 200mg Take 2 [facility] 100 mg 2-27 7 tablets by [facility] of tablet 00:00: mouth in [place] 00 the Medical morning. Branch QUEtiapine 2021-06 Yes [id number] 200mg Take 1 [facility] 200 mg 2-27 7 tablet by [facility] of tablet 00:00: mouth at [place] 00 bedtime. Medical Branch proMETHazin 2021-06 Yes [id number] 25mg Take 1 [facility] e 25 mg 2-27 tablet by [facility] of tablet 00:00: mouth [place] 00 every 4 Medical (four) Branch hours as needed for N/V alternatin g with Ondansetro n. ondansetron 2021-06 Yes [id number] 8mg Take 1 [facility] 8 mg 2-27 tablet by it[facility] of disintegrat 00:00: mouth [place] ing tablet 00 every 12 Medic al (twelve) Branch hours as needed for Nausea and Vomiting (N/V). esomeprazol 2021-06 Yes [id number] 40mg Take 1 [facility] e 40 mg 2-27 capsule by [facility] of capsule 00:00: mouth [place] 00 daily with Medical breakfast. Branch atorvastati 2021-06 Yes [id number] 20mg Take 1 [facility] n 20 mg 2-27 tablet by [facility] of tablet 00:00: mouth at [place] 00 bedtime. Medical Branch sumatriptan 2021-06 Yes [id number] 100mg Take 1 [facility] 100 mg 2-27 tablet by [facility] of tablet 00:00: mouth as [place] 00 needed for Medical Migraine. Branch loperamide 2021-06 Yes [id number] 2mg Take 1 [facility] (IMODIUM 2-27 capsule by ity o f A-D) 2 mg 00:00: mouth 3 [place] capsule 00 (three) Medical times Branch daily as needed for Diarrhea. ipratropium 2021-06 Yes [id number] 3mL Inhale 3 [facility] -albuteroL 2-27 mL every 4 ity of 0.5 mg-3 00:00: (four) [place] mg(2.5 mg 00 hours as Medica l base)/3 mL needed for [facility] nebulizer Wheezing. solution SERTraline 2021-06 Yes [id number] 200mg Take 2 [facility] 100 mg 2-27 7 tablets by it[facility] of tablet 00:00: mouth in [place] 00 the Medical morning. Branch QUEtiapine 2021-06 Yes [id number] 200mg Take 1 [facility] 200 mg 2-27 7 tablet by ity of tablet 00:00: mouth at [place] 00 bedtime. Medical Branch proMETHazin 2021-06 Yes [id number] 25mg Take 1 [facility] e 25 mg 2-27 tablet by ity of tablet 00:00: mouth [place] 00 every 4 Medical (four) Branch hours as needed for N/V alternatin g with Ondansetro n. ondansetron 2021-06 Yes [id number] 8mg Take 1 [facility] 8 mg 2-27 tablet by ity of disintegrat 00:00: mouth [place] ing tablet 00 every 12 Medic al (twelve) Branch hours as needed for Nausea and Vomiting (N/V). esomeprazol 2021-06 Yes [id number] 40mg Take 1 [facility] e 40 mg 2-27 capsule by ity of capsule 00:00: mouth [place] 00 daily with Medical breakfast. Branch atorvastati 2021-06 Yes [id number] 20mg Take 1 [facility] n 20 mg 2-27 tablet by ity of tablet 00:00: mouth at [place] 00 bedtime. Medical Branch sumatriptan 2021-06 Yes [id number] 100mg Take 1 [facility] 100 mg 2-27 tablet by it[facility] of tablet 00:00: mouth as [place] 00 needed for Medical Migraine. Branch loperamide 2021-06 Yes [id number] 2mg Take 1 [facility] (IMODIUM 2-27 capsule by ity o f A-D) 2 mg 00:00: mouth 3 [place] capsule 00 (three) Medical times Branch daily as needed for Diarrhea. ipratropium 2021-06 Yes [id number] 3mL Inhale 3 [facility] -albuteroL 2-27 mL every 4 ity of 0.5 mg-3 00:00: (four) [place] mg(2.5 mg 00 hours as Medica l base)/3 mL needed for [facility] nebulizer Wheezing. solution SERTraline 2021-06 Yes [id number] 200mg Take 2 [facility] 100 mg 2-27 7 tablets by ity of tablet 00:00: mouth in [place] 00 the Medical morning. Branch QUEtiapine 2021-06 Yes [id number] 200mg Take 1 [facility] 200 mg 2-27 7 tablet by ity of tablet 00:00: mouth at [place] 00 bedtime. Medical Branch proMETHazin 2021-06 Yes [id number] 25mg Take 1 [facility] e 25 mg 2-27 tablet by ity of tablet 00:00: mouth [place] 00 every 4 Medical (four) Branch hours as needed for N/V alternatin g with Ondansetro n. ondansetron 2021-06 Yes [id number] 8mg Take 1 [facility] 8 mg 2-27 tablet by ity of disintegrat 00:00: mouth [place] ing tablet 00 every 12 Medic al (twelve) Branch hours as needed for Nausea and Vomiting (N/V). esomeprazol 2021-06 Yes [id number] 40mg Take 1 [facility] e 40 mg 2-27 capsule by ity of capsule 00:00: mouth [place] 00 daily with Medical breakfast. Branch atorvastati 2021-06 Yes [id number] 20mg Take 1 [facility] n 20 mg 2-27 tablet by ity of tablet 00:00: mouth at [place] 00 bedtime. Medical Branch sumatriptan 2021-06 Yes [id number] 100mg Take 1 [facility] 100 mg 2-27 tablet by ity of tablet 00:00: mouth as [place] 00 needed for Medical Migraine. Branch loperamide 2021-06 Yes [id number] 2mg Take 1 [facility] (IMODIUM 2-27 capsule by ity o f A-D) 2 mg 00:00: mouth 3 [place] capsule 00 (three) Medical times Branch daily as needed for Diarrhea. ipratropium 2021-06 Yes [id number] 3mL Inhale 3 [facility] -albuteroL 2-27 mL every 4 ity of 0.5 mg-3 00:00: (four) [place] mg(2.5 mg 00 hours as Medica l base)/3 mL needed for [facility] nebulizer Wheezing. solution SERTraline 2021-06 Yes [id number] 200mg Take 2 [facility] 100 mg 2-27 7 tablets by ity of tablet 00:00: mouth in [place] 00 the Medical morning. Branch QUEtiapine 2021-06 Yes [id number] 200mg Take 1 [facility] 200 mg 2-27 7 tablet by ity of tablet 00:00: mouth at [place] 00 bedtime. Medical Branch proMETHazin 2021-06 Yes [id number] 25mg Take 1 [facility] e 25 mg 2-27 tablet by ity of tablet 00:00: mouth [place] 00 every 4 Medical (four) Branch hours as needed for N/V alternatin g with Ondansetro n. ondansetron 2021-06 Yes [id number] 8mg Take 1 [facility] 8 mg 2-27 tablet by ity of disintegrat 00:00: mouth [place] ing tablet 00 every 12 Medic al (twelve) Branch hours as needed for Nausea and Vomiting (N/V). esomeprazol 2021-06 Yes [id number] 40mg Take 1 [facility] e 40 mg 2-27 capsule by ity of capsule 00:00: mouth [place] 00 daily with Medical breakfast. Branch atorvastati 2021-06 Yes [id number] 20mg Take 1 [facility] n 20 mg 2-27 tablet by ity of tablet 00:00: mouth at [place] 00 bedtime. Medical Branch sumatriptan 2021-06 Yes [id number] 100mg Take 1 [facility] 100 mg 2-27 tablet by ity of tablet 00:00: mouth as [place] 00 needed for Medical Migraine. Branch loperamide 2021-06 Yes [id number] 2mg Take 1 [facility] (IMODIUM 2-27 capsule by ity o f A-D) 2 mg 00:00: mouth 3 [place] capsule 00 (three) Medical times Branch daily as needed for Diarrhea. SERTraline 2021-06 Yes [id number] 200mg Take 2 [facility] 100 mg 2-27 7 tablets by ity of tablet 00:00: mouth in [place] 00 the Medical morning. Branch QUEtiapine 2021-06 Yes [id number] 200mg Take 1 [facility] 200 mg 2-27 7 tablet by ity of tablet 00:00: mouth at [place] 00 bedtime. Medical Branch budesonide- 2021-06 Yes [id number] 2{puff} Inhale 2 [facility] formoteroL 2-27 Puffs in ity o f (SYMBICORT) 00:00: the [place] 160-4.5 00 morning Medical mcg/actuati and 2 Branch on inhaler Puffs in the evening. SERTraline 2021-06 Yes [id number] 200mg Take 2 [facility] 100 mg 2-27 7 tablets by ity of tablet 00:00: mouth in [place] 00 the Medical morning. Branch QUEtiapine 2021-06 Yes [id number] 200mg Take 1 [facility] 200 mg 2-27 7 tablet by ity of tablet 00:00: mouth at [place] 00 bedtime. Medical Branch albuterol 2021-06 Yes [id number] 2{puff} Inhale 2 [facility] 90 2-27 Puffs ity of mcg/actuati 00:00: every 6 [place] as on inhaler 00 (six) Medical hours as Branch needed for Wheezing or Shortness of Breath. proMETHazin 2021-06 Yes 25mg Take 1 [facility] e 25 mg 2-27 tablet by ity of tablet 00:00: mouth [place] 00 every 4 Medical (four) Branch hours as needed for N/V alternatin g with Ondansetro n. ondansetron 2021-06 Yes 8mg Take 1 [facility] 8 mg 2-27 tablet by ity of disintegrat 00:00: mouth [place] ing tablet 00 every 12 Medic al (twelve) Branch hours as needed for Nausea and Vomiting (N/V). esomeprazol 2021-06 Yes 40mg Take 1 [facility] e 40 mg 2-27 capsule by ity of capsule 00:00: mouth [place] 00 daily with Medical breakfast. Branch atorvastati 2021-06 Yes [id number] 20mg Take 1 [facility] n 20 mg 2-27 tablet by ity of tablet 00:00: mouth at [place] 00 bedtime. Medical Branch sumatriptan 2021-06 Yes [id number] 100mg Take 1 [facility] 100 mg 2-27 tablet by ity of tablet 00:00: mouth as [place] 00 needed for Medical Migraine. Branch loperamide 2021-06 Yes 2mg Take 1 [facility] (IMODIUM 2-27 capsule by ity o f A-D) 2 mg 00:00: mouth 3 [place] capsule 00 (three) Medical times Branch daily as needed for Diarrhea. proMETHazin 2021-06 Yes 25mg Take 1 [facility] e 25 mg 2-27 tablet by ity of tablet 00:00: mouth [place] 00 every 4 Medical (four) Branch hours as needed for N/V alternatin g with Ondansetro n. ondansetron 2021-06 Yes 8mg Take 1 [facility] 8 mg 2-27 tablet by ity of disintegrat 00:00: mouth [place] ing tablet 00 every 12 Medic al (twelve) Branch hours as needed for Nausea and Vomiting (N/V). SERTraline 2021-06 Yes [id number] 200mg Take 2 [facility] 100 mg 2-27 7 tablets by ity of tablet 00:00: mouth in [place] 00 the Medical morning. Branch esomeprazol 2021-06 Yes 40mg Take 1 [facility] e 40 mg 2-27 capsule by ity of capsule 00:00: mouth [place] 00 daily with Medical breakfast. Branch QUEtiapine 2021-06 Yes [id number] 200mg Take 1 [facility] 200 mg 2-27 7 tablet by ity of tablet 00:00: mouth at [place] 00 bedtime. Medical Branch proMETHazin 2021-06 Yes [id number] 25mg Take 1 [facility] e 25 mg 2-27 tablet by ity of tablet 00:00: mouth [place] 00 every 4 Medical (four) Branch hours as needed for N/V alternatin g with Ondansetro n. ondansetron 2021-06 Yes [id number] 8mg Take 1 [facility] 8 mg 2-27 tablet by ity of disintegrat 00:00: mouth [place] ing tablet 00 every 12 Medic al (twelve) Branch hours as needed for Nausea and Vomiting (N/V). esomeprazol 2021-06 Yes [id number] 40mg Take 1 [facility] e 40 mg 2-27 capsule by ity of capsule 00:00: mouth [place] 00 daily with Medical breakfast. Branch atorvastati 2021-06 Yes [id number] 20mg Take 1 [facility] n 20 mg 2-27 tablet by ity of tablet 00:00: mouth at [place] 00 bedtime. Medical Branch sumatriptan 2021-06 Yes [id number] 100mg Take 1 [facility] 100 mg 2-27 tablet by ity of tablet 00:00: mouth as [place] 00 needed for Medical Migraine. Branch loperamide 2021-06 Yes [id number] 2mg Take 1 [facility] (IMODIUM 2-27 capsule by ity o f A-D) 2 mg 00:00: mouth 3 [place] capsule 00 (three) Medical times Branch daily as needed for Diarrhea. atorvastati 2021-06 Yes [id number] 20mg Take 1 [facility] n 20 mg 2-27 tablet by ity of tablet 00:00: mouth at [place] 00 bedtime. Medical Branch sumatriptan 2021-06 Yes [id number] 100mg Take 1 [facility] 100 mg 2-27 tablet by ity of tablet 00:00: mouth as [place] 00 needed for Medical Migraine. Branch loperamide 2021-06 Yes [id number] 2mg Take 1 [facility] (IMODIUM 2-27 capsule by ity o f A-D) 2 mg 00:00: mouth 3 [place] capsule 00 (three) Medical times Branch daily as needed for Diarrhea. SERTraline 2021-06 Yes [id number] 200mg Take 2 [facility] 100 mg 2-27 7 tablets by ity of tablet 00:00: mouth in [place] 00 the Medical morning. Branch QUEtiapine 2021-06 Yes [id number] 200mg Take 1 [facility] 200 mg 2-27 7 tablet by ity of tablet 00:00: mouth at [place] 00 bedtime. Medical Branch proMETHazin 2021-06 Yes [id number] 25mg Take 1 [facility] e 25 mg 2-27 tablet by ity of tablet 00:00: mouth [place] 00 every 4 Medical (four) Branch hours as needed for N/V alternatin g with Ondansetro n. ondansetron 2021-06 Yes [id number] 8mg Take 1 [facility] 8 mg 2-27 tablet by ity of disintegrat 00:00: mouth [place] ing tablet 00 every 12 Medic al (twelve) Branch hours as needed for Nausea and Vomiting (N/V). esomeprazol 2021-06 Yes [id number] 40mg Take 1 [facility] e 40 mg 2-27 capsule by ity of capsule 00:00: mouth [place] 00 daily with Medical breakfast. Branch atorvastati 2021-06 Yes [id number] 20mg Take 1 [facility] n 20 mg 2-27 tablet by ity of tablet 00:00: mouth at [place] 00 bedtime. Medical Branch sumatriptan 2021-06 Yes [id number] 100mg Take 1 [facility] 100 mg 2-27 tablet by ity of tablet 00:00: mouth as [place] 00 needed for Medical Migraine. Branch loperamide 2021-06 Yes [id number] 2mg Take 1 [facility] (IMODIUM 2-27 capsule by ity o f A-D) 2 mg 00:00: mouth 3 [place] capsule 00 (three) Medical times Branch daily as needed for Diarrhea. SERTraline 2021-06 Yes [id number] 200mg Take 2 [facility] 100 mg 2-27 7 tablets by ity of tablet 00:00: mouth in [place] 00 the Medical morning. Branch QUEtiapine 2021-06 Yes [id number] 200mg Take 1 [facility] 200 mg 2-27 7 tablet by ity of tablet 00:00: mouth at [place] 00 bedtime. Medical Branch proMETHazin 2021-06 Yes [id number] 25mg Take 1 [facility] e 25 mg 2-27 tablet by ity of tablet 00:00: mouth [place] 00 every 4 Medical (four) Branch hours as needed for N/V alternatin g with Ondansetro n. ondansetron 2021-06 Yes 8mg Take 1 [facility] 8 mg 2-27 tablet by ity of disintegrat 00:00: mouth [place] ing tablet 00 every 12 Medic al (twelve) Branch hours as needed for Nausea and Vomiting (N/V). atorvastati 2021-06 Yes [id number] 20mg Take 1 [facility] n 20 mg 2-27 tablet by ity of tablet 00:00: mouth at [place] 00 bedtime. Medical Branch sumatriptan 2021-06 Yes [id number] 100mg Take 1 [facility] 100 mg 2-27 tablet by ity of tablet 00:00: mouth as [place] 00 needed for Medical Migraine. Branch loperamide 2021-06 Yes 2mg Take 1 [facility] (IMODIUM 2-27 capsule by ity o f A-D) 2 mg 00:00: mouth 3 [place] capsule 00 (three) Medical times Branch daily as needed for Diarrhea. proMETHazin 2021-06 Yes 25mg Take 1 [facility] e 25 mg 2-27 tablet by ity of tablet 00:00: mouth [place] 00 every 4 Medical (four) Branch hours as needed for N/V alternatin g with Ondansetro n. ondansetron 2021-06 Yes 8mg Take 1 [facility] 8 mg 2-27 tablet by ity of disintegrat 00:00: mouth [place] ing tablet 00 every 12 Medic al (twelve) Branch hours as needed for Nausea and Vomiting (N/V). sumatriptan 2021-06 Yes [id number] 100mg Take 1 [facility] 100 mg 2-27 tablet by ity of tablet 00:00: mouth as [place] 00 needed for Medical Migraine. Branch loperamide 2021-06 Yes 2mg Take 1 [facility] (IMODIUM 2-27 capsule by ity o f A-D) 2 mg 00:00: mouth 3 [place] capsule 00 (three) Medical times Branch daily as needed for Diarrhea. proMETHazin 2021-06 Yes 25mg Take 1 [facility] e 25 mg 2-27 tablet by ity of tablet 00:00: mouth [place] 00 every 4 Medical (four) Branch hours as needed for N/V alternatin g with Ondansetro n. ondansetron 2021-06 Yes [id number] 8mg Take 1 [facility] 8 mg 2-27 tablet by ity of disintegrat 00:00: mouth [place] ing tablet 00 every 12 Medic al (twelve) Branch hours as needed for Nausea and Vomiting (N/V). sumatriptan 2021-06 Yes [id number] 100mg Take 1 [facility] 100 mg 2-27 tablet by ity of tablet 00:00: mouth as [place] 00 needed for Medical Migraine. Branch loperamide 2021-06 Yes 2mg Take 1 [facility] (IMODIUM 2-27 capsule by ity o f A-D) 2 mg 00:00: mouth 3 [place] capsule 00 (three) Medical times Branch daily as needed for Diarrhea. proMETHazin 2021-06 Yes 25mg Take 1 [facility] e 25 mg 2-27 tablet by ity of tablet 00:00: mouth [place] 00 every 4 Medical (four) Branch hours as needed for N/V alternatin g with Ondansetro n. ondansetron 2021-06 Yes 8mg Take 1 [facility] 8 mg 2-27 tablet by ity of disintegrat 00:00: mouth [place] ing tablet 00 every 12 Medic al (twelve) Branch hours as needed for Nausea and Vomiting (N/V). sumatriptan 2021-06 Yes [id number] 100mg Take 1 [facility] 100 mg 2-27 tablet by ity of tablet 00:00: mouth as [place] 00 needed for Medical Migraine. Branch loperamide 2021-06 Yes 2mg Take 1 [facility] (IMODIUM 2-27 capsule by ity o f A-D) 2 mg 00:00: mouth 3 [place] capsule 00 (three) Medical times Branch daily as needed for Diarrhea. proMETHazin 2021-06 Yes [id number] 25mg Take 1 [facility] e 25 mg 2-27 tablet by ity of tablet 00:00: mouth [place] 00 every 4 Medical (four) Branch hours as needed for N/V alternatin g with Ondansetro n. ondansetron 2021-06 Yes 8mg Take 1 [facility] 8 mg 2-27 tablet by ity of disintegrat 00:00: mouth [place] ing tablet 00 every 12 Medic al (twelve) Branch hours as needed for Nausea and Vomiting (N/V). sumatriptan 2021-06 Yes [id number] 100mg Take 1 [facility] 100 mg 2-27 tablet by ity of tablet 00:00: mouth as [place] 00 needed for Medical Migraine. Branch loperamide 2021-06 Yes [id number] 2mg Take 1 [facility] (IMODIUM 2-27 capsule by ity o f A-D) 2 mg 00:00: mouth 3 [place] capsule 00 (three) Medical times Branch daily as needed for Diarrhea. ipratropium 2021-06 Yes [id number] 3mL Inhale 3 [facility] -albuteroL 2-27 mL every 4 ity of 0.5 mg-3 00:00: (four) [place] mg(2.5 mg 00 hours as Medica l base)/3 mL needed for [facility] nebulizer Wheezing. solution SERTraline 2021-06 Yes [id number] 200mg Take 2 [facility] 100 mg 2-27 7 tablets by ity of tablet 00:00: mouth in [place] 00 the Medical morning. Branch proMETHazin 2021-06 Yes [id number] 25mg Take 1 [facility] e 25 mg 2-27 tablet by ity of tablet 00:00: mouth [place] 00 every 4 Medical (four) Branch hours as needed for N/V alternatin g with Ondansetro n. ondansetron 2021-06 Yes [id number] 8mg Take 1 [facility] 8 mg 2-27 tablet by ity of disintegrat 00:00: mouth [place] ing tablet 00 every 12 Medic al (twelve) Branch hours as needed for Nausea and Vomiting (N/V). sumatriptan 2021-06 Yes [id number] 100mg Take 1 [facility] 100 mg 2-27 tablet by ity of tablet 00:00: mouth as [place] 00 needed for Medical Migraine. Branch loperamide 2021-06 Yes [id number] 2mg Take 1 [facility] (IMODIUM 2-27 capsule by ity o f A-D) 2 mg 00:00: mouth 3 [place] capsule 00 (three) Medical times Branch daily as needed for Diarrhea. QUEtiapine 2021-06 Yes [id number] 200mg Take 1 [facility] 200 mg 2-27 7 tablet by ity of tablet 00:00: mouth at [place] 00 bedtime. Medical Branch budesonide- 2021-06 Yes [id number] 2{puff} Inhale 2 [facility] formoteroL 2-27 Puffs in ity o f (SYMBICORT) 00:00: the [place] 160-4.5 00 morning Medical mcg/actuati and 2 Branch on inhaler Puffs in the evening. proMETHazin 2021-06 Yes 25mg Take 1 [facility] e 25 mg 2-27 tablet by ity of tablet 00:00: mouth [place] 00 every 4 Medical (four) Branch hours as needed for N/V alternatin g with Ondansetro n. ondansetron 2021-06 Yes 8mg Take 1 [facility] 8 mg 2-27 tablet by ity of disintegrat 00:00: mouth [place] ing tablet 00 every 12 Medic al (twelve) Branch hours as needed for Nausea and Vomiting (N/V). loperamide 2021-06 Yes 2mg Take 1 [facility] (IMODIUM 2-27 capsule by ity o f A-D) 2 mg 00:00: mouth 3 [place] capsule 00 (three) Medical times Branch daily as needed for Diarrhea. albuterol 2021-06 Yes [id number] 2{puff} Inhale 2 [facility] 90 2-27 Puffs ity of mcg/actuati 00:00: every 6 [place] as on inhaler 00 (six) Medical hours as Branch needed for Wheezing or Shortness of Breath. proMETHazin 2021-06 Yes 25mg Take 1 [facility] e 25 mg 2-27 tablet by ity of tablet 00:00: mouth [place] 00 every 4 Medical (four) Branch hours as needed for N/V alternatin g with Ondansetro n. ondansetron 2021-06 Yes 8mg Take 1 [facility] 8 mg 2-27 tablet by ity of disintegrat 00:00: mouth [place] ing tablet 00 every 12 Medic al (twelve) Branch hours as needed for Nausea and Vomiting (N/V). proMETHazin 2021-06 Yes 25mg Take 1 [facility] e 25 mg 2-27 tablet by ity of tablet 00:00: mouth [place] 00 every 4 Medical (four) Branch hours as needed for N/V alternatin g with Ondansetro n. ondansetron 2021-06 Yes 8mg Take 1 [facility] 8 mg 2-27 tablet by ity of disintegrat 00:00: mouth [place] ing tablet 00 every 12 Medic al (twelve) Branch hours as needed for Nausea and Vomiting (N/V). loperamide 2021-06 Yes 2mg Take 1 [facility] (IMODIUM 2-27 capsule by ity o f A-D) 2 mg 00:00: mouth 3 [place] capsule 00 (three) Medical times Branch daily as needed for Diarrhea. esomeprazol 2021-06 Yes 40mg Take 1 [facility] e 40 mg 2-27 capsule by ity of capsule 00:00: mouth [place] 00 daily with Medical breakfast. Branch atorvastati 2021-06 Yes [id number] 20mg Take 1 [facility] n 20 mg 2-27 tablet by ity of tablet 00:00: mouth at [place] 00 bedtime. Medical Branch proMETHazin 2021-06 Yes 25mg Take 1 [facility] e 25 mg 2-27 tablet by ity of tablet 00:00: mouth [place] 00 every 4 Medical (four) Branch hours as needed for N/V alternatin g with Ondansetro n. ondansetron 2021-06 Yes 8mg Take 1 [facility] 8 mg 2-27 tablet by ity of disintegrat 00:00: mouth [place] ing tablet 00 every 12 Medic al (twelve) Branch hours as needed for Nausea and Vomiting (N/V). loperamide 2021-06 Yes 2mg Take 1 [facility] (IMODIUM 2-27 capsule by ity o f A-D) 2 mg 00:00: mouth 3 [place] capsule 00 (three) Medical times Branch daily as needed for Diarrhea. sumatriptan 2021-06 Yes [id number] 100mg Take 1 [facility] 100 mg 2-27 tablet by ity of tablet 00:00: mouth as [place] 00 needed for Medical Migraine. Branch loperamide 2021-06 Yes 2mg Take 1 [facility] (IMODIUM 2-27 capsule by ity o f A-D) 2 mg 00:00: mouth 3 [place] capsule 00 (three) Medical times Branch daily as needed for Diarrhea. proMETHazin 2021-06 Yes 25mg Take 1 [facility] e 25 mg 2-27 tablet by ity of tablet 00:00: mouth [place] 00 every 4 Medical (four) Branch hours as needed for N/V alternatin g with Ondansetro n. ondansetron 2021-06 Yes 8mg Take 1 [facility] 8 mg 2-27 tablet by ity of disintegrat 00:00: mouth [place] ing tablet 00 every 12 Medic al (twelve) Branch hours as needed for Nausea and Vomiting (N/V). loperamide 2021-06 Yes 2mg Take 1 [facility] (IMODIUM 2-27 capsule by ity o f A-D) 2 mg 00:00: mouth 3 [place] capsule 00 (three) Medical times Branch daily as needed for Diarrhea. proMETHazin 2021-06 Yes 25mg Take 1 [facility] e 25 mg 2-27 tablet by ity of tablet 00:00: mouth [place] 00 every 4 Medical (four) Branch hours as needed for N/V alternatin g with Ondansetro n. ondansetron 2021-06 Yes 8mg Take 1 [facility] 8 mg 2-27 tablet by ity of disintegrat 00:00: mouth [place] ing tablet 00 every 12 Medic al (twelve) Branch hours as needed for Nausea and Vomiting (N/V). loperamide 2021-06 Yes 2mg Take 1 [facility] (IMODIUM 2-27 capsule by ity o f A-D) 2 mg 00:00: mouth 3 [place] capsule 00 (three) Medical times Branch daily as needed for Diarrhea. ipratropium 2021-06 Yes [id number] 3mL Inhale 3 [facility] -albuteroL 2-27 mL every 4 ity of 0.5 mg-3 00:00: (four) [place] mg(2.5 mg 00 hours as Medica l base)/3 mL needed for [facility] nebulizer Wheezing. solution SERTraline 2021-06 Yes [id number] 200mg Take 2 [facility] 100 mg 2-27 7 tablets by ity of tablet 00:00: mouth in [place] 00 the Medical morning. Branch proMETHazin 2021-06 Yes 25mg Take 1 [facility] e 25 mg 2-27 tablet by ity of tablet 00:00: mouth [place] 00 every 4 Medical (four) Branch hours as needed for N/V alternatin g with Ondansetro n. ondansetron 2021-06 Yes 8mg Take 1 [facility] 8 mg 2-27 tablet by ity of disintegrat 00:00: mouth [place] ing tablet 00 every 12 Medic al (twelve) Branch hours as needed for Nausea and Vomiting (N/V). loperamide 2021-06 Yes 2mg Take 1 [facility] (IMODIUM 2-27 capsule by ity o f A-D) 2 mg 00:00: mouth 3 [place] capsule 00 (three) Medical times Branch daily as needed for Diarrhea. QUEtiapine 2021-06 Yes [id number] 200mg Take 1 [facility] 200 mg 2-27 7 tablet by ity of tablet 00:00: mouth at [place] 00 bedtime. Medical Branch budesonide- 2021-06 Yes [id number] 2{puff} Inhale 2 [facility] formoteroL 2-27 Puffs in ity o f (SYMBICORT) 00:00: the [place] 160-4.5 00 morning Medical mcg/actuati and 2 Branch on inhaler Puffs in the evening. albuterol 2021-06 Yes [id number] 2{puff} Inhale 2 [facility] 90 2-27 Puffs ity of mcg/actuati 00:00: every 6 [place] as on inhaler 00 (six) Medical hours as Branch needed for Wheezing or Shortness of Breath. proMETHazin 2021-06 Yes 25mg Take 1 [facility] e 25 mg 2-27 tablet by ity of tablet 00:00: mouth [place] 00 every 4 Medical (four) Branch hours as needed for N/V alternatin g with Ondansetro n. proMETHazin 2021-06 Yes 25mg Take 1 [facility] e 25 mg 2-27 tablet by ity of tablet 00:00: mouth [place] 00 every 4 Medical (four) Branch hours as needed for N/V alternatin g with Ondansetro n. ondansetron 2021-06 Yes 8mg Take 1 [facility] 8 mg 2-27 tablet by ity of disintegrat 00:00: mouth [place] ing tablet 00 every 12 Medic al (twelve) Branch hours as needed for Nausea and Vomiting (N/V). loperamide 2021-06 Yes 2mg Take 1 [facility] (IMODIUM 2-27 capsule by ity o f A-D) 2 mg 00:00: mouth 3 [place] capsule 00 (three) Medical times Branch daily as needed for Diarrhea. ondansetron 2021-06 Yes 8mg Take 1 [facility] 8 mg 2-27 tablet by ity of disintegrat 00:00: mouth [place] ing tablet 00 every 12 Medic al (twelve) Branch hours as needed for Nausea and Vomiting (N/V). esomeprazol 2021-06 Yes 40mg Take 1 [facility] e 40 mg 2-27 capsule by ity of capsule 00:00: mouth [place] 00 daily with Medical breakfast. Branch atorvastati 2021-06 Yes [id number] 20mg Take 1 [facility] n 20 mg 2-27 tablet by ity of tablet 00:00: mouth at [place] 00 bedtime. Medical Branch proMETHazin 2021-06 Yes 25mg Take 1 [facility] e 25 mg 2-27 tablet by ity of tablet 00:00: mouth [place] 00 every 4 Medical (four) Branch hours as needed for N/V alternatin g with Ondansetro n. ondansetron 2021-06 Yes 8mg Take 1 [facility] 8 mg 2-27 tablet by [facility] of disintegrat 00:00: mouth [place] ing tablet 00 every 12 Medic al (twelve) Branch hours as needed for Nausea and Vomiting (N/V). loperamide 2021-06 Yes 2mg Take 1 [facility] (IMODIUM 2-27 capsule by ity o f A-D) 2 mg 00:00: mouth 3 [place] capsule 00 (three) Medical times Branch daily as needed for Diarrhea. sumatriptan 2021-06 Yes [id number] 100mg Take 1 [facility] 100 mg 2-27 tablet by [facility] of tablet 00:00: mouth as [place] 00 needed for Medical Migraine. Branch loperamide 2021-06 Yes 2mg Take 1 [facility] (IMODIUM 2-27 capsule by ity o f A-D) 2 mg 00:00: mouth 3 [place] capsule 00 (three) Medical times Branch daily as needed for Diarrhea. proMETHazin 2021-06 Yes 25mg Take 1 [facility] e 25 mg 2-27 tablet by [facility] of tablet 00:00: mouth [place] 00 every 4 Medical (four) Branch hours as needed for N/V alternatin g with Ondansetro n. ondansetron 2021-06 Yes 8mg Take 1 [facility] 8 mg 2-27 tablet by ity of disintegrat 00:00: mouth [place] ing tablet 00 every 12 Medic al (twelve) Branch hours as needed for Nausea and Vomiting (N/V). loperamide 2021-06 Yes 2mg Take 1 [facility] (IMODIUM 2-27 capsule by ity o f A-D) 2 mg 00:00: mouth 3 [place] capsule 00 (three) Medical times Branch daily as needed for Diarrhea. proMETHazin 2021-06 Yes [id number] 25mg Take 1 [facility] e 25 mg 2-27 tablet by [facility]y of tablet 00:00: mouth [place] 00 every 4 Medical (four) Branch hours as needed for N/V alternatin g with Ondansetro n. ondansetron 2021-06 Yes [id number] 8mg Take 1 [facility] 8 mg 2-27 tablet by ity of disintegrat 00:00: mouth [place] ing tablet 00 every 12 Medic al (twelve) Branch hours as needed for Nausea and Vomiting (N/V). loperamide 2021-06 Yes 2mg Take 1 [facility] (IMODIUM 2-27 capsule by ity o f A-D) 2 mg 00:00: mouth 3 [place] capsule 00 (three) Medical times Branch daily as needed for Diarrhea. proMETHazin 2021-06 Yes 25mg Take 1 [facility] e 25 mg 2-27 tablet by [facility]y of tablet 00:00: mouth [place] 00 every 4 Medical (four) Branch hours as needed for N/V alternatin g with Ondansetro n. ondansetron 2021-06 Yes 8mg Take 1 [facility] 8 mg 2-27 tablet by ity of disintegrat 00:00: mouth [place] ing tablet 00 every 12 Medic al (twelve) Branch hours as needed for Nausea and Vomiting (N/V). loperamide 2021-06 Yes 2mg Take 1 [facility] (IMODIUM 2-27 capsule by ity o f A-D) 2 mg 00:00: mouth 3 [place] capsule 00 (three) Medical times Branch daily as needed for Diarrhea. proMETHazin 2021-06 Yes [id number] 25mg Take 1 [facility] e 25 mg 2-27 tablet by [facility] of tablet 00:00: mouth [place] 00 every 4 Medical (four) Branch hours as needed for N/V alternatin g with Ondansetro n. ondansetron 2021-06 Yes [id number] 8mg Take 1 [facility] 8 mg 2-27 tablet by ity of disintegrat 00:00: mouth [place] ing tablet 00 every 12 Medic al (twelve) Branch hours as needed for Nausea and Vomiting (N/V). loperamide 2021-06 Yes [id number] 2mg Take 1 [facility] (IMODIUM 2-27 capsule by ity o f A-D) 2 mg 00:00: mouth 3 [place] capsule 00 (three) Medical times Branch daily as needed for Diarrhea. proMETHazin 2021-06 Yes [id number] 25mg Take 1 [facility] e 25 mg 2-27 tablet by [facility] of tablet 00:00: mouth [place] 00 every 4 Medical (four) Branch hours as needed for N/V alternatin g with Ondansetro n. ondansetron 2021-06 Yes [id number] 8mg Take 1 [facility] 8 mg 2-27 tablet by ity of disintegrat 00:00: mouth [place] ing tablet 00 every 12 Medic al (twelve) Branch hours as needed for Nausea and Vomiting (N/V). loperamide 2021-06 Yes [id number] 2mg Take 1 [facility] (IMODIUM 2-27 capsule by ity o f A-D) 2 mg 00:00: mouth 3 [place] capsule 00 (three) Medical times Branch daily as needed for Diarrhea. proMETHazin 2021-06 Yes [id number] 25mg Take 1 [facility] 25 mg 2-27 tablet by [facility]y of tablet 00:00: mouth [place] 00 every 4 Medical (four) Branch hours as needed for N/V alternatin g with Ondansetro n. ondansetron 2021-06 Yes [id number] 8mg Take 1 [facility] 8 mg 2-27 tablet by ity of disintegrat 00:00: mouth [place] ing tablet 00 every 12 Medic al (twelve) Branch hours as needed for Nausea and Vomiting (N/V). loperamide 2021-06 Yes [id number] 2mg Take 1 [facility] (IMODIUM 2-27 capsule by ity o f A-D) 2 mg 00:00: mouth 3 [place] capsule 00 (three) Medical times Branch daily as needed for Diarrhea. proMETHazin 2021-06 Yes [id number] 25mg Take 1 [facility] e 25 mg 2-27 tablet by [facility]y of tablet 00:00: mouth [place] 00 every 4 Medical (four) Branch hours as needed for N/V alternatin g with Ondansetro n. ondansetron 2021-06 Yes [id number] 8mg Take 1 [facility] 8 mg 2-27 tablet by ity of disintegrat 00:00: mouth [place] ing tablet 00 every 12 Medic al (twelve) Branch hours as needed for Nausea and Vomiting (N/V). loperamide 2021-06 Yes 2mg Take 1 [facility] (IMODIUM 2-27 capsule by ity o f A-D) 2 mg 00:00: mouth 3 [place] capsule 00 (three) Medical times Branch daily as needed for Diarrhea. proMETHazin 2021-06 Yes 25mg Take 1 [facility] e 25 mg 2-27 tablet by [facility] of tablet 00:00: mouth [place] 00 every 4 Medical (four) Branch hours as needed for N/V alternatin g with Ondansetro n. ipratropium 2021-06 Yes [id number] 3mL Inhale 3 [facility] -albuteroL 2-27 mL every 4 ity of 0.5 mg-3 00:00: (four) [place] mg(2.5 mg 00 hours as Medica l base)/3 mL needed for [facility] nebulizer Wheezing. solution ondansetron 2021-06 Yes 8mg Take 1 [facility] 8 mg 2-27 tablet by ity of disintegrat 00:00: mouth [place] ing tablet 00 every 12 Medic al (twelve) Branch hours as needed for Nausea and Vomiting (N/V). loperamide 2021-06 Yes 2mg Take 1 [facility] (IMODIUM 2-27 capsule by ity o f A-D) 2 mg 00:00: mouth 3 [place] capsule 00 (three) Medical times Branch daily as needed for Diarrhea. SERTraline 2021-06 Yes [id number] 200mg Take 2 [facility] 100 mg 2-27 7 tablets by ity of tablet 00:00: mouth in [place] 00 the Medical morning. Branch QUEtiapine 2021-06 Yes [id number] 200mg Take 1 [facility] 200 mg 2-27 7 tablet by ity of tablet 00:00: mouth at [place] 00 bedtime. Medical Branch budesonide- 2021-06 Yes [id number] 2{puff} Inhale 2 [facility] formoteroL 2-27 Puffs in ity o f (SYMBICORT) 00:00: the [place] 160-4.5 00 morning Medical mcg/actuati and 2 Branch on inhaler Puffs in the evening. proMETHazin 2021-06 Yes 25mg Take 1 [facility] e 25 mg 2-27 tablet by ity of tablet 00:00: mouth [place] 00 every 4 Medical (four) Branch hours as needed for N/V alternatin g with Ondansetro n. ondansetron 2021-06 Yes 8mg Take 1 [facility] 8 mg 2-27 tablet by ity of disintegrat 00:00: mouth [place] ing tablet 00 every 12 Medic al (twelve) Branch hours as needed for Nausea and Vomiting (N/V). loperamide 2021-06 Yes 2mg Take 1 [facility] (IMODIUM 2-27 capsule by ity o f A-D) 2 mg 00:00: mouth 3 [place] capsule 00 (three) Medical times Branch daily as needed for Diarrhea. albuterol 2021-06 Yes [id number] 2{puff} Inhale 2 [facility] 90 2-27 Puffs ity of mcg/actuati 00:00: every 6 [place] on inhaler 00 (six) Medical hours as Branch needed for Wheezing or Shortness of Breath. proMETHazin 2021-06 Yes 25mg Take 1 [facility] e 25 mg 2-27 tablet by ity of tablet 00:00: mouth [place] 00 every 4 Medical (four) Branch hours as needed for N/V alternatin g with Ondansetro n. ondansetron 2021-06 Yes 8mg Take 1 [facility] 8 mg 2-27 tablet by ity of disintegrat 00:00: mouth [place] ing tablet 00 every 12 Medic al (twelve) Branch hours as needed for Nausea and Vomiting (N/V). proMETHazin 2021-06 Yes 25mg Take 1 [facility] e 25 mg 2-27 tablet by ity of tablet 00:00: mouth [place] 00 every 4 Medical (four) Branch hours as needed for N/V alternatin g with Ondansetro n. ondansetron 2021-06 Yes 8mg Take 1 [facility] 8 mg 2-27 tablet by ity of disintegrat 00:00: mouth [place] ing tablet 00 every 12 Medic al (twelve) Branch hours as needed for Nausea and Vomiting (N/V). loperamide 2021-06 Yes 2mg Take 1 [facility] (IMODIUM 2-27 capsule by ity o f A-D) 2 mg 00:00: mouth 3 [place] capsule 00 (three) Medical times Branch daily as needed for Diarrhea. esomeprazol 2021-06 Yes 40mg Take 1 [facility] e 40 mg 2-27 capsule by ity of capsule 00:00: mouth [place] 00 daily with Medical breakfast. Branch atorvastati 2021-06 Yes [id number] 20mg Take 1 [facility] n 20 mg 2-27 tablet by ity of tablet 00:00: mouth at [place] 00 bedtime. Medical Branch proMETHazin 2021-06 Yes 25mg Take 1 [facility] e 25 mg 2-27 tablet by ity of tablet 00:00: mouth [place] 00 every 4 Medical (four) Branch hours as needed for N/V alternatin g with Ondansetro n. ondansetron 2021-06 Yes 8mg Take 1 [facility] 8 mg 2-27 tablet by ity of disintegrat 00:00: mouth [place] ing tablet 00 every 12 Medic al (twelve) Branch hours as needed for Nausea and Vomiting (N/V). loperamide 2021-06 Yes 2mg Take 1 [facility] (IMODIUM 2-27 capsule by ity o f A-D) 2 mg 00:00: mouth 3 [place] capsule 00 (three) Medical times Branch daily as needed for Diarrhea. sumatriptan 2021-06 Yes [id number] 100mg Take 1 [facility] 100 mg 2-27 tablet by ity of tablet 00:00: mouth as [place] 00 needed for Medical Migraine. Branch loperamide 2021-06 Yes 2mg Take 1 [facility] (IMODIUM 2-27 capsule by ity o f A-D) 2 mg 00:00: mouth 3 [place] capsule 00 (three) Medical times Branch daily as needed for Diarrhea. proMETHazin 2021-06 Yes 25mg Take 1 [facility] e 25 mg 2-27 tablet by ity of tablet 00:00: mouth [place] 00 every 4 Medical (four) Branch hours as needed for N/V alternatin g with Ondansetro n. ondansetron 2021-06 Yes 8mg Take 1 [facility] 8 mg 2-27 tablet by ity of disintegrat 00:00: mouth [place] ing tablet 00 every 12 Medic al (twelve) Branch hours as needed for Nausea and Vomiting (N/V). loperamide 2021-06 Yes 2mg Take 1 [facility] (IMODIUM 2-27 capsule by ity o f A-D) 2 mg 00:00: mouth 3 [place] capsule 00 (three) Medical times Branch daily as needed for Diarrhea. proMETHazin 2021-06 Yes 25mg Take 1 [facility] e 25 mg 2-27 tablet by ity of tablet 00:00: mouth [place] 00 every 4 Medical (four) Branch hours as needed for N/V alternatin g with Ondansetro n. ondansetron 2021-06 Yes 8mg Take 1 [facility] 8 mg 2-27 tablet by ity of disintegrat 00:00: mouth [place] ing tablet 00 every 12 Medic al (twelve) Branch hours as needed for Nausea and Vomiting (N/V). loperamide 2021-06 Yes 2mg Take 1 [facility] (IMODIUM 2-27 capsule by ity o f A-D) 2 mg 00:00: mouth 3 [place] capsule 00 (three) Medical times Branch daily as needed for Diarrhea. proMETHazin 2021-06 Yes 25mg Take 1 [facility] e 25 mg 2-27 tablet by ity of tablet 00:00: mouth [place] 00 every 4 Medical (four) Branch hours as needed for N/V alternatin g with Ondansetro n. ondansetron 2021-06 Yes 8mg Take 1 [facility] 8 mg 2-27 tablet by ity of disintegrat 00:00: mouth [place] ing tablet 00 every 12 Medic al (twelve) Branch hours as needed for Nausea and Vomiting (N/V). loperamide 2021-06 Yes 2mg Take 1 [facility] (IMODIUM 2-27 capsule by ity o f A-D) 2 mg 00:00: mouth 3 [place] capsule 00 (three) Medical times Branch daily as needed for Diarrhea. proMETHazin 2021-06 Yes [id number] 25mg Take 1 [facility] e 25 mg 2-27 tablet by ity of tablet 00:00: mouth [place] 00 every 4 Medical (four) Branch hours as needed for N/V alternatin g with Ondansetro n. ondansetron 2021-06 Yes 8mg Take 1 [facility] 8 mg 2-27 tablet by ity of disintegrat 00:00: mouth [place] ing tablet 00 every 12 Medic al (twelve) Branch hours as needed for Nausea and Vomiting (N/V). loperamide 2021-06 Yes 2mg Take 1 [facility] (IMODIUM 2-27 capsule by ity o f A-D) 2 mg 00:00: mouth 3 [place] capsule 00 (three) Medical times Branch daily as needed for Diarrhea. proMETHazin 2021-06 Yes 25mg Take 1 [facility] e 25 mg 2-27 tablet by ity of tablet 00:00: mouth [place] 00 every 4 Medical (four) Branch hours as needed for N/V alternatin g with Ondansetro n. ondansetron 2021-06 Yes 8mg Take 1 [facility] 8 mg 2-27 tablet by ity of disintegrat 00:00: mouth [place] ing tablet 00 every 12 Medic al (twelve) Branch hours as needed for Nausea and Vomiting (N/V). loperamide 2021-06 Yes 2mg Take 1 [facility] (IMODIUM 2-27 capsule by ity o f A-D) 2 mg 00:00: mouth 3 [place] capsule 00 (three) Medical times Branch daily as needed for Diarrhea. ipratropium 2021-06 Yes [id number] 3mL Inhale 3 [facility] -albuteroL 2-27 mL every 4 ity of 0.5 mg-3 00:00: (four) [place] mg(2.5 mg 00 hours as Medica l base)/3 mL needed for [facility] nebulizer Wheezing. solution SERTraline 2021-06 Yes [id number] 200mg Take 2 [facility] 100 mg 2-27 7 tablets by ity of tablet 00:00: mouth in [place] 00 the Medical morning. Branch QUEtiapine 2021-06 Yes [id number] 200mg Take 1 [facility] 200 mg 2-27 7 tablet by ity of tablet 00:00: mouth at [place] 00 bedtime. Medical Branch albuterol 2021-06 Yes [id number] 2{puff} Inhale 2 [facility] 90 2-27 Puffs ity of mcg/actuati 00:00: every 6 [place] as on inhaler 00 (six) Medical hours as Branch needed for Wheezing or Shortness of Breath. proMETHazin 2021-06 Yes 25mg Take 1 [facility] e 25 mg 2-27 tablet by ity of tablet 00:00: mouth [place] 00 every 4 Medical (four) Branch hours as needed for N/V alternatin g with Ondansetro n. ondansetron 2021-06 Yes [id number] 8mg Take 1 [facility] 8 mg 2-27 tablet by ity of disintegrat 00:00: mouth [place] ing tablet 00 every 12 Medic al (twelve) Branch hours as needed for Nausea and Vomiting (N/V). esomeprazol 2021-06 Yes [id number] 40mg Take 1 [facility] e 40 mg 2-27 capsule by ity of capsule 00:00: mouth [place] 00 daily with Medical breakfast. Branch atorvastati 2021-06 Yes [id number] 20mg Take 1 [facility] n 20 mg 2-27 tablet by ity of tablet 00:00: mouth at [place] 00 bedtime. Medical Branch sumatriptan 2021-06 Yes [id number] 100mg Take 1 [facility] 100 mg 2-27 tablet by ity of tablet 00:00: mouth as [place] 00 needed for Medical Migraine. Branch loperamide 2021-06 Yes [id number] 2mg Take 1 [facility] (IMODIUM 2-27 capsule by ity o f A-D) 2 mg 00:00: mouth 3 [place] capsule 00 (three) Medical times Branch daily as needed for Diarrhea. ipratropium 2021-06 Yes [id number] 3mL Inhale 3 [facility] -albuteroL 2-27 mL every 4 ity of 0.5 mg-3 00:00: (four) [place] mg(2.5 mg 00 hours as Medica l base)/3 mL needed for [facility] nebulizer Wheezing. solution SERTraline 2021-06 Yes [id number] 200mg Take 2 [facility] 100 mg 2-27 7 tablets by ity of tablet 00:00: mouth in [place] 00 the Medical morning. Branch QUEtiapine 2021-06 Yes [id number] 200mg Take 1 [facility] 200 mg 2-27 7 tablet by ity of tablet 00:00: mouth at [place] 00 bedtime. Medical Branch albuterol 2021-06 Yes [id number] 2{puff} Inhale 2 [facility] 90 2-27 Puffs ity of mcg/actuati 00:00: every 6 [place] on inhaler 00 (six) Medical hours as Branch needed for Wheezing or Shortness of Breath. proMETHazin 2021-06 Yes [id number] 25mg Take 1 [facility] e 25 mg 2-27 tablet by ity of tablet 00:00: mouth [place] 00 every 4 Medical (four) Branch hours as needed for N/V alternatin g with Ondansetro n. ondansetron 2021-06 Yes [id number] 8mg Take 1 [facility] 8 mg 2-27 tablet by ity of disintegrat 00:00: mouth [place] ing tablet 00 every 12 Medic al (twelve) Branch hours as needed for Nausea and Vomiting (N/V). esomeprazol 2021-06 Yes [id number] 40mg Take 1 [facility] e 40 mg 2-27 capsule by ity of capsule 00:00: mouth [place] 00 daily with Medical breakfast. Branch atorvastati 2021-06 Yes [id number] 20mg Take 1 [facility] n 20 mg 2-27 tablet by ity of tablet 00:00: mouth at [place] 00 bedtime. Medical Branch sumatriptan 2021-06 Yes [id number] 100mg Take 1 [facility] 100 mg 2-27 tablet by ity of tablet 00:00: mouth as [place] 00 needed for Medical Migraine. Branch loperamide 2021-06 Yes [id number] 2mg Take 1 [facility] (IMODIUM 2-27 capsule by ity o f A-D) 2 mg 00:00: mouth 3 [place] capsule 00 (three) Medical times Branch daily as needed for Diarrhea. ipratropium 2021-06 Yes [id number] 3mL Inhale 3 [facility] -albuteroL 2-27 mL every 4 ity of 0.5 mg-3 00:00: (four) [place] mg(2.5 mg 00 hours as Medica l base)/3 mL needed for [facility] nebulizer Wheezing. solution SERTraline 2021-06 Yes [id number] 200mg Take 2 [facility] 100 mg 2-27 7 tablets by ity of tablet 00:00: mouth in [place] 00 the Medical morning. Branch QUEtiapine 2021-06 Yes [id number] 200mg Take 1 [facility] 200 mg 2-27 7 tablet by ity of tablet 00:00: mouth at [place] 00 bedtime. Medical Branch albuterol 2021-06 Yes [id number] 2{puff} Inhale 2 [facility] 90 2-27 Puffs ity of mcg/actuati 00:00: every 6 [place] as on inhaler 00 (six) Medical hours as Branch needed for Wheezing or Shortness of Breath. proMETHazin 2021-06 Yes [id number] 25mg Take 1 [facility] e 25 mg 2-27 tablet by ity of tablet 00:00: mouth [place] 00 every 4 Medical (four) Branch hours as needed for N/V alternatin g with Ondansetro n. ondansetron 2021-06 Yes [id number] 8mg Take 1 [facility] 8 mg 2-27 tablet by ity of disintegrat 00:00: mouth [place] ing tablet 00 every 12 Medic al (twelve) Branch hours as needed for Nausea and Vomiting (N/V). esomeprazol 2021-06 Yes [id number] 40mg Take 1 [facility] e 40 mg 2-27 capsule by ity of capsule 00:00: mouth [place] 00 daily with Medical breakfast. Branch atorvastati 2021-06 Yes [id number] 20mg Take 1 [facility] n 20 mg 2-27 tablet by ity of tablet 00:00: mouth at [place] 00 bedtime. Medical Branch sumatriptan 2021-06 Yes [id number] 100mg Take 1 [facility] 100 mg 2-27 tablet by ity of tablet 00:00: mouth as [place] 00 needed for Medical Migraine. Branch loperamide 2021-06 Yes [id number] 2mg Take 1 [facility] (IMODIUM 2-27 capsule by ity o f A-D) 2 mg 00:00: mouth 3 [place] capsule 00 (three) Medical times Branch daily as needed for Diarrhea. ipratropium 2021-06 Yes [id number] 3mL Inhale 3 [facility] -albuteroL 2-27 mL every 4 ity of 0.5 mg-3 00:00: (four) [place] mg(2.5 mg 00 hours as Medica l base)/3 mL needed for [facility] nebulizer Wheezing. solution SERTraline 2021-06 Yes [id number] 200mg Take 2 [facility] 100 mg 2-27 7 tablets by ity of tablet 00:00: mouth in [place] 00 the Medical morning. Branch QUEtiapine 2021-06 Yes [id number] 200mg Take 1 [facility] 200 mg 2-27 7 tablet by ity of tablet 00:00: mouth at [place] 00 bedtime. Medical Branch albuterol 2021-06 Yes [id number] 2{puff} Inhale 2 [facility] 90 2-27 Puffs ity of mcg/actuati 00:00: every 6 [place] as on inhaler 00 (six) Medical hours as Branch needed for Wheezing or Shortness of Breath. proMETHazin 2021-06 Yes [id number] 25mg Take 1 [facility] e 25 mg 2-27 tablet by ity of tablet 00:00: mouth [place] 00 every 4 Medical (four) Branch hours as needed for N/V alternatin g with Ondansetro n. ondansetron 2021-06 Yes [id number] 8mg Take 1 [facility] 8 mg 2-27 tablet by ity of disintegrat 00:00: mouth [place] ing tablet 00 every 12 Medic al (twelve) Branch hours as needed for Nausea and Vomiting (N/V). esomeprazol 2021-06 Yes [id number] 40mg Take 1 [facility] e 40 mg 2-27 capsule by ity of capsule 00:00: mouth [place] 00 daily with Medical breakfast. Branch atorvastati 2021-06 Yes [id number] 20mg Take 1 [facility] n 20 mg 2-27 tablet by ity of tablet 00:00: mouth at [place] 00 bedtime. Medical Branch sumatriptan 2021-06 Yes [id number] 100mg Take 1 [facility] 100 mg 2-27 tablet by ity of tablet 00:00: mouth as [place] 00 needed for Medical Migraine. Branch loperamide 2021-06 Yes [id number] 2mg Take 1 [facility] (IMODIUM 2-27 capsule by ity o f A-D) 2 mg 00:00: mouth 3 [place] capsule 00 (three) Medical times Branch daily as needed for Diarrhea. ipratropium 2021-06 Yes [id number] 3mL Inhale 3 [facility] -albuteroL 2-27 mL every 4 ity of 0.5 mg-3 00:00: (four) [place] mg(2.5 mg 00 hours as Medica l base)/3 mL needed for [facility] nebulizer Wheezing. solution SERTraline 2021-06 Yes [id number] 200mg Take 2 [facility] 100 mg 2-27 7 tablets by ity of tablet 00:00: mouth in [place] 00 the Medical morning. Branch QUEtiapine 2021-06 Yes [id number] 200mg Take 1 [facility] 200 mg 2-27 7 tablet by ity of tablet 00:00: mouth at [place] 00 bedtime. Medical Branch albuterol 2021-06 Yes [id number] 2{puff} Inhale 2 [facility] 90 2-27 Puffs ity of mcg/actuati 00:00: every 6 [place] as on inhaler 00 (six) Medical hours as Branch needed for Wheezing or Shortness of Breath. proMETHazin 2021-06 Yes [id number] 25mg Take 1 [facility] e 25 mg 2-27 tablet by ity of tablet 00:00: mouth [place] 00 every 4 Medical (four) Branch hours as needed for N/V alternatin g with Ondansetro n. ondansetron 2021-06 Yes [id number] 8mg Take 1 [facility] 8 mg 2-27 tablet by ity of disintegrat 00:00: mouth [place] ing tablet 00 every 12 Medic al (twelve) Branch hours as needed for Nausea and Vomiting (N/V). esomeprazol 2021-06 Yes [id number] 40mg Take 1 [facility] e 40 mg 2-27 capsule by ity of capsule 00:00: mouth [place] 00 daily with Medical breakfast. Branch atorvastati 2021-06 Yes [id number] 20mg Take 1 [facility] n 20 mg 2-27 tablet by ity of tablet 00:00: mouth at [place] 00 bedtime. Medical Branch sumatriptan 2021-06 Yes [id number] 100mg Take 1 [facility] 100 mg 2-27 tablet by ity of tablet 00:00: mouth as [place] 00 needed for Medical Migraine. Branch loperamide 2021-06 Yes [id number] 2mg Take 1 [facility] (IMODIUM 2-27 capsule by ity o f A-D) 2 mg 00:00: mouth 3 [place] capsule 00 (three) Medical times Branch daily as needed for Diarrhea. ipratropium 2021-06 Yes [id number] 3mL Inhale 3 [facility] -albuteroL 2-27 mL every 4 ity of 0.5 mg-3 00:00: (four) [place] mg(2.5 mg 00 hours as Medica l base)/3 mL needed for [facility] nebulizer Wheezing. solution SERTraline 2021-06 Yes [id number] 200mg Take 2 [facility] 100 mg 2-27 7 tablets by ity of tablet 00:00: mouth in [place] 00 the Medical morning. Branch QUEtiapine 2021-06 Yes [id number] 200mg Take 1 [facility] 200 mg 2-27 7 tablet by ity of tablet 00:00: mouth at [place] 00 bedtime. Medical Branch albuterol 2021-06 Yes [id number] 2{puff} Inhale 2 [facility] 90 2-27 Puffs ity of mcg/actuati 00:00: every 6 [place] as on inhaler 00 (six) Medical hours as Branch needed for Wheezing or Shortness of Breath. proMETHazin 2021-06 Yes [id number] 25mg Take 1 [facility] e 25 mg 2-27 tablet by ity of tablet 00:00: mouth [place] 00 every 4 Medical (four) Branch hours as needed for N/V alternatin g with Ondansetro n. ondansetron 2021-06 Yes [id number] 8mg Take 1 [facility] 8 mg 2-27 tablet by ity of disintegrat 00:00: mouth [place] ing tablet 00 every 12 Medic al (twelve) Branch hours as needed for Nausea and Vomiting (N/V). esomeprazol 2021-06 Yes [id number] 40mg Take 1 [facility] e 40 mg 2-27 capsule by ity of capsule 00:00: mouth [place] 00 daily with Medical breakfast. Branch atorvastati 2021-06 Yes [id number] 20mg Take 1 [facility] n 20 mg 2-27 tablet by ity of tablet 00:00: mouth at [place] 00 bedtime. Medical Branch sumatriptan 2021-06 Yes [id number] 100mg Take 1 [facility] 100 mg 2-27 tablet by ity of tablet 00:00: mouth as [place] 00 needed for Medical Migraine. Branch loperamide 2021-06 Yes [id number] 2mg Take 1 [facility] (IMODIUM 2-27 capsule by ity o f A-D) 2 mg 00:00: mouth 3 [place] capsule 00 (three) Medical times Branch daily as needed for Diarrhea. ipratropium 2021-06 Yes [id number] 3mL Inhale 3 [facility] -albuteroL 2-27 mL every 4 ity of 0.5 mg-3 00:00: (four) [place] mg(2.5 mg 00 hours as Medica l base)/3 mL needed for [facility] nebulizer Wheezing. solution SERTraline 2021-06 Yes [id number] 200mg Take 2 [facility] 100 mg 2-27 7 tablets by ity of tablet 00:00: mouth in [place] 00 the Medical morning. Branch QUEtiapine 2021-06 Yes [id number] 200mg Take 1 [facility] 200 mg 2-27 7 tablet by ity of tablet 00:00: mouth at [place] 00 bedtime. Medical Branch albuterol 2021-06 Yes [id number] 2{puff} Inhale 2 [facility] 90 2-27 Puffs ity of mcg/actuati 00:00: every 6 [place] as on inhaler 00 (six) Medical hours as Branch needed for Wheezing or Shortness of Breath. proMETHazin 2021-06 Yes [id number] 25mg Take 1 [facility] e 25 mg 2-27 tablet by ity of tablet 00:00: mouth [place] 00 every 4 Medical (four) Branch hours as needed for N/V alternatin g with Ondansetro n. ondansetron 2021-06 Yes [id number] 8mg Take 1 [facility] 8 mg 2-27 tablet by ity of disintegrat 00:00: mouth [place] ing tablet 00 every 12 Medic al (twelve) Branch hours as needed for Nausea and Vomiting (N/V). esomeprazol 2021-06 Yes [id number] 40mg Take 1 [facility] e 40 mg 2-27 capsule by ity of capsule 00:00: mouth [place] 00 daily with Medical breakfast. Branch atorvastati 2021-06 Yes [id number] 20mg Take 1 [facility] n 20 mg 2-27 tablet by ity of tablet 00:00: mouth at [place] 00 bedtime. Medical Branch sumatriptan 2021-06 Yes [id number] 100mg Take 1 [facility] 100 mg 2-27 tablet by ity of tablet 00:00: mouth as [place] 00 needed for Medical Migraine. Branch loperamide 2021-06 Yes [id number] 2mg Take 1 [facility] (IMODIUM 2-27 capsule by ity o f A-D) 2 mg 00:00: mouth 3 [place] capsule 00 (three) Medical times Branch daily as needed for Diarrhea. ipratropium 2021-06 Yes [id number] 3mL Inhale 3 [facility] -albuteroL 2-27 mL every 4 ity of 0.5 mg-3 00:00: (four) [place] mg(2.5 mg 00 hours as Medica l base)/3 mL needed for [facility] nebulizer Wheezing. solution SERTraline 2021-06 Yes [id number] 200mg Take 2 [facility] 100 mg 2-27 7 tablets by ity of tablet 00:00: mouth in [place] 00 the Medical morning. Branch QUEtiapine 2021-06 Yes [id number] 200mg Take 1 [facility] 200 mg 2-27 7 tablet by ity of tablet 00:00: mouth at [place] 00 bedtime. Medical Branch albuterol 2021-06 Yes [id number] 2{puff} Inhale 2 [facility] 90 2-27 Puffs ity of mcg/actuati 00:00: every 6 [place] on inhaler 00 (six) Medical hours as Branch needed for Wheezing or Shortness of Breath. proMETHazin 2021-06 Yes [id number] 25mg Take 1 [facility] e 25 mg 2-27 tablet by ity of tablet 00:00: mouth [place] 00 every 4 Medical (four) Branch hours as needed for N/V alternatin g with Ondansetro n. ondansetron 2021-06 Yes [id number] 8mg Take 1 [facility] 8 mg 2-27 tablet by ity of disintegrat 00:00: mouth [place] ing tablet 00 every 12 Medic al (twelve) Branch hours as needed for Nausea and Vomiting (N/V). esomeprazol 2021-06 Yes [id number] 40mg Take 1 [facility] e 40 mg 2-27 capsule by ity of capsule 00:00: mouth [place] 00 daily with Medical breakfast. Branch atorvastati 2021-06 Yes [id number] 20mg Take 1 [facility] n 20 mg 2-27 tablet by ity of tablet 00:00: mouth at [place] 00 bedtime. Medical Branch sumatriptan 2021-06 Yes [id number] 100mg Take 1 [facility] 100 mg 2-27 tablet by ity of tablet 00:00: mouth as [place] 00 needed for Medical Migraine. Branch loperamide 2021-06 Yes [id number] 2mg Take 1 [facility] (IMODIUM 2-27 capsule by ity o f A-D) 2 mg 00:00: mouth 3 [place] capsule 00 (three) Medical times Branch daily as needed for Diarrhea. ipratropium 2021-06 Yes [id number] 3mL Inhale 3 [facility] -albuteroL 2-27 mL every 4 ity of 0.5 mg-3 00:00: (four) [place] mg(2.5 mg 00 hours as Medica l base)/3 mL needed for [facility] nebulizer Wheezing. solution SERTraline 2021-06 Yes [id number] 200mg Take 2 [facility] 100 mg 2-27 7 tablets by ity of tablet 00:00: mouth in [place] 00 the Medical morning. Branch QUEtiapine 2021-06 Yes [id number] 200mg Take 1 [facility] 200 mg 2-27 7 tablet by ity of tablet 00:00: mouth at [place] 00 bedtime. Medical Branch albuterol 2021-06 Yes [id number] 2{puff} Inhale 2 [facility] 90 2-27 Puffs ity of mcg/actuati 00:00: every 6 [place] on inhaler 00 (six) Medical hours as Branch needed for Wheezing or Shortness of Breath. proMETHazin 2021-06 Yes [id number] 25mg Take 1 [facility] e 25 mg 2-27 tablet by ity of tablet 00:00: mouth [place] 00 every 4 Medical (four) Branch hours as needed for N/V alternatin g with Ondansetro n. ondansetron 2021-06 Yes [id number] 8mg Take 1 [facility] 8 mg 2-27 tablet by ity of disintegrat 00:00: mouth [place] ing tablet 00 every 12 Medic al (twelve) Branch hours as needed for Nausea and Vomiting (N/V). esomeprazol 2021-06 Yes [id number] 40mg Take 1 [facility] e 40 mg 2-27 capsule by ity of capsule 00:00: mouth [place] 00 daily with Medical breakfast. Branch atorvastati 2021-06 Yes [id number] 20mg Take 1 [facility] n 20 mg 2-27 tablet by ity of tablet 00:00: mouth at [place] 00 bedtime. Medical Branch sumatriptan 2021-06 Yes [id number] 100mg Take 1 [facility] 100 mg 2-27 tablet by ity of tablet 00:00: mouth as [place] 00 needed for Medical Migraine. Branch loperamide 2021-06 Yes [id number] 2mg Take 1 [facility] (IMODIUM 2-27 capsule by ity o f A-D) 2 mg 00:00: mouth 3 [place] capsule 00 (three) Medical times Branch daily as needed for Diarrhea. ipratropium 2021-06 Yes [id number] 3mL Inhale 3 [facility] -albuteroL 2-27 mL every 4 ity of 0.5 mg-3 00:00: (four) [place] mg(2.5 mg 00 hours as Medica l base)/3 mL needed for [facility] nebulizer Wheezing. solution SERTraline 2021-06 Yes [id number] 200mg Take 2 [facility] 100 mg 2-27 7 tablets by ity of tablet 00:00: mouth in [place] 00 the Medical morning. Branch QUEtiapine 2021-06 Yes [id number] 200mg Take 1 [facility] 200 mg 2-27 7 tablet by ity of tablet 00:00: mouth at [place] 00 bedtime. Medical Branch albuterol 2021-06 Yes [id number] 2{puff} Inhale 2 [facility] 90 2-27 Puffs ity of mcg/actuati 00:00: every 6 [place] on inhaler 00 (six) Medical hours as Branch needed for Wheezing or Shortness of Breath. proMETHazin 2021-06 Yes [id number] 25mg Take 1 [facility] e 25 mg 2-27 tablet by ity of tablet 00:00: mouth [place] 00 every 4 Medical (four) Branch hours as needed for N/V alternatin g with Ondansetro n. ondansetron 2021-06 Yes [id number] 8mg Take 1 [facility] 8 mg 2-27 tablet by ity of disintegrat 00:00: mouth [place] ing tablet 00 every 12 Medic al (twelve) Branch hours as needed for Nausea and Vomiting (N/V). esomeprazol 2021-06 Yes [id number] 40mg Take 1 [facility] e 40 mg 2-27 capsule by ity of capsule 00:00: mouth [place] 00 daily with Medical breakfast. Branch atorvastati 2021-06 Yes [id number] 20mg Take 1 [facility] n 20 mg 2-27 tablet by ity of tablet 00:00: mouth at [place] 00 bedtime. Medical Branch sumatriptan 2021-06 Yes [id number] 100mg Take 1 [facility] 100 mg 2-27 tablet by ity of tablet 00:00: mouth as [place] 00 needed for Medical Migraine. Branch loperamide 2021-06 Yes [id number] 2mg Take 1 [facility] (IMODIUM 2-27 capsule by ity o f A-D) 2 mg 00:00: mouth 3 [place] capsule 00 (three) Medical times Branch daily as needed for Diarrhea. ipratropium 2021-06 Yes [id number] 3mL Inhale 3 [facility] -albuteroL 2-27 mL every 4 ity of 0.5 mg-3 00:00: (four) [place] mg(2.5 mg 00 hours as Medica l base)/3 mL needed for [facility] nebulizer Wheezing. solution SERTraline 2021-06 Yes [id number] 200mg Take 2 [facility] 100 mg 2-27 7 tablets by ity of tablet 00:00: mouth in [place] 00 the Medical morning. Branch QUEtiapine 2021-06 Yes [id number] 200mg Take 1 [facility] 200 mg 2-27 7 tablet by ity of tablet 00:00: mouth at [place] 00 bedtime. Medical Branch albuterol 2021-06 Yes [id number] 2{puff} Inhale 2 [facility] 90 2-27 Puffs ity of mcg/actuati 00:00: every 6 [place] on inhaler 00 (six) Medical hours as Branch needed for Wheezing or Shortness of Breath. proMETHazin 2021-06 Yes [id number] 25mg Take 1 [facility] e 25 mg 2-27 tablet by ity of tablet 00:00: mouth [place] 00 every 4 Medical (four) Branch hours as needed for N/V alternatin g with Ondansetro n. ondansetron 2021-06 Yes [id number] 8mg Take 1 [facility] 8 mg 2-27 tablet by ity of disintegrat 00:00: mouth [place] ing tablet 00 every 12 Medic al (twelve) Branch hours as needed for Nausea and Vomiting (N/V). esomeprazol 2021-06 Yes [id number] 40mg Take 1 [facility] e 40 mg 2-27 capsule by ity of capsule 00:00: mouth [place] 00 daily with Medical breakfast. Branch atorvastati 2021-06 Yes [id number] 20mg Take 1 [facility] n 20 mg 2-27 tablet by ity of tablet 00:00: mouth at [place] 00 bedtime. Medical Branch sumatriptan 2021-06 Yes [id number] 100mg Take 1 [facility] 100 mg 2-27 tablet by ity of tablet 00:00: mouth as [place] 00 needed for Medical Migraine. Branch loperamide 2021-06 Yes [id number] 2mg Take 1 [facility] (IMODIUM 2-27 capsule by ity o f A-D) 2 mg 00:00: mouth 3 [place] capsule 00 (three) Medical times Branch daily as needed for Diarrhea. ipratropium 2021-06 Yes [id number] 3mL Inhale 3 [facility] -albuteroL 2-27 mL every 4 ity of 0.5 mg-3 00:00: (four) [place] mg(2.5 mg 00 hours as Medica l base)/3 mL needed for [facility] nebulizer Wheezing. solution SERTraline 2021-06 Yes [id number] 200mg Take 2 [facility] 100 mg 2-27 7 tablets by ity of tablet 00:00: mouth in [place] 00 the Medical morning. Branch QUEtiapine 2021-06 Yes [id number] 200mg Take 1 [facility] 200 mg 2-27 7 tablet by ity of tablet 00:00: mouth at [place] 00 bedtime. Medical Branch albuterol 2021-06 Yes [id number] 2{puff} Inhale 2 [facility] 90 2-27 Puffs ity of mcg/actuati 00:00: every 6 [place] on inhaler 00 (six) Medical hours as Branch needed for Wheezing or Shortness of Breath. proMETHazin 2021-06 Yes [id number] 25mg Take 1 [facility] e 25 mg 2-27 tablet by ity of tablet 00:00: mouth [place] 00 every 4 Medical (four) Branch hours as needed for N/V alternatin g with Ondansetro n. ondansetron 2021-06 Yes [id number] 8mg Take 1 [facility] 8 mg 2-27 tablet by ity of disintegrat 00:00: mouth [place] ing tablet 00 every 12 Medic al (twelve) Branch hours as needed for Nausea and Vomiting (N/V). esomeprazol 2021-06 Yes [id number] 40mg Take 1 [facility] e 40 mg 2-27 capsule by ity of capsule 00:00: mouth [place] 00 daily with Medical breakfast. Branch atorvastati 2021-06 Yes [id number] 20mg Take 1 [facility] n 20 mg 2-27 tablet by ity of tablet 00:00: mouth at [place] 00 bedtime. Medical Branch sumatriptan 2021-06 Yes [id number] 100mg Take 1 [facility] 100 mg 2-27 tablet by ity of tablet 00:00: mouth as [place] 00 needed for Medical Migraine. Branch loperamide 2021-06 Yes [id number] 2mg Take 1 [facility] (IMODIUM 2-27 capsule by ity o f A-D) 2 mg 00:00: mouth 3 [place] capsule 00 (three) Medical times Branch daily as needed for Diarrhea. ipratropium 2021-06 Yes [id number] 3mL Inhale 3 [facility] -albuteroL 2-27 mL every 4 ity of 0.5 mg-3 00:00: (four) [place] mg(2.5 mg 00 hours as Medica l base)/3 mL needed for [facility] nebulizer Wheezing. solution SERTraline 2021-06 Yes [id number] 200mg Take 2 [facility] 100 mg 2-27 7 tablets by ity of tablet 00:00: mouth in [place] 00 the Medical morning. Branch QUEtiapine 2021-06 Yes [id number] 200mg Take 1 [facility] 200 mg 2-27 7 tablet by ity of tablet 00:00: mouth at [place] 00 bedtime. Medical Branch albuterol 2021-06 Yes [id number] 2{puff} Inhale 2 [facility] 90 2-27 Puffs ity of mcg/actuati 00:00: every 6 [place] as on inhaler 00 (six) Medical hours as Branch needed for Wheezing or Shortness of Breath. proMETHazin 2021-06 Yes [id number] 25mg Take 1 [facility] e 25 mg 2-27 tablet by ity of tablet 00:00: mouth [place] 00 every 4 Medical (four) Branch hours as needed for N/V alternatin g with Ondansetro n. ondansetron 2021-06 Yes [id number] 8mg Take 1 [facility] 8 mg 2-27 tablet by ity of disintegrat 00:00: mouth [place] ing tablet 00 every 12 Medic al (twelve) Branch hours as needed for Nausea and Vomiting (N/V). esomeprazol 2021-06 Yes [id number] 40mg Take 1 [facility] e 40 mg 2-27 capsule by ity of capsule 00:00: mouth [place] 00 daily with Medical breakfast. Branch atorvastati 2021-06 Yes [id number] 20mg Take 1 [facility] n 20 mg 2-27 tablet by ity of tablet 00:00: mouth at [place] 00 bedtime. Medical Branch sumatriptan 2021-06 Yes [id number] 100mg Take 1 [facility] 100 mg 2-27 tablet by ity of tablet 00:00: mouth as [place] 00 needed for Medical Migraine. Branch loperamide 2021-06 Yes [id number] 2mg Take 1 [facility] (IMODIUM 2-27 capsule by ity o f A-D) 2 mg 00:00: mouth 3 [place] capsule 00 (three) Medical times Branch daily as needed for Diarrhea. ipratropium 2021-06 Yes [id number] 3mL Inhale 3 [facility] -albuteroL 2-27 mL every 4 ity of 0.5 mg-3 00:00: (four) [place] mg(2.5 mg 00 hours as Medica l base)/3 mL needed for [facility] nebulizer Wheezing. solution SERTraline 2021-06 Yes [id number] 200mg Take 2 [facility] 100 mg 2-27 7 tablets by ity of tablet 00:00: mouth in [place] 00 the Medical morning. Branch QUEtiapine 2021-06 Yes [id number] 200mg Take 1 [facility] 200 mg 2-27 7 tablet by ity of tablet 00:00: mouth at [place] 00 bedtime. Medical Branch albuterol 2021-06 Yes [id number] 2{puff} Inhale 2 [facility] 90 2-27 Puffs ity of mcg/actuati 00:00: every 6 [place] as on inhaler 00 (six) Medical hours as Branch needed for Wheezing or Shortness of Breath. proMETHazin 2021-06 Yes [id number] 25mg Take 1 [facility] e 25 mg 2-27 tablet by ity of tablet 00:00: mouth [place] 00 every 4 Medical (four) Branch hours as needed for N/V alternatin g with Ondansetro n. ondansetron 2021-06 Yes [id number] 8mg Take 1 [facility] 8 mg 2-27 tablet by ity of disintegrat 00:00: mouth [place] ing tablet 00 every 12 Medic al (twelve) Branch hours as needed for Nausea and Vomiting (N/V). esomeprazol 2021-06 Yes [id number] 40mg Take 1 [facility] e 40 mg 2-27 capsule by ity of capsule 00:00: mouth [place] 00 daily with Medical breakfast. Branch atorvastati 2021-06 Yes [id number] 20mg Take 1 [facility] n 20 mg 2-27 tablet by ity of tablet 00:00: mouth at [place] 00 bedtime. Medical Branch sumatriptan 2021-06 Yes [id number] 100mg Take 1 [facility] 100 mg 2-27 tablet by ity of tablet 00:00: mouth as [place] 00 needed for Medical Migraine. Branch loperamide 2021-06 Yes [id number] 2mg Take 1 [facility] (IMODIUM 2-27 capsule by ity o f A-D) 2 mg 00:00: mouth 3 [place] capsule 00 (three) Medical times Branch daily as needed for Diarrhea. ipratropium 2021-06 Yes [id number] 3mL Inhale 3 [facility] -albuteroL 2-27 mL every 4 ity of 0.5 mg-3 00:00: (four) [place] mg(2.5 mg 00 hours as Medica l base)/3 mL needed for [facility] nebulizer Wheezing. solution SERTraline 2021-06 Yes [id number] 200mg Take 2 [facility] 100 mg 2-27 7 tablets by ity of tablet 00:00: mouth in [place] 00 the Medical morning. Branch QUEtiapine 2021-06 Yes [id number] 200mg Take 1 [facility] 200 mg 2-27 7 tablet by ity of tablet 00:00: mouth at [place] 00 bedtime. Medical Branch albuterol 2021-06 Yes [id number] 2{puff} Inhale 2 [facility] 90 2-27 Puffs ity of mcg/actuati 00:00: every 6 [place] on inhaler 00 (six) Medical hours as Branch needed for Wheezing or Shortness of Breath. proMETHazin 2021-06 Yes [id number] 25mg Take 1 [facility] e 25 mg 2-27 tablet by ity of tablet 00:00: mouth [place] 00 every 4 Medical (four) Branch hours as needed for N/V alternatin g with Ondansetro n. ondansetron 2021-06 Yes [id number] 8mg Take 1 [facility] 8 mg 2-27 tablet by ity of disintegrat 00:00: mouth [place] ing tablet 00 every 12 Medic al (twelve) Branch hours as needed for Nausea and Vomiting (N/V). esomeprazol 2021-06 Yes [id number] 40mg Take 1 [facility] e 40 mg 2-27 capsule by ity of capsule 00:00: mouth [place] 00 daily with Medical breakfast. Branch atorvastati 2021-06 Yes [id number] 20mg Take 1 [facility] n 20 mg 2-27 tablet by ity of tablet 00:00: mouth at [place] 00 bedtime. Medical Branch sumatriptan 2021-06 Yes [id number] 100mg Take 1 [facility] 100 mg 2-27 tablet by ity of tablet 00:00: mouth as [place] 00 needed for Medical Migraine. Branch loperamide 2021-06 Yes [id number] 2mg Take 1 [facility] (IMODIUM 2-27 capsule by ity o f A-D) 2 mg 00:00: mouth 3 [place] capsule 00 (three) Medical times Branch daily as needed for Diarrhea. ipratropium 2021-06 Yes [id number] 3mL Inhale 3 [facility] -albuteroL 2-27 mL every 4 ity of 0.5 mg-3 00:00: (four) [place] mg(2.5 mg 00 hours as Medica l base)/3 mL needed for [facility] nebulizer Wheezing. solution SERTraline 2021-06 Yes [id number] 200mg Take 2 [facility] 100 mg 2-27 7 tablets by ity of tablet 00:00: mouth in [place] 00 the Medical morning. Branch QUEtiapine 2021-06 Yes [id number] 200mg Take 1 [facility] 200 mg 2-27 7 tablet by ity of tablet 00:00: mouth at [place] [address] bedtime. Medical Branch albuterol 2021-06 Yes [id number] 2{puff} Inhale 2 [facility] 90 2-27 Puffs ity of mcg/actuati 00:00: every 6 [place] as on inhaler 00 (six) Medical hours as Branch needed for Wheezing or Shortness of Breath. proMETHazin 2021-06 Yes [id number] 25mg Take 1 [facility] e 25 mg 2-27 tablet by ity of tablet 00:00: mouth [place] 00 every 4 Medical (four) Branch hours as needed for N/V alternatin g with Ondansetro n. ondansetron 2021-06 Yes [id number] 8mg Take 1 [facility] 8 mg 2-27 tablet by ity of disintegrat 00:00: mouth [place] ing tablet 00 every 12 Medic al (twelve) Branch hours as needed for Nausea and Vomiting (N/V). esomeprazol 2021-06 Yes [id number] 40mg Take 1 [facility] e 40 mg 2-27 capsule by ity of capsule 00:00: mouth [place] 00 daily with Medical breakfast. Branch atorvastati 2021-06 Yes [id number] 20mg Take 1 [facility] n 20 mg 2-27 tablet by ity of tablet 00:00: mouth at [place] 00 bedtime. Medical Branch sumatriptan 2021-06 Yes [id number] 100mg Take 1 [facility] 100 mg 2-27 tablet by ity of tablet 00:00: mouth as [place] 00 needed for Medical Migraine. Branch loperamide 2021-06 Yes [id number] 2mg Take 1 [facility] (IMODIUM 2-27 capsule by ity o f A-D) 2 mg 00:00: mouth 3 [place] capsule 00 (three) Medical times Branch daily as needed for Diarrhea. ipratropium 2021-06 Yes [id number] 3mL Inhale 3 [facility] -albuteroL 2-27 mL every 4 ity of 0.5 mg-3 00:00: (four) [place] mg(2.5 mg 00 hours as Medica l base)/3 mL needed for [facility] nebulizer Wheezing. solution SERTraline 2021-06 Yes [id number] 200mg Take 2 [facility] 100 mg 2-27 7 tablets by ity of tablet 00:00: mouth in [place] 00 the Medical morning. Branch QUEtiapine 2021-06 Yes [id number] 200mg Take 1 [facility] 200 mg 2-27 7 tablet by ity of tablet 00:00: mouth at [place] 00 bedtime. Medical Branch albuterol 2021-06 Yes [id number] 2{puff} Inhale 2 [facility] 90 2-27 Puffs ity of mcg/actuati 00:00: every 6 [place] on inhaler 00 (six) Medical hours as Branch needed for Wheezing or Shortness of Breath. proMETHazin 2021-06 Yes [id number] 25mg Take 1 [facility] e 25 mg 2-27 tablet by ity of tablet 00:00: mouth [place] 00 every 4 Medical (four) Branch hours as needed for N/V alternatin g with Ondansetro n. ondansetron 2021-06 Yes [id number] 8mg Take 1 [facility] 8 mg 2-27 tablet by ity of disintegrat 00:00: mouth [place] ing tablet 00 every 12 Medic al (twelve) Branch hours as needed for Nausea and Vomiting (N/V). esomeprazol 2021-06 Yes [id number] 40mg Take 1 [facility] e 40 mg 2-27 capsule by ity of capsule 00:00: mouth [place] 00 daily with Medical breakfast. Branch atorvastati 2021-06 Yes [id number] 20mg Take 1 [facility] n 20 mg 2-27 tablet by ity of tablet 00:00: mouth at [place] 00 bedtime. Medical Branch sumatriptan 2021-06 Yes [id number] 100mg Take 1 [facility] 100 mg 2-27 tablet by ity of tablet 00:00: mouth as [place] 00 needed for Medical Migraine. Branch loperamide 2021-06 Yes [id number] 2mg Take 1 [facility] (IMODIUM 2-27 capsule by ity o f A-D) 2 mg 00:00: mouth 3 [place] capsule 00 (three) Medical times Branch daily as needed for Diarrhea. ipratropium 2021-06 Yes [id number] 3mL Inhale 3 [facility] -albuteroL 2-27 mL every 4 ity of 0.5 mg-3 00:00: (four) [place] mg(2.5 mg 00 hours as Medica l base)/3 mL needed for [facility] nebulizer Wheezing. solution SERTraline 2021-06 Yes [id number] 200mg Take 2 [facility] 100 mg 2-27 7 tablets by ity of tablet 00:00: mouth in [place] 00 the Medical morning. Branch QUEtiapine 2021-06 Yes [id number] 200mg Take 1 [facility] 200 mg 2-27 7 tablet by ity of tablet 00:00: mouth at [place] 00 bedtime. Medical Branch albuterol 2021-06 Yes [id number] 2{puff} Inhale 2 [facility] 90 2-27 Puffs ity of mcg/actuati 00:00: every 6 [place] on inhaler 00 (six) Medical hours as Branch needed for Wheezing or Shortness of Breath. proMETHazin 2021-06 Yes [id number] 25mg Take 1 [facility] e 25 mg 2-27 tablet by ity of tablet 00:00: mouth [place] 00 every 4 Medical (four) Branch hours as needed for N/V alternatin g with Ondansetro n. ondansetron 2021-06 Yes [id number] 8mg Take 1 [facility] 8 mg 2-27 tablet by ity of disintegrat 00:00: mouth [place] ing tablet 00 every 12 Medic al (twelve) Branch hours as needed for Nausea and Vomiting (N/V). esomeprazol 2021-06 Yes [id number] 40mg Take 1 [facility] e 40 mg 2-27 capsule by ity of capsule 00:00: mouth [place] 00 daily with Medical breakfast. Branch atorvastati 2021-06 Yes [id number] 20mg Take 1 [facility] n 20 mg 2-27 tablet by ity of tablet 00:00: mouth at [place] 00 bedtime. Medical Branch sumatriptan 2021-06 Yes [id number] 100mg Take 1 [facility] 100 mg 2-27 tablet by ity of tablet 00:00: mouth as [place] 00 needed for Medical Migraine. Branch loperamide 2021-06 Yes [id number] 2mg Take 1 [facility] (IMODIUM 2-27 capsule by ity o f A-D) 2 mg 00:00: mouth 3 [place] capsule 00 (three) Medical times Branch daily as needed for Diarrhea. ipratropium 2021-06 Yes [id number] 3mL Inhale 3 [facility] -albuteroL 2-27 mL every 4 ity of 0.5 mg-3 00:00: (four) [place] mg(2.5 mg 00 hours as Medica l base)/3 mL needed for [facility] nebulizer Wheezing. solution SERTraline 2021-06 Yes [id number] 200mg Take 2 [facility] 100 mg 2-27 7 tablets by ity of tablet 00:00: mouth in [place] 00 the Medical morning. Branch QUEtiapine 2021-06 Yes [id number] 200mg Take 1 [facility] 200 mg 2-27 7 tablet by ity of tablet 00:00: mouth at [place] 00 bedtime. Medical Branch albuterol 2021-06 Yes [id number] 2{puff} Inhale 2 [facility] 90 2-27 Puffs ity of mcg/actuati 00:00: every 6 [place] on inhaler 00 (six) Medical hours as Branch needed for Wheezing or Shortness of Breath. proMETHazin 2021-06 Yes [id number] 25mg Take 1 [facility] e 25 mg 2-27 tablet by ity of tablet 00:00: mouth [place] 00 every 4 Medical (four) Branch hours as needed for N/V alternatin g with Ondansetro n. ondansetron 2021-06 Yes [id number] 8mg Take 1 [facility] 8 mg 2-27 tablet by ity of disintegrat 00:00: mouth [place] ing tablet 00 every 12 Medic al (twelve) Branch hours as needed for Nausea and Vomiting (N/V). esomeprazol 2021-06 Yes [id number] 40mg Take 1 [facility] e 40 mg 2-27 capsule by ity of capsule 00:00: mouth [place] 00 daily with Medical breakfast. Branch atorvastati 2021-06 Yes [id number] 20mg Take 1 [facility] n 20 mg 2-27 tablet by ity of tablet 00:00: mouth at [place] 00 bedtime. Medical Branch sumatriptan 2021-06 Yes [id number] 100mg Take 1 [facility] 100 mg 2-27 tablet by ity of tablet 00:00: mouth as [place] 00 needed for Medical Migraine. Branch loperamide 2021-06 Yes [id number] 2mg Take 1 [facility] (IMODIUM 2-27 capsule by ity o f A-D) 2 mg 00:00: mouth 3 [place] capsule 00 (three) Medical times Branch daily as needed for Diarrhea. ipratropium 2021-06 Yes [id number] 3mL Inhale 3 [facility] -albuteroL 2-27 mL every 4 ity of 0.5 mg-3 00:00: (four) [place] mg(2.5 mg 00 hours as Medica l base)/3 mL needed for [facility] nebulizer Wheezing. solution SERTraline 2021-06 Yes [id number] 200mg Take 2 [facility] 100 mg 2-27 7 tablets by ity of tablet 00:00: mouth in [place] 00 the Medical morning. Branch QUEtiapine 2021-06 Yes [id number] 200mg Take 1 [facility] 200 mg 2-27 7 tablet by ity of tablet 00:00: mouth at [place] 00 bedtime. Medical Branch proMETHazin 2021-06 Yes [id number] 25mg Take 1 [facility] e 25 mg 2-27 tablet by ity of tablet 00:00: mouth [place] 00 every 4 Medical (four) Branch hours as needed for N/V alternatin g with Ondansetro n. ondansetron 2021-06 Yes [id number] 8mg Take 1 [facility] 8 mg 2-27 tablet by ity of disintegrat 00:00: mouth [place] ing tablet 00 every 12 Medic al (twelve) Branch hours as needed for Nausea and Vomiting (N/V). esomeprazol 2021-06 Yes [id number] 40mg Take 1 [facility] e 40 mg 2-27 capsule by ity of capsule 00:00: mouth [place] 00 daily with Medical breakfast. Branch atorvastati 2021-06 Yes [id number] 20mg Take 1 [facility] n 20 mg 2-27 tablet by ity of tablet 00:00: mouth at [place] 00 bedtime. Medical Branch ipratropium 2021-06 Yes [id number] 3mL Inhale 3 [facility] -albuteroL 2-27 mL every 4 ity of 0.5 mg-3 00:00: (four) [place] mg(2.5 mg 00 hours as Medica l base)/3 mL needed for [facility] nebulizer Wheezing. solution sumatriptan 2021-06 Yes [id number] 100mg Take 1 [facility] 100 mg 2-27 tablet by ity of tablet 00:00: mouth as [place] 00 needed for Medical Migraine. Branch loperamide 2021-06 Yes [id number] 2mg Take 1 [facility] (IMODIUM 2-27 capsule by ity o f A-D) 2 mg 00:00: mouth 3 [place] capsule 00 (three) Medical times Branch daily as needed for Diarrhea. SERTraline 2021-06 Yes [id number] 200mg Take 2 [facility] 100 mg 2-27 7 tablets by ity of tablet 00:00: mouth in [place] 00 the Medical morning. Branch QUEtiapine 2021-06 Yes [id number] 200mg Take 1 [facility] 200 mg 2-27 7 tablet by ity of tablet 00:00: mouth at [place] 00 bedtime. Medical Branch budesonide- 2021-06 Yes [id number] 2{puff} Inhale 2 [facility] formoteroL 2-27 Puffs in ity o f (SYMBICORT) 00:00: the [place] 160-4.5 00 morning Medical mcg/actuati and 2 Branch on inhaler Puffs in the evening. ipratropium 2021-06 Yes [id number] 3mL Inhale 3 [facility] -albuteroL 2-27 mL every 4 ity of 0.5 mg-3 00:00: (four) [place] mg(2.5 mg 00 hours as Medica l base)/3 mL needed for [facility] nebulizer Wheezing. solution SERTraline 2021-06 Yes [id number] 200mg Take 2 [facility] 100 mg 2-27 7 tablets by ity of tablet 00:00: mouth in [place] 00 the Medical morning. Branch QUEtiapine 2021-06 Yes [id number] 200mg Take 1 [facility] 200 mg 2-27 7 tablet by ity of tablet 00:00: mouth at [place] 00 bedtime. Medical Branch proMETHazin 2021-06 Yes 25mg Take 1 [facility] e 25 mg 2-27 tablet by ity of tablet 00:00: mouth [place] 00 every 4 Medical (four) Branch hours as needed for N/V alternatin g with Ondansetro n. ondansetron 2021-06 Yes 8mg Take 1 [facility] 8 mg 2-27 tablet by ity of disintegrat 00:00: mouth [place] ing tablet 00 every 12 Medic al (twelve) Branch hours as needed for Nausea and Vomiting (N/V). esomeprazol 2021-06 Yes 40mg Take 1 [facility] e 40 mg 2-27 capsule by ity of capsule 00:00: mouth [place] 00 daily with Medical breakfast. Branch atorvastati 2021-06 Yes [id number] 20mg Take 1 [facility] n 20 mg 2-27 tablet by ity of tablet 00:00: mouth at [place] 00 bedtime. Medical Branch sumatriptan 2021-06 Yes [id number] 100mg Take 1 [facility] 100 mg 2-27 tablet by ity of tablet 00:00: mouth as [place] 00 needed for Medical Migraine. Branch loperamide 2021-06 Yes 2mg Take 1 [facility] (IMODIUM 2-27 capsule by ity o f A-D) 2 mg 00:00: mouth 3 [place] capsule 00 (three) Medical times Branch daily as needed for Diarrhea. albuterol 2021-06 Yes [id number] 2{puff} Inhale 2 [facility] 90 2-27 Puffs ity of mcg/actuati 00:00: every 6 [place] on inhaler 00 (six) Medical hours as Branch needed for Wheezing or Shortness of Breath. proMETHazin 2021-06 Yes 25mg Take 1 [facility] e 25 mg 2-27 tablet by ity of tablet 00:00: mouth [place] 00 every 4 Medical (four) Branch hours as needed for N/V alternatin g with Ondansetro n. ondansetron 2021-06 Yes 8mg Take 1 [facility] 8 mg 2-27 tablet by ity of disintegrat 00:00: mouth [place] ing tablet 00 every 12 Medic al (twelve) Branch hours as needed for Nausea and Vomiting (N/V). ipratropium 2021-06 Yes [id number] 3mL Inhale 3 Univers -albuteroL 2-27 mL every 4 ity of 0.5 mg-3 00:00: (four) [place] mg(2.5 mg 00 hours as Medica l base)/3 mL needed for [facility] nebulizer Wheezing. solution SERTraline 2021-06 Yes [id number] 200mg Take 2 [facility] 100 mg 2-27 7 tablets by ity of tablet 00:00: mouth in [place] 00 the Medical morning. Branch QUEtiapine 2021-06 Yes [id number] 200mg Take 1 [facility] 200 mg 2-27 7 tablet by ity of tablet 00:00: mouth at [place] 00 bedtime. Medical Branch proMETHazin 2021-06 Yes [id number] 25mg Take 1 [facility] e 25 mg 2-27 tablet by ity of tablet 00:00: mouth [place] 00 every 4 Medical (four) Branch hours as needed for N/V alternatin g with Ondansetro n. ondansetron 2021-06 Yes [id number] 8mg Take 1 [facility] 8 mg 2-27 tablet by ity of disintegrat 00:00: mouth [place] ing tablet 00 every 12 Medic al (twelve) Branch hours as needed for Nausea and Vomiting (N/V). esomeprazol 2021-06 Yes [id number] 40mg Take 1 [facility] e 40 mg 2-27 capsule by ity of capsule 00:00: mouth [place] 00 daily with Medical breakfast. Branch atorvastati 2021-06 Yes [id number] 20mg Take 1 [facility] n 20 mg 2-27 tablet by ity of tablet 00:00: mouth at [place] 00 bedtime. Medical Branch esomeprazol 2021-06 Yes 40mg Take 1 [facility] e 40 mg 2-27 capsule by ity of capsule 00:00: mouth [place] 00 daily with Medical breakfast. Branch sumatriptan 2021-06 Yes [id number] 100mg Take 1 [facility] 100 mg 2-27 tablet by ity of tablet 00:00: mouth as [place] 00 needed for Medical Migraine. Branch loperamide 2021-06 Yes [id number] 2mg Take 1 [facility] (IMODIUM 2-27 capsule by ity o f A-D) 2 mg 00:00: mouth 3 [place] capsule 00 (three) Medical times Branch daily as needed for Diarrhea. atorvastati 2021-06 Yes [id number] 20mg Take 1 [facility] n 20 mg 2-27 tablet by ity of tablet 00:00: mouth at [place] 00 bedtime. Medical Branch sumatriptan 2021-06 Yes [id number] 100mg Take 1 [facility] 100 mg 2-27 tablet by ity of tablet 00:00: mouth as [place] 00 needed for Medical Migraine. Branch ipratropium 2021-06 Yes [id number] 3mL Inhale 3 Univers -albuteroL 2-27 mL every 4 ity of 0.5 mg-3 00:00: (four) [place] mg(2.5 mg 00 hours as Medica l base)/3 mL needed for [facility] nebulizer Wheezing. solution SERTraline 2021-06 Yes [id number] 200mg Take 2 [facility] 100 mg 2-27 7 tablets by ity of tablet 00:00: mouth in [place] 00 the Medical morning. Branch QUEtiapine 2021-06 Yes [id number] 200mg Take 1 [facility] 200 mg 2-27 7 tablet by ity of tablet 00:00: mouth at [place] 00 bedtime. Medical Branch proMETHazin 2021-06 Yes [id number] 25mg Take 1 [facility] e 25 mg 2-27 tablet by ity of tablet 00:00: mouth [place] 00 every 4 Medical (four) Branch hours as needed for N/V alternatin g with Ondansetro n. ondansetron 2021-06 Yes [id number] 8mg Take 1 [facility] 8 mg 2-27 tablet by ity of disintegrat 00:00: mouth [place] ing tablet 00 every 12 Medic al (twelve) Branch hours as needed for Nausea and Vomiting (N/V). loperamide 2021-06 Yes [id number] 2mg Take 1 [facility] (IMODIUM 2-27 capsule by ity o f A-D) 2 mg 00:00: mouth 3 [place] capsule 00 (three) Medical times Branch daily as needed for Diarrhea. esomeprazol 2021-06 Yes [id number] 40mg Take 1 [facility] e 40 mg 2-27 capsule by ity of capsule 00:00: mouth [place] 00 daily with Medical breakfast. Branch atorvastati 2021-06 Yes [id number] 20mg Take 1 [facility] n 20 mg 2-27 tablet by ity of tablet 00:00: mouth at [place] 00 bedtime. Medical Branch sumatriptan 2021-06 Yes [id number] 100mg Take 1 [facility] 100 mg 2-27 tablet by ity of tablet 00:00: mouth as [place] 00 needed for Medical Migraine. Branch loperamide 2021-06 Yes [id number] 2mg Take 1 [facility] (IMODIUM 2-27 capsule by ity o f A-D) 2 mg 00:00: mouth 3 [place] capsule 00 (three) Medical times Branch daily as needed for Diarrhea. ipratropium 2021-06 Yes [id number] 3mL Inhale 3 Univers -albuteroL 2-27 mL every 4 ity of 0.5 mg-3 00:00: (four) [place] mg(2.5 mg 00 hours as Medica l base)/3 mL needed for [facility] nebulizer Wheezing. solution SERTraline 2021-06 Yes [id number] 200mg Take 2 [facility] 100 mg 2-27 7 tablets by ity of tablet 00:00: mouth in [place] 00 the Medical morning. Branch QUEtiapine 2021-06 Yes [id number] 200mg Take 1 [facility] 200 mg 2-27 7 tablet by ity of tablet 00:00: mouth at [place] 00 bedtime. Medical Branch proMETHazin 2021-06 Yes [id number] 25mg Take 1 [facility] e 25 mg 2-27 tablet by ity of tablet 00:00: mouth [place] 00 every 4 Medical (four) Branch hours as needed for N/V alternatin g with Ondansetro n. ondansetron 2021-06 Yes [id number] 8mg Take 1 [facility] 8 mg 2-27 tablet by ity of disintegrat 00:00: mouth [place] ing tablet 00 every 12 Medic al (twelve) Branch hours as needed for Nausea and Vomiting (N/V). esomeprazol 2021-06 Yes [id number] 40mg Take 1 [facility] e 40 mg 2-27 capsule by ity of capsule 00:00: mouth [place] 00 daily with Medical breakfast. Branch atorvastati 2021-06 Yes [id number] 20mg Take 1 [facility] n 20 mg 2-27 tablet by ity of tablet 00:00: mouth at [place] 00 bedtime. Medical Branch sumatriptan 2021-06 Yes [id number] 100mg Take 1 [facility] 100 mg 2-27 tablet by ity of tablet 00:00: mouth as [place] 00 needed for Medical Migraine. Branch loperamide 2021-06 Yes [id number] 2mg Take 1 [facility] (IMODIUM 2-27 capsule by ity o f A-D) 2 mg 00:00: mouth 3 [place] capsule 00 (three) Medical times Branch daily as needed for Diarrhea. ipratropium 2021-06 Yes [id number] 3mL Inhale 3 Univers -albuteroL 2-27 mL every 4 ity of 0.5 mg-3 00:00: (four) [place] mg(2.5 mg 00 hours as Medica l base)/3 mL needed for [facility] nebulizer Wheezing. solution SERTraline 2021-06 Yes [id number] 200mg Take 2 [facility] 100 mg 2-27 7 tablets by ity of tablet 00:00: mouth in [place] 00 the Medical morning. Branch QUEtiapine 2021-06 Yes [id number] 200mg Take 1 [facility] 200 mg 2-27 7 tablet by ity of tablet 00:00: mouth at [place] 00 bedtime. Medical Branch proMETHazin 2021-06 Yes [id number] 25mg Take 1 [facility] e 25 mg 2-27 tablet by ity of tablet 00:00: mouth [place] 00 every 4 Medical (four) Branch hours as needed for N/V alternatin g with Ondansetro n. ondansetron 2021-06 Yes [id number] 8mg Take 1 [facility] 8 mg 2-27 tablet by ity of disintegrat 00:00: mouth [place] ing tablet 00 every 12 Medic al (twelve) Branch hours as needed for Nausea and Vomiting (N/V). esomeprazol 2021-06 Yes [id number] 40mg Take 1 [facility] e 40 mg 2-27 capsule by ity of capsule 00:00: mouth [place] 00 daily with Medical breakfast. Branch atorvastati 2021-06 Yes [id number] 20mg Take 1 [facility] n 20 mg 2-27 tablet by ity of tablet 00:00: mouth at [place] 00 bedtime. Medical Branch sumatriptan 2021-06 Yes [id number] 100mg Take 1 [facility] 100 mg 2-27 tablet by ity of tablet 00:00: mouth as [place] 00 needed for Medical Migraine. Branch loperamide 2021-06 Yes [id number] 2mg Take 1 [facility] (IMODIUM 2-27 capsule by ity o f A-D) 2 mg 00:00: mouth 3 [place] capsule 00 (three) Medical times Branch daily as needed for Diarrhea. ipratropium 2021-06 Yes [id number] 3mL Inhale 3 Univers -albuteroL 2-27 mL every 4 ity of 0.5 mg-3 00:00: (four) [place] mg(2.5 mg 00 hours as Medica l base)/3 mL needed for [facility] nebulizer Wheezing. solution SERTraline 2021-06 Yes [id number] 200mg Take 2 [facility] 100 mg 2-27 7 tablets by ity of tablet 00:00: mouth in [place] 00 the Medical morning. Branch QUEtiapine 2021-06 Yes [id number] 200mg Take 1 [facility] 200 mg 2-27 7 tablet by ity of tablet 00:00: mouth at [place] 00 bedtime. Medical Branch proMETHazin 2021-06 Yes [id number] 25mg Take 1 [facility] e 25 mg 2-27 tablet by ity of tablet 00:00: mouth [place] 00 every 4 Medical (four) Branch hours as needed for N/V alternatin g with Ondansetro n. ondansetron 2021-06 Yes [id number] 8mg Take 1 [facility] 8 mg 2-27 tablet by ity of disintegrat 00:00: mouth [place] ing tablet 00 every 12 Medic al (twelve) Branch hours as needed for Nausea and Vomiting (N/V). esomeprazol 2021-06 Yes [id number] 40mg Take 1 [facility] e 40 mg 2-27 capsule by ity of capsule 00:00: mouth [place] 00 daily with Medical breakfast. Branch atorvastati 2021-06 Yes [id number] 20mg Take 1 [facility] n 20 mg 2-27 tablet by ity of tablet 00:00: mouth at [place] 00 bedtime. Medical Branch sumatriptan 2021-06 Yes [id number] 100mg Take 1 [facility] 100 mg 2-27 tablet by ity of tablet 00:00: mouth as [place] 00 needed for Medical Migraine. Branch loperamide 2021-06 Yes [id number] 2mg Take 1 [facility] (IMODIUM 2-27 capsule by ity o f A-D) 2 mg 00:00: mouth 3 [place] capsule 00 (three) Medical times Branch daily as needed for Diarrhea. sumatriptan 2021-06- No [id number] 100mg Take 1 [facility] 100 mg 2-27 - tablet by ity of tablet 00:00: 00:00 mouth as [place] 00 :00 needed for Medical Migraine. Branch SERTraline 2021-06- No [id number] 200mg Take 2 [facility] 100 mg 08-01- 7 tablets by ity of tablet 00:00: 00:00 mouth in [place] 00 :00 the Medical morning. Branch QUEtiapine 2021-06- No [id number] 200mg Take 1 [facility] 200 mg 08-01- 7 tablet by ity of tablet 00:00: 00:00 mouth at [place] 00 :00 bedtime. Medical Branch atorvastati 2021-06- No [id number] 20mg Take 1 [facility] n 20 mg 08-01 tablet by ity of tablet 00:00: 00:00 mouth at [place] 00 :00 bedtime. Medical Branch SERTraline 2021-06- No [id number] 200mg Take 2 [facility] 100 mg 08-01- 7 tablets by ity of tablet 00:00: 00:00 mouth in [place] 00 :00 the Medical morning. Branch QUEtiapine 2021-06- No [id number] 200mg Take 1 [facility] 200 mg 08-01 7 tablet by ity of tablet 00:00: 00:00 mouth at [place] 00 :00 bedtime. Medical Branch atorvastati 2021-06- No [id number] 20mg Take 1 [facility] n 20 mg 08-01 tablet by ity of tablet 00:00: 00:00 mouth at [place] 00 :00 bedtime. Medical Branch esomeprazol 2021-06- No [id number] 40mg Take 1 [facility] e 40 mg 08-01-31 capsule by ity o f capsule 00:00: 00:00 mouth [place] 00 :00 daily with Medical breakfast. Branch ipratropium 2021-06- No [id number] 3mL Inhale 3 Univers -albuteroL 2-29 08-27 mL every 4 it y of 0.5 mg-3 00:00: 00:00 (four) [place] mg(2.5 mg 00 :00 hours as Medica l base)/3 mL needed for [facility] nebulizer Wheezing. solution ipratropium 2021-06- No [id number] 3mL Inhale 3 Univers -albuteroL 2-27 03-27 mL every 4 it y of 0.5 mg-3 00:00: 00:00 (four) [place] mg(2.5 mg 00 :00 hours as Medica l base)/3 mL needed for [facility] nebulizer Wheezing. solution albuterol 2021-06- No [id number] 2{puff} Inhale 2 Univers 90 2-27 03-02 Puffs ity of mcg/actuati 00:00: 00:00 every 6 [place] on inhaler 00 :00 (six) Medical hours as Branch needed for Wheezing or Shortness of Breath. albuterol 2021-06- No [id number] 2{puff} Inhale 2 [facility] 90 2-27 03-02 Puffs ity of mcg/actuati 00:00: 00:00 every 6 [place] on inhaler 00 :00 (six) Medical hours as Branch needed for Wheezing or Shortness of Breath. budesonide- 2021-06- No [id number] 2{puff} Inhale 2 Univers formoteroL 2-27 01-11 Puffs in ity of (SYMBICORT) 00:00: 00:00 the [place] 160-4.5 00 :00 morning Medical mcg/actuati and 2 Branch on inhaler Puffs in the evening. budesonide- 2021-06- No [id number] 2{puff} Inhale 2 Univers formoteroL 2-27 01-11 Puffs in ity of (SYMBICORT) 00:00: 00:00 the [place] 160-4.5 00 :00 morning Medical mcg/actuati and 2 Branch on inhaler Puffs in the evening. budesonide- 2021-06- No [id number] 2{puff} Inhale 2 Univers formoteroL 2-27 01-11 Puffs in ity of (SYMBICORT) 00:00: 00:00 the [place] 160-4.5 00 :00 morning Medical mcg/actuati and 2 Branch on inhaler Puffs in the evening. budesonide- 2021-06- No [id number] 2{puff} Inhale 2 Univers formoteroL 2-27 01-11 Puffs in ity of (SYMBICORT) 00:00: 00:00 the [place] 160-4.5 00 :00 morning Medical mcg/actuati and 2 Branch on inhaler Puffs in the evening. budesonide- 2021-06- No [id number] 2{puff} Inhale 2 Univers formoteroL 08-01 01-11 Puffs in ity of (SYMBICORT) 00:00: 00:00 the [place] 160-4.5 00 :00 morning Medical mcg/actuati and 2 Branch on inhaler Puffs in the evening. atorvastati 2021-06 No TAKE ONE U nivers n 10 mg 07-27 (1) ity of tablet 00:00: 00:00 TABLET(S) [place] 00 :00 BY MOUTH Medical ONCE EVERY Branch NIGHT. atorvastati 2021-06 No TAKE ONE U nivers n 10 mg 07-27 (1) ity of tablet 00:00: 00:00 TABLET(S) [place] 00 :00 BY MOUTH Medical ONCE EVERY Branch NIGHT. sumatriptan 2021-06 No TAKE ONE U nivers 100 mg 07-21 (1) ity of tablet 00:00: 00:00 TABLET(S) [place] 00 :00 BY MOUTH Medical ONCE A DAY Branch NEEDED FOR MIGRAINE. sumatriptan 2021-06 No TAKE ONE U nivers 100 mg 07-21 (1) ity of tablet 00:00: 00:00 TABLET(S) [place] 00 :00 BY MOUTH Medical ONCE A DAY Branch NEEDED FOR MIGRAINE. atorvastati 2021-06 No atorvastat Univers n 10 mg 07-02 in 10 mg ity of tablet 00:00: 00:00 tablet [place] 00 :00 TAKE ONE Medical (1) Branch TABLET(S) BY MOUTH ONCE EVERY NIGHT. atorvastati 2021-06 No atorvastat Univers n 10 mg 07-02 in 10 mg ity of tablet 00:00: 00:00 tablet [place] 00 :00 TAKE ONE Medical (1) Branch TABLET(S) BY MOUTH ONCE EVERY NIGHT. Quetiapine No 100mg Take 100 K elsey Fumarate 11-09 06-07 mg by Sey[facility] (SEROquel) 09:03: 00:00 mouth 100 MG oral 25 :00 nightly Tablet Esomeprazol Yes 40mg Take 40 mg Joy e Magnesium 6-07 by mouth Seyb old 40 MG oral 08:32: daily Delayed 52 (with Release breakfast) Capsule Bacillus Yes Probiotic Yvonne ey Coagulans-I 11-09 50 billion Se ybold nulin 08:32: (Probiotic) 52 1-250 BILLION-MG oral Capsule Cholecalcif Yes Vitamin D3 Joy milo 11-09 [facility] (Vitamin 08:32: D3) 1.25 MG 52 (64250 [place]) oral Capsule Levonorgest Yes Take by [place] sey -Eth 6- mouth [facility] Estrad-Fe 08:32: Bisg 52 (BALCOLTRA OR) Probiotic 2021- No Take by Yvonne ey Product 11-09 06-07 mouth [place] (FORTIFY 08:32: 00:00 DAILY 45 :00 PROBIOTIC OR) Alprazolam Yes [id number] .5mg QD Take 1 K elsey 0.5 MG oral 6-07 tablet Seybol d Tablet 00:00: (0.5 mg 00 total) by mouth nightly as needed for sleep Ondansetron Yes [id number] 8mg Q.[id number] Take 1 Joy 8 MG oral -07 [id number] tablet (8 [facility] TABLET 00:00: 3D mg total) DISPERSIBLE 00 by mouth every 8 hours as needed for nausea Sertraline Yes [id number] 150mg Take 1.5 Joy HCl 100 MG 6-07 tablets Seybol d oral Tablet 00:00: (150 mg 00 total) by mouth daily Sumatriptan Yes [id number] TAKE 1 K elsey Succinate 6-07 TABLET BY Seybo ld 100 MG oral 00:00: MOUTH Tablet 00 EVERY DAY NEEDED FOR MIGRAINE Atorvastati Yes [id number] 10mg Take 1 Joy n Calcium 6-07 tablet (10 Seyb old 10 MG oral 00:00: mg total) Tablet 00 by mouth nightly Fluticasone Yes [id number] 1{puff} Inhale 1 Joy -Salmeterol 6-07 puff into Sey bold 232-14 00:00: the lungs MCG/ACT 00 2 times inhalation daily AEROSOL POWDER, BREATH ACTIVATED Albuterol Yes [id number] 2{puff} Q.25D Inhale 2 Joy HFA (PROAIR 6-07 puffs into Se ybold HFA) 108 00:00: the lungs (90 Base) 00 every 6 MCG/ACT IN hours as AERS needed for wheezing Quetiapine Yes [id number] 100mg Take 1 Joy Fumarate 6-07 tablet Sey[facility] (SEROquel) 00:00: (100 mg 100 MG oral 00 total) by Tablet mouth nightly Alprazolam 2021- No [id number] .5mg QD Take 1 Joy 0.5 MG oral 1-10 06-07 tablet Seybo ld Tablet 00:00: 00:00 (0.5 mg 00 :00 total) by mouth nightly as needed for sleep Nitrofurant 2020-06- No nitrofuran Joy oin Monohyd 0-18 10-18 toin Seybold Macro 100 14:30: 00:00 monohydrat MG oral 48 :00 e/macrocry Capsule stals 100 mg capsule Take 1 capsule(s) after each visit as prophylaxi s Esomeprazol 2020-06- No Nexium Delmar sey e Magnesium 0-18 10-18 Sey[facility] (NexIUM) 10 14:29: 00:00 MG oral 00 :00 Pack Cholecalcif 2020-06- No 2000U Take 2,000 Joy milo 0-18 10-18 units by [facility] (Vitamin 14:28: 00:00 mouth D3) 50 MCG 48 :00 daily (1999) oral Capsule Levonorgest 2020-06 Yes Take by [place] sey -Eth 0-18 mouth [facility] Estrad-Fe 14:28: Bisg 07 (BALCOLTRA OR) Probiotic 2020-06 Yes Take by Ben y Product 0-18 mouth [place] (FORTIFY 14:28: DAILY 07 PROBIOTIC OR) Esomeprazol 2020-06 Yes 40mg Take 40 mg Joy e Magnesium 0-18 by mouth Seyb old 40 MG oral 14:28: daily Delayed 07 (with Release breakfast) Capsule Bacillus 2020-06 Yes Probiotic Yvonne ey Coagulans-I 0-18 50 billion Se ybold nulin 14:28: (Probiotic) 07 1-250 BILLION-MG oral Capsule Cholecalcif 2020-06 Yes Vitamin D3 Joy milo 0-18 [facility] (Vitamin 14:28: D3) 1.25 MG 07 (02774 [place]) oral Capsule Fluticasone 2020-06 Yes INHALE 1 [place] -Salmeterol 0-15 PUFF INTO Sey bold 232-14 00:00: THE LUNGS MCG/ACT 00 TWICE inhalation DAILY AEROSOL POWDER, BREATH ACTIVATED Fluticasone 2020-06- No INHALE 1 K elsey -Salmeterol 0-15 06-07 PUFF INTO Se ybold 232-14 00:00: 00:00 THE LUNGS MCG/ACT 00 :00 TWICE inhalation DAILY AEROSOL POWDER, BREATH ACTIVATED Atorvastati Yes [id number] 10mg Take 1 Joy n Calcium 8-31 tablet (10 Seyb old 10 MG oral 00:00: mg total) Tablet 00 by mouth nightly Sertraline Yes [id number] 100mg Take 1 Joy HCl 100 MG 8-31 tablet Seybold oral Tablet 00:00: (100 mg 00 total) by mouth daily Alprazolam Yes [id number] 2mg QD Take 1 Joy 2 MG oral 8-31 tablet (2 Seybo ld TABLET 00:00: mg total) DISPERSIBLE 00 by mouth nightly as needed for anxiety Atorvastati 2021- No [id number] 10mg Take 1 Joy n Calcium 8-31 06-07 tablet (10 Sey bold 10 MG oral 00:00: 00:00 mg total) Tablet 00 :00 by mouth nightly Sertraline 2021- No [id number] 100mg Take 1 Joy HCl 100 MG 8-31 06-07 tablet Seybol d oral Tablet 00:00: 00:00 (100 mg 00 :00 total) by mouth daily Albuterol Yes 2{puff} Q6H Inhale 2 K elsey HFA (PROAIR 8-30 puffs into Se ybold HFA) 108 00:00: the lungs (90 Base) 00 every 6 MCG/ACT IN hours as AERS needed for wheezing Albuterol 2021- No 2{puff} Q.25D Inhale 2 Joy HFA (PROAIR 8-30 -07 puffs into S eybold HFA) 108 00:00: 00:00 the lungs (90 Base) 00 :00 every 6 MCG/ACT IN hours as AERS needed for wheezing Estradiol Yes APPLY ONE [place] sey 0.1 MG/24HR 6-20 (1) Seybold transdermal 00:00: PATCH(ES) PATCH 00 TO THE BIWEEKLY SKIN TWICE WEEKLY. Estradiol 2021- No APPLY ONE [place] 0.1 MG/24HR 6-20 06-07 (1) [facility] transdermal 00:00: 00:00 PATCH(ES) PATCH 00 :00 TO THE BIWEEKLY SKIN TWICE WEEKLY. Ondansetron Yes [id number] 8mg Q8H Take 1 Joy 8 MG oral 5-20 tablet (8 Seybo ld TABLET 00:00: mg total) DISPERSIBLE 00 by mouth every 8 hours as needed for nausea Ondansetron 2021- No [id number] 8mg Q.[id number] Take 1 Joy 8 MG oral 5-20 -07 [id number] tablet (8 Seybold TABLET 00:00: 00:00 3D mg total) DISPERSIBLE 00 :00 by mouth every 8 hours as needed for nausea Estradiol 2 Yes 2mg Take 2 mg K elsey MG oral 4-18 by mouth [place] Tablet 00:00: at bedtime 00 Sumatriptan Yes TAKE 1 Yvonne ey Succinate 4-18 TABLET BY Seybo ld 100 MG oral 00:00: MOUTH Tablet 00 EVERY DAY NEEDED FOR MIGRAINE Estradiol 2 Yes 2mg Take 2 mg K elsey MG oral 4-18 by mouth [place] Tablet 00:00: at bedtime 00 Sumatriptan 2021- No TAKE 1 [place] sey Succinate 4-18 06-07 TABLET BY Seyb old 100 MG oral 00:00: 00:00 MOUTH Tablet 00 :00 EVERY DAY NEEDED FOR MIGRAINE QUEtiapine Yes 100mg Take 100 Un aric 100 mg 3-13 mg by ity of tablet 19:47: mouth at [place] 40 bedtime. Medical Branch ALPRAZolam 2020-0 Yes 1mg Take 1 mg Un aric 0.5 mg 3-13 by mouth 3 ity of tablet 19:47: (three) [place] 40 times Medical daily as Branch needed for Other (Anxiety). esomeprazol 2020-0 Yes 40mg Take 40 mg Univers e 40 mg 3-13 by mouth ity of capsule 19:47: daily [place] 40 breakfast. Medical Branch SERTraline 2020-0 Yes 100mg Take 100 Un aric (ZOLOFT) 3-13 mg by ity of 100 mg 19:47: mouth [place] tablet 40 daily. Medical Branch ipratropium 2020-0 Yes [id number] 3mL Inhale 3 Univers -albuterol 3-13 mL every 4 ity of 0.5 mg-3 00:00: (four) [place] mg(2.5 mg 00 hours. Medical base)/3 mL Branch nebulizer solution ipratropium 2020-0 2021- No [id number] 3mL Inhale 3 Univers -albuterol 3-13 12-27 mL every 4 it y of 0.5 mg-3 00:00: 00:00 (four) [place] mg(2.5 mg 00 :00 hours. Medical base)/3 mL Branch nebulizer solution ipratropium 2020-0 2021- No [id number] 3mL Inhale 3 Univers -albuterol 3-13 12-27 mL every 4 it y of 0.5 mg-3 00:00: 00:00 (four) [place] mg(2.5 mg 00 :00 hours. Medical base)/3 mL Branch nebulizer solution Immunizations Ordered Filled Immunization Date Status Comments [facility] Immunization Name Name TDAP 2021-12-31 Completed University of 00:00:00 [facility] TDAP 2021-12-31 Completed University of 00:00:00 [facility] TDAP 2021-12-31 Completed University of 00:00:00 [facility] TDAP 2021-12-31 Completed University of 00:00:00 [facility] TDAP 2021-12-31 Completed University of 00:00:00 [facility] TDAP 2021-12-31 Completed University of 00:00:00 [facility] TDAP 2021-12-31 Completed University of 00:00:00 [facility] Branch TDAP 2021-12-31 Completed University of 00:00:00 [facility] Branch TDAP 2021-12-31 Completed University of 00:00:00 [place] [facility] TDAP 2021-12-31 Completed University of 00:00:00 [place] [facility] TDAP 2021-12-31 Completed University of 00:00:00 [facility] Branch TDAP 2021-12-31 Completed University of 00:00:00 [facility] Branch TDAP 2021-12-31 Completed University of 00:00:00 [place] [facility] TDAP 2021-12-31 Completed University of 00:00:00 [facility] Branch TDAP 2021-12-31 Completed University of 00:00:00 [facility] Branch TDAP 2021-12-31 Completed University of 00:00:00 [facility] Branch TDAP 2021-12-31 Completed University of 00:00:00 [facility] TDAP 2021-12-31 Completed University of 00:00:00 [facility] TDAP 2021-12-31 Completed University of 00:00:00 [facility] TDAP 2021-12-31 Completed University of 00:00:00 [facility] TDAP 2021-12-31 Completed University of 00:00:00 [facility] TDAP 2021-12-31 Completed University of 00:00:00 [facility] TDAP 2021-12-31 Completed University of 00:00:00 [facility] TDAP 2021-12-31 Completed University of 00:00:00 [facility] TDAP 2021-12-31 Completed University of 00:00:00 [facility] Branch TDAP 2021-12-31 Completed University of 00:00:00 [facility] Branch TDAP 2021-12-31 Completed University of 00:00:00 [facility] TDAP 2021-12-31 Completed University of 00:00:00 [facility] Branch TDAP 2021-12-31 Completed University of 00:00:00 [place] [facility] TDAP 2021-12-31 Completed University of 00:00:00 [facility] TDAP 2021-12-31 Completed University of 00:00:00 [facility] TDAP 2021-12-31 Completed University of 00:00:00 [facility] TDAP 2021-12-31 Completed University of 00:00:00 [facility] TDAP 2021-12-31 Completed University of 00:00:00 [facility] TDAP 2021-12-31 Completed University of 00:00:00 [facility] TDAP 2021-12-31 Completed University of 00:00:00 [facility] TDAP 2021-12-31 Completed University of 00:00:00 [facility] TDAP 2021-12-31 Completed University of 00:00:00 [facility] TDAP 2021-12-31 Completed University of 00:00:00 [facility] TDAP 2021-12-31 Completed University of 00:00:00 [facility] TDAP 2021-12-31 Completed University of 00:00:00 [facility] TDAP 2021-12-31 Completed University of 00:00:00 [facility] TDAP 2021-12-31 Completed University of 00:00:00 [facility] TDAP 2021-12-31 Completed University of 00:00:00 [facility] TDAP 2021-12-31 Completed University of 00:00:00 [facility] TDAP 2021-12-31 Completed University of 00:00:00 [facility] TDAP 2021-12-31 Completed University of 00:00:00 [facility] TDAP 2021-12-31 Completed University of 00:00:00 [facility] Vital Signs Vital Name Observation Time Observation Value Comments Source Systolic blood 2023-02-09 20:53:00 131 mm[Hg] Univer sity of pressure [facility] Diastolic blood 2023-02-09 20:53:00 80 mm[Hg] Unive rsity of pressure [facility] Heart rate 2023-02-09 20:53:00 87 /min [facility] Respiratory rate 2023-02-09 20:53:00 20 /min Univ ersity of [facility] Body height 2023-02-09 20:53:00 165.1 cm [facility] Body weight 2023-02-09 20:53:00 133.358 kg [facility] BMI 2023-02-09 20:53:00 48.92 kg/m2 [facility] Oxygen saturation in 2023-02-09 20:53:00 93 /min [facility] Arterial blood by [facility] Pulse oximetry Branch Systolic blood 2022-12-20 13:18:00 120 mm[Hg] Univer sity of pressure [facility] Diastolic blood 2022-12-20 13:18:00 91 mm[Hg] Unive rsity of pressure [facility] Heart rate 2022-12-20 13:18:00 90 /min Universi ty of [facility] Body temperature 2022-12-20 13:18:00 36.67 Akua Univ ersity of [facility] Respiratory rate 2022-12-20 13:18:00 18 /min Univ ersity of [facility] Body height 2022-12-20 13:18:00 165.1 cm Universi ty [facility] Body weight 2022-12-20 13:18:00 125.283 kg Universi [facility] BMI 2022-12-20 13:18:00 45.96 kg/m2 Universi ty [facility] Oxygen saturation in 2022-12-20 13:18:00 96 /min University of [facility]ial blood by [facility] Pulse oximetry Branch Systolic blood 2022-11-25 14:23:00 132 mm[Hg] Univer sity of pressure [facility] Diastolic blood 2022-11-25 14:23:00 74 mm[Hg] Unive rsity of pressure [facility] Heart rate 2022-11-25 14:23:00 72 /min Universi ty [facility] Body height 2022-11-25 14:23:00 165.1 cm [facility] Body weight 2022-11-25 14:23:00 121.836 kg [facility] BMI 2022-11-25 14:23:00 44.70 kg/m2 [facility] Oxygen saturation in 2022-11-25 14:23:00 98 /min University of [facility]ial blood by [place] [facility] Pulse oximetry Branch Systolic blood 2022-11-24 18:06:00 104 mm[Hg] Univer sity of pressure [facility] Diastolic blood 2022-11-24 18:06:00 71 mm[Hg] Unive rsity of pressure [facility] Heart rate 2022-11-24 18:06:00 78 /min Universi ty of [facility] Body temperature 2022-11-24 18:06:00 36.78 Akua Univ ersity of [facility] Respiratory rate 2022-11-24 18:06:00 18 /min Univ ersity of [facility] Body height 2022-11-24 18:06:00 165.1 cm [facility]i [facility] Body weight 2022-11-24 18:06:00 121.201 kg [facility] BMI 2022-11-24 18:06:00 44.46 kg/m2 [facility] Oxygen saturation in 2022-11-24 18:06:00 96 /min University of Arterial blood by [facility] Pulse oximetry Branch Systolic blood 2022-09-27 16:43:00 119 mm[Hg] Univer sity of pressure [facility] Diastolic blood 2022-09-27 16:43:00 76 mm[Hg] Unive rsity of pressure [facility] Heart rate 2022-09-27 16:43:00 78 /min Universi ty [facility] Respiratory rate 2022-09-27 16:43:00 18 /min Univ ersity of [facility] Body height 2022-09-27 16:43:00 165.1 cm [facility] Body weight 2022-09-27 16:43:00 112.2 kg [facility] BMI 2022-09-27 16:43:00 41.16 kg/m2 [facility] Oxygen saturation in 2022-09-27 16:43:00 96 /min University of Arterial blood by [facility] Pulse oximetry Branch Systolic blood 2022-08-29 14:29:00 111 mm[Hg] Univer sity of pressure [facility] Diastolic blood 2022-08-29 14:29:00 72 mm[Hg] Unive rsity of pressure [facility] Heart rate 2022-08-29 14:29:00 65 /min Universi [facility] Respiratory rate 2022-08-29 14:29:00 19 /min Univ ersity of [facility] Body height 2022-08-29 14:29:00 165.1 cm [facility] Body weight 2022-08-29 14:29:00 112.175 kg [facility] BMI 2022-08-29 14:29:00 41.15 kg/m2 Univers[facility] Oxygen saturation in 2022-08-29 14:29:00 95 /min University of Arterial blood by [facility] mina Pulse oximetry Branch Systolic blood 2022-08-15 14:26:00 103 mm[Hg] Univer sity of pressure [facility] Diastolic blood 2022-08-15 14:26:00 71 mm[Hg] Unive rsity of pressure [facility] Heart rate 2022-08-15 14:26:00 66 /min Universi ty [facility] Body height 2022-08-15 14:26:00 162.6 cm [facility] Body weight 2022-08-15 14:26:00 112.038 kg [facility] BMI 2022-08-15 14:26:00 42.40 kg/m2 [facility] Systolic blood 2022-08-10 16:29:00 125 mm[Hg] Univer sity of pressure [facility] Diastolic blood 2022-08-10 16:29:00 85 mm[Hg] Unive rsity of pressure [facility] Heart rate 2022-08-10 16:29:00 72 /min Universi ty [facility] Respiratory rate 2022-08-10 16:29:00 18 /min Univ ersity of [facility] Body height 2022-08-10 16:29:00 162.6 cm [facility] Body weight 2022-08-10 16:29:00 111.585 kg Universi ty [facility] BMI 2022-08-10 16:29:00 42.23 kg/m2 [facility] Oxygen saturation in 2022-08-10 16:29:00 94 /min University of Arterial blood by [facility] mina Pulse oximetry Branch Systolic blood 2022-08-04 14:35:00 142 mm[Hg] Univer sity of pressure [facility] Diastolic blood 2022-08-04 14:35:00 87 mm[Hg] Unive rsity of pressure [facility] Heart rate 2022-08-04 14:35:00 180 /min Universi ty [facility] Body temperature 2022-08-04 14:35:00 36.83 Akua Univ ersity of [facility] Respiratory rate 2022-08-04 14:35:00 18 /min Univ ersity of [facility] Body height 2022-08-04 14:35:00 165.1 cm [facility]i [facility] Body weight 2022-08-04 14:35:00 109.77 kg [facility] BMI 2022-08-04 14:35:00 40.27 kg/m2 [facility] Oxygen saturation in 2022-08-04 14:35:00 95 /min University of Arterial blood by [facility] Pulse oximetry Branch Systolic blood 2022-07-11 16:13:00 121 mm[Hg] Univer sity of pressure [facility] Diastolic blood 2022-07-11 16:13:00 88 mm[Hg] Unive rsity of pressure [facility] Heart rate 2022-07-11 16:13:00 83 /min Universi ty [facility] Body temperature 2022-07-11 16:13:00 36.33 Akua Univ ersity of [facility] Respiratory rate 2022-07-11 16:13:00 18 /min Univ ersity of [facility] Body height 2022-07-11 16:13:00 165.1 cm [facility] Body weight 2022-07-11 16:13:00 111.086 kg [facility] BMI 2022-07-11 16:13:00 40.75 kg/m2 [facility] Oxygen saturation in 2022-07-11 16:13:00 94 /min University of Arterial blood by [facility] Pulse oximetry Branch Systolic blood 2022-07-06 14:24:00 134 mm[Hg] Univer sity of pressure [facility] Diastolic blood 2022-07-06 14:24:00 84 mm[Hg] Unive rsity of pressure [facility] Heart rate 2022-07-06 14:24:00 87 /min [facility] Body temperature 2022-07-06 14:24:00 37.28 Akua Univ ersity of [facility] Respiratory rate 2022-07-06 14:24:00 18 /min Univ ersity of [facility] Body height 2022-07-06 14:24:00 165.1 cm [facility] Body weight 2022-07-06 14:24:00 111.086 kg [facility] BMI 2022-07-06 14:24:00 40.75 kg/m2 Univers[facility] ty [facility] Oxygen saturation in 2022-07-06 14:24:00 97 /min University of Arterial blood by [facility] Pulse oximetry Branch Systolic blood 2022-06-14 19:04:00 146 mm[Hg] Univer sity of pressure [facility] Diastolic blood 2022-06-14 19:04:00 92 mm[Hg] Unive rsity of pressure [facility] Heart rate 2022-06-14 19:04:00 81 /min [facility]i ty [facility] Body height 2022-06-14 19:04:00 165.1 cm [facility] Body weight 2022-06-14 19:04:00 111.585 kg [facility] BMI 2022-06-14 19:04:00 40.94 kg/m2 [facility] Oxygen saturation in 2022-06-14 19:04:00 94 /min University of Arterial blood by [facility] Pulse oximetry Branch Systolic blood 2022-05-31 19:58:00 130 mm[Hg] Univer sity of pressure [facility] Diastolic blood 2022-05-31 19:58:00 90 mm[Hg] Unive rsity of pressure [facility] Heart rate 2022-05-31 19:57:00 85 /min Universi ty [facility] Body temperature 2022-05-31 19:57:00 36.83 Akua Univ ersity of [facility] Respiratory rate 2022-05-31 19:57:00 18 /min Univ ersity of [facility] Body height 2022-05-31 19:57:00 165.1 cm [facility] Body weight 2022-05-31 19:57:00 110.224 kg [facility] BMI 2022-05-31 19:57:00 40.44 kg/m2 [facility] Oxygen saturation in 2022-05-31 19:57:00 96 /min University of Arterial blood by [facility] Pulse oximetry Branch Systolic blood 2021-11-09 13:24:00 118 mm[Hg] Joy Seybold pressure Diastolic blood 2021-11-09 13:24:00 70 mm[Hg] Kelse y Seybold pressure Heart rate 2021-11-09 13:24:00 89 /min Joy S eybold Body temperature 2021-11-09 13:24:00 37 Akua Yvonne ey Seybold Respiratory rate 2021-11-09 13:24:00 14 /min Yvonne ey Seybold Body height 2021-11-09 13:24:00 167.6 cm Ojy S eybold Body weight 2021-11-09 13:24:00 108.863 kg Joy S eybold BMI 2021-11-09 13:24:00 38.74 kg/m2 Joy S eybold Systolic blood 2021-03-22 19:26:00 144 mm[Hg] Joy Seybold pressure Diastolic blood 2021-03-22 19:26:00 92 mm[Hg] Kelse y Seybold pressure Heart rate 2021-03-22 19:26:00 82 /min Joy S eybold Body temperature 2021-03-22 19:26:00 36.67 Akua Yvonne ey Seybold Respiratory rate 2021-03-22 19:26:00 16 /min Yvonne ey Seybold Body height 2021-03-22 19:26:00 167.6 cm Joy S eybold Body weight 2021-03-22 19:26:00 108 kg Joy S eybold BMI 2021-03-22 19:26:00 38.43 kg/m2 Joy S eybold Oxygen saturation in 2021-03-22 19:26:00 95 /min Joy Seybold Arterial blood by Pulse oximetry Systolic blood 2021-03-22 19:26:00 144 mm[Hg] Joy Seybold pressure Diastolic blood 2021-03-22 19:26:00 92 mm[Hg] Kelse y Seybold pressure Heart rate 2021-03-22 19:26:00 82 /min Joy S eybold Body temperature 2021-03-22 19:26:00 36.67 Akua Yvonne ey Seybold Respiratory rate 2021-03-22 19:26:00 16 /min Yvonne ey Seybold Body height 2021-03-22 19:26:00 167.6 cm Joy S eybold Body weight 2021-03-22 19:26:00 108 kg Joy pope BMI 2021-03-22 19:26:00 38.43 kg/m2 Joy pope Oxygen saturation in 2021-03-22 19:26:00 95 /min Joy Cisneros Arterial blood by Pulse oximetry Procedures Procedure Date / Time Performing Source Performed Clinician MEDICATION CORRESPONDENCE 2023-01-18 Doctor Unatalia, [facility] 05:01:00 [facility] MR BRAIN WO CONTRAST 2022-09-27 Sunitha Simin [facility] 17:53:26 Medical Branch XR CHEST 2 VW 2022-08-10 Yamil [facility] exas 18:01:36 Medical Branch CONSENT/REFUSAL FOR DIAGNOSIS 2022-08-05 Doctor Unatalia, [facility] AND TREATMENT 19:52:16 [facility] ELECTROENCEPHALOGRAM 2022-07-28 Sunitha Simin [facility] 00:00:00 Medical Branch AUTHORIZATION FOR RELEASE OF 2022-07-25 Doctor Carlos [facility] PHI 06:01:[address] [facility] [address] HEAD WO CONTRAST 2022-06-[address] [facility] 21:30:56 Medical Branch ASSIGNMENT OF BENEFITS 2022-06-21 Doctor Unatalia [facility] 20:37:54 [facility] [address] LUNG CANCER SCREENING 2022-06-06 Christiano Lobo [facility] 16:56:46 Medical Branch CONSENT/REFUSAL FOR DIAGNOSIS 2022-06-06 Doctor Carlos, [facility] AND TREATMENT 16:16:15 [facility] ASSIGNMENT OF BENEFITS 2022-06-06 Doctor Carlos [facility] 16:15:57 [facility] ASSIGNMENT OF BENEFITS 2022-05-31 Doctor Carlos [facility] 19:11:13 [facility] Encounters Start End Encounter Admission Attending Care Care Encounter Source Date/Time Date/Time Type Type Clinicians Facility Department ID 2020-11-30 Inpatient Melinda Billingsley [facility]I [id number] [facility] 16:00:00 23 [facility] 2023-02-28 2023-02-28 [id number] Univers 09:00:00 09:00:00 CHRISTIANO shazia [facility] 2023-02-24 2023-02-24 Outpatient R SUNITHA [facility] [id number] Univers 09:00:00 09:00:00 SIMIN knox [facility] 2023-02-17 2023-02-17 [facility] [id number] Univers 00:00:00 00:00:00 [facility] lisette funk [facility] 2023-02-13 2023-02-13 [facility] 1.2.840.114 [id number] Univers 00:00:00 00:00:00 Norberto MARTINEZ [id number] ity of [id number] [phone] [address] 2023-02-09 2023-02-09 Outpatient [facility] [id number] Univers 16:00:00 16:38:34 [facility] knox o [facility] 2023-02-09 2023-02-09 [facility] 1.2.840.114 [id number] Univers 16:00:00 16:38:34 Visit [facility] [id number] i ty [id number] [id number] [facility] 084 Branch OFFICE BUILDING 2023-02-08 2023-02-08 Telephone [facility] 1.2.840.114 [id number] Univers 00:00:00 00:00:00 Christiano MARTINEZ [id number] i ty [id number] [id number] [place] [address] Branch BUILDING 2023-01-20 2023-01-20 [facility] 1.2.840.114 [id number] Univers 00:00:00 00:00:00 Christiano MARTINEZ [id number] i ty [id number] [id number] Tn dical NAL 231 [facility] 2023-01-19 2023-01-19 Telephone [facility] 1.2.840.114 [id number] Univers 00:00:00 00:00:00 Christiano MARTINEZ [id number] i ty of [id number] [id number] Tn dical NAL 044 [facility] 2023-01-18 2023-01-18 Orders Doctor MELINDA 1.2.840.114 [id number] Univers 00:00:00 00:00:00 Only Unassigned, CHAPARRO [id number] ity of [place] [facility] 4.2.7.2.686 [place] as [id number] [address] 2023-01-02 2023-01-02 Refill [facility] 1.2.840.114 [id number] Univers 00:00:00 00:00:00 Christiano MARTINEZ [id number] i ty [id number] [id number] Tn dical NAL 044 [facility] 2022-12-29 2022-12-29 Refill Shelton [facility] 1.2.840.114 [id number] Univers 00:00:00 00:00:00 Norberto MARTINEZ [id number] ity of [id number] [id number] Tn dical NAL 044 [facility] 2022-12-22 2022-12-22 Telephone [facility] 1.2.840.114 [id number] Univers 00:00:00 00:00:00 Christiano MARTINEZ [id number] i ty of [place] [id number] Tn dical NAL 044 [facility] 2022-12-20 2022-12-20 Core Shaper 2, Adc Lab [facility] 1.2.840.114 [id number] Univers 09:30:00 09:45:00 Visit Norberto Peña 350.1.13.1 0 ity of [place] [facility] [id number] [id number] Tn dicmin [place] 353 [facility] 2022-12-20 2022-12-20 Outpatient R NORBERTO PEÑA [facility] [id number] Univers 08:30:00 09:19:17 NORBERTO PEÑA ity [facility] 2022-12-20 2022-12-20 Office [facility] 1.2.840.114 [id number] Univers 08:30:00 09:19:17 Visit Norberto JUAN 350.1.13.10 ity of [place] [facility] 4[place]2.7.2.[place] [id number] [address] 2022-12-20 2022-12-20 Patient German [facility] 1.2.840.114 [id number] Univers 00:00:00 00:00:00 Outreach Glo MARTINEZ [id number] ity of [place] [facility] [id number] [id number] Tn dic[address] 2022-12-15 2022-12-15 Outpatient R YAMIL [facility] [id number] Univers 11:15:00 11:15:00 CHRISTIANO knox [facility] 2022-12-14 2022-12-14 Patient [facility] 1.2.840.114 [id number] Univers 00:00:00 00:00:00 Secure Msg Christiano MARTINEZ [id number] ity of [place] [facility] [id number] [id number] Tn dical NAL 044 [facility] 2022-12-12 2022-12-12 Telephone [facility] 1.2.840.114 [id number] Univers 00:00:00 00:00:00 Christiano MARTINEZ 350.1.13.10 i ty of [place] [facility] 4.2.7.2.[place] [id number] Tn dic[address] 2022-12-09 2022-12-09 Telephone [facility] [id number] [id number] Univers 00:00:00 00:00:00 Simin collegefeed 350.1.13.10 it y [facility] 4.2.7.2.686 [place] as VIJAYA?BLEA [id number] Tn maríahi TASNE[address] 2022-12-05 2022-12-05 Refill [facility] 1.2.840.114 [id number] Univers 00:00:00 00:00:00 Christiano MARTINEZ 350.1.13.10 i ty of [place] [facility] 4.2.7.2.[place] [id number] [address] 2022-12-05 2022-12-05 Refill [facility] 1.2.840.114 [id number] Univers 00:00:00 00:00:00 Christiano MARTINEZ 350.1.13.10 i ty of [place] [facility] 4[place]7.2.[place] [id number] [address] 2022-11-29 2022-11-29 Telephone [facility] 1.2.840.114 1 [id number] Univers 00:00:00 00:00:00 Christiano MARTINEZ 350.1.13.10 i ty of [place] [facility] [id number] [id number] [address] 2022-11-25 2022-11-25 Outpatient R SUNITHA [facility] [id number] Univers 09:30:00 10:09:26 SIMIN ity of [facility] 2022-11-25 2022-11-25 Office [facility] 1.2.840.114 [id number] Univers 09:30:00 10:09:26 Visit [facility] [id number] it y [facility] 4.2.7.2.686 [place] VIJAYA?BLEA [id number] [address] 2022-11-24 2022-11-24 Outpatient [facility] [id number] Univers 13:20:00 14:24:36 CHRISTIANO lisette [facility] 2022-11-24 2022-11-24 Office OsmanisallyingridchristinaGERALD CHAMP[facility] 1.2.840.114 [id number] Univers 13:20:00 14:24:36 Visit Christiano ROSELYNNATALIE 350.1.13.10 i ty of [place] 4[place] [id number] [address] 2022-11-18 2022-11-18 Outpatient R OSMANISALLYINGRIDCHRISTINASCCI [facility] [id number] Univers 10:40:00 10:40:00 CHRISTIANO lisette [facility] 2022-11-02 2022-11-02 [facility] 1.2.840.114 [id number] Univers 00:00:00 00:00:00 Christiano MARTINEZ 350.1.13.10 i ty of [place] [id number] [address] 2022-09-27 2022-09-27 Outpatient R [facility] RAD [id number] Univers 11:15:55 23:59:00 [facility] 2022-09-27 2022-09-27 [facility] 1.2.840.114 [id number] Univers 11:15:55 23:59:00 Encounter [facility] 350.1.13.10 ity [facility] [place]2.7.2.[place] CENTER AT [id number] Tn maríamin HEALY 804 [facility] 2022-09-20 2022-09-20 Outpatient [facility] [id number] Univers 11:20:00 11:20:00 CHRISTIANO lisette [facility] 2022-09-14 2022-09-14 Lizzeth [facility]GERALD [facility] 1.2.840.114 [id number] Univers 00:00:00 00:00:00 Simin [facility] 350.1.13.10 it y of [place] 4.2.7.2.686 [place] as VIJAYA?BLEA [id number] Me mirta VALDEZ 092 [facility] 2022-09-12 2022-09-12 Outpatient R SUNITHA [facility] [id number] Univers 08:00:00 08:00:00 SIMIN knox [facility] 2022-09-09 2022-09-09 Outpatient R HELTON [facility] [id number] Univers 00:00:00 00:00:00 SIMIN knox [facility] 2022-09-09 2022-09-09 Telephone [facility] 1.2.840.114 [id number] Univers 00:00:00 00:00:00 Christiano MARTINEZ [id number] i ty of [place] [facility] [id number] [id number] Tn maríahi NAL 044 [facility] 2022-08-29 2022-08-29 Outpatient R CHIOMA PATRICIO [facility] 10 [id number] Univers 09:00:00 09:58:24 CHIOMA PATRICIO i ty of [facility] 2022-08-29 2022-08-29 Office [facility] 1.2.840.114 [id number] Univers 09:00:00 09:58:24 Visit Chioma MARTINEZ 350.1.13.10 i [place] [id number] Tn maríahi NAL 085 [facility] 2022-08-16 2022-08-16 Telephone [facility] 1.2.840.114 1 [id number] Univers 00:00:00 00:00:00 Christiano MARTINEZ 350.1.13.10 i [place] [id number] Tn dical NAL 044 [facility] 2022-08-15 2022-08-15 Office [facility] 1.2.840.114 [id number] Univers 09:30:00 10:25:55 Visit [facility] 350.1.13.10 it y of [place] 4.2.7.2.686 [place] as VIJAYA?BLEA [id number] Tn mirta BOATENGEY 092 [facility] 2022-08-15 2022-08-15 Outpatient R SUNITHA [facility] [id number] Univers 09:30:00 10:25:55 SIMIN knox [facility] 2022-08-12 2022-08-12 Outpatient _SWHAWPR PRIV PRIV 219 [id number] [facility] 00:00:00 00:00:00 _Karie [id number] Medica l 2022-08-11 2022-08-11 [facility] [id number] Univers 08:40:00 08:40:00 CHRISTIANO knox [facility] 2022-08-10 2022-08-10 [facility] 1.2.840.114 10 [id number] Univers 11:46:37 23:59:00 Encounter Christiano MARTINEZ 350.1.13.10 ity [facility] 4.2.7.2.686 [facility] [id number] [facility] [address] [place] 2022-08-10 2022-08-10 Office [facility] 1.2.840.114 [id number] Univers 10:40:00 11:31:33 Visit Christiano MARTINEZ 350.1.13.10 i ty [facility] 4.2.7.2.686 [facility] [phone] Tn dical NAL 044 [facility] 2022-08-10 2022-08-10 Outpatient [facility] [id number] Univers 10:40:00 11:31:33 CHRISTIANO knox [facility] 2022-08-10 2022-08-10 Outpatient JOY EUCEDA [id number] Joy 00:00:00 00:00:00 KAMALJIT Seybol savi 2022-08-08 2022-08-08 Outpatient Alysa HELTON [facility] [id number] Univers 15:00:00 15:00:00 SIMIN knox [facility] 2022-08-08 2022-08-08 Telephone [facility] 1.2.160.802 [id number] Univers 00:00:00 00:00:00 Simin [facility] 350.1.13.10 it y of [place] 4.2.7.2.686 [place] as VIJAYA?BLEA [phone] Tn dichi COURTNEY [address] [place] [facility] 2022-08-05 2022-08-05 Outpatient R [facility] [id number] Univers 13:52:38 23:59:00 PETER lisette [facility] 2022-08-05 2022-08-05 [facility] 1.2.840.114 [id number] Univers 13:52:38 23:59:00 Encounter Christiano MARTINEZ 350.1.13.10 ity of [place] [id number] [facility] [address] 2022-08-05 2022-08-05 Orders Doctor MELINDA 1.2.840.114 [id number] Univers 00:00:00 00:00:00 Only Unassigned, CHAPARRO 350.1.13.10 ity of [place] [facility] 4.2.7.2.686 Hong as [id number] [facility] [address] [place] 2022-08-05 2022-08-05 Telephone [facility] 1.2.840.114 1 [id number] Univers 00:00:00 00:00:00 Christiano MARTINEZ 350.1.13.10 i ty of [place] [id number] Tn dichi NAL 044 [facility] 2022-08-04 2022-08-04 Outpatient R [facility] [id number] Univers 08:40:00 09:28:29 CHRISTIANO knox [facility] 2022-08-04 2022-08-04 Office [facility] 1.2.840.114 [id number] Univers 08:40:00 09:28:29 Visit Christiano MARTINEZ 350.1.13.10 i ty of [place] 4[place].2.[place] [id number] Tn dical NAL 044 [facility] 2022-08-03 2022-08-03 Outpatient JOY EUCEDA [id number] Joy 00:00:00 00:00:00 KAMALJIT hou 2022-07-28 2022-07-28 Outpatient R SUNITHA [facility] [id number] Univers 12:50:00 23:59:00 SIMIN knox [facility] 2022-07-28 2022-07-28 Hospital Simin Helton 1.2.840.11 [id number] Univers 12:50:00 23:59:00 Encounter Tech, Jsh Eeg CHAPARR[place] 350.1.13.10 ity of [place].2.[place] [id number] [facility] [address] [place] 2022-07-25 2022-07-25 Orders Doctor MELINDA 1.2.840.114 [id number] Univers 00:00:00 00:00:00 Only Unassigned, CHAPARRO 350.1.13.10 ity of [place] [facility] 4.2.7.2.686 Hong as [id number] [facility] [address] [place] 2022-07-19 2022-07-19 Telephone [facility] 1.2.840.114 1 [id number] Univers 00:00:00 00:00:00 Christiano MARTINEZ 350.1.13.10 i ty of [place] 4.[place].2.[place] [id number] Tn dical NAL 044 [facility] 2022-07-18 2022-07-18 Outpatient [facility] [id number] Univers 00:00:00 00:00:00 CHRISTIANO knox [facility] 2022-07-15 2022-07-15 Outpatient Alysa HELTON [facility] [id number] Univers 08:30:00 08:30:00 SIMIN lisette [facility] 2022-07-11 2022-07-11 Office [facility] 1.2.840.114 [id number] Univers 15:30:00 15:30:00 Visit Simin MARTINEZ 350.1.13.10 i ty of [place] 4.2.7.2.[place] [id number] Tn dical NAL 044 [facility] 2022-07-11 2022-07-11 Outpatient [facility] [id number] Univers 15:30:00 11:42:23 SIMIN ity of [facility] 2022-07-11 2022-07-11 [facility] 1.2.840.114 1 [id number] Univers 00:00:00 00:00:00 Christiano MARTINEZ 350.1.13.10 i ty of [place].2.[place] [id number] Tn dicmin NAL [address] [place] [address] 2022-07-07 2022-07-07 Telephone Trung [facility] 1.2.840.114 [id number] Univers 00:00:00 00:00:00 , Clementine [facility] 350.1.13.10 ity of [place] MARTINEZ 4.2.7.2.686 Hong as VIJAYA?BLEA [id number] [facility] COURTNEY [address] [place] [address] OFFICE [facility] 2022-07-06 2022-07-06 Office [facility] 1.2.840.114 [id number] Univers 08:40:00 09:48:50 Visit Christiano MARTINEZ 350.1.13.10 i ty of [place] 4[place].2.[place] [id number] [address] 2022-07-06 2022-07-06 Outpatient [facility] [id number] Univers 08:40:00 09:48:50 CHRISTIANO knox of [facility] 2022-07-06 2022-07-06 Telephone [facility] 1.2.840.114 1 [id number] Univers 00:00:00 00:00:00 Christiano MARTINEZ 350.1.13.10 i ty of [place] 4.[place].2.[place] [id number] Tn dichi NAL [address] [place] [address] 2022-06-21 2022-06-21 [facility] 1.2.840.114 [id number] Univers 14:38:14 23:59:00 Encounter Simincristiano MARTINEZ 350.1.13.10 ity of [place] [id number] [address] 2022-06-21 2022-06-21 Outpatient R SUNITHA [facility] [id number] Univers 14:38:13 23:59:00 SIMIN shazia [facility] 2022-06-21 2022-06-21 Orders Doctor MELINDA 1.2.840.114 [id number] Univers 00:00:00 00:00:00 Only Unassigned, CHAPARRO 350.1.13.10 ity of [facility] 4.2.7.2.686 [place] as [phone] [address] 2022-06-17 2022-06-17 Outpatient R GLENIS [facility] [id number] Univers 15:15:00 15:15:00 ADRY knox o f [facility] 2022-06-15 2022-06-15 Outpatient Alysa CARRION [facility] [id number] Univers 10:00:00 10:00:00 EZE shazia [facility] 2022-06-14 2022-06-14 [facility] [id number] Univers 13:00:00 13:38:57 SIMIN shazia [facility] 2022-06-14 2022-06-14 Office [facility] 1.2.840.114 [id number] Univers 13:00:00 13:38:57 Visit Simin [facility] 350.1.13.10 it y of [place] 4.2.7.2.686 [place] as VIJAYA?BLEA [id number] Tn mirta BOATENGEY 092 [facility] OFFICE [facility] 2022-06-10 2022-06-10 Outpatient JOY EUCEDA [id number] Joy 00:00:00 00:00:00 KAMALJIT hou 2022-06-09 2022-06-09 Telephone [facility] 1.2.840.114 [id number] Univers 00:00:00 00:00:00 Christiano MARTINEZ 350.1.13.10 i ty of [place] [id number] Tn dical NAL [address] [facility] 2022-06-07 2022-06-07 Outpatient [facility] [id number] Univers 08:30:00 08:30:00 SIMIN knox [facility] 2022-06-06 2022-06-06 Outpatient R [facility] [id number] Univers 10:23:31 23:59:00 CHRISTIANO knox [facility] 2022-06-06 2022-06-06 [facility] 1.2.840.114 [id number] Univers 10:23:31 23:59:00 Encounter Christiano MARTINEZ 350.1.13.10 ity [facility] [place]2.[place].2.[place] [id number] [address] 2022-05-31 2022-05-31 Core Shaper 2, Adc Lab [facility] 1.2.840.114 [id number] Univers 15:30:00 15:45:00 Visit Christiano Lobo 350.1.13.10 ity of [place].2.[place] [id number] Tn dical NAL 353 [facility] 2022-05-31 2022-05-31 Outpatient R [facility] [id number] Univers 14:00:00 15:22:37 CHRISTIANO knox [facility] 2022-05-31 2022-05-31 Office [facility] 1.2.840.114 [id number] Univers 14:00:00 15:22:37 Visit Christiano MARTINEZ 350.1.13.10 i ty of [place].2.[place] [id number] Tn dical NAL 044 [facility] 2022-05-31 2022-05-31 Outpatient JOY EUCEDA [id number] Joy 00:00:00 00:00:00 KAMALJIT hou 2022-05-31 2022-05-31 Telephone [facility] 1.2.840.114 [id number] Univers 00:00:00 00:00:00 Christiano MARTINEZ 350.1.13.10 i ty of [place] 4.[place].7.2.[place] [id number] Tn dical NAL 044 [facility] 2022-05-31 2022-05-31 Orders Doctor MELINDA 1.2.840.114 [id number] Univers 00:00:00 00:00:00 Only Unassigned, CHAPARRO 350.1.13.10 ity of [place] [facility] 4.2.7.2.686 Hong as [phone] [facility] [address] [place] 2022-05-23 2022-05-23 Outpatient JOY EUCEDA [id number] Joy 00:00:00 00:00:00 KAMALJIT Seybol d 2022-05-12 2022-05-12 Outpatient JOY EUCEDA [id number] Joy 00:00:00 00:00:00 KAMALJIT Seybol d 2022-05-11 2022-05-11 Outpatient MELCHOR FAIRBANKS [id number] Joy 00:00:00 00:00:00 Seybol d 2022-05-06 2022-05-06 Outpatient LON ADRIAN [id number] Joy 00:00:00 00:00:00 MD VIKI Seybol d 2022-01-19 2022-01-19 Outpatient [facility] PRIV PRIV [id number] [facility] 00:00:00 00:00:00 _Karie [id number] Medica l 2021-12-28 2021-12-28 Outpatient GC_[facility] PRIV PRIV [id number] [facility] 00:00:00 00:00:00 _Karie [id number] Medica l 2021-12-08 2021-12-08 Outpatient PREJOY VILLA [id number] Joy 00:00:00 00:00:00 KAMALJIT Seybol d 2021-12-08 2021-12-08 Outpatient PREJOY VILLA [id number] Joy 00:00:00 00:00:00 KAMALJIT Seybol d 2021-11-30 2021-11-30 Outpatient PREJOY VILLA [id number] Joy 00:00:00 00:00:00 KAMALJIT Seybol d 2021-11-09 2021-11-09 Office Adam Euceda 1.2.840.114 [id number] Joy 08:45:00 09:00:00 Visit Kamaljit Carrion 350.1.13.13 dwayne 1.2.7.2.686 [id number] 2021-10-27 2021-10-27 Outpatient GC_[facility] PRIV PRIV [id number] [facility] 04:13:00 04:13:00 _Cathey [id number] Medica l 2021-10-26 2021-10-26 Outpatient GC_[facility] PRIV PRIV [id number] [facility] 12:13:00 12:13:00 _Cathey [id number] Medica l 2021-09-23 2021-09-23 Outpatient JOY HELTON [id number] Joy 00:00:00 00:00:00 SHYAM Seybol d 2021-08-16 2021-08-16 Outpatient [facility] PRIV PRIV [id number] [facility] 11:30:00 11:30:00 _Cathey [id number] Medica l 2021-07-23 2021-07-23 Outpatient JOY LEWIS [id number] Joy 13:30:00 13:30:00 ADELAIDA Seybol d 2021-07-23 2021-07-23 Outpatient JOY LEWIS [id number] Joy 00:00:00 00:00:00 ADELAIDA Seybol d 2021-07-15 2021-07-15 Outpatient JOY HELTON [id number] Joy 00:00:00 00:00:00 SHYAM Seybol d 2021-07-12 2021-07-12 Outpatient JOY HELTON [id number] Joy 00:00:00 00:00:00 SHYAM Seybol d 2021-07-05 2021-07-05 Outpatient GC_[facility] PRIV PRIV [id number] [facility] 01:37:00 01:37:00 _Cathey [id number] Medica l 2021-07-02 2021-07-02 Outpatient GC_[facility] PRIV PRIV [id number] [facility] 03:53:00 03:53:00 _Cathey [id number] Medica l 2021-06-30 2021-06-30 Outpatient JOY MILLIGAN [id number] Joy 00:00:00 00:00:00 MÓNICA Seybol d 2021-06-14 2021-06-14 Outpatient JOY SANDOVAL [id number] Joy 00:00:00 00:00:00 MARGARITA Seybol d 2021-06-14 2021-06-14 Outpatient TRINIMELCHOR [id number] Joy 00:00:00 00:00:00 Seybol d 2021-06-09 2021-06-09 Outpatient TRINI MELCHOR ADRIAN [id number] Joy 00:00:00 00:00:00 Seybol d 2021-06-08 2021-06-08 Outpatient JOY LEWIS [id number] Joy 00:00:00 00:00:00 ADELAIDA Seybol d 2021-05-26 2021-05-26 [facility] PR[facility] [id number] [facility] 01:29:00 01:29:00 _Karie [id number] Medica l 2021-05-19 2021-05-19 Outpatient TRINI MELCHOR ADRIAN [id number] Joy 00:00:00 00:00:00 Seybol d 2021-04-28 2021-04-28 Outpatient JOY ADRIAN [id number] Joy 10:25:00 10:25:00 Seybol d 2021-04-28 2021-04-28 Outpatient JOY HELTON [id number] Joy 00:00:00 00:00:00 SHYAM Seybol d 2021-04-06 2021-04-06 Outpatient JOY HELTON [id number] Joy 00:00:00 00:00:00 SHYAM Seybol d 2021-03-25 2021-03-26 Inpatient ISABELL Melinda Harris [facility] F000 [id number] [facility] 12:00:00 09:56:00 [facility] 2021-03-22 2021-03-22 Outpatient JOY ADRIAN [id number] Joy 15:25:00 15:25:00 Seybol d 2021-03-22 2021-03-22 Office JAM Helton 1.2.840.114 [id number] 14:24:09 14:54:09 Visit Shyam 350.1.13.13 1.2.7.2.686 [id number] 2021-03-22 2021-03-22 Office JAM Helton 1.2.840.114 [id number] Joy 14:24:09 14:54:09 Visit Shyam 350.1.13.13 Se ybold 1.2.7.2.686 [id number] 2021-03-11 2021-03-11 Outpatient JOY ADRIAN [id number] Joy 08:00:00 08:00:00 Seybol d 2021-03-03 2021-03-03 Outpatient LAB90 JOY ADRIAN [id number] Joy 10:55:00 10:55:00 Seybol d 2021-03-03 2021-03-03 Outpatient MELCHOR FAIRBANKS [id number] Joy 00:00:00 00:00:00 Seybol d 2021-02-23 2021-02-23 Outpatient JOY HELTON [id number] Joy 00:00:00 00:00:00 SHYAM Seybol d 2021-02-18 2021-02-18 Outpatient JOY HELTON [id number] Joy 00:00:00 00:00:00 SHYAM Seybol d 2021-02-02 2021-02-02 Outpatient LAB90 JOY ADRIAN [id number] Joy 11:00:00 11:00:00 Seybol d 2021-02-02 2021-02-02 Outpatient MELCHOR FAIRBANKS [id number] Joy 10:30:00 10:30:00 Seybol d 2021-02-01 2021-02-01 Outpatient JOY ADRIAN [id number] Joy 08:45:00 08:45:00 Seybol d 2021-02-01 2021-02-01 Outpatient JOY HELTON [id number] Joy 08:30:00 08:30:00 SHYAM Seybol d 2021-01-29 2021-01-29 Outpatient JOY HELTON [id number] Joy 00:00:00 00:00:00 SHYAM Seybol d 2021-01-25 2021-01-25 Outpatient JOY HELTON [id number] Joy 00:00:00 00:00:00 SHYAM Seybol d 2021-01-20 2021-01-20 Outpatient ES, TECH JOY ADRIAN [id number] Joy 14:00:00 14:00:00 Seybol d 2021-01-20 2021-01-[address], TECH JOY ADRIAN [id number] Joy 11:00:00 11:00:00 Seybol d 2021-01-19 2021-01-19 Outpatient JOY HELTON [id number] Joy 00:00:00 00:00:00 SHYAM Seybol d 2020-12-21 2020-12-21 Outpatient JOY HELTON [id number] Joy 00:00:00 00:00:00 SHYAM Seybol d 2020-11-30 2020-11-[address], TECH JOY ADRIAN [id number] Joy 11:00:00 11:00:00 Seybol d 2020-09-15 2020-09-15 Outpatient Melinda Billingsley [facility]3 [id number] [facility] 12:00:00 12:00:00 [id number] [facility] 2019-08-23 2019-08-23 Patricia El 1.2.840.114 [id number] 00:00:00 00:00:00 Triage E CHAPARRO 350.1.13.10 [facility] 4.2.7.2.686 [id number] 2019-08-23 2019-08-23 Nurse Patricia Gannon 1.2.840.114 [id number] 00:00:00 00:00:00 Triage E CHAPARRO 350.1.13.10 [facility] 4.2.7.2.686 [id number] 2019-08-21 2019-08-21 Patient Doctor MELINDA Bradley2.840.114 [id number] 00:00:00 00:00:00 Secure Msg Unassigned, [place] 350.1.13.10 [place] [facility] 42.7.2.686 [id number] 2019-08-20 2019-08-20 Patient Doctor JUAN M 1.2.358.991 [id number] 00:00:00 00:00:00 Secure Msg Unassigned, [place]RE[place] 350.1.13.10 [place]2.7.2.686 [id number] 2019-08-19 2019-08-19 Patient Doctor MELINDA 1.2.840.114 [id number] 00:00:00 00:00:00 Secure Msg Unassigned, [place].1.13.10 [place] [address].2.7.2.686 [id number] 019 2019-08-19 2019-08-19 [facility] 1.2.840.114 [id number] 00:00:00 00:00:00 Secure Msg Shonna SALINASY 350.1.13.10 [facility] 4.2.7.2.686 [id number] 2019-08-17 2019-08-17 Patient Doctor MELINDA 1.2.840.114 [id number] 00:00:00 00:00:00 Secure Msg Unassigned, [place] 350.1.13.[address]2.686 [id number] 2019-08-15 2019-08-16 Outpatient Ledy [facility] [id number] Univers 10:39:15 19:46:00 NARA knox [facility] 2018-12-25 2018-12-27 Inpatient EM Esteban [facility].01 [id number] [facility] 14:13:00 12:01:00 Oladipo 73 [facility] Results Test Description Test Time Test Comments Results Result Comments Source UTERUS,OTHER THAN PROLAPSE/TERRI 2021-03-29 15:39:00 Test Item Value Reference Range Interpretation Comme nts UTERUS,OTHER RUN DATE: THAN 03/31/21 Womankira quan PAGE 1 RUN TIME: 1448 Specimen Inquiry RUN USER: INTERFACE PROLAPSE/TERRI PATIENT: (test code = AYLSSA BRAVO LOC: U #: [id number] AGE/SX: 45/F ROOM: [facility] REG: UTERUSOTH) 03/25/21REG DR: Melinda Harris III, MD : 75 BED: A DIS: 03/26/21 STATUS: DIS Arturo TLOC: SPEC #: [id number] RECD: STATUS: DESMOND REQ #: [id number] KATIA: 03/25/21- SUBM DR: Melinda Harris III, MD ENTERED: 03/26/21 0 SP TYPE: UTERUSOTH OTHR SMITH: ORDERED: LEVEL V SURGICA CODES: T10553 - UTERUS, NOS PROCEDURES: LEVE L V SURGICA (Incomplete) TISSUES: UTERUS, NOS - UTERUS,CERVIX,BILATERAL TUBES CLINICAL HISTORY 45 ye ar old, menorrhagia, pelvic pain, metrorrhagia (wpd) FINAL DIAGNOSIS Uterus, bilateral fallopian tubes, h ysterectomy and bilateral salpingectomy: cervix - reactive squamous epithelial atypia - no dyspl opal identified endometrium - benign, weakly proliferative myometrium - leiomyomas - adenomyosis jarek rine serosa - no fibrous adhesions right and left fallopian tubes - bilateral benign paratubal c ysts - status post ligation CPT: 63306, 08394-03, 36730-80 ls/wpd GROSS DESCRIPTION ANATOMIC SOURCE OF TISSUE (per Requisition): Uterus, cervix, bilateral fallopian tubes The specimen is received in form jer in a container labeled with the patient's name and designated "uterus, cervix, bilateral fallopian tubes". It consists of a 9 x 7.5 x 7.0 cm hysterectomy with bilateral fallopian tubes attached. Th e uterus weighs 144 gms. The serosa is william, smooth and glistening, and contains subserosal, firm no dules in the mid to upper posterior wall measuring up to 3.4 cm. The cervical external os measure s 0.8 cm. The portio vaginalis measures 2.2 cm. The uterine cervix measures 5.0 cm in length. Representa tive sections are submitted in A1. CONTINUED ON NEXT PAGE RUN DATE: 03/31/21 [facility] - [facility] y PAGE 2 RUN TIME: 1448 Specimen Inquiry RUN USER: INTERFACE SPEC #: [id number] PATIENT: ALYSSA BRAVO #[id number] (Continued) GROSS DESCRIPTION (Continued ) The endometrium measures 0.1 cm. The myometrium measures up to 3 cm and contains additional off-whit e, firm nodules measuring up to 2.0 cm and slightly ill-defined, submucosal, firm lesions measuring up to 1.1 cm. Lead Installer sections are submitted in A2 and A3. The right fallopian tube with fimbriae and healed previous tubal ligation measures 4.5 x 0.6 x 0.3 cm and contains multiple semi-translucent pa ratubal cysts measuring up to 0.3 cm. The entire fimbriae and one cross-section of the tube wi th the cyst are submitted in A4. The left fallopian tube with fimbriae and healed previous tubal ligati on measures 1.5 x 0.3 x 0.3 cm and contains paratubal cysts measuring up to 0.2 cm. The entire fimbriae and one cross-section of the tube with the cysts are submitted in A5. hz/wpd 03/26/21 The remaining cervi x and sales promotion representative sections of lower uterine segment are submitted in RE1 and RE2 - anterior, RE3 and RE4 - posterior. hz/wpd 03/29/21 MICROSCOPIC DESCRIPTION The following technical components were pe rformed at [facility], [address] [place] [address], [address], [place] [address]. The interpretation is provided by [facility], [address] [place] [address] 174[address]. Controls received from [facility] stained appropriately. INTERPRETATION: Block A1 - p16: Rare positive cells Ki-67: No increase in stainin g above basal layer Signed Annie Millan MD 03/06 10/23 1539 END OF REPORT HGB [id number] 05:38:00 Test Item Value Reference Range Interpretation Comments HEMOGLOBIN (test code = HGB) 12.9 g/dL 10.1-13.8 N HEMATOCRIT (test code = HCT) 39.9 % 32.5-41.8 N COVID 19 Asymptomatic IH [id number] 13:55:00 Test Item Value Reference Range Interpretation Comments COVID 19 NEGATIVE NEGATIVE This test has b een Asymptomatic IH AG authorize d only for the (test code = detection ofpro teins from COVNONPUIAG) SARS-CoV-2, not for any other viruses orpathogens. Ne gative results should be treated as presumptive andconfirmed wi th a molecular assay , if necessary for patientmanageme nt. Negative result s do not rule out COVID- 19 andshould not b e used as the sole basis for treatment orpat ient management deci sions, including infec tion controldecision s. Negative result s should be considered i n thecontext of a patient's recent exposure s, history and thepresence of clinical signs and symptoms consis tent withCOVID-19. T his test has not been FD A cleared or approved; th e test hasbeen authori ishaan by FDA under an Emerge ncy Use Authorization(E UA) for use by laborato will certified under the CLIA thatmeet the re quirements to perform mode rate, high or waivedcomple xity tests. This lobito t is authorized for use at thePoint of Car e (POC), i.e., in patien t care settingsoperati ng under a CLIA Certificat e of Waiver, Certifi estephania ofCompliance, o r Certificate of Accreditation. This test is only authori ishaan for the duration of thedeclaration that circumstances e xist justifying theauthorizatio n of emergency use o f in vitro diagnostic test sfor detection and/o r diagnosis of CO VID-19 under Qwxbohz36 4(b)(1) of the Act, 21 U.S .C. 360bbb-3(b)(1), unless theauthorizatio n is terminated or r evoked sooner. Comments to [employer]: FOR RAPID AND IN-HOUSE COVID TEST TODAYSpecimen Comment: DO NOT SEND OUTBASIC METABOLIC [id number] 13:29:00 Test Item Value Reference Range Interpretation Comments SODIUM (test code = NA) 143 mEq/L 135-145 N POTASSIUM (test code = K) 4.2 mEq/L 3.5-5.0 N CHLORIDE (test code = CL) 107 mEq/L 100-115 N CARBON DIOXIDE (test code = CO2) 27 mEq/L 22-31 N ANION GAP (test code = GAP) 13.00 10-20 N GLUCOSE (test code = GLU) 95 mg/dL 65-110 N BLOOD UREA NITROGEN (test code = 11 mg/dL 7-18 N BUN) CREATININE (test code = CREAT) 0.9 mg/dL 0.5-1.0 N CALCIUM (test code = CA) 8.6 mg/dL 8.4-10.2 N GLOMERULAR FILTRATION RATE (test 68 ml/min >60 N code = GFR) HCG SERUM [id number] 13:29:00 Test Item Value Reference Range Interpretation Comments HCG SERUM QUAL (test code = HCGQL) NEGATIVE CBC W/AUTO [id number] 13:26:00 Test Item Value Reference Range Interpretation Comments WHITE BLOOD CELL (test code = WBC) 9.2 K/mm3 6.5-12.3 N RED BLOOD CELL (test code = RBC) 4.30 M/mm3 3.51-4.69 N HEMOGLOBIN (test code = HGB) 13.4 g/dL 10.1-13.8 N HEMATOCRIT (test code = HCT) 39.6 % 32.5-41.8 N MEAN CELL VOLUME (test code = MCV) 92.1 fL 84.6-96.6 N MEAN CELL HGB (test code = MCH) 31.2 pg 27.3-33.9 N MEAN CELL HGB CONCETRATION (test 33.8 gm/dL 32.0-34.2 N code = MCHC) RED CELL DISTRIBUTION WIDTH (test 13.3 % 12.2-16.3 N code = RDW) PLATELET COUNT (test code = PLT) 298 K/mm3 134-363 N MEAN PLATELET VOLUME (test code = 9.8 fL 9.2-12.7 N MPV) NEUTROPHIL % (test code = NT%) 70.3 % 57.9-77.3 N LYMPHOCYTE % (test code = LY%) 19.0 % 14.5-29.7 N MONOCYTE % (test code = MO%) 4.0 % 3.6-10.2 N EOSINOPHIL % (test code = EO%) 6.0 % 0.0-3.0 H BASOPHIL % (test code = BA%) 0.5 % 0.1-0.9 N NEUTROPHIL # (test code = NT#) 6.5 K/mm3 LYMPHOCYTE # (test code = LY#) 1.8 K/mm3 MONOCYTE # (test code = MO#) 0.4 K/mm3 EOSINOPHIL # (test code = EO#) 0.55 K/mm3 BASOPHIL # (test code = BA#) 0.1 K/mm3 RBC MORPHOLOGY REQUIRED (test code NORMAL NORMAL = RBCM) PLATELET MORPHOLOGY REQUIRED (test NORMAL NORMAL code = PLTMR) BASIC METABOLIC [id number] 10:45:00 Test Item Value Reference Range Interpretation Comments SODIUM (test code = NA) 147 mmol/L 134-147 N POTASSIUM (test code = 3.2 mmol/L 3.4-5.0 L K) CHLORIDE (test code = 118 mmol/L 100-108 H CL) CARBON DIOXIDE (test 24 mmol/L 21-32 N code = CO2) ANION GAP (test code = 5.0 GAP calc 4.0-15.0 N GAP) GLUCOSE (test code = 94 MG/DL 70-110 N GLU) BLOOD UREA NITROGEN 11 MG/DL 7-18 N (test code = BUN) GLOMERULAR FILTRATION >=60 max estimate >60 RATE (test code = GFR) estGFR CREATININE (test code = 0.9 MG/DL 0.6-1.0 N CREAT) CALCIUM (test code = CA) 7.5 MG/DL 8.5-10.1 L CBC W/AUTO [id number] 10:17:00 Test Item Value Reference Range Interpretation Comments WHITE BLOOD CELL (test code = 8.8 K/mm3 3.5-11.0 N WBC) RED BLOOD CELL (test code = RBC) 3.60 M/mm3 4.70-6.10 L HEMOGLOBIN (test code = HGB) 10.5 G/DL 10.4-14.9 N HEMATOCRIT (test code = HCT) 31.4 % 31.5-44.1 L MEAN CELL VOLUME (test code = 87.2 Fl 84.5-98.6 N MCV) MEAN CELL HGB (test code = MCH) 29.2 pg 27.0-34.2 N MEAN CELL HGB CONCETRATION (test 33.4 G/DL 31.5-34.0 N code = MCHC) RED CELL DISTRIBUTION WIDTH (test 16.1 SD 11.5-14.5 H code = RDW) PLATELET COUNT (test code = PLT) 275.0 K/mm3 150-450 N MEAN PLATELET VOLUME (test code = 9.00 fL 7.0-10.5 N MPV) NEUTROPHIL % (test code = NT%) 66.3 % 40-76 N LYMPHOCYTE % (test code = LY%) 26.4 % 20.5-51.1 N MONOCYTE % (test code = MO%) 5.8 % 1.7-9.3 N EOSINOPHIL % (test code = EO%) 1.2 % 0.0-6.0 N BASOPHIL % (test code = BA%) 0.3 % 0.0-2.0 N NEUTROPHIL # (test code = NT#) 5.83 K/mm3 1.8-7.6 N LYMPHOCYTE # (test code = LY#) 2.3 K/mm3 0.6-3.2 N MONOCYTE # (test code = MO#) 0.5 K/mm3 0.3-1.1 N EOSINOPHIL # (test code = EO#) 0.1 K/mm3 0.0-0.4 N BASOPHIL # (test code = BA#) 0.0 K/mm3 0.0-0.1 N MANUAL DIFF REQUIRED (test code = NO DIFF/SCN CRITERIA MDIFF) LACTIC [id number] 23:46:00 Test Item Value Reference Range Interpretation Comments LACTIC ACID (test code = LACT) 1.8 mmol/L 0.4-2.0 N LACTIC [id number] 18:50:00 Test Item Value Reference Range Interpretation Comments LACTIC ACID (test code = LACT) 3.4 mmol/L 0.4-2.0 H LACTIC [id number] 14:03:00 Test Item Value Reference Range Interpretation Comments LACTIC ACID (test code = LACT) 3.0 mmol/L 0.4-2.0 H HCG [id number] 13:54:00 Test Item Value Reference Range Interpretation Comments HCG POC (test code <5 IU/L <5.0 N <5.0 IU/L NEGATIVE5.0 - = HCGPOC) 25.0 IU/L INDETERMINATE>2 5.0 POSITIVE Detection of lo w levels of hCG does not ru le out .[place] se hCG values double a pproximately every 48 hours in anormal , belem ents with low levels of h CG should beresampled and retested after 48 hours ARTERIAL BLOOD [id number] 13:41:00 Test Item Value Reference Range Interpretation Comments ARTERIAL BLOOD GAS PH 7.41 pH units 7.35-7.45 N (test code = PHA) ARTERIAL BLOOD GAS PCO2 30 mmHg 35-45 L (test code = PCO2A) ARTERIAL BLOOD GAS PO2 58 mmHg 80-100 L (test code = PO2A) BICARBONATE TOTAL HCO3 18.9 mmol/L 22.0-26.0 L (test code = HCO3) BASE EXCESS (test code = -4.4 mmol/L -3.0-3.0 L NANO) ABG O2 SATURATION (test 91 % 90-100 N code = SATA) FIO2 (test code = FIO2A) 21 % e 21-100 N ABG SITE (test code = Right Radial ARTKIT DESCRIPTION SITEA) MODIFIED JOSE C'S (test Yes Circ.CHK POSITIVE code = MODALL) UA RFLX MICR CULT IF [id number] 13:32:00 Test Item Value Reference Range Interpretation Comments UA COLOR (test code = YELLOW discript YEL/STRAW COLU) UA APPEARANCE (test code CLEAR discript CLEAR = APPU) UA GLUCOSE DIPSTICK (test 1+ mg/dL NEG code = DGLUU) UA BILIRUBIN DIPSTICK NEGATIVE mg/dL NEG (test code = BILU) UA KETONE DIPSTICK (test NEGATIVE mg/dL NEG code = KETU) UA SPECIFIC GRAVITY (test 1.020 SG 1.005-1.030 code = SGU) UA BLOOD DIPSTICK (test NEGATIVE mg/DL NEG code = DILSHAD) UA PH DIPSTICK (test code 7.0 pH UNITS 5.0-7.0 = ARLENE) UA PROTEIN DIPSTICK (test NEGATIVE mg/dL NEG code = PROU) UA UROBILINIOGEN DIPSTICK 0.2 mg/dL <2.0 (test code = URO) UA NITRITE DIPSTICK (test NEGATIVE SCREEN NEG code = FEI) UA LEUKOCYTE ESTERASE NEGATIVE Leuk/mcL NEGATIVE DIPSTICK (test code = LEUU) UA CULTURE NEEDED? (test NO, WBC<10 Criteria Culture CHK code = UACULT) SOURCE OF URINE: CLEAN CATCHIndication for culture: Suprapubic PainUA RFLX MICR CULT IF [id number] 13:31:00 Test Item Value Reference Range Interpretation Comments UA COLOR (test code = COLU) YELLOW discript YEL/STRAW UA APPEARANCE (test code = CLEAR discript CLEAR APPU) UA GLUCOSE DIPSTICK (test 1+ mg/dL NEG code = DGLUU) UA BILIRUBIN DIPSTICK (test NEGATIVE mg/dL NEG code = BILU) UA KETONE DIPSTICK (test NEGATIVE mg/dL NEG code = KETU) UA SPECIFIC GRAVITY (test 1.020 SG 1.005-1.030 code = SGU) UA BLOOD DIPSTICK (test NEGATIVE mg/DL NEG code = DILSHAD) UA PH DIPSTICK (test code = 7.0 pH UNITS 5.0-7.0 ALRENE) UA PROTEIN DIPSTICK (test NEGATIVE mg/dL NEG code = PROU) UA UROBILINIOGEN DIPSTICK 0.2 mg/dL <2.0 (test code = URO) UA NITRITE DIPSTICK (test NEGATIVE SCREEN NEG code = FEI) UA LEUKOCYTE ESTERASE NEGATIVE Leuk/mcL NEGATIVE DIPSTICK (test code = LEUU) UA CULTURE NEEDED? (test Criteria Culture CHK code = UACULT) SOURCE OF URINE: CLEAN CATCHIndication for culture: Suprapubic Pain- XR CHEST 1 [id number] 10:43:00 Name: ALYSSA BRAVO : 1975 Age/S: 43 / F [address] [place] [address] Unit #: [id number] Loc: [place] [address] Phys: Enedelia Woodruff MD Acct: [id number] Dis Date: Status: REG ER PHONE #: [phone] Exam Date: 12/23/2018 1023 FAX #: Reason: SOB EXAMS: CPT: [id number] XR CHEST 1 V 90030 Fluoro Time: DAP (Gy m2): Air Kerma (mGy): EXAM: - XR CHEST 1 V LOCATION: C3 HISTORY: SOB COMPARISON: None available time of interpretation. FINDINGS: Single view of the chest. No indwelling lines or tubes. No pneumothorax. The lungs are clear. No pleural effusions are present. The mediastinal contours are unremarkable. No acute osseous findings are present. IMPRESSION: No acute cardiopulmonary abnormality. at 1043 Reported and signed by: DONNELL LOVING M.D. CC: Stephanie Moon MD; Enedelia Woodruff MD PAGE 1 Signed Report Name: ALYSSA BRAVO [place] : 1975 Age/S: 43 / F [address] [place] [address] Unit #: [id number] Loc: [place] [address] Phys: Enedelia Woodruff MD Acct: [id number] Dis Date: Status: REG ER PHONE #: [phone] Exam Date: 12/23/2018 1023 FAX #: Reason: SOB EXAMS: CPT: [id number] XR CHEST 1 V [id number] Fluoro Time: DAP(Gy m2): Air Kerma (mGy): (Continued) Technologist: Stephanie Ewing, RT(R)(CT) Trnscb Date/Time: 12/23/2018 (1043) [email or web address] Orig Print D/T: S: 12/23/2018 (8836) PAGE 2 Signed ReportTROPONIN I [id number] 10:41:00 Test Item Value Reference Range Interpretation Comments TROPONIN I RAPID 0.00 ng/mL 0.00-0.08 N - The use o f serial (test code = sampling and te sting TROPIRAP) protocol is a recommended pra ctice- An elevated tro ponin level alone is often not sufficient for diagnosis of my ocardial infarction. CHEMISTRY 8 [id number] 10:24:00 Test Item Value Reference Range Interpretation Comments ISTAT-SODIUM (test code = NAP) mmol/L 135-146 ISTAT-POTASSIUM (test code = KP) mmol/L 3.5-4.9 ISTAT-CHLORIDE (test code = CLP) mmol/L 98-109 ISTAT-CARBON DIOXIDE (test code = mmol/L 24-29 L ISTAT-CO2) ISTAT CALCIUM IONIZED (test code = mmol/L 1.12-1.32 ISTAT-JAVIER) ISTAT-GLUCOSE (test code = GLUP) mg/dL 70-105 H ISTAT-BUN (test code = BUNP) mg/dL 8-26 N BEDSIDE CREATININE (test code = mg/dL 0.6-1.3 N CREATBED) GLOMERULAR FILTRATION RATE POC (test 73 58-135 N code = GFRBED) CHEMISTRY 8 [id number] 10:24:00 Test Item Value Reference Range Interpretation Comments ISTAT-SODIUM (test code = NAP) 141 mmol/L 135-146 N ISTAT-POTASSIUM (test code = KP) 3.8 mmol/L 3.5-4.9 N ISTAT-CHLORIDE (test code = CLP) 103 mmol/L 98-109 N ISTAT-CARBON DIOXIDE (test code = 23 mmol/L 24-29 L ISTAT-CO2) ISTAT CALCIUM IONIZED (test code 1.12 mmol/L 1.12-1.32 N = ISTAT-JAVIER) ISTAT-GLUCOSE (test code = GLUP) 174 mg/dL 70-105 H ISTAT-BUN (test code = BUNP) 11 mg/dL 8-26 N BEDSIDE CREATININE (test code = 0.9 mg/dL 0.6-1.3 N CREATBED) GLOMERULAR FILTRATION RATE POC 73 58-135 N (test code = GFRBED) CBC W/O [id number] 10:18:00 Test Item Value Reference Range Interpretation Comments WHITE BLOOD CELL (test code = 17.7 K/mm3 3.5-11.0 H WBC) RED BLOOD CELL (test code = RBC) 4.27 M/mm3 4.70-6.10 L HEMOGLOBIN (test code = HGB) 12.4 G/DL 10.4-14.9 N HEMATOCRIT (test code = HCT) 36.8 % 31.5-44.1 N MEAN CELL VOLUME (test code = 86.2 Fl 84.5-98.6 N MCV) MEAN CELL HGB (test code = MCH) 29.0 pg 27.0-34.2 N MEAN CELL HGB CONCETRATION (test 33.7 G/DL 31.5-34.0 N code = MCHC) RED CELL DISTRIBUTION WIDTH (test 15.5 SD 11.5-14.5 H code = RDW) PLATELET COUNT (test code = PLT) 326.0 K/mm3 150-450 N MEAN PLATELET VOLUME (test code = 8.70 fL 7.0-10.5 N MPV) LACTIC ACID [id number] 10:17:00 Test Item Value Reference Range Interpretation Comments LACTIC ACID POC (test code = 3.69 MMOL/L 0.90-1.70 H LACTP) Notes Date/Time Note Provider Source 2023-02-09 Addended by: SENIA ALVES MD on: 2022 09:[address] [facility] 16:00:00-00:00 Modules accepted: Orders 2023-02-09 Formatting of this note might be differe nt from the original. Glo Clarke RN [facility] 15:41:38-00:00 Telephone call placed to pt and advised that Soliqua is not appropriate for weight loss due to it containing an insulin component. Offered to schedule pt an appt to discuss weight loss alternatives. Pt declines stating that she will contact Dhruv walker Electronically signed by Glo Clarke RN at 3:44 PM CDT 2023-02-[address] [facility] 12:58:28-00:00 This medication contains insulin as well as GLP- 1. It is not appropriate as a weight loss medicatio n, as it contains insulin I would suggest an appointment to discuss other alternatives for weight loss 2023-02-09 Formatting of this note might be differe nt from the original. Shanae López RN [facility] 10:14:13-00:00 Spoke with patient, she reac hed out to the maker of wegovy and was able to have them approve her for Soliqua but a prescription for this medication needs to be sent to the pharmacy. [facility] Electronically signed by Shanae López RN at 0 02/09/2023 10:17 AM CDT 2023-02-08 Formatting of this note might be differe nt from the original. Pilar Hernandez [facility] 11:47:55-00:00 Patient is calling stating E lie Rita is able to give her Soliqua for 50 dollars. She states they told her it is similar to Wegovy. She is requesting it sent to [facility] in [place]. Electronically signed by Pilar Hernandez at 0 02/08/2023 11:49 AM CDT 2023-02-01 Formatting of this note might be differe nt from the original. Shanae López RN [facility] 08:15:47-00:00 Denial for wegovy received Electronically signed by Shanae López RN at 0 02/01/2023 8:16 AM T 2023-01-26 Formatting of this note might be differe nt from the original. Simin Staley MA [facility] 15:26:57-00:00 Spoke with patient, name and verified. Patient informed of Doxepin medication changes and provider message. Informed patient no changes were made to the Sertraline and she should continue taking the m as prescribed. Patient sta lobito she has been taking 400mg daily instead of 200mg. Informed patient if she would like, we can scheduled her a sooner appointment to discuss it with her provider. Patient s tates she think she will hav e enough medication to get her to the appointment next month. 2023-01-22 Formatting of this note is different from the or iginal. [facility] 21:47:58-00:00 Refill Request Severe major depression/ Anx iety, generalized/ Other schizophrenia/ Bipolar 1 disorder, depressed, severe - Stable. No indication for acute intervention. Has good social & family support. Patient denies SI/HI/AH/VH. - Anticipatory guidance and patient education pr ovided. - Advised to maintain care a nd access to Mental Health/Counselor (Psychology/Psychiatry), follow up as scheduled. - Advised to call clinic or contact [facility] patient care access center, phone # ([phone]) provided, and to go to emergency room/hospital/urgent care if feeling overwhelmed with worsening Sx. - Continue with Bupropion 75 mg BID, Sertraline 200mg qDay and Quetiapine 200mg qHS and Trazodone 50 - 100mg qHS - doxepin 75 mg capsule; Tabitha e 1 capsule by mouth at bedtime. Dispense: 90 capsule; Refill: 1 Rx sent, let patient know, and to follow-up as s cheduled. Christiano Lobo MD, MPH [employer], Department of Family Medici ne [facility] Adult and Geriatric Primary Care- [place] 01/22/2023 9:57 PM Future Appointments In 2 weeks Senia Alves MD [facility] Pulmonary & Sleep Medicine, [place], [facility] [place] In 1 month Simin Helton FNP [facility] Neur ology, [place] In 1 month Lab, Ang - Db [facility] Clinical Laboratory Services, [place] In 1 month Christiano Lobo MD [facility] Adult [facility] Geriatric Primary Care, [facility] In 1 month [facility] EEG and [facility] ENTMelinda In 1 month Christiano Lobo MD [facility] Adult and Geriatric Primary Care, [facility] 2023-01-20 Formatting of this note might be differe nt from the original. Arabella Mendoza [facility] 09:15:51-00:00 Patient called and is juana Lobo to change the prescription for Doxepin to 3 at bedtime. Currently the prescription say 2-3 but she always takes 3 and runs out early. She is also needing the Sertraline prescription huff ged to 400 mg as this is what she takes daily and runs out early. Electronically signed by Arabella Mendoza at 9:18 AM CDT 2023-01-19 Formatting of this note might be differe nt from the original. Lucy Leiva MA [facility] 08:37:08-00:00 [facility] [employer] fax ed and signed, confirmation received. Electronically signed by Lucy Leiva MA a t 01/19/2023 8:37 AM CDT 2023-01-10 Formatting of this note might be differe nt from the original. Shanae López RN [facility] 10:09:03-00:00 Received paperwork for PA fr [facility] [employer], filed out, placed in providers folder for signature. Electronically signed by Shanae López RN at 0 01/10/2023 10:09 AM CDT 2023-01-05 Formatting of this note might be differe nt from the original. Chelsie Ibarra LVN [facility] 15:54:24-00:00 Next Appt: With Family Medicine (Christiano Lobo MD) 02/28/2023 at 9:00 AM 2023-01-[address] [facility] 14:27:14-00:00 Rx sent, let patient know, and to follow-up as s ryley. 2022-12-26 Formatting of this note might be differe nt from the original. Shanae López RN [facility] 10:37:37-00:00 Called 800 number, insurance is not found in there system, unable to get PA completed Electronically signed by Shanae López RN at 0 12/26/2022 10:39 AM CDT 2022-12-[address] [facility] 10:21:04-00:00 Spoke with Rick borja . Stated I need to call [employer] and do a verbal PA. [phone] Electronically signed by Shanae López RN at 0 12/26/2022 10:39 AM CDT 2022-12-22 Formatting of this note might be differe nt from the original. Simin Aleman [facility] 09:17:21-00:00 Ref # [id number] Cover my med is calling cameron pires. The PA has an error code and sales promotion representative wanted to speak with a nurse to walk through next steps. Electronically signed by Simin Aleman at 9:19 AM CDT 2022-12-20 Formatting of this note might be differe nt from the original. Lauren Hobbs LVN [facility] 16:18:48-00:00 Pt f/u in clinic today with provider. Lauren Hobbs LVN 12/20/2022 4:19 PM T 2021-03-26 [facility] 08:09:00-00:00 [facility] Gynecology Post Prog Note REPORT#:[id number] REPORT STATUS: Signed DATE:03/26/21 TIME: 808 PATIENT: ALYSSA BRAVO UNIT #: [id number] ROOM/BED: [address] : 75 AGE: 45 SEX: F ATTEND: Melinda Harris III, MD ADM AUTHOR: Melinda Harris III, MD * ALL edits or amendments must be made on the el [employer]/computer document * General ORM Surgeries: Surgery Date and Time: 03/25/2021 1445 Primary Procedure: HYSTERECTOMY LAPAROSCOPIC TO CHERYL Secondary Procedure: CYSTOSCOPY WITH PROCEDURE Post-op: day 1 Subjective Patient reports: Yes: complaints, ambulating, pain controlled, pelvic pain, tolerating diet. No: abdominal pain, chills, fever, flatus/bowel move ment, headache, heartburn, nausea, vaginal bleeding, voiding/urinating, vom iting. Comments: Ended up on morphine [employer] last night but appears comfortable now Objective General VS/I O: Last Documented: Result Date Time Pulse Ox 94 03/26 729 B/P 129/84 03/26 729 B/P Mean 98.6 03/26 729 Temp 98.1 03/26 729 Pulse 58 03/26 729 Resp 18 03/26 729 O2 Delivery Room air 03/26 050 O2 Flow Rate 2 03/25 2000 24 hour I O ending at 0700: 03/25 1900 03/26 0700 Intake Total 1000.00 2200.00 Output Total 650 1500 Balance 350.00 700.00 Intake, IV 1000.00 1000.00 Intake, Oral 1200 Output, 50 Estimated Blood Loss Output, Urine 600 1500 PATIENT WEIGHT: Weight (lb): 239 Weight (oz): 3.22 Weight (kg): 108.500 Physical Exam General appearance: alert, awake, oriented, no a cute distress, pleasant Wound/incision: Location: abd clean dry Abdomen: normal bowel sounds, non-tender, soft, no distention, no guarding Extremities: full range of motion, moves all, no calf tenderness, no edema Diagnosis, Assessment Plan Free Text A P: POD # 1 S/P TLH BS doing well D/C instructions given at 0812 RPT #:[id number] END OF REPORT 2021-03-25 [id number] [facility] 15:51:00-00:00 [address] [place], [place] [address] PATIENT NAME: ALYSSA BRAVO ADMIT DATE: 03/25/21 ACCOUNT NO: [id number] ROOM NO: 2650 AGE: 45 SEX: F ADMITTING PHYSICIAN: Melinda Harris III, MD ATTENDING PHYSICIAN: Melinda Harris III, MD OPERATION DATE: 03/25/2021 PREOPERATIVE DIAGNOSES: Menometrorrhagia, pelvic pain. POSTOPERATIVE DIAGNOSES: Menometrorrhagia, pelvi c pain, plus probable uterine leiomyoma. SURGEON: Melinda Harris III, MD SORORITY SUPERVISOR: Marley Tiwari MD PROCEDURE: TLH, BS, cystoscopy. ANESTHESIA: General. FINDINGS: At time of diagnostic scope, the uteru s noted to be upper limits of normal size with a posterior approximately 4 cm appearing leiomyoma. Both ovaries were somewhat atrophic. The tubes were n ormal. Upper abdomen normal. Liver normal. Appendix not visualized. PROCEDURE IN DETAIL: The pat ient was brought to the operating room, prepped and draped in sterile manner for vaginal procedure. Weighted speculum was placed in the posterior, [employer] anterior. Cervix was grasp ed with a single-tooth tenaculum, sounded to approximately 10 c m. A 3.5/10 JOHAN manipulator was placed without difficulty. Bladder had been pre viously drained with a Craven catheter. Attention turned to the abdo eulogio area where 0.25% Marcaine was injected within the umbilicus. A vertical in cision was made deep in the umbilicus approximately 5 mm. Veress needle placed without incident. A h anging drop and flow were positive. Pneumoperitoneum was created with 3.5 L of carbon dioxide gas. Laparoscope and trocar place d without incident under direct vision with the aid of 2 lateral 5-mm trocars, the procedure was beg un. Both round ligaments were identified, tr ansected with the Harmonic scalpel and dissected down to the level of the bladder. Both tubes were then removed from the ovary. The utero-ovarian ligament was taken down. The dissection was then carried down to the level of the cardinal. Both uterine arteries were bipolared bilaterally. Dr. Tiwari then took the bl adder down exposing the area where the ring had been placed. Circumferential incision w as made around the top of the vaginal cuff. Uterus was delivered and tubes wer e delivered vaginally. A 2-0 PDS V-Loc was then placed through the vaginal op ening. The vaginal cuff was then sewed with a running suture of 2-0 PDS V-Lo c. Hemostasis was excellent. Both tubes and ovaries normal. A small amount of irrigation and removal of debris was carried out, then fluids. Estimated b lood loss 50 mL. PATIENT NAME: ALYSSA BRAVO ACCOUNT #: [id number] Pneumoperitoneum was reduced. Incisions closed w ith 3-0 Monocryl and Steri-Strip. Dr. Tiwari performed a cystoscopy, which revealed bilateral ureteral jets. Sponge and needle counts were cor rect at the end of the case. Again, EBL approximately 50 mL. The patient carmen rated the procedure well and went to recovery room in good condition. Dictated By: Melinda Harris III, MD WT: OP:F.AMANDA/JATINDER/BECCA Conf#: [id number]/DID#: [id number] Authenticated by Melinda Harris MD On 03/30/2021 12:45:15 PM Electronically Signed by Melinda Harris III, MD o n 03/30/21 at 1245 PATIENT NAME: ALYSSA BRAVO ACCOUNT #: [id number] 2021-03-25 [id number] [facility] 15:38:00-00:00 [address] [place], [place] [address] PATIENT NAME: ALYSSA BRAVO ADMIT DATE: 03/25/21 ACCOUNT NO: [id number] ROOM NO: .[facility] AGE: 45 SEX: F ADMITTING PHYSICIAN: Melinda Harris III, MD ATTENDING PHYSICIAN: Melinda Harris III, MD OPERATION DATE: 03/25/2021 PREOPERATIVE DIAGNOSES: 1. Menorrhagia. 2. Overactive bladder. POSTOPERATIVE DIAGNOSES: 1. Menorrhagia. 2. Overactive bladder. PROCEDURE: Cystourethroscopy. SURGEON: Marley Tiwari M.D. SORORITY SUPERVISOR: ANESTHESIA: General endotracheal. ESTIMATED BLOOD LOSS: Zero for this portion of t he procedure. INDICATION: Ms. Bravo is a 45-year-old female w ho is undergoing a total laparoscopic hysterectomy. It was asked by the s chichieon that cystourethroscopy be performed to evaluate the integrity of the lo wer urinary tract. Additionally, she has urinary urgency with urge incontinence. FINDINGS: Cystourethroscopy revealed ureteral orifices in the normal anatomical location with bilateral ureteral efflux. There w as no evidence of bladder lesions or injury. The urethra was noted to be i ntact. PROCEDURE IN DETAIL: The patient was tabitha en to the operating room where she was prepped and draped in the usual sterile fashion in the dorsal lithotomy position. A Craven catheter was placed through th e urethral meatus. Initially, a total laparoscopic hysterectomy and bi lateral salpingectomy was performed by Dr. Matt Harris. At the end of this procedur e, I proceeded with cystourethroscopy. Craven catheter was removed. Cystourethroscopy wa s then performed with a 70-degree cystoscope revealing the above noted f indings. A complete bladder survey with full bladder dis tention was performed. Craven catheter was replaced. The patient tolerated the procedure well. Sponge , lap, and needle counts were correct x2. She was taken to recovery room in [facility] condition. PATIENT NAME: ALYSSA BRAVO ACCOUNT #: [id number] Dictated By: Marley Tiwari MD WT: OP:SAM/SUE/NTS Conf#: [id number]/DID#: [id number] Authenticated by Marley Tiwari MD On 04/01/20 07:22:58 AM at 0722 PATIENT NAME: ALYSSA BRAVO ACCOUNT #: [id number] 2021-03-23 [id number] [facility] 09:13:00-00:00 [address] [place], [place] [address] PATIENT NAME: ALYSSA BRAVO ADMIT DATE: ACCOUNT NO: [id number] ROOM NO: AGE: 45 SEX: F ADMITTING PHYSICIAN: ATTENDING PHYSICIAN: Melinda Harris III, MD ADMISSION DATE: 03/25/2021 ADMITTING DIAGNOSES: Menometrorrhagia, pelvic pa in. HISTORY OF PRESENT ILLNESS: The patient is a 45- year-old 3, para 3, last menstrual period was approximately 3 weeks ago, has been complaining for the last 6 months of continuous bleeding, regula r cycles and perimenopausal symptoms. The patient has been tried on BAL cult ure and estradiol without resolution. Her last Pap smear was in 2020, it w as negative. Last mammogram 2020, it was negative. She has also had complain ts of stress incontinence, which Dr. Tiwari evaluated a nd decided that her best judgment was to not proceed with a urogynecological procedure at this time. ALLERGIES: NONE KNOWN. CURRENT MEDICATIONS: Include albuterol, Xanax, cholesterol medicine, estradiol, fluconazole, Nexium, nitrofurantoin, pro biotic, and sertraline 100 mg and also occasional headache medicine. PAST SURGICAL HISTORY: I and D of the vulvar abs cess. REVIEW OF SYSTEMS: Positive for asthma and COPD. PHYSICAL EXAMINATION: VITAL SIGNS: Blood pressure 120/80, weight 237 p ounds, height is 5 feet 5 inches. GENERAL: Well-developed, well-nourished [place] n female, in no apparent distress. HEENT: Normocephalic. PERRLA. EOMI was intact. S clerae nonicteric. Oropharynx clear. HEART: Regular rate and rhythm without murmur or gallop. LUNGS: Clear. EXTREMITIES: No clubbing, cyanosis, or edema. BREASTS: Without tender, mass, or discharge. ABDOMEN: Bowel sounds are positive. No masses pa lpated. PELVIS: External BSU female. Vagina pink, well r ugated, cervix without lesions. Uterus is upper limits of normal size, moderately tender. Adnexa is clear. RECTOVAGINAL: Confirms. NEUROLOGICAL: Grossly intact. MUSCULOSKELETAL: Grossly intact. IMPRESSION: Menometrorrhagia, chronic obstructiv e pulmonary disease, asthma. PATIENT NAME: ALYSSA BRAVO ACCOUNT #: F [id number] PLAN: [facility]. Informed consent, risks and benefi ts of the procedure were explained to the patient including the risk of b lood loss, injury to bowel, bladder, ureter, risk of infection. The patient understands these risks and wishes to proceed with above operation. I have a nswered all her questions. Dictated By: Melinda Harris III, MD WT: EVELYN:SAM/JATINDER/BECCA Conf#: [id number]/DID#: [id number] Authenticated by Melinda Harris MD On 03/25/2021 07:20:38 AM Electronically Signed by Melinda Harris III, MD o n 03/25/21 at 0720 PATIENT NAME: ALYSSA BRAVO ACCOUNT #: [id number] 2021-03-22 [id number] [facility] 12:55:00-00:00 [address] [place], [place] [address] PATIENT NAME: ALYSSA BRAVO ADMIT DATE: ACCOUNT NO: [id number] ROOM NO: AGE: 45 SEX: F ADMITTING PHYSICIAN: ATTENDING PHYSICIAN: Melinda Harris III, MD Order: [id number] Test Reason : PRE- OP Test Date/Time Stamp: MonMar 22 2021 12:55:14 Blood Pressure : / mmHG Vent. Rate : 070 BPM Atrial Rate : 070 BPM P-R Int : 134 ms QRS Dur : 086 ms QT Int : 438 ms P-R-T Axes : 059 070 051 degree s QTc Int : 473 ms Normal sinus rhythm Normal ECG No previous ECGs available Confirmed by DENISHA ASHRAF MD ([id number]) on 021 5:38:04 PM Referred By: Melinda Harris Confirmed by:DENISHA Estevez MD Electronically Signed by Denisha Ashraf MD on 1 at 1735 PATIENT NAME: ALYSSA BRAVO 2018-12-31 [facility] 15:09:00-00:00 [facility] Hospitalist Discharge Summary REPORT#:[id number] REPORT STATUS: Signed DATE:12/31/18 TIME:1509 PATIENT: ALYSSA BRAVO UNIT #: [id number] ROOM/BED: [place] [id number] : 75 AGE: 43 SEX: F ATTEND: Mily Orellana MD ADM AUTHOR: Abhishek Noe MD * ALL edits or amendments must be made on the el ectronic/computer document * PCP PCP PCP: PCP: Stephanie Moon MD Discharge to: home General Information Discharge date: 12/27/18 Hospital course: ASSESSMENT AND PLAN: 1. acute COPD exacerbation, with some component of asthma? Sonia started smoking when she was 12 year old IV steroid duoneb Pulm consult appreciated will need sleep stuy and PFT as an out patient 2. Nicotine abuse. The patient is counseled to quit. 3.Anxiety xanax PRN Med Rec Med Rec Discharge meds: Continue taking these medications: QUEtiapine (SEROquel) 100 MG TAB 100 MILLIGRAM ORAL THREE TIMES A DAY. Instructions: 2 tabs every night ESOMEPRAZOLE MAG (NexIUM 10 MG/PACKET) 10 MG/PAC KET SUSPENSION 20 MILLIGRAM ORAL DAILY. Start taking the following new medications: AZITHROMYCIN (ZITHROMAX) 250 MG TAB 500 MILLIGRAM ORAL DAILY. Days = 3 No Refills ALPRAZolam (XANAX) 0.5 MG TAB 0.5 MILLIGRAM ORAL EVERY 12 HR NEEDED. as ne eded for anxiety Qty = 14 No Refills methylPREDNISolone (MEDROL 4 MG DOSEPAK) 1 EACH TAB.DS.PK 1 EACH ORAL DIRECTED. Qty = 1 No Refills ALBUTEROL (VENTOLIN HFA 90 MCG/ACT) 18 GM INHALE R 1 PUFF INHALATION RT - EVERY 4 HOURS NEEDED. as needed for SOB Days = 30 No Refills FLUTICASONE PROPIONATE/SALMETEROL (ADVAIR HFA 11 5/21 MCG/ACT) 12 GM INHALER 2 PUFF INHALATION RT - TWICE DAILY. Days = 30 No Refills Discharge Instructions Diet: cardiac Activity: light duty Follow-up Appointments PCP: Follow up timeframe: In 1-2 weeks Consulting provider 1: Provider 1: Aleksander Saenz MD Objective Physical Exam General appearance: alert, awake, oriented Cardiovascular: normal capillary refill, regular rate rhythm Respiratory: aerating well, clear to auscultatio n, symmetric expansion Abdomen: non-tender, normal bowel sounds , soft, no distention, no guarding, no hernial, no mass/organomegaly, no rebound Extremities: moves all, normal capillary refill, normal range of motion, no edema Neuro/CLOUD SOFTWARE ENGINEER: alert, oriented X 3 Quality Medications Current medication review: I attest that the foregoing medication list in t medical record is true, accurate, and complete to the best of my knowled ge. Electronically Signed by Abhishek Noe MD on at 1511 [facility] #: [id number] END OF REPORT 2018-12-29 [id number] [facility] 14:58:00-00:00 [facility] [address] [place] [address] PATIENT NAME: ALYSSA BRAVO ADMIT DATE: 12/25 ACCOUNT NO: [id number] ROOM NO: [facility] AGE: 43 REPORT TYPE: eECHOCARDIOGRAM REPORT SEX: F ADMITTING PHYSICIAN: Jayson Orellana MD ATTENDING PHYSICIAN: Jayson Orellana MD MEASUREMENTS IVSd: 1.3 cm LVIDd: 4.0 cm LVPWd: 1.2 cm LVIDs: 2.8 cm EF(Teich): 59 % %FS: 31 % LVOT Diam: 2.3 cm LA Diam: 3.7 cm Ao Diam: 2.8 cm RVIDd: 3.2 cm MV E Arsalan: 1.10 m/s MV DecT: 107 ms MV A Arsalan: 0.85 m/s MV PHT: 31 ms MVA By PHT: 7.1 cm LVOT Vmax: 1.38 m/s LVOT maxP.60 mmHg AV Vmax: 1.89 m/s AV maxP.26 mmHg AV meanP.06 mmHg AV VTI: 31.5 cm MATTY (VTI): 3.1 cm AVAI (VTI): 1.460 cm /m AVAI Vmax: 1.387 cm /m PV Vmax: 1.40 m/s PV maxP.79 mmHg - FINDINGS ------- Indication:: Referred for evaluation of dyspnea. ECG rhythm: Sinus rhythm. Study quality: This was a technically adequate study. PATIENT NAME: ALYSSA BRAVO [id number] Left Ventricle: The left ventricle size is normal. There is mild concentric left ventricular hypertrophy. The left ventricular fu nction is normal Overall left ventricular systolic function is no rmal with an EF between 60 - 64 %. Left Atrium: The left atrial size is normal. Right Ventricle: The right ventricle is normal in size. The right ventricular systolic function is normal. Right Atrium: The RA appears to be normal. Aortic Valve: The aortic valve is trileaflet and appears struc turally normal. There is no evidence of aortic stenosis. There i s no evidence of aortic regurgitation. Mitral Valve: Normal appearing mitral valve with no evidence o f thickening. No mitral regurgitation. Tricuspid Valve: The tricuspid valve appears structurally normal. The estimated pulmonary artery systolic pressure right is {RVS P}. Pulmonic Valve: The pulmonic valve was not well visualized. Pericardium: There is no pericardial effusion. - CONCLUSIONS 1. The left ventricle size is normal. 2. The estimated pulmonary artery systolic press ure right is {RVSP}. 3. The left ventricular function is normal 4. Overall left ventricular systolic function is normal with an EF between 60 - 64 %. 5. The right ventricle is normal in size. 6. The right ventricular systolic function is no rmal. 7. The aortic valve is trileaflet and appears st ructurally normal. 8. There is no evidence of aortic stenosis. PATIENT NAME: ALYSSA BRAVO [id number] 9. There is no evidence of aortic regurgitation. 10. Normal appearing mitral valve with no eviden ce of thickening. Electronically signed by: Dr. JAIME BREWER MD - Signed at: 12/29/2018 14:58 Study performed at: 12/25/2018 14:49 Electronically Signed by Jaime Brewer MD on 0 12/29/18 at 1459 PATIENT NAME: ALYSSA BRAVO [id number] 2018-12-26 [facility] 21:16:00-00:00 [facility] ([facility]) Pulmonology Progress Note REPORT#:[id number] REPORT STATUS: Signed DATE:12/26/18 TIME:2115 PATIENT: ALYSSA BRAVO UNIT #: [id number] ROOM/BED: [place] [address] : 75 AGE: 43 SEX: F ATTEND: Mily Orellana MD ADM AUTHOR: Alisson Ortiz MD * ALL edits or amendments must be made on the el ectronic/computer document * Review of Systems ROS Constitutional: Denies: malaise. Respiratory: Reports: SOB. Denies: hemoptysis, pleurisy. Cardiovascular: Denies: edema, orthopnea, palpitations. Objective Physical Exam VS/I O: Last Documented: Result Date Time Pulse Ox 97 12/26 1910 B/P 137/82 12/26 1910 B/P Mean 100.2 12/26 1910 O2 Delivery Room air 12/26 1910 Temp 36.4 12/26 1910 Pulse 102 12/26 1910 Resp 20 12/26 1910 O2 Flow Rate 18.035373 12/26 0411 FiO2 28 12/25 1000 Patient Weight Weight (lb): Weight (oz): Weight (kg): 115.400 Medications: Active Meds + DC'd Last 24 Hrs Alprazolam 1 MG Q6H PRN PRN PO Pantoprazole 40 MG DAILY@0600 PO Methylprednisolone Sodium Succinate 40 MG Q12HR IV Azithromycin 250 MG DAILY PO Quetiapine Fumarate 200 MG BEDTIME PO Chlordiazepoxide HCl 10 MG Q6HR PO (DC) Albuterol Sulfate 2.5 MG RTQ4H NEB (CKD) Multivitamins Therapeutic 1 TAB DAILY PO Nicotine 14 MG DAILY TRANSDERM Thiamine HCl 100 MG DAILY PO Lorazepam 1 MG Q6H PRN PRN IV General appearance: alert, awake, oriented Head/eyes: atraumatic, normocephalic, normal con junctiva/sclera Neck: non-tender, supple/no meningismus Cardiovascular: regular rate rhythm, no murmur Respiratory/chest: rhonchi, wheezing, symmetric expansion, no distress Abdomen: soft, non-tender Genitourinary: no flank pain, no craven Extremities: moves all, no clubbing, no cyanosis , no edema Musculoskeletal: full range of motion, normal in spection, no muscle spasm Neuro/CLOUD SOFTWARE ENGINEER: alert, oriented X 3 Skin: warm, dry, intact Diagnosis, Assessment Plan Hospital course to date: ASSESSMENT AND PLAN: 1. Chronic obstructive pulmonary disease exacerb ation. 2. Asthma exacerbation, acti ve wheezing, much improved, possible discharge home tomorrow with Medrol Dosepak and Z-Marielos and bronchodilator. However, overnight I would give her couple doses of steroids to optimize her lung function prior to discharge tomorrow. 3. Obstructive sleep apnea. 7.24 Resp status improving minimal wheezing medrol 40 q12h october D/C home in AM with medrol dose pack Electronically Signed by Alisson Ortiz MD on 12/04 09/21 at 2117 RPT #: [id number] END OF REPORT 2018-12-26 [facility] 12:51:00-00:00 [facility] Hospitalist Progress Note REPORT#:[id number] REPORT STATUS: Signed DATE:12/26/18 TIME:1251 PATIENT: ALYSSA BRAVO UNIT #: [id number] ROOM/BED: [place] [address] : 75 AGE: 43 SEX: F ATTEND: Mily Orellana MD ADM AUTHOR: Abhishek Noe MD * ALL edits or amendments must be made on the el [employer]/computer document * Subjective Chief Complaint: very anxious still c/o SOB Objective General VS/I O: Vital Signs: Date Time Temp Pulse Resp B/P B/P Pulse O2 O2 F low FiO2 Mean Ox Delivery Rate 12/26 1126 36.7 88 18 151/99 116.0 97 Room air 12/26 0737 36.7 88 18 104/75 84.8 98 Room air 12/26 0411 36.5 85 18 121/75 90.1 94 Room air 1 8.244060 12/25 2342 36.7 85 17 139/75 96.3 95 Room air 12/25 1908 36.8 98 17 125/77 93.3 96 Room air 12/25 1607 36.6 99 18 123/77 92.7 95 Room air Patient Weight Weight (lb): Weight (oz): Weight (kg): 115.400 Physical Exam Cardiovascular: normal capillary refill, regular rate rhythm Respiratory: decreased breath sounds, wheezing, aerating well Abdomen: non-tender, normal bowel sounds , soft, no distention, no guarding, no hernial, no mass/organomegaly, no rebound Extremities: moves all, normal capillary refill, normal range of motion, no edema Neuro/CLOUD SOFTWARE ENGINEER: alert, oriented X 3 Diagnosis, Assessment Plan Free Text DxA P Notes Free Text DxA P Notes: ASSESSMENT AND PLAN: 1. acute COPD exacerbation, with some component of asthma? Ptaient started smoking when she was 12 year old on IV steroid duoneb monitor sat Pulm consult appreciated will need sleep stuy and PFT as an out patient 2. Nicotine abuse. The patient is counseled to quit. 3. Alcohol use disorder. The patient currently quit. 4.Anxiety start xanax PRN Electronically Signed by Abhishek Noe MD on at 1251 RPT #: [id number] END OF REPORT 2018-12-25 [facility] 16:48:00-00:00 [facility] Pulmonology Progress Note REPORT#:[id number] REPORT STATUS: Signed DATE:12/25/18 TIME:1648 PATIENT: ALYSSA BRAVO UNIT #: [id number] ROOM/BED: [place] [address] : 75 AGE: 43 SEX: F ATTEND: Mily Orellana MD ADM AUTHOR: Aleksander Saenz MD * ALL edits or amendments must be made on the emaze/computer document * Subjective Comments: Feels a little better Less cough, congestion, dyspnea and resp effort Nebs help Breathing easier No c/o cp, n, v Afeb VS ok Objective Physical Exam VS/I O: Current Medications Sig/Chava Start time Last Medication Dose Route Stop Time Status Admin Pantoprazole 40 MG DAILY@0600 12/25 0600 AC PO 01/24 0559 0556 Methylprednisolone 40 MG Q12HR 12/24 2100 AC Sodium Succinate IV 01/23 2059 0831 Azithromycin 250 MG DAILY 12/24 0900 AC 12/25 PO 12/29 0859 0831 Prednisone 40 MG C BK 12/24 0800 DC 12/24 PO 01/23 0759 0957 Quetiapine Fumarate 200 MG BEDTIME 12/23 2331 A C 12/24 PO 01/22 2330 2041 Chlordiazepoxide HCl 10 MG Q6HR 12/23 1800 AC 0 12/25 PO 01/22 1759 1328 Albuterol Sulfate 2.5 MG RTQ4H 12/23 1600 CKD 12/25 NEB 01/02 1150 1618 Multivitamins 1 TAB DAILY 12/23 1430 AC 12/25 Therapeutic PO 01/22 1429 0833 Nicotine 14 MG DAILY 12/23 1430 AC 12/25 TRANSDERM 01/22 1429 0832 Thiamine HCl 100 MG DAILY 12/23 1430 AC 12/25 PO 01/22 1429 0832 Lorazepam 1 MG Q6H PRN PRN 12/23 1415 AC 12/25 IV 01/22 1414 0843 Last Documented: Result Date Time Pulse Ox 95 12/25 1607 B/P 123/77 12/25 1607 B/P Mean 92.7 12/25 1607 O2 Delivery Room air 12/25 1607 Temp 97.9 12/25 1607 Pulse 99 12/25 1607 Resp 18 12/25 1607 FiO2 28 12/25 1000 O2 Flow Rate 2.892157 12/25 1000 24 hour I O ending at 0700: 12/25 0700 12/24 1900 Intake Total 400 Output Total Balance 400 Intake, Oral 400 Number Voids 3 Patient Weight Weight (lb): Weight (oz): Weight (kg): 115.400 General appearance: alert, no acute distress, pl easant, conversational Head/eyes: atraumatic, normocephalic, normal con junctiva/sclera ENT: ENT: moist mucosal membranes, normal pharynx Neck: non-tender, supple/no meningismus Cardiovascular: regular rate rhythm, no murmur Respiratory/chest: rhonchi, wheezing, symmetric expansion, no distress Abdomen: soft, non-tender Genitourinary: no flank pain, no craven Extremities: moves all, no clubbing, no cyanosis , no edema Musculoskeletal: full range of motion, normal in spection, no muscle spasm Neuro/CLOUD SOFTWARE ENGINEER: alert, oriented X 3 Skin: warm, dry, intact Diagnosis, Assessment Plan Hospital course to date: ASSESSMENT AND PLAN: 1. Chronic obstructive pulmonary disease exacerb ation. 2. Asthma exacerbation, acti ve wheezing, much improved, possible discharge home tomorrow with Medrol Dosepak and Z-Marielos and bronchodilator. However, overnight I would give her couple doses of steroids to optimize her lung function prior to discharge tomorrow. 3. Obstructive sleep apnea. 12.25 Resp status improving Chest sounds quite noisy Continue current plan Mobilize Prob dc in 2-3 days OP pulm/sleep eval Electronically Signed by Aleksander Saenz MD on 0 12/25/18 at 1534 RPT #: [id number] END OF REPORT 2018-12-25 [facility] 14:06:00-00:00 [facility] ([facility]) Hospitalist Progress Note REPORT#:[id number] REPORT STATUS: Signed DATE:12/25/18 TIME:1405 PATIENT: ALYSSA BRAVO UNIT #: [id number] ROOM/BED: [place] [address] : 75 AGE: 43 SEX: F ATTEND: Mily Orellana MD ADM AUTHOR: Abhishek Noe MD * ALL edits or amendments must be made on the emaze/[employer] document * Subjective Chief Complaint: had an episode of wheezing and SOB this AM Review of Systems Cardiovascular: Denies: chest pain, edema. Objective General VS/I O: Vital Signs: Date Time Temp Pulse Resp B/P B/P Pulse O2 O2 Flow FiO2 Mean Ox Delivery Rate 12/25 1107 36.6 89 18 121/72 88.4 94 Room air 12/25 0815 113 20 98 Nasal 2 cannula 12/25 0725 36.6 84 18 136/87 103.2 95 Room air 12/25 0407 36.4 66 17 135/72 92.7 95 Room air 12/24 2317 36.5 84 18 132/75 94.2 95 12/24 2000 Nasal 2.163340 cannula 12/24 1939 36.6 93 17 128/77 93.8 95 Room air 12/24 1614 36.8 85 18 147/82 103.6 93 Room air 24 hour I O ending at 0700: 12/25 0700 12/24 1900 Intake Total 400 Output Total Balance 400 Intake, Oral 400 Number Voids 3 Patient Weight Weight (lb): Weight (oz): Weight (kg): 115.400 Physical Exam General appearance: alert, awake, oriented Cardiovascular: normal capillary refill, regular rate rhythm Respiratory: decreased breath sounds, wheezing, aerating well Abdomen: non-tender, normal bowel sounds , soft, no distention, no guarding, no hernial, no mass/organomegaly, no rebound Extremities: moves all, normal capillary refill, normal range of motion, no edema Neuro/CLOUD SOFTWARE ENGINEER: alert, oriented X 3 Diagnosis, Assessment Plan Free Text DxA P Notes Free Text DxA P Notes: ASSESSMENT AND PLAN: 1. acute COPD exacerbation, with some component of asthma? Ptaient started smoking when she was 12 year old on IV steroid duoneb monitor sat Pulm consult appreciated will need sleep stuy and PFT as an out patient 2. Nicotine abuse. The patient is counseled to quit. 3. Alcohol use disorder. The patient currently quit. Electronically Signed by Abhishek Noe MD on at 1411 RPT #: [id number] END OF REPORT 2018-12-24 [id number] [facility] 20:25:00-00:00 [facility] [address] [place] [address] PATIENT NAME: ALYSSA BRAVO ADMIT DATE: ACCOUNT NO: [id number] ROOM NO: [facility] AGE: 43 REPORT TYPE: CONSULTATION SEX: F ADMITTING PHYSICIAN: Jayson Orellana MD ATTENDING PHYSICIAN: Jayson Orellana MD CONSULTATION DATE: 12/24/2018 CONSULTING PHYSICIAN: Alisson Ortiz MD PULMONARY CONSULTATION PHYSICIAN ASKING FOR CONSULT: Dr. Orellana. REASON FOR CONSULTATION: Asthma exacerbation. HISTORY OF PRESENT ILLNESS: A 43-year-old female with history of asthma, smoker, possible COPD, came into the hospital be cause of cough, shortness of breath, and wheezing. Denies any fever or chills . No nausea, no vomiting. Started on breathing treatment and bronchodilato rs to go home. REVIEW OF SYSTEMS: Fourteen systems were reviewe d and all negative except for HPI. PAST MEDICAL HISTORY: Asthma, COPD, alcohol abus e, obstructive sleep apnea. PAST SURGICAL HISTORY: Appendectomy. SOCIAL HISTORY: Smoker, 60-djze-scpo. No alcohol . Smokes marijuana. ALLERGIES: NO KNOWN DRUG ALLERGIES. FAMILY HISTORY: Noncontributory to this problem. MEDICATIONS: Reviewed. PHYSICAL EXAMINATION: VITAL SIGNS: Temperature is 98, heart rate 93, b lood pressure is 128/77, respiratory rate 16, and sat rate 96. GENERAL APPEARANCE: Alert, awake, not in distres s, able to speak in full sentence. HEENT: Head is normocephalic. Eyes; clear conjun ctivae. NECK: No JVD or goiter. No carotid upstroke. CHEST: Decreased breath sounds with bilateral wh eezing. ABDOMEN: Soft and nontender. No organomegaly. EXTREMITIES: No clubbing, no cyanosis, no edema. MUSCULOSKELETAL: Intact. NEUROLOGIC: Intact. PATIENT NAME: ALYSSA BRAVO [id number] SKIN: No rashes. VASCULAR: +2 bilateral. LABORATORY DATA: ABG 7.41/30/58. LABORATORY DATA: Chemistry is unremarkable. Whit e blood count is normal. Chest x-ray showed mild incr eased interstitial marking. Blood culture negative. ASSESSMENT AND PLAN: 1. Chronic obstructive pulmonary disease exacerb ation. 2. Asthma exacerbation, acti ve wheezing, much improved, possible discharge home tomorrow with Medrol Dosepak and Z-Marielos and bronchodilator. However, overnight I would give her couple doses of steroids to optimize her lung function prior to discharge tomorrow. 3. Obstructive sleep apnea. Dictated By: Alisson Ortiz MD WT: CON:LLUISITO/SHASHI/BECCA Conf#: [id number]/DID#: [id number] Authenticated by ALISSON ORTIZ MD On 12/25/2018 09:37:58 AM Electronically Signed by Alisson Ortiz MD on at 0938 PATIENT NAME: ALYSSA BRAVO [id number] 2018-12-24 [facility] 09:08:00-00:00 [facility] ([facility] Hospitalist Progress Note REPORT#:[id number] REPORT STATUS: Signed DATE:12/24/18 TIME:907 PATIENT: ALYSSA BRAVO UNIT #: [id number] ROOM/BED: [place] [address] : 75 AGE: 43 SEX: F ATTEND: Mily Orellana MD ADM AUTHOR: Jayson Orellana MD * ALL edits or amendments must be made on the el [employer]/computer document * Subjective Chief Complaint: sob better On RA now less wheezing dry cough LEA Review of Systems Cardiovascular: Denies: chest pain, edema. Objective General VS/I O: Vital Signs: Date Time Temp Pulse Resp B/P B/P Pulse O2 O2 F low FiO2 Mean Ox Delivery Rate 12/24 0723 36.5 75 18 132/78 96.0 95 Room air 12/24 0640 98 Room air 21 12/24 0418 36.8 78 20 115/73 86.7 96 12/23 2323 36.7 80 18 127/75 92.2 98 12/23 1938 95 Room air 21 12/23 1935 36.6 82 20 151/81 104.4 95 12/23 1516 36.7 83 18 109/68 82.0 99 Room air 12/23 1436 Nasal 2.110879 cannula 12/23 1418 37.0 94 17 109/70 82.7 95 Nasal cannula 12/23 1329 36.7 93 19 142/88 106 95 Nasal 2.00 0000 cannula 12/23 1200 36.7 95 18 138/70 92 94 12/23 1000 96 12/23 0952 37.0 101 18 147/76 99 96 Room air 24 hour I O ending at 0700: 12/24 0700 12/23 1900 Intake Total 120 Output Total Balance 120 Intake, Oral 120 Patient 115.4 kg Weight Weight Bed scale Measurement Method Patient Weight Weight (lb): Weight (oz): Weight (kg): 115.400 Physical Exam General appearance: alert, awake Cardiovascular: normal capillary refill, regular rate rhythm Respiratory: decreased breath sounds, wheezing, aerating well Abdomen: non-tender, normal bowel sounds , soft, no distention, no guarding, no hernial, no mass/organomegaly, no rebound Extremities: moves all, normal capillary refill, normal range of motion, no edema Neuro/CLOUD SOFTWARE ENGINEER: alert, oriented X 3 Diagnosis, Assessment Plan Free Text DxA P Notes Free Text DxA P Notes: ASSESSMENT AND PLAN: 1. Acute bronchitis with possible chronic obstru ctive pulmonary disease exacerbation. The patient is started on nebulize r treatments and steroids. Pulmonary consulted. She is counseled to quit sm oking. On RA now, still wheezy and LEA 2. Nicotine abuse. The patient is counseled to q uit. 3. Alcohol use disorder. The patient currently q uit. 4. History of marijuana use. The patient is coun seled to quit. 5. Leucocytosis- repeat labs 2/2 bronchitis? Continue Rx today, if better plan dc in am Electronically Signed by Jayson Orellana MD on 12/04 07/24 at 0913 RPT #: [id number] END OF REPORT 2018-12-23 [facility] 14:15:00-00:00 [facility] [facility] Hospitalist History Physical REPORT#:[id number] REPORT STATUS: Signed DATE:12/23/18 TIME:1415 PATIENT: ALYSSA BRAVO UNIT #: [id number] ROOM/BED: [facility] : 75 AGE: 43 SEX: F ATTEND: Mily Orellana MD ADM AUTHOR: Jayson Orellana MD * ALL edits or amendments must be made on the emaze/computer document * History of Present Illness HPI Chief complaint: sob History Medication/Allergy-Vaccine Hx Home Medications: No Known Home Medications Allergies: Coded Allergies: No Known Allergies (12/23/18) Objective Physical Exam General appearance: alert, awake Diagnosis, Assessment Plan Free Text DxA P Notes Free Text DxA P Notes: ID [id number] Electronically Signed by Jayson Orellana MD on 12/04 06/23 at 1415 RPT #: [id number] END OF REPORT 2018-12-23 [id number] [facility] 14:11:00-00:00 [facility] [address] [place] [address] PATIENT NAME: ALYSSA BRAVO ADMIT DATE: ACCOUNT NO: [id number] ROOM NO: [facility] AGE: 43 REPORT TYPE: HISTORY AND PHYSICAL SEX: F ADMITTING PHYSICIAN: Jayson Orellana MD ATTENDING PHYSICIAN: Jayson Orellana MD ADMISSION DATE: 12/23/2018 PRIMARY CARE PHYSICIAN: Stephanie Moon MD CHIEF COMPLAINT: Shortness of breath and wheezin g. HISTORY OF PRESENT ILLNESS: The patient is a 43-year-old white female with past medical history significant for nicotine abuse a nd possible COPD. The patient has never had any significant shortness of breat h before, but she uses p.r.n. albuterol for some intermitt ent shortness of breath, which was given by the PCP. Today this morning, she developed shortness of breath, which got worse and there was some significant wheezing. She has been having some productive cough going on for few days and has been feeli ng weak. She denied any fever, but she reported that she has been having some chills. S he presented to [facility] for further evaluation. I n the ER, she had workup done included labs and imaging. Noted initial vital si gns; temperature 37.0, heart rate 101, respiratory rate of 18, blood pressure 147/76, a nd O2 sat was 96%. On my evaluation, she was on nasal cannula. She was on RA woth above vitals. The patient was having significant wheezing and was given nebulizer treatments. Prednisone 60 mg p.o., magne sium IV, DuoNeb, azithromycin 500 mg IV, ceftriaxone 1000 mg IV, and normal saline 1 liter tamiko jose d. On my evaluation, she was feeling little bit better. PAST MEDICAL HISTORY: 1. Possible chronic obstructive pulmonary diseas e. 2. Alcohol abuse. 3. Nicotine abuse. 4. Marijuana use disorder. PAST SURGICAL HISTORY: Appendectomy. SOCIAL HISTORY: She smokes half pack of cigarett es a day since the age of [age] years old, but she reportedly quit today. She dr inks alcohol, beers once a week, which ranged from 2 beers to 12 pack. Last time she drank was yesterday when she drunk 4 beers. She does marijuana socia lly. ALLERGIES: NO KNOWN DRUG ALLERGIES. FAMILY HISTORY: The mom had heart disease. REVIEW OF SYSTEMS: A 14-poin t review of system was done and was negative except PATIENT NAME: ALYSSA BRAVO [id number] as mentioned above. PHYSICAL EXAMINATION: VITAL SIGNS: Temperature 36.7, heart rate 93, re spiration rate of 19, blood pressure 142/80, and O2 sat 95% on nasal cannula 2 L. GENERAL: The patient is awake and alert, and tonia ented x3. HEENT: Head is normocephalic and atraumatic. Pup ils are equal and reactive to light. NECK: There is no cervical adenopathy or thyrome namita. No jugular venous distention. LUNGS: She has expiratory wheezing bilaterally. No crackles. CARDIOVASCULAR: S1 and S2. No murmurs or added s ounds. ABDOMEN: Soft, nontender, and nondistended. No o rganomegaly. EXTREMITIES: No cyanosis, clubbing, or edema. NEUROLOGICAL: Nonfocal. LABS AND IMAGING: CBC: WBC 17.7, hemoglobin 12.4 , and platelet count of 326. CMP: Sodium 141, potassium 3.8, and creatinine i s 0.9. Lactic acid is 3.69. ABG: pH, pCO2 of 30, pO2 of 58, bicarbonate of 1 8.9. UA is unremarkable. Chest x-ray is unremarkable. ASSESSMENT AND PLAN: 1. Acute bronchitis with possible chronic obstru ctive pulmonary disease exacerbation. The patient is started on nebulize r treatments and steroids. Pulmonary consult will be done. She is counseled to quit smoking. wean O2 as tolerated 2. Nicotine abuse. The patient is counseled to q uit. 3. Alcohol use disorder. The patient currently q uit. 4. History of marijuana use. The patient is coun seled to quit. 5. Deep venous thrombosis prophylaxis wi ll be done with Lovenox. ABGs reviewed by me and this is likely a venous blood gas. The patient is currently on nasal cannula with good sats. Empiric antibiotic s, but the chest x-ray is negative, we will get sputum cultures. Dictated By: Jayson Orellana MD WT: HP:LLUISITO/JENNA/NTS Conf#: [id number]#: [id number] Authenticated and Edited by Jayson Orellana MD O n 12/23/18 5:19:34 PM Electronically Signed by Jayson Orellana MD on at 1721 PATIENT NAME: ALYSSA BRAVO [id number] 2018-12-23 [facility] 10:01:00-00:00 [facility] ([facility]) EMERGENCY PROVIDER REPORT REPORT#:[id number] REPORT STATUS: Signed DATE:12/23/18 TIME:1001 PATIENT: ALYSSA BRAVO UNIT #: [id number] ROOM/BED: [place] [address] : 75 AGE: 43 SEX: F PCP PHYS: Dominic Moon MD SERVICE AUTHOR: Enedelia Woodruff MD * ALL edits or amendments must be made on the emaze/computer document * HPI-Dyspnea/Wheezing General Confirmed Patient Yes Patient Type New patient Initial Greet Date/Time 12/23/18 0953 Presentation Chief Complaint Shortness of breath Hx Obtained From Patient )( Sudden in Onset? Yes Onset Occurred Just prior to arrival Symptom Duration Since onset Progression since Onset Unchanged Associated with Reports: Cough, Nausea, Vomiting, Wheeze. Denies : Diaphoresis, Fever, Loss of consciousness, Numbness, per ioral, Numbness, hands, Numbness, feet, Sore throat. 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 Assoc. sxs are a productive cough, nausea, and vomiting (1x). Pt tried albuterol 7-8 times but reported no relief. Yesterday, pt reports feelin g fine and has never been admitted for breathing issue s. Denies diarrhea, dysuria, sore throat, abd pain, diaphoresis, numbness/tingling, and LE swelling. Portions of this section were scribed by Sam Angel on 12/23/18 at 1312 Review of Systems ROS Statements All systems rev neg except as marked. Focused Review of Systems Constitutional Denies: Chills, Fever. Ears/Nose/Throat Denies: Ear drainage bilat, Ear ringing bilat, S ore throat. Respiratory Reports: Cough, productive, Shortness of breath, Wheezing. Cardiovascular Denies: Chest pain, Edema. Musculoskeletal Denies: Back pain, Extremity pain, Joint pain, M yalgia. Skin Denies: Abrasion, Diaphoresis, Swelling. Additional Review of Systems Eyes Denies: Blurred bilat, Discharge bilat. GI Reports: Nausea, Vomiting. Denies: Abdominal ly n, Diarrhea. Female Denies: Dysuria, Hematuria. Neurologic Reports: Lightheaded. Denies: Abnormal movement, Change LOC, Tingling, Unable to speak, Vision change. Portions of this section were scribed by Sam Angel on 12/23/18 at 1002 Past Medical History - Adult Stated Complaint DIFFICULTY BREATHING Allergies Coded Allergies: No Known Allergies (12/23/18) Home Medications Reported Medications No Known Home Medications Review of Nursing Notes Rev avail, and agree Past Medical History: Reports: Asthma, COPD. Past Surgical History: Reports: Appendectomy. Additional Surgical History Tubal ligation Ambulatory Status Independent Portions of this section were scribed by Sam Angel on 12/23/18 at 1142 Physical Exam Vital Signs Vital Signs First Documented: Result Date Time Pulse Ox 96 12/23 0952 B/P 147/76 12/23 0952 B/P Mean 99 12/23 0952 O2 Delivery Room air 12/24 951 Temp 37.0 12/24 951 Pulse 101 12/23 0952 Resp 18 12/23 09 Last Documented: Result Date Time Pulse Ox 96 12/23 1000 B/P 147/76 12/23 0952 B/P Mean 99 12/23 0952 O2 Delivery Room air 12/24 951 Temp 37.0 12/24 951 Pulse 101 12/24 951 Resp 18 12/23 0952 Review of Vital Signs Reviewed Focused PE General/Const General/Const Awake, Alert, No acute distress Appearance/Presentation Obese, morbidly. MS Neck Neck Atraumatic, Supple, No meningismus, No mid line vertebral tend Resp/Chest Text/Dict Notes Pt is actively coughing, and tachypneic Wheezing/Retractions Wheezing expiratory, Wheezing inspiratory. Cardiovascular Cardiovascular Heart sounds NL, No gallop, No m urmurs, No rubs Heart Rate/Rhythm Tachycardia. Abdomen/GI Abdomen/GI Atraumatic, Soft, Non-tender, No gua rding, No rebound, No distention Skin Skin Atraumatic, Color NL, No rash, Warm, Dry, Intact Neurologic Neurologic Oriented X3, Speech NL, No motor def icits, No sensory deficits Additional PE MS Head Head Atraumatic, Normocephalic Portions of this section were scribed by Sam Angel on 12/23/18 at 1231 Interpretation Diagnostics Lab Results Interpretation Results Laboratory Tests 12/23/18 1021: [Embedded Image Not Available] 12/23/18 1012: [Embedded Image Not Available] Laboratory Tests: 12/23 12/23 12/23 12/23 1029 1021 1013 1012 Chemistry POC Sodium (135 - 146 mmol/L) 141 POC Potassium (3.5 - 4.9 mmol/L) 3.8 POC Chloride (98 - 109 mmol/L) 103 Carbon Dioxide (24 - 29 mmol/L) 23 L POC BUN (8 - 26 mg/dL) 11 POC Creatinine (0.6 - 1.3 mg/dL) 0.9 Estimated GFR (MDRD) (58 - 135) 73 POC Glucose (70 - 105 mg/dL) 174 H POC Lactic Acid (0.90 - 1.70 MMOL/L) 3.69 H Ionized Calcium Lashonda (1.12 - 1.32 mmol/L) 1.12 Rapid Troponin I (0.00 - 0.08 ng/mL) 0.00 Hematology WBC (3.5 - 11.0 K/mm3) 17.7 H RBC (4.70 - 6.10 M/mm3) 4.27 L Hgb (10.4 - 14.9 G/DL) 12.4 Hct (31.5 - 44.1 %) 36.8 MCV (84.5 - 98.6 Fl) 86.2 MCH (27.0 - 34.2 pg) 29.0 MCHC (31.5 - 34.0 G/DL) 33.7 RDW (11.5 - 14.5 SD) 15.5 H Plt Count (150 - 450 K/mm3) 326.0 MPV (7.0 - 10.5 fL) 8.70 Microbiology: Date/Time Procedure - Status Source Growth 12/23 1255 MRSA Screen - ORD NASAL 12/23 1035 Blood Culture - RECD BLOOD 12/23 1015 Blood Culture - RECD BLOOD Recent Impressions: RADIOLOGY - XR CHEST 1 V 12/23 1023 Report Impression - Status: SIGNED Entered: 12/23/2018 1046 IMPRESSION: No acute cardiopulmonary abnormality. Impression By: [email or web address] - DONNELL LOVING M.D. Lab Statement Laboratory studies reviewed and considered in [facility] medical decision-making. Point of Care Testing Pulse Oximetry Pulse Ox % 96 On: Room air Interpretation Interpreted by me, Pulse oximetr y normal Time 1000 ECG #1 Interpretation Text/Dict Note Tachycardic Long interval QTC 518 ECG Documented in MUSE Yes Date 12/23/18 Time 1006 Interpreted by ED physician NL ECG Interpretation No STEMI Rate 113 Portions of this section were scribed by Sam Angel on 12/23/18 at 1312 Re-Evaluation MDM Free Text MDM Notes Free Text MDM Notes 1008- RT called 1231- Requested 1 more albuterol tx from RT admitted as patient still not improving, pending ABG. )( Re-Evaluation/Progress #1 Text/Dict Note 1116- O2 sat 92% Moderate expiratory wheeze, no more inspiratory wheeze Time of Re-Eval 1116 )( Re-Eval Status Improved ED Course Medication(s) Ordered Medication(s) Ordered: Anti-Infective Agents Sig/Chava Start time Last Medication Dose Route Stop Time Status Admin Azithromycin 500 MG X1ED STA 12/23 1029 DC 12/04 1 Sodium Chloride 250 ML IV 12/23 1128 1037 Ceftriaxone Sodium 1,000 MG X1ED STA 12/23 1029 AC 12/23 Sterile Water 10 ML IV 12/23 2028 1036 Autonomic Drugs Sig/Chava Start time Last Medication Dose Route Stop Time Status Admin Albuterol Sulfate 2.5 MG RTQ4H 12/23 1600 AC NEB 12/24 1150 Albuterol Sulfate 2.5 MG X1ED STA 12/23 1230 DC 12/23 NEB 12/23 1231 1237 Albuterol/Ipratropium 3 ML X1ED STA 12/23 1023 DC 12/23 NEB 12/23 1024 1028 Albuterol/Ipratropium 3 ML X1ED STA 12/23 1023 DC 12/23 NEB 12/23 1024 1029 Albuterol/Ipratropium 3 ML X1ED STA 12/23 1001 DC 12/23 NEB 12/23 1002 1016 Blood Formation,Coagulation Sig/Chava Start time Last Medication Dose Route Stop Time Status Admin Enoxaparin Sodium 40 MG DAILY 12/23 1300 AC SUBQ 12/24 1150 Central Nervous System Agents Sig/Chava Start time Last Medication Dose Route Stop Time Status Admin Acetaminophen 650 MG Q4H PRN PRN 12/23 1300 AC PO 12/24 1150 Magnesium Sulfate 50 ML X1ED STA 12/23 1001 DC 12/23 IV 12/23 1200 1037 Electrolytic, Caloric, And Elvis Sig/Chava Start time Last Medication Dose Route Stop Time Status Admin Sodium Chloride 1,000 ML BOLUS ONCE ONE 12/23 1 030 DC 12/23 IV 12/23 1031 1038 Sodium Chloride 1,000 ML BOLUS ONCE ONE 12/23 1 015 DC 12/23 IV 12/23 1016 1038 Gastrointestinal Drugs Sig/Chava Start time Last Medication Dose Route Stop Time Status Admin Docusate Sodium 100 MG Q12H PRN PRN 12/23 1300 AC PO 12/24 1150 Ondansetron HCl 4 MG Q4H PRN PRN 12/23 1300 AC IV 12/24 1150 Hormones And Synthetic Substit Sig/Chava Start time Last Medication Dose Route Stop Time Status Admin Prednisone 60 MG X1ED STA 12/23 1001 DC 12/23 PO 12/23 1002 1037 Portions of this section were scribed by Sam Angel on 12/23/18 at 1312 Patient Discharge Departure Vital Signs/Condition Vital Signs First Documented: Result Date Time Pulse Ox 96 12/23 0952 B/P 147/76 12/23 0952 B/P Mean 99 12/23 0952 O2 Delivery Room air 12/23 0952 Temp 37.0 12/23 0952 Pulse 101 12/23 0952 Resp 18 12/23 0952 Last Documented: Result Date Time Pulse Ox 96 12/23 1000 B/P 147/76 12/23 0952 B/P Mean 99 12/23 0952 O2 Delivery Room air 12/23 0952 Temp 37.0 12/23 0952 Pulse 101 12/23 0952 Resp 18 12/23 0952 All vital signs available at the time of this en try have been reviewed. Condition Stable Clinical Impression Clinical Impression Primary Impression: Asthma exacerbation Disposition Decision Admit Admit Physician Name Jayson Orellana MD Admit Physician Hospitalist Request Time 1252 Request Date 12/23/18 )( Admission Accepts Yes )( Accepted Time 1252 )( Accepted Date 12/23/18 Call Information will see patient, agrees with eval, agrees with plan Discharge/Care Plan Counseled Regarding Diagnosis, Lab results Admit Note I have spoken with the patie nt and/or caregivers. I have explained the patient's condition, diagnoses and israel atment plan based on the information available to me at this time. I have answered the patient's and/ or caregiver's questions and addressed any concerns. The patient and/or careg aric have as good an understanding of the patient 's diagnosis, condition and treatment plan as can be expected at this point. The patient has been stabilized within the capability of the emergency department. The patient wi ll be transported for further care and management or will be moved to an observation or inpatient service. I have communicated with the staff or medical p ractitioner taking over this patient's care. Critical Care Time Spent (minutes): 35 Supervising Physician Note Scribe Statement Renate Angel, 12/23/18 1001, scribing for and in t he presence of [Dr. Woodruff]. Signed By: Renate Angel, 12/23/18 1001 Provider Scribed Statement I personally performed the s ervices described in this documentation and reviewed the documentation that was dictated to the scrib e(s) in my presence, and it accurately records my words and actions. Vu Woodruff, 12/23/18 Portions of this section were scribed by Sam Angel on 12/23/18 at 1312 Electronically Signed by Enedelia Woodruff MD on 9 at 1316 RPT #: [id number] END OF REPORT
[2023-02-14 14:50] LABS: Absolute Lymphocytes (CBC) 1.9 K/uL (0.7-4.9); Lymphocytes % 26.2 % (15.3-44.8); MCV 88.8 fL (80-100); MPV 7.6 fL (7.6-11.3); Platelets 275 thou/uL (152-406); RBC Red Blood Cell Count 4.05 M/uL (3.86-4.86)
[2023-02-14 15:02] LABS: ALT/SGPT 34 U/L (13-56); AST/SGOT 20 U/L (15-37); Albumin 3.4 g/dL (3.4-5.0); Alkaline Phosphatase 105 U/L (45-117); BUN Blood Urea Nitrogen 16 mg/dL (7-18); Bicarbonate 29 mEq/L (21-32); Bilirubin Total 0.2 mg/dL (0.2-1.0); Glomerular Filtration Rate 60 ml/min (=/>90); Glucose Level 118 mg/dL (74-106); Magnesium 1.8 mg/dL (1.6-2.4); Potassium 3.7 mEq/L (3.5-5.1); Sodium Level 142 mEq/L (136-145)
[2023-02-14 15:03] LABS: Bilirubin Direct < 0.1 mg/dL (0-0.2); Bilirubin Indirect, Calculated ND mg/dL (0.2-0.8)
[2023-02-14 15:04] LABS: NT PRO-BNP 37 pg/mL (<125); Troponin High Sensitivity 4.9 pg/mL (<58.9)
--- NOTE | 2023-02-14 15:36 | RAD REPORT ---
EXAM DESCRIPTION: RADChest Single View02/14/2023 2:40 pm CLINICAL HISTORY: DYSPNEA COMPARISON: Chest Single View dated 05/02/2018; Chest Single View dated 01/26/2018; Chest Single View dated 11/02/2017; Chest For Pe Angio dated 02/14/2023 TECHNIQUE: Portable AP view of the chest. FINDINGS: The lungs are clear. No pneumothorax or effusion. The cardiomediastinal contours are unre markable. IMPRESSION: No acute cardiopulmonary process.
--- NOTE | 2023-02-14 15:53 | RAD REPORT ---
EXAM DESCRIPTION: CT - Chest For Pe Angio - 02/14/2023 3:16 pm CLINICAL HISTORY: CHEST PAIN COMPARISON: Chest For Pe Angio dated 09/24/2015 TECHNIQUE: Thin axial CT images of the chest were obtained following administration of 100 mL Isovue 370 IV contrast. Multiplanar reconstructions, and maximum intensity projection reconstructions were generated and reviewed. Exam utilizes a protocol for optimal evaluation of pulmonary arterial tree. All CT scans are performed using dose optimization technique as appropriate and may include automated exposure control or mA/KV adjustment according to patient size. FINDINGS: Pulmonary arteries are normal. No emboli or other suspicious finding. No acute or signific ant aorta findings. No infiltrate in the lung parenchyma. Ovoid 1.5 cm nodule in the central aspect of the right upper lo be. No pleural thickening or pleural effusion. No pneumothorax. No abnormal mediastinal or hilar masses or lymphadenopathy seen. No chest wall mass or abnormal axill iary lymphadenopathy. IMPRESSION: No evidence of acute central pulmonary emboli. No acute findings in the chest. Incidentally noted 1.5 cm right upper lobe nodule. Consider follow-up CT chest in 3 months to ensure stability, per Fleischner society criteria.
--- NOTE | 2023-02-14 16:04 | RAD REPORT ---
EXAM DESCRIPTION: US - Extrem Venous W Compress Sae - 02/14/2023 3:53 pm CLINICAL HISTORY: Swelling COMPARISON: None. TECHNIQUE: Real-time sonographic evaluation of the bilateral lower extremity deep venous systems was performed. FINDINGS: Normal compressibility, flow augmentation, phasic flow and spontaneous flow is identified in both the left and right lower extremity deep venous systems. No intraluminal filling defects seen. IMPRESSION: No evidence of DVT in either lower extremity.
--- NOTE | 2023-02-14 16:34 | RAD REPORT ---
EXAM DESCRIPTION: RAD - Foot Left 3 View - 02/14/2023 4:10 pm CLINICAL HISTORY: PAIN COMPARISON: No comparisons TECHNIQUE: Left foot, 3 views. FINDINGS: No fracture, dislocation or periosteal reaction. No air or foreign body in the soft tissues. The dorsum of the foot. IMPRESSION: Dorsal soft tissue swelling. No acute osseus abnormality.
[2023-02-14] MEDS ORDERED: FUROSEMIDE 20 MG/ 2ML VIAL ONE (16:41)
[2023-02-14] MEDS ORDERED: ALBUTEROL 2.5 MG/3 ML NEB SOL ONE (17:10)
[2023-02-14] MEDS ORDERED: IPRATROPIUM BROM 0.5MG/2.5ML ONE (17:11)
--- NOTE | 2023-02-14 17:32 | ER ---
Nurse's Notes [facility] Name: Bette Bravo Age: 47 yrs Sex: Female : 1975 Arrival Date: 02/14/2023 Time: 13:55 Bed 13 Private MD: Diagnosis: COPD/ Chronic obstructive pulmonary disease with (acute) exacerbation;Hypoxemia;Tobacco abuse counseling;Tobacco use;Obesity, unspecified;Edema, unspecified Presentation: 02/14 14:01 Chief complaint: Patient states: she has been having shortness of breath for a few ap3 weeks, she feels like her legs are going to explode from all the swelling, and she has been falling a lot. Patient reports she has been passing out intermittently for the last 2 weeks and will wake up on the floor. patient states this has always happened, just not as often as it has been happening the last two weeks. Coronavirus screen: At this time, the client does not indicate any symptoms associated with coronavirus-19. Ebola Screen: No symptoms or risks identified at this time. Initial Sepsis Screen: Does the patient meet any 2 criteria? No. Patient's initial sepsis screen is negative. Does the patient have a suspected source of infection? No. Patient's initial sepsis screen is negative. Risk Assessment: Do you want to hurt yourself or someone else? Patient reports no desire to harm self or others. Onset of symptoms is unknown. 14:01 Method Of Arrival: Ambulatory ap3 14:01 Acuity: MIRANDA 3 ap3 Triage Assessment: 14:08 General: Appears in no apparent distress. Behavior is calm, cooperative. Pain: ap3 Complains of pain in back, left foot and right knee. Neuro: Level of Consciousness is awake, alert, obeys commands, Oriented to person, place, time, situation. Cardiovascular: Patient's skin is warm and dry. Respiratory: Reports shortness of breath Airway is patent Respiratory effort is even, unlabored, Onset: The symptoms/episode began/occurred gradually. 19:34 Respiratory: the patient has moderate shortness of breath. bp Historical: - Allergies: 14:05 Vicodin; ap3 - PMHx: 14:05 Hypertensive disorder; Anxiety; alzheimers-early onset; Chronic obstructive lung ap3 disease; Schizophrenia; Bipolar disorder; - Immunization history:: Client reports receiving the 2nd dose of the Covid vaccine. - Social history:: Smoking status: Reported history of juuling and/or vaping. Screenin:09 [facility] ED Fall Risk Assessment (Adult) History of falling in the last 3 months, ap3 including since admission Yes- fall prone (multiple falls) (3 pts). Abuse screen: Denies threats or abuse. Nutritional screening: No deficits noted. Tuberculosis screening: No symptoms or risk factors identified. Assessment: 14:10 General: Appears in no apparent distress. uncomfortable, Behavior is calm, cooperative, rs5 restless. 14:10 Pain: Complains of pain in back and chest pain Pain does not radiate. Pain currently is rs5 5 out of 10 on a pain scale. Quality of pain is described as aching, Pain began a few weeks ago. Neuro: Level of Consciousness is awake, alert, obeys commands, Oriented to person, place, time, situation. Cardiovascular: Heart tones S1 S2 present Rhythm is regular. Respiratory: Reports shortness of breath on exertion since three weeks ago cough that is Airway is patent Respiratory effort is even, labored, Respiratory pattern is regular, symmetrical, Breath sounds are diminished bilaterally. GI: Abdomen is round distended, Bowel sounds present X 4 quads. Abd is soft and non tender X 4 quads. Reports lower abdominal pain, upper abdominal pain, Patient currently denies nausea, vomiting. : No signs and/or symptoms were reported regarding the genitourinary system. EENT: No signs and/or symptoms were reported regarding the EENT system. Derm: Skin is pink, warm \\T\\ dry. Musculoskeletal: tightness and swelling noted to lower extremities bilaterally Reports pain in left foot "I stubbed my toes on my left foot two days ago and they hurt a little" Mild swelling and redness noted to extremity, no bruising. 14:15 Reassessment: Provider at bedside. rs5 15:15 Reassessment: No changes from previously documented assessment. rs5 16:05 Reassessment: Patient and/or family updated on plan of care and expected duration. Pain rs5 level reassessed. Patient is alert, oriented x 3, equal unlabored respirations, skin warm/dry/pink. Cardiovascular: Heart tones S1 S2 Rhythm is regular. Respiratory: Reports shortness of breath on exertion Airway is patent Respiratory effort is even, labored, Respiratory pattern is regular, symmetrical, Breath sounds are diminished bilaterally. 16:30 Reassessment: Patient is alert, oriented x 3, equal unlabored respirations, skin rs5 warm/dry/pink. To bedside for media/instructional designer. 17:05 Reassessment: No changes from previously documented assessment. Patient and/or family rs5 updated on plan of care and expected duration. Pain level reassessed. To bedside for breathing treatment per provider orders . 18:06 Reassessment: Patient and/or family updated on plan of care and expected duration. Pain rs5 level reassessed. Patient is alert, oriented x 3, equal unlabored respirations, skin warm/dry/pink. 18:06 Cardiovascular: Rhythm is regular. Respiratory: Airway is patent Respiratory effort is rs5 even, unlabored, Respiratory pattern is regular, symmetrical. 18:55 Respiratory: Airway is patent Respiratory effort is even, unlabored, Respiratory rs5 pattern is regular, symmetrical, Breath sounds are diminished bilaterally. Vital Signs: 14:01 BP 148 / 90; Pulse 96; Resp 19; Temp 98.1; Pulse Ox 94% on R/A; Weight 133.36 kg; ap3 14:12 BP 110 / 85; Pulse 93; Resp 19; Temp 98.6; Pulse Ox 97% on R/A; rs5 15:04 BP 105 / 76; Pulse 83; Resp 20; Pulse Ox 97% on R/A; rs5 16:10 BP 103 / 73; Pulse 79; Resp 18; Pulse Ox 96% ; rs5 16:30 BP 109 / 78; Pulse 80; Resp 18; Pulse Ox 97% on R/A; rs5 16:46 BP 117 / 91; Pulse 81; Resp 18; Pulse Ox 97% on R/A; rs5 17:39 BP 128 / 68; Pulse 17; Resp 74; Pulse Ox 99% ; rs5 18:34 BP 130 / 75; Pulse 71; Resp 17; Pulse Ox 99% on R/A; rs5 19:37 BP 113 / 92; Pulse 68; Resp 16; Pulse Ox 95% ; bp ED Course: 13:58 Patient arrived in ED. rg4 13:58 Prachi Carrion FNP-C [facility] kb 13:59 Jennifer Cano MD is Attending Physician. kb 14:05 Triage completed. ap3 14:09 Arm band placed on left wrist. ap3 14:16 Patient has correct armband on for positive identification. Bed in low position. Call rs5 light in reach. Side rails up X2. 14:16 Inserted saline lock: 20 gauge in right forearm, using aseptic technique. Blood rs5 collected. 14:34 Titus Denton, RN is Primary Nurse. rs5 14:42 XRAY Chest (1 view) In Process Unspecified. EDMS 15:17 CT Chest For PE Angio In Process Unspecified. EDMS 15:55 US Extremity Venous W Compression Sae In Process Unspecified. EDMS 16:12 Foot Left 3 View XRAY In Process Unspecified. EDMS 17:15 Elkin Saldana MD is Attending Physician. kb 17:25 Malik Cannon MD is Hospitalizing Provider. luigi 17:39 Sacrum And Coccyx XRAY In Process Unspecified. EDMS 19:03 No provider procedures requiring assistance completed. Patient admitted, IV remains in bp place. Administered Medications: 16:30 Drug: Furosemide IVP 20 mg Route: IVP; Site: right forearm; rs5 16:45 Follow up: Response: No adverse reaction rs5 17:04 Drug: Albuterol Inhalation 2.5 mg Route: Inhalation; rs5 17:22 Follow up: Response: No adverse reaction rs5 17:04 Drug: Ipratropium Inhalation Aerosol 0.5 mg Route: Inhalation; rs5 17:22 Follow up: Response: No adverse reaction rs5 17:51 Drug: MethylPrednisoLONE IVP 125 mg Route: IVP; Site: right forearm; rs5 18:06 Follow up: Response: No adverse reaction rs5 17:51 Drug: levofloxacin IVPB 750 mg Volume: 150 ml; Route: IVPB; Infused Over: 90 mins; rs5 Site: right forearm; 18:06 Follow up: Response: No adverse reaction rs5 19:34 Follow up: IV Status: Completed infusion; IV Intake: 150ml bp 17:51 Drug: Levalbuterol Inhalation 2.5 mg Route: Inhalation; rs5 18:06 Follow up: Response: No adverse reaction rs5 Medication: 19:34 VIS not applicable for this client. bp Intake: 19:34 IV: 150ml; Total: 150ml. bp Outcome: 17:31 Decision to Hospitalize by Provider. luigi 19:33 Admitted to Med/surg accompanied by tech, via wheelchair, room 230, with chart, Report bp called to TESSIE NAVARRETE 19:33 Condition: stable 19:33 Instructed on the need for admit. 20:07 Patient left the ED. bp Signatures: Dispatcher [employer] EDPrachi Poole, ARJWINDER VISITOR SERVICES ASSISTANT-Elkin Silveira MD MD cha Garcia, Rubi rg4 Toby Stuart RN RN bp Lucy Laird, RN RN ap3 Titus Denton RN RN rs5 Corrections: (The following items were deleted from the chart) 16:45 14:12 BP 110 / 85; Pulse 93bpm; Resp 17bpm; Pulse Ox 97% RA; Temp 98.6F; rs5 rs5 17:05 16:56 Reassessment: rs5 rs5 18:53 17:05 Reassessment: To bedside for breathing treatment per provider orders . rs5 rs5 18:55 14:10 Respiratory: Reports shortness of breath on exertion since three weeks ago cough rs5 that is productive, Pt reports "I sometimes cough up pinkish sputum" Airway is patent Respiratory effort is even, labored, Respiratory pattern is regular, symmetrical, Breath sounds with wheezes bilaterally. rs5 18:55 16:05 Respiratory: Reports shortness of breath on exertion Airway is patent Respiratory rs5 effort is even, labored, Respiratory pattern is regular, symmetrical, Breath sounds with wheezes bilaterally. rs5 18:57 14:10 Respiratory: Reports shortness of breath on exertion since three weeks ago cough rs5 that is productive, Pt reports "I sometimes cough up pinkish sputum" Airway is patent Respiratory effort is even, labored, Respiratory pattern is regular, symmetrical, Breath sounds are diminished bilaterally. rs5
--- NOTE | 2023-02-14 17:32 | EDPHYS ---
Physician Documentation [facility] Name: Bette Bravo Age: 47 yrs Sex: Female : 1975 Arrival Date: 02/14/2023 Time: 13:55 Bed 13 Private MD: ED Physician Elkin Saldana HPI: 02/14 17:09 This 47 yrs old Female presents to ER via Ambulatory with complaints of Toe Injury, kb Breathing Difficulty, Leg Swelling, Weakness. 17:09 The patient has shortness of breath at rest. The patient has not experienced similar kb symptoms in the past. The patient has not recently seen a physician. 17:11 Onset: The symptoms/episode began/occurred 1 month(s) ago. Duration: The symptoms are kb continuous. The patient's shortness of breath is aggravated by exertion, is alleviated by nothing. Associated signs and symptoms: The patient has no apparent associated signs or symptoms. Severity of symptoms: At their worst the symptoms were mild moderate in the emergency department the symptoms are unchanged. Pt reports she has had bilateral lower extremity swelling for 6 weeks, shortness of breath for 4 weeks. States she has been seen by PCP for this and given lasix, but the swelling persists. Also reports she has been having episodes where she passes out and wakes up on the floor. Has seen her neurologist for this and he believes she is having seizures. Pt states she is scheduled to have further testing to determine if it is seizures. Pt reports left foot pain after fall 3 days ago. Historical: - Allergies: 14:05 Vicodin; ap3 - PMHx: 14:05 Hypertensive disorder; Anxiety; alzheimers-early onset; Chronic obstructive lung ap3 disease; Schizophrenia; Bipolar disorder; - Immunization history:: Client reports receiving the 2nd dose of the Covid vaccine. - Social history:: Smoking status: Reported history of juuling and/or vaping. ROS: 16:56 Constitutional: Negative for fever, chills, and weight loss. kb 16:56 Cardiovascular: Positive for edema. 16:56 Respiratory: Positive for shortness of breath. 16:56 Back: Positive for of the sacrum. 16:56 MS/extremity: Positive for pain, of the left foot. 16:56 All other systems are negative. Exam: 15:44 ECG was reviewed by the Attending Physician. kb 17:08 Constitutional: This is a well developed, well nourished patient who is awake, alert, kb and in no acute distress. Head/Face: Normocephalic, atraumatic. ENT: Moist Mucous membranes Cardiovascular: Regular rate Abdomen/GI: Soft, non-tender. No distention Skin: Warm, dry with normal turgor. Normal color. Neuro: Awake and alert, GCS 15, oriented to person, place, time, and situation. Moves all extremities. Normal gait. 17:08 Cardiovascular: Edema: 2+ edema to level of left foot and right foot. 17:08 Respiratory: the patient does not display signs of respiratory distress, Respirations: labored breathing, Breath sounds: are clear throughout. Vital Signs: 14:01 BP 148 / 90; Pulse 96; Resp 19; Temp 98.1; Pulse Ox 94% on R/A; Weight 133.36 kg; ap3 14:12 BP 110 / 85; Pulse 93; Resp 19; Temp 98.6; Pulse Ox 97% on R/A; rs5 15:04 BP 105 / 76; Pulse 83; Resp 20; Pulse Ox 97% on R/A; rs5 16:10 BP 103 / 73; Pulse 79; Resp 18; Pulse Ox 96% ; rs5 16:30 BP 109 / 78; Pulse 80; Resp 18; Pulse Ox 97% on R/A; rs5 16:46 BP 117 / 91; Pulse 81; Resp 18; Pulse Ox 97% on R/A; rs5 17:39 BP 128 / 68; Pulse 17; Resp 74; Pulse Ox 99% ; rs5 18:34 BP 130 / 75; Pulse 71; Resp 17; Pulse Ox 99% on R/A; rs5 19:37 BP 113 / 92; Pulse 68; Resp 16; Pulse Ox 95% ; bp MDM: 13:59 Patient medically screened. kb 16:57 Differential diagnosis: fracture, strain, CHF, COPD, DVT, PE. Data reviewed: vital kb signs, nurses notes. ED course: Pt educated on all diagnostic tests. Now reports pain to tailbone from fall. x-ray ordered. . 17:13 Consideration of Admission/Observation Escalation of care including kb admission/observation considered. admission considered, but labs wnl, chest x-ray and PE study clear, oxygen saturation 98% on room air. . Transition of care: After a detail discussion of the patient's case, care is transferred to Elkin Saldana MD. 02/14 14:07 Order name: Basic Metabolic Panel; Complete Time: 15:09 kb 02/14 14:07 Order name: CBC with Diff; Complete Time: 14:55 kb 02/14 14:07 Order name: D-Dimer; Complete Time: 14:53 kb 02/14 14:07 Order name: LFT's; Complete Time: 15:09 kb 02/14 14:07 Order name: Magnesium; Complete Time: 15:09 kb 02/14 14:07 Order name: NT PRO-BNP; Complete Time: 15:09 kb 02/14 14:07 Order name: Troponin HS; Complete Time: 15:09 kb 02/14 14:07 Order name: XRAY Chest (1 view); Complete Time: 15:39 kb 02/14 14:08 Order name: US Extremity Venous W Compression Sae; Complete Time: 16:05 kb 02/14 14:54 Order name: CT Chest For PE Angio; Complete Time: 16:01 kb 02/14 15:41 Order name: Foot Left 3 View XRAY; Complete Time: 16:36 kb 02/14 16:56 Order name: Sacrum And Coccyx XRAY; Complete Time: 18:15 kb 02/14 14:07 Order name: EKG; Complete Time: 14:08 kb 02/14 14:07 Order name: Cardiac monitoring; Complete Time: 14:34 kb 02/14 14:07 Order name: EKG - Nurse/Tech; Complete Time: 14:52 kb 02/14 14:07 Order name: IV Saline Lock; Complete Time: 14:52 kb 02/14 14:07 Order name: Labs collected and sent; Complete Time: 14:52 kb 02/14 14:07 Order name: O2 Per Protocol; Complete Time: 14:34 kb 02/14 14:07 Order name: O2 Sat Monitoring; Complete Time: 14:34 kb EC:44 Rate is 88 beats/min. Rhythm is regular. QRS [place] is Normal. NM interval is normal at kb 136 msec. QRS interval is normal at 90 msec. QT interval is normal at 474 msec. Administered Medications: 16:30 Drug: Furosemide IVP 20 mg Route: IVP; Site: right forearm; rs5 16:45 Follow up: Response: No adverse reaction rs5 17:04 Drug: Albuterol Inhalation 2.5 mg Route: Inhalation; rs5 17:22 Follow up: Response: No adverse reaction rs5 17:04 Drug: Ipratropium Inhalation Aerosol 0.5 mg Route: Inhalation; rs5 17:22 Follow up: Response: No adverse reaction rs5 17:51 Drug: MethylPrednisoLONE IVP 125 mg Route: IVP; Site: right forearm; rs5 18:06 Follow up: Response: No adverse reaction rs5 17:51 Drug: levofloxacin IVPB 750 mg Volume: 150 ml; Route: IVPB; Infused Over: 90 mins; rs5 Site: right forearm; 18:06 Follow up: Response: No adverse reaction rs5 19:34 Follow up: IV Status: Completed infusion; IV Intake: 150ml bp 17:51 Drug: Levalbuterol Inhalation 2.5 mg Route: Inhalation; rs5 18:06 Follow up: Response: No adverse reaction rs5 Disposition: 17:31 Co-signature as Attending Physician, Elkin Saldana MD I agree with the assessment and luigi plan of care. Disposition Summary: 02/14/23 17:31 Hospitalization Ordered Hospitalization Status: Inpatient Admission luigi Provider: Malik Cannon cha Location: Telemetry/MedSurg (Inpatient) luigi Condition: Fair luigi Problem: new luigi Symptoms: have improved luigi Bed/Room Type: Standard luigi Room Assignment: 230(02/14/23 18:54) Diagnosis - COPD/ Chronic obstructive pulmonary disease with (acute) exacerbation luigi - Hypoxemia luigi - Tobacco abuse counseling luigi - Tobacco use luigi - Obesity, unspecified luigi - Edema, unspecified luigi Forms: - Medication Reconciliation Form luigi - SBAR form luigi - Leadership Thank You Letter luigi Signatures: Dispatcher [employer] Prachi Melton, CHIP-C CHIP-Celeste Cagle RN RN mw Anderson, Corey, MD MD cha Attema, Lee, FNP-C SITE LEADER-Arlen1 Lucy Laird RN RN ap3 Titus Denton RN RN rs5 Toby Stuart RN bp Corrections: (The following items were deleted from the chart) 18:54 17:31 luigi mw
[2023-02-14] MEDS ORDERED: LEVALBUTEROL 1.25 MG/3 ML NEB ONE ×2 (17:38→17:41)
[2023-02-14] MEDS ORDERED: METHYLPREDNISOLONE 125 MG INJ ONE (17:38)
[2023-02-14] MEDS ORDERED: Levofloxacin 750mg IV 750 MG/150 ML BAG IV ONE (17:39)
--- NOTE | 2023-02-14 18:02 | RAD REPORT ---
EXAM DESCRIPTION: Sacrum And Coccyx - 02/14/2023 5:37 pm CLINICAL HISTORY: PAIN COMPARISON: No comparisons TECHNIQUE: Three views of the sacrum and coccyx. FINDINGS: No acute displaced fractures. Visualized pelvic bones are intact. No suspicious osseous le sions. Sacroiliac joints are patent without evidence of erosions or significant degenerative spurring . IMPRESSION: Essentially normal sacrum and coccyx radiographs. .
--- NOTE | 2023-02-14 18:25 | P.HP ---
Certification for Inpatient Patient admitted to: Observation With expected LOS: <2 Midnights Patient will require the following post-hospital care: None Practitioner: I am a practitioner with admitting privileges, knowledge of patient current condition, hospital course, and medical plan of care. Services: Services provided to patient in accordance with Admission requirements found in Title 42 Section 412.3 of the Code of Federal Regulations Patient History Date of Service: 02/14/23 Reason for admission: Dyspnea, edema History of Present Illness: 47-year-old female with history of COPD, hyperlipidemia, BPD/schizophrenia, short-term memory loss/possible early onset Alzheimer's presents to the emergency department with chief complaint of shortness of breath, lower extremity edema. She also reports has been having episodes with loss of consciousness about 4 times a week over the course of the last 1 year. She reports increasing dyspnea over the course of the last few weeks, recently prescribed some p.o. steroids without improvement. She does admit to vaping daily as well as smoking marijuana. In regards to her syncopal episodes versus seizures she reports that they typically happen when she is standing she has no prodrome including chest pain, palpitations, headache or other auras and she typically wakes up in the floor after an unknown period of time. She reports being evaluated by neurology at [facility] and has had extensive testing with a possible diagnosis of early onset Alzheimer's, short-term memory loss. She is supposed to have a prolonged EEG in March. Her last episode was last night occurred while standing. She is not on any seizure medicines currently, has not been diagnosed with seizures. She was evaluated in the emergency department her labs were significant for D- dimer 973 chloride 108 creatinine 1.13 GFR 60 glucose 118 chest x-ray negative for acute findings negative for DVT lower extremities bilaterally foot x-ray negative for acute bony abnormality, sacrum and coccyx x-ray negative for acute findings CTA of the chest negative for PE incidental finding of 1.5 cm right upper lobe nodule. She will be admitted for COPD exacerbation, pedal edema. Allergies No Known Drug Allergies Allergy (Unverified 06/04/14 06:27) Unknown No Known Allergies Allergy (Uncoded 01/26/18 10:42) Unknown Home Medications: Albuterol Sulfate [Proair Hfa] 8.5 gm IH TID PRN #1 [email or web address] 01/26/18 Esomeprazole Mag Trihydrate [Nexium] 40 mg PO DAILY #30 capsule. 01/26/18 Fluticasone/Salmeterol [Airduo Respiclick 113-14 Mcg] 1 each IH BID #1 [email or web address] 01/26/18 - Past Medical/Surgical History Diabetic: No -: GERD -: Tobacco abuse -: Obesity -: COPD -: BPD/schizophrenia -: Early onset Alzheimer's? -: Appendectomy -: Hysterectomy Psychosocial/ Personal History: . She has 3 children. Currently unemployed. - Family History Father -: Heart disease, Hypertension Mother -: Heart disease, Hypertension - Social History Smoking Status: Current every day smoker (Vape) Alcohol use: Yes CD- Drugs: Yes Caffeine use: Yes Place of Residence: Home Review of Systems 10-point ROS is otherwise unremarkable Respiratory: Cough, Shortness of Breath, SOB with Excertion, Wheezing Cardiovascular: Edema Physical Examination - Physical Exam General: Alert, In no apparent distress, Oriented x3, Obese HEENT: Atraumatic, PERRLA, Mucous membr. moist/pink, EOMI, Sclerae nonicteric Neck: Supple, 2+ carotid pulse no bruit, No LAD, Without JVD or thyroid abnormality Respiratory: Diminished, Expiratory wheezes Cardiovascular: Regular rate/rhythm, Normal S1 S2, Edema (2+ pitting in the bilateral lower extremities) Capillary refill: <2 Seconds Gastrointestinal: Normal bowel sounds, No tenderness Musculoskeletal: No tenderness Integumentary: No rashes Neurological: Normal speech, Normal strength at 5/5 x4 extr, Normal tone, Normal affect - Studies Laboratory Data (last 24 hrs) 02/14/23 02/14/23 14:34 14:34 WBC 7.20 Hgb 12.1 Hct 36.0 Plt Count 275 Sodium 142 Potassium 3.7 BUN 16 Creatinine 1.13 H Glucose 118 H Magnesium 1.8 Total Bilirubin 0.2 AST 20 ALT 34 Alkaline Phosphatase 105 Assessment and Plan - Plan Assessment: Dyspnea secondary to COPD with exacerbation Lower extremity edema Syncope versus seizures Hyperlipidemia BPD/schizophrenia/anxiety/possible early onset Alzheimer's Incidental CT finding pulmonary nodule Plan: Dyspnea secondary to COPD with exacerbation Continue p.o. steroids, as needed nebulizer treatments, ICS, other home medications. Pulmonology consult. Still with persistent wheezing after treatment in ED. Lower extremity edema Takes Lasix at home, no formal diagnosis of CHF, continue IV diuresis given significant edema. Will obtain echocardiogram. Syncope versus seizures Patient reports has been having these episodes for the last year or so with typically about 4 episodes per week, her last episode was last night. She describes episodes typically occurring while standing not after change in position without any prodrome or aura lasting an unknown period of time. She reports being worked up by neurology and having a prolonged EEG scheduled for March, denies formal seizure diagnosis or other explanation of events. Will monitor on telemetry and obtain echocardiogram. Will need continued outpatient work-up. Hyperlipidemia Continue atorvastatin. BPD/schizophrenia/anxiety/possible early onset Alzheimer's Continue home meds Incidental CT finding pulmonary nodule Notified patient, needs repeat CT in 3 months. DVT PPX: Lovenox Code status: Full code Discharge Plan: Home Plan to discharge in: 24 Hours - Advance Directives Does patient have a Living Will: No Does patient have a Durable POA for Healthcare: No - Code Status/Comfort Care Code Status Assessed: Yes (Full code) Critical Care: No Time Spent Managing Pts Care (In Minutes): 55
[2023-02-14] MEDS ORDERED: ALBUTEROL 2.5 MG/3 ML NEB SOL NEB PRN (20:09)
[2023-02-14] MEDS ORDERED: IPRATROPIUM BROM 0.5MG/2.5ML NEB PRN (20:09)
[2023-02-14] MEDS ORDERED: ONDANSETRON 4 MG/2 ML VIAL IV PRN (20:09)
[2023-02-14] MEDS ORDERED: PROMETHAZINE 25 MG TABLET PO PRN (20:44)
[2023-02-14] MEDS ORDERED: LOPERAMIDE HCL 2 MG CAPSULE PO PRN (20:44)
[2023-02-14] MEDS ORDERED: TRAZODONE 50 MG TABLET PO PRN (20:44)
[2023-02-14] MEDS ORDERED: UBRELVY 100 MG PO PRN (20:44)
[2023-02-14] MEDS ORDERED: GABAPENTIN 300 MG CAP PO PRN (20:44)
[2023-02-14] MEDS ORDERED: SUMATRIPTAN SUCCI 50 MG TAB PO PRN (20:44)
[2023-02-14] MEDS: BUPROPION 75 MG PO SCH (21:00)
[2023-02-14] MEDS ORDERED: KETOROLAC 30 MG/ML INJ IV ONE (21:14)
[2023-02-14] MEDS: ATORVASTATIN 20 MG TAB PO SCH (21:54)
[2023-02-14] MEDS: predniSONE 20 MG TAB PO SCH (21:54)
[2023-02-14] MEDS: DOXEPIN HCL 25 MG CAP PO SCH (21:54)
[2023-02-14] MEDS: QUETIAPINE 100MG TAB PO SCH (21:54)
[2023-02-14 22:15] VITALS: BMI 48.9
[2023-02-15 03:05] LABS: Absolute Lymphocytes (CBC) 0.9 K/uL (0.7-4.9); Hematocrit 38.4 % (36.0-45.0); MCV 88.6 fL (80-100); MPV 7.8 fL (7.6-11.3); Platelets 280 thou/uL (152-406); RBC Red Blood Cell Count 4.33 M/uL (3.86-4.86)
[2023-02-15 03:36] LABS: Magnesium 1.9 mg/dL (1.6-2.4); Thyroid Stimulating Hormone 1.11 uIU/mL (0.358-3.740)
--- NOTE | 2023-02-15 06:59 | P.PN ---
Date of Service: 02/15/23 Subjective: rapid response called ~9:25 am after patient fell in room; stood up and passed out; similar to episodes at home noted to be sinus tachycardic with HR in 100s per nurse during episode +new left posterior shoulder pain after the fall dyspnea on exertion on room air, +Expiratory wheezes ROS: 10 point ROS as noted above, otherwise negative Physical Exam: GEN: Alert, oriented, NAD HEENT: Normal conjunctiva, sclera anicteric CV: Regular rate and rhythm, 2+ pitting edema b/l Pulm: mildly-labored respirations on room air, Diminished at bases b/l, Expiratory wheezes ABD: Soft, nontender, nondistended MSK: No shoulder join tenderness, normal ROM; tenderness at left posterior scapula Neuro: Normal speech, normal affect vitals reviewed Problem List: Dyspnea secondary to COPD with exacerbation b/l Lower extremity edema Syncope versus seizures Left shoulder pain s/p fall Incidental findin.5 cm right upper lobe pulmonary nodule Hyperlipidemia BPD schizophrenia anxiety possible early onset Alzheimer's Dyspnea secondary to COPD with exacerbation CXR (02/14): No acute cardiopulmonary process. CTA chest (02/14): Incidentally noted 1.5 cm right upper lobe nodule, otherwise no acute central pulmonary emboli. short of breath / dyspneic at rest pulm consulted Continue PO steroids ICS, other home medications RENÉE nebs b/l Lower extremity edema venous doppler (02/14): no DVT xray Foot (02/14): Dorsal soft tissue swelling. No acute osseus abnormality. Takes Lasix at home with no formal diagnosis of CHF started on IV lasix on admission echo ordered Cardiology consulted Syncope vs. seizures Left shoulder pain s/p fall Patient reports has been having these episodes for the last year or so with typically about 4 episodes per week, her last episode was last night. She describes episodes typically occurring while standing not after change in position without any prodrome or aura lasting an unknown period of time. Patient has a prolonged EEG scheduled for March, denies formal seizure diagnosis or other explanation of events. Monitor on telemetry, echo ordered 02/15 rapid response called ~9:25 am after patient fell noted to be sinus tachycardic with HR in 100s per nurse during episode +new left shoulder pain after the fall PRN pain medication Cardiology consulted Incidental findin.5 cm right upper lobe pulmonary nodule CT (02/14): 1.5 cm right upper lobe nodule patient notified, f/u CT in 3 months. Hyperlipidemia BPD schizophrenia anxiety possible early onset Alzheimer's Continue home medications as appropriate VTE: Lovenox Code: Full Dispo: Home, ~2 days
[2023-02-15] MEDS: PROPRANOLOL HCL 10 MG TAB PO SCH ×3 (09:00→21:00)
[2023-02-15] MEDS: BUPROPION 75 MG PO SCH ×2 (09:00→21:00)
[2023-02-15] MEDS ORDERED: FUROSEMIDE 40 MG/4 ML VIAL IV SCH (09:00)
[2023-02-15] MEDS: ENOXAPARIN 40 MG/0.4 ML SQ SCH (10:03)
[2023-02-15] MEDS: SOLIFENACIN SUCCIN 5 MG TAB PO SCH (10:03)
[2023-02-15] MEDS: predniSONE 20 MG TAB PO SCH ×2 (10:03→22:26)
[2023-02-15] MEDS: LACTOBACILLUS/ACIDOPHILUS TAB PO SCH (10:03)
[2023-02-15] MEDS: PANTOPRAZOLE 40MG TABLET PO SCH (10:03)
[2023-02-15] MEDS: SERTRALINE HCL 100 MG TAB PO SCH (10:04)
--- NOTE | 2023-02-15 13:17 | ECHO ---
HEIGHT: 5 ft 5 in WEIGHT: 294 lb 0 oz DATE OF STUDY: 02/15/[address]: Gregory Whitehead NP 2-DIMENSIONAL: YES M.MODE: YES DOPPLER: YES COLOR FLOW: YES TDS: PORTABLE: YES DEFINITY: BUBBLE STUDY: DIAGNOSIS: LOWER EXTREMITY EDEMA CARDIAC HISTORY: CATHERIZATION: NO SURGERY: NO PROSTHETIC VALVE: NO PACEMAKER: NO MEASUREMENTS (cm) DIASTOLIC (NORMALS) SYSTOLIC (NORMALS) IVSd 0.9 (0.6-1.2) LA Diam 3.0 (1.9-4.0) LVEF 67% LVIDd 4.5 (3.5-5.7) LVIDs 2.8 (2.0-3.5) %FS 37% LVPWd 1.1 (0.6-1.2) Ao Diam 2.7 (2.0-3.7) 2 DIMENSIONAL ASSESSMENT: RIGHT ATRIUM: NORMAL LEFT ATRIUM: NORMAL RIGHT VENTRICLE: NORMAL LEFT VENTRICLE: NORMAL TRICUSPID VALVE: NORMAL MITRAL VALVE: NORMAL PULMONIC VALVE: NORMAL AORTIC VALVE: NORMAL PERICARDIAL EFFUSION: NONE AORTIC ROOT: NORMAL LEFT VENTRICULAR WALL MOTION: NORMAL DOPPLER/COLOR FLOW: NORMAL COMMENTS: 1. NORMAL LEFT VENTRICULAR EJECTION FRACTION 55-60% 2. NORMAL WALL MOTION 3. NORMAL DIASTOLIC FUNCTION TECHNOLOGIST: JASON SHEA
--- NOTE | 2023-02-15 14:56 | EKG ---
Test Date: 2023-02-14 Test Time: 14:41:56 Cv/Cvn Cv Tsc System Operator: BENJAMÍN MEASUREMENT RESULTS: Intervals: Rate: 88 VA: 136 QRSD: 90 QT: 392 QTc: 474 Dubois: P: 58 VA: 136 QRS: 65 T: 53 INTERPRETIVE STATEMENTS: Normal sinus rhythm Normal ECG Compared to ECG 05/02/2018 09:36:37 No significant changes Electronically Signed On 02-15-23 14:54:13 CDT by Dinh Ballesteros
[2023-02-15] MEDS ORDERED: ALBUTEROL 2.5 MG/3 ML NEB SOL NEB PRN (15:00)
--- NOTE | 2023-02-15 16:47 | P.CNS ---
Date of Consult: 02/15/23 Reason for Consult: COPD exacerbation Chief Complaint: Dyspnea, edema History of Present Illness: Patient is 47 years of age with a history of COPD scented to the emergency room with worsening dyspnea and lower extremity edema apparently had fallen recently was scheduled to have continuous EEG and was using Advair at home has a history of obstructive sleep apnea was also prescribed p.o. steroids without any improvement he has been smoking daily in addition to marijuana has had 4 syncopal episodes S Allergies acetaminophen [From Vicodin] Adverse Reaction (Verified 02/14/23 21:01) Nausea/Vomiting hydrocodone [From Vicodin] Adverse Reaction (Verified 02/14/23 21:01) Nausea/Vomiting Home Medications: Esomeprazole Mag Trihydrate [Nexium] 40 mg PO DAILY #30 capsule. 01/26/18 Albuterol Sulfate [Albuterol Sulfate 0.083% Neb Soln] 2.5 mg IH Q6HP PRN 02/14/23 Albuterol Sulfate [Proair Respiclick] 2 puff IH Q6HP PRN 02/14/23 Atorvastatin Calcium [Lipitor] 20 mg PO BEDTIME 02/14/23 Budesonide/Formoterol Fumarate [Symbicort 80-4.5 Mcg Inhaler] 2 puff IH BID 02/14/23 Doxepin HCl 75 mg PO BEDTIME 02/14/23 Estradiol 2 mg PO BEDTIME 02/14/23 Furosemide [Lasix] 40 mg PO DAILY 02/14/23 Gabapentin 300 mg PO TIDP PRN 02/14/23 Ipratropium Neb [Atrovent Neb] 0.5 mg IH Q6HP PRN 02/14/23 Lactobacill 46/B.animal/Inulin [Probiotic-10 10 Bill Cell Cap] 1 each PO DAILY 02/14/23 Loperamide [Imodium] 2 mg PO TIDP PRN 02/14/23 Ondansetron [Zofran] 8 mg PO Q12HP PRN 02/14/23 Promethazine Tab [Phenergan] 25 mg PO Q4HP PRN 02/14/23 Propranolol HCl 20 mg PO BID 02/14/23 Quetiapine Fumarate [Seroquel] 200 mg PO BEDTIME 02/14/23 Sertraline [Zoloft] 200 mg PO DAILY 02/14/23 Solifenacin Succinate [Vesicare] 10 mg PO DAILY 02/14/23 Sumatriptan [Imitrex] 100 mg PO DAILYPRN PRN 02/14/23 Trazodone HCl 1 - 2 tab PO BEDTIME 02/14/23 Ubrogepant [Ubrelvy] 100 mg PO DAILYPRN PRN 02/14/23 buPROPion HCL [Bupropion HCl] 75 mg PO BID 02/14/23 - Past Medical/Surgical History Diabetic: No -: GERD -: Tobacco abuse -: Obesity -: COPD -: BPD/schizophrenia -: Early onset Alzheimer's? -: Appendectomy -: Hysterectomy Psychosocial/ Personal History: . She has 3 children. Currently unemployed. - Family History Father Medical History: Heart disease, Hypertension Mother Medical History: Heart disease, Hypertension - Social History Smoking Status: Current every day smoker Alcohol use: No CD- Drugs: Yes Caffeine use: Yes Place of Residence: Home Review of Systems 10-point ROS is otherwise unremarkable General: Weakness Respiratory: Cough, Shortness of Breath Physical Examination Temp Pulse Resp BP Pulse Ox 97.5 F 83 20 132/90 93 02/15/23 12:00 02/15/23 12:00 02/15/23 12:00 02/15/23 12:00 02/15/23 12:00 General: Alert, Oriented x3 HEENT: Atraumatic Neck: Supple Respiratory: Expiratory wheezes Cardiovascular: Normal S1 S2 Gastrointestinal: Normal bowel sounds, Soft and benign Musculoskeletal: No clubbing, No swelling Integumentary: No rashes, No breakdown Neurological: Normal speech - Problems (1) COPD exacerbation Current Visit: Yes Status: Acute Plan: Patient is 47 years of age admitted with worsening dyspnea she has recurrent syncopal attack patient is an active smoker also smokes marijuana mild renal dysfunction CT scan is unremarkable apart from well demarcated right upper lobe proximal nodule patient is aware of and was followed advised chemistries are unremarkable patient has a history of obstructive sleep apnea apparently uses her CPAP I will also added Daliresp and azithromycin she has had recurrent exacerbations so added Dulera scheduled Atrovent tensive bony work-up did not show any evidence of fractures TSH is normal also ordered arterial blood gases patient has a normal echocardiogram avoid Lasix add low-dose spironolactone
[2023-02-15] MEDS: ROFLUMILAST 500 MCG TABLET PO SCH (17:53)
[2023-02-15] MEDS: AZITHROMYCIN 250 MG TAB PO SCH (17:53)
[2023-02-15] MEDS: SPIRONOLACTONE 25 MG TABLET PO SCH (17:53)
[2023-02-15] MEDS: TRAMADOL HCL 50 MG TAB PO PRN (18:20)
[2023-02-15 19:15] LABS: Blood Gas Oxyhemoglobin 83.4 % (94-97); Blood O2 Saturation 85.6 % (92-98.5)
[2023-02-15 19:16] LABS: Arterial Blood Carboxyhemoglob 1.2 % (0-1.5)
[2023-02-15] MEDS: IPRATROPIUM BROM 0.5MG/2.5ML NEB SCH (20:25)
--- NOTE | 2023-02-15 20:35 | CON ---
Date of Consultation: 02/15/2023 Reason For Consultation: Shortness of breath to rule out heart failure. History Of Present Illness: A 47-year-old female with history of COPD, schizophrenia, presented to [facility] emergency room with shortness of breath and lower extremity edema. Her shortness of breath is wor sening over the past few weeks. Recently prescribed steroids for her shortness of breath multiple ti mes without significant improvement. Is active smoker. Does not have any chest pain or other compla ints at present time. Past Medical History: As outlined above in HPI. Medications: Refer to reconciliation sheet for detailed list. Allergies: HYDROMORPHONE, , HYDROCODONE, AND ACETAMINOPHEN. Family History: No premature coronary artery disease or cancer. Social History: She is an active smoker and she smokes marijuana. Review of Systems: All systems were reviewed. They were negative except what was mentioned in the HPI. Physical Examination: Vital Signs: Reviewed. Head and Neck: Pupils are equal and reactive to light. No JVD. No cervical lymphadenopathy. Neck: Supple. Thyroid is not enlarged. Lungs: Decreased breathing sounds bilaterally with wheezing. No accessory muscle use or muscle retr action. Heart: Irregular. No extra sounds. Abdomen: Soft, nontender. Bowel sounds positive. No organomegaly. No masses or hernia. No rigidi ty or rebound. Extremities: No clubbing or cyanosis. Intact pulses. Skin: No rash. Neurologic: Alert, awake. No acute focal deficits appreciated. Investigations: NT-proBNP is 37 and troponin is 4.9. BUN 15, creatinine 1.1, and hemoglobin is 13. Assessment And Recommendations: 1.Shortness of breath. This is likely not cardiac. NT-proBNP is normal. On echo, she has normal s ystolic and diastolic function, normal filling pressures. Likely, it is chronic obstructive pulmonar y disease related. The patient is being seen and evaluated by Pulmonary. 2.Elevated D-dimer. CTA PE protocol was negative. 3.Chronic obstructive pulmonary disease exacerbation, likely the cause of her shortness of breath. Cardiology will sign off. Thank you for the consult. /LATONYA Voice ID: [id number] Report ID: [id number]
[2023-02-15] MEDS: DULERA 200/5 (MOMETASONE/FORMOTEROL) INHALER IH SCH (21:00)
[2023-02-15] MEDS: QUETIAPINE 100MG TAB PO SCH (22:26)
[2023-02-15] MEDS: ATORVASTATIN 20 MG TAB PO SCH (22:27)
[2023-02-15] MEDS: DOXEPIN HCL 25 MG CAP PO SCH (22:27)
[2023-02-15] MEDS ORDERED: KETOROLAC 30 MG/ML INJ IV ONE (23:29)
[2023-02-16] MEDS: IPRATROPIUM BROM 0.5MG/2.5ML NEB SCH ×3 (01:25→14:00)
[2023-02-16 01:40] VITALS: O2SAT 95
[2023-02-16 03:25] LABS: Absolute Lymphocytes (CBC) 1.1 K/uL (0.7-4.9); Hematocrit 35.2 % (36.0-45.0); Lymphocytes % 10.9 % (15.3-44.8); MCV 88.3 fL (80-100); MPV 7.5 fL (7.6-11.3); Platelets 290 thou/uL (152-406); RBC Red Blood Cell Count 3.98 M/uL (3.86-4.86)
[2023-02-16 03:37] LABS: Magnesium 2.2 mg/dL (1.6-2.4); Potassium 4.1 mEq/L (3.5-5.1)
[2023-02-16] MEDS: PROPRANOLOL HCL 10 MG TAB PO SCH (08:58)
[2023-02-16] MEDS: SPIRONOLACTONE 25 MG TABLET PO SCH (08:59)
[2023-02-16] MEDS: LACTOBACILLUS/ACIDOPHILUS TAB PO SCH (08:59)
[2023-02-16] MEDS: SERTRALINE HCL 100 MG TAB PO SCH (08:59)
[2023-02-16] MEDS: predniSONE 20 MG TAB PO SCH (08:59)
[2023-02-16] MEDS: PANTOPRAZOLE 40MG TABLET PO SCH (08:59)
[2023-02-16] MEDS: ROFLUMILAST 500 MCG TABLET PO SCH (08:59)
[2023-02-16] MEDS: AZITHROMYCIN 250 MG TAB PO SCH (09:00)
[2023-02-16] MEDS: SOLIFENACIN SUCCIN 5 MG TAB PO SCH (09:00)
[2023-02-16] MEDS: BUPROPION 75 MG PO SCH (09:00)
[2023-02-16] MEDS: ENOXAPARIN 40 MG/0.4 ML SQ SCH (09:00)
[2023-02-16] MEDS: DULERA 200/5 (MOMETASONE/FORMOTEROL) INHALER IH SCH (09:01)
[2023-02-16] MEDS: TRAMADOL HCL 50 MG TAB PO PRN (09:10)
[2023-02-16] MEDS ORDERED: HYDROCODONE/APAP 5/325 MG TAB PO PRN (14:02)
--- NOTE | 2023-02-16 14:02 | P.PN ---
Subjective Date of Service: 02/16/23 Chief Complaint: COPD exacerbation and back pain Patient's pulmonary status has improved she has been complaining of severe back pain since the fall not having any back pain before Review of Systems General: Weakness Respiratory: Shortness of Breath Musculoskeletal: Back Pain Physical Examination - Vital Signs Temperature: 97.8 F Blood Pressure: 126/78 Pulse: 78 Respirations: 18 Pulse Ox (%): 92 - Physical Exam General: Alert, Oriented x3 Respiratory: Clear to auscultation bilaterally Cardiovascular: No edema, Regular rate/rhythm, Normal S1 S2 Assessment And Plan - Current Problems (Diagnosis) (1) COPD exacerbation Current Visit: Yes Status: Acute Plan: Pa patient is doing better as far as his COPD is concerned benefit from triple therapy at home continue with present bronchodilators no change patient's echo is normal (2) Back pain Current Visit: Yes Status: Acute Plan: Patient had developed some severe back pain since the fall he does have a history of neuropathy does take gabapentin patient is able to ambulate to the bathroom [place] any weakness of her extremity has full control over the bowels and urine ordered a spinal survey Qualifiers: Back pain location: low back pain
--- NOTE | 2023-02-16 15:29 | RAD REPORT ---
EXAM DESCRIPTION: RAD - Spine Entire Survey - 02/16/2023 2:49 pm CLINICAL HISTORY: Lower back pain recent falls COMPARISON: Sacrum And Coccyx dated 02/14/2023 FINDINGS: Inferior cervical spine is not well visualized. Mild lower cervical spondylosis. Thoracic vertebral body heights and disc spaces maintained. Bilateral spondylolysis with grade 1 anterolisthesis noted at L4-5. 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
--- NOTE | 2023-02-16 15:43 | P.PN ---
Date of Service: 02/16/23 Subjective: Breathing a little more comfortable on room air today no acute events overnight ROS: 10 point ROS as noted above, otherwise negative Physical Exam: GEN: Alert, oriented, NAD HEENT: Normal conjunctiva, sclera anicteric CV: Regular rate and rhythm, 2+ pitting edema b/l Pulm: mildly-labored respirations on room air, Diminished at bases b/l, Expiratory wheezes ABD: Soft, nontender, nondistended MSK: No shoulder join tenderness, normal ROM; tenderness at left posterior scapula Neuro: Normal speech, normal affect vitals reviewed Problem List: Dyspnea secondary to COPD with exacerbation b/l Lower extremity edema Syncope versus seizures Left shoulder pain s/p fall Incidental findin.5 cm right upper lobe pulmonary nodule Hyperlipidemia BPD schizophrenia anxiety possible early onset Alzheimer's Dyspnea secondary to COPD with exacerbation CXR (02/14): No acute cardiopulmonary process. CTA chest (02/14): Incidentally noted 1.5 cm right upper lobe nodule, otherwise no acute central pulmonary emboli. short of breath / dyspneic at rest pulm consulted Continue PO steroids ICS, other home medications RENÉE nebs b/l Lower extremity edema venous doppler (02/14): no DVT xray Foot (02/14): Dorsal soft tissue swelling. No acute osseus abnormality. Takes Lasix at home with no formal diagnosis of CHF started on IV lasix on admission Echo: 67% EF, normal diastolic dysfunction Cardiology consulted Syncope vs. seizures Left shoulder pain s/p fall Patient reports has been having these episodes for the last year or so with typically about 4 episodes per week, her last episode was last night. She describes episodes typically occurring while standing not after change in position without any prodrome or aura lasting an unknown period of time. Patient has a prolonged EEG scheduled for March, denies formal seizure diagnosis or other explanation of events. 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 Hyperlipidemia BPD schizophrenia anxiety possible early onset Alzheimer's Continue home medications as appropriate VTE: Lovenox Code: Full Dispo: Home, ~2 days
--- NOTE | 2023-02-16 15:59 | P.DS ---
Admission Date: 02/14/23 Discharge Date: 02/16/23 Reason for Admission: COPD exacerbation and back pain Consultations: Cardiology - Dr. Ballesteros Pulmonology - Dr. Chand Brief History of Present Illness: 47-year-old female with history of COPD, hyperlipidemia, BPD/schizophrenia, short-term memory loss/possible early onset Alzheimer's presents to the emergency department with chief complaint of shortness of breath, lower extremity edema. She also reports has been having episodes with loss of consciousness about 4 times a week over the course of the last 1 year. She reports increasing dyspnea over the course of the last few weeks, recently prescribed some p.o. steroids without improvement. She does admit to vaping daily as well as smoking marijuana. In regards to her syncopal episodes versus seizures she reports that they typically happen when she is standing she has no prodrome including chest pain, palpitations, headache or other auras and she typically wakes up in the floor after an unknown period of time. She reports being evaluated by neurology at [facility] and has had extensive testing with a possible diagnosis of early onset Alzheimer's, short-term memory loss. She is supposed to have a prolonged EEG in March. Her last episode was last night occurred while standing. She is not on any seizure medicines currently, has not been diagnosed with seizures. She was evaluated in the emergency department her labs were significant for D- dimer 973 chloride 108 creatinine 1.13 GFR 60 glucose 118 chest x-ray negative for acute findings negative for DVT lower extremities bilaterally foot x-ray negative for acute bony abnormality, sacrum and coccyx x-ray negative for acute findings CTA of the chest negative for PE incidental finding of 1.5 cm right upper lobe nodule. She will be admitted for COPD exacerbation, pedal edema. Hospital Course: Problem List: Dyspnea secondary to COPD with exacerbation b/l Lower extremity edema Syncope versus seizures Left shoulder pain s/p fall Incidental findin.5 cm right upper lobe pulmonary nodule Hyperlipidemia BPD schizophrenia anxiety possible early onset Alzheimer's Patient presented to ED with shortness of breath and found to be in acute COPD exacerbation. Pulmonology, Dr. Chand, was consulted. Patient had improvement of her symptoms with treatment consisting of nebs, steroids, and inhalers. She reported improvement and felt ready for discharge home. She was deemed stable for discharge. Dr. Chand recommended stopping lasix and starting spironolactone. Given her lower extremity edema, cardiology was consulted. Echo was normal - noted 67% EF with normal wall motion and normal diastolic dysfunction. No DVT seen on venous ultrasound. No further cardiac workup during hospitalization. Medications: New: Start Spironolactone start prednisone dose pack as prescribed recently Stop: Lasix Continue other home medications as previously prescribed Follow up: PCP 3-5 days Pulm - Dr. Chand in 1-2 weeks Cardiology in 1-2 weeks Patient had a syncopal episode when standing in her room. X-rays were negative for any acute findings / fractures. She is currently being worked up for this as outpatient. Physical Exam: GEN: Alert, oriented, NAD HEENT: Normal conjunctiva, sclera anicteric CV: Regular rate and rhythm, 1+ pitting edema b/l Pulm: nonlabored respirations on room air ABD: Soft, nontender, nondistended MSK: No shoulder join tenderness, normal ROM; tenderness at left posterior scapula Neuro: Normal speech, normal affect Vital Signs/Physical Exam: Temp Pulse Resp BP Pulse Ox 97.8 F 78 18 126/78 92 02/16/23 14:03 02/16/23 14:03 02/16/23 14:03 02/16/23 14:03 02/16/23 14:03 Laboratory Data at Discharge: WBC 9.70 thou/uL (4.3-10.9) 02/16/23 02:38 Hgb 12.0 g/dL (12.0-15.0) 02/16/23 02:38 Hct 35.2 % (36.0-45.0) L 02/16/23 02:38 Plt Count 290 thou/uL (152-406) 02/16/23 02:38 Sodium 142 mEq/L (136-145) 02/16/23 02:38 Potassium 4.1 mEq/L (3.5-5.1) 02/16/23 02:38 BUN 22 mg/dL (7-18) H 02/16/23 02:38 Creatinine 1.05 mg/dL (0.55-1.02) H 02/16/23 02:38 Glucose 130 mg/dL (74-106) H 02/16/23 02:38 Magnesium 2.2 mg/dL (1.6-2.4) 02/16/23 02:38 Total Bilirubin 0.2 mg/dL (0.2-1.0) 02/14/23 14:34 AST 20 U/L (15-37) 02/14/23 14:34 ALT 34 U/L (13-56) 02/14/23 14:34 Alkaline Phosphatase 105 U/L (45-117) 02/14/23 14:34 Triglycerides 71 mg/dL (<150) 02/15/23 02:27 Cholesterol 214 mg/dL (<200) H 02/15/23 02:27 HDL Cholesterol 66 mg/dL (40-60) H 02/15/23 02:27 Cholesterol/HDL Ratio 3.24 02/15/23 02:27 Home Medications: Esomeprazole Mag Trihydrate [Nexium] 40 mg PO DAILY #30 capsule. 01/26/18 Albuterol Sulfate [Albuterol Sulfate 0.083% Neb Soln] 2.5 mg IH Q6HP PRN 02/14/23 Albuterol Sulfate [Proair Respiclick] 2 puff IH Q6HP PRN 02/14/23 Atorvastatin Calcium [Lipitor] 20 mg PO BEDTIME 02/14/23 Budesonide/Formoterol Fumarate [Symbicort 80-4.5 Mcg Inhaler] 2 puff IH BID 02/14/23 Doxepin HCl 75 mg PO BEDTIME 02/14/23 Estradiol 2 mg PO BEDTIME 02/14/23 Gabapentin 300 mg PO TIDP PRN 02/14/23 Ipratropium Neb [Atrovent Neb] 0.5 mg IH Q6HP PRN 02/14/23 Lactobacill 46/B.animal/Inulin [Probiotic-10 10 Bill Cell Cap] 1 each PO DAILY 02/14/23 Loperamide [Imodium] 2 mg PO TIDP PRN 02/14/23 Ondansetron [Zofran] 8 mg PO Q12HP PRN 02/14/23 Promethazine Tab [Phenergan] 25 mg PO Q4HP PRN 02/14/23 Propranolol HCl 20 mg PO BID 02/14/23 Quetiapine Fumarate [Seroquel] 200 mg PO BEDTIME 02/14/23 Sertraline [Zoloft] 200 mg PO DAILY 02/14/23 Solifenacin Succinate [Vesicare] 10 mg PO DAILY 02/14/23 Sumatriptan [Imitrex] 100 mg PO DAILYPRN PRN 02/14/23 Trazodone HCl 1 - 2 tab PO BEDTIME 02/14/23 Ubrogepant [Ubrelvy] 100 mg PO DAILYPRN PRN 02/14/23 buPROPion HCL [Bupropion HCl] 75 mg PO BID 02/14/23 Spironolactone [Aldactone*] 25 mg PO DAILY 30 Days #30 tab 02/16/23 New Medications: Spironolactone [Aldactone*] 25 mg PO DAILY 30 Days #30 tab Physician Discharge Instructions: Patient presented to ED with shortness of breath and found to be in acute COPD exacerbation. Pulmonology, Dr. Chand, was consulted. Patient had improvement of her symptoms with treatment consisting of nebs, steroids, and inhalers. She reported improvement and felt ready for discharge home. She was deemed stable for discharge. Dr. Chand recommended stopping lasix and starting spironolactone. Given her lower extremity edema, cardiology was consulted. Echo was normal - noted 67% EF with normal wall motion and normal diastolic dysfunction. No DVT seen on venous ultrasound. No further cardiac workup during hospitalization. Medications: New: Start Spironolactone start prednisone dose pack as prescribed recently Stop: Lasix Continue other home medications as previously prescribed Follow up: PCP 3-5 days Pulm - Dr. Chand in 1-2 weeks Cardiology in 1-2 weeks Patient had a syncopal episode when standing in her room. X-rays were negative for any acute findings / fractures. She is currently being worked up for this as outpatient. Followup: NONE,NONE [Primary Care Provider] - Time spent managing pt's care (in minutes): 45
[2023-02-16 17:00] VITALS: BP 128/94; TEMP 98.7
== END 2023-02-16 17:45 | disposition home or self-care (01) ==
LOC: ER 13:55 → ERHOLD 18:12 → 2ND 19:34
PROVIDERS: ADMIT Hospitalist; ATTEND Hospitalist
DX: J44.1 Chronic obstructive pulmonary disease with (acute) exacerbation (principal); R55 Syncope and collapse; E78.5 Hyperlipidemia, unspecified; F31.9 Bipolar disorder, unspecified; R41.3 Other amnesia; R60.9 Edema, unspecified; R09.02 Hypoxemia; E66.9 Obesity, unspecified; R79.1 Abnormal coagulation profile; F17.290 Nicotine dependence, other tobacco product, uncomplicated; F12.90 Cannabis use, unspecified, uncomplicated; R91.1 Solitary pulmonary nodule; M25.512 Pain in left shoulder; M79.672 Pain in left foot; F20.9 Schizophrenia, unspecified; F41.9 Anxiety disorder, unspecified; W19.XXXA Unspecified fall, initial encounter; Z88.6 Allergy status to analgesic agent; Z82.49 Family history of ischemic heart disease and other diseases of the circulatory system; Z68.42 Body mass index [BMI] 45.0-49.9, adult
CPT/HCPCS: 96365; 93005; 93306; 85025 ×3; 80048 ×3; 36415 ×2; 83735 ×3; 80061; 85379; 80076; 84443; 84484; 84439; 83880; 71275; 71045; 72220; 72082; 73630; 93970; 94640 ×2; 82805; 96375; 99285; 96366; Q9967; J7512 ×4; J3535; J1940 ×2; J7614 ×2; J7613 ×3; J7644 ×5; J1650 ×2; J2930; G0378 ×5

== ENCOUNTER 2025-01-28 07:31 | Day surgery (SDC) | payer MEDICAID, OTHER ==
[2025-01-23 12:48] LABS: Anion Gap 6.1 mEq/L (5.0-15.0); BUN Blood Urea Nitrogen 12.0 mg/dL (7-18); Glucose Level 89.0 mg/dL (74-106)
[2025-01-23 12:49] LABS: Potassium 4.1 mEq/L (3.5-5.1)
[2025-01-28] MEDS ORDERED: LIDOCAINE 1% MPF 5 ML VIAL ONE ×2 (07:53→09:09)
[2025-01-28] MEDS ORDERED: NA CHLORIDE 0.9% 1,000 ML ONE (08:08)
[2025-01-28 09:44] VITALS: BP 108/61; TEMP 97.5; O2SAT 99
== END 2025-01-28 09:35 | disposition home or self-care (01) ==
LOC: OR 07:31
PROVIDERS: ATTEND Internal Medicine Gastroenterology
PROC: 0DB68ZX Excision of Stomach, Via Natural or Artificial Opening Endoscopic, Diagnostic (ICD-10-PCS; 2025-01-28)
PROC: 0DB18ZX Excision of Upper Esophagus, Via Natural or Artificial Opening Endoscopic, Diagnostic (ICD-10-PCS; 2025-01-28)
PROC: 0DB28ZX Excision of Middle Esophagus, Via Natural or Artificial Opening Endoscopic, Diagnostic (ICD-10-PCS; 2025-01-28)
PROC: 0DB98ZX Excision of Duodenum, Via Natural or Artificial Opening Endoscopic, Diagnostic (ICD-10-PCS; principal; 2025-01-28 08:30)
DX: K30 Functional dyspepsia (principal); K21.9 Gastro-esophageal reflux disease without esophagitis; R13.19 Other dysphagia; K59.1 Functional diarrhea; K44.9 Diaphragmatic hernia without obstruction or gangrene; K29.50 Unspecified chronic gastritis without bleeding
CPT/HCPCS: 43239; 93005; 80048; 36415; 88312; 82947; 88305; J2704; J2003 ×2; J7030

== ENCOUNTER 2025-02-25 07:31 | Day surgery (SDC) | payer MEDICAID, OTHER ==
[2025-02-21 12:22] LABS: Anion Gap 6.9 mEq/L (5.0-15.0); BUN Blood Urea Nitrogen 12.0 mg/dL (7-18); Glucose Level 104.0 mg/dL (74-106); Potassium 3.9 mEq/L (3.5-5.1)
[2025-02-25] MEDS ORDERED: LIDOCAINE 1% MPF 5 ML VIAL ONE (08:18)
[2025-02-25] MEDS: NA CHLORIDE 0.9% 1,000 ML ONE (08:26)
[2025-02-25 09:40] VITALS: O2SAT 96
[2025-02-25 09:57] VITALS: BP 109/63; TEMP 98.1
== END 2025-02-25 10:00 | disposition home or self-care (01) ==
LOC: OR 07:31
PROVIDERS: ATTEND Internal Medicine Gastroenterology
PROC: 0W3P8ZZ Control Bleeding in Gastrointestinal Tract, Via Natural or Artificial Opening Endoscopic (ICD-10-PCS; 2025-02-25)
PROC: 0DBK8ZX Excision of Ascending Colon, Via Natural or Artificial Opening Endoscopic, Diagnostic (ICD-10-PCS; 2025-02-25)
PROC: 0DBB8ZX Excision of Ileum, Via Natural or Artificial Opening Endoscopic, Diagnostic (ICD-10-PCS; principal; 2025-02-25 08:30)
DX: K59.1 Functional diarrhea (principal); K64.8 Other hemorrhoids; K63.5 Polyp of colon; Z86.0100 Personal history of colon polyps, unspecified
CPT/HCPCS: 45380; 45385; 93005; 80048; 36415; 82947; 88305; J2704; J2003; J7030